=== PATIENT | female | born 1960 | race Caucasian/White ===

== ENCOUNTER 2023-06-04 08:41 | Inpatient (IN) | payer BC, SELFPAY ==
[2023-06-03] VITALS (15 sets, daily range): BP systolic 104–139; BP diastolic 56–107; BMI 39.8; BMI 39.3
[2023-06-03 18:16] LABS: % Basophils 0.8 % (0-2); % Eosinophils 6.6 % (0-6); % Immature Granulocytes 0.5 % (0-0.5); % Lymphocytes 17.9 % (20.5-51.1); % Monocytes 8.6 % (1.7-9.3); % Neutrophils 65.6 % (42.2-75.2); Absolute Basophils 0.1 10^3/uL (0-0.2); Absolute Eosinophils 0.4 10^3/uL (0-0.7); Absolute Lymphocytes 1.2 10^3/uL (1.2-3.4); Absolute Monocytes 0.6 10^3/uL (0.1-0.6); Absolute Neutrophils 4.3 10^3/uL (1.4-6.5); Hematocrit 41.5 % (37.0-47.0); Hemoglobin 13.8 g/dL (12.0-16.0); Mean Corp Hgb Conc. 33.3 g/dL (33.0-37.0); Mean Corpuscular Hgb 31.7 pg (27.0-31.0); Mean Corpuscular Volume 95.4 fL (81.0-99.0); Mean Platelet Volume 12.8 fL (7.4-10.4); Nucleated Red Blood Cells % 0 %; Platelet Count 244 10^3/uL (130-400); Red Blood Cell Count 4.35 10^6/uL (4.20-5.40); Red Cell Dist. Width 13.1 % (11.5-14.5); White Blood Cell Count 6.5 10^3/uL (4.8-10.8)
[2023-06-03 18:32] LABS: ALT (SGPT) 62 U/L (0-35); AST (SGOT) 27 U/L (14-36); Albumin 4.2 g/dl (3.5-5.0); Alkaline Phosphatase 164 U/L (38-126); Blood Urea Nitrogen 26 mg/dl (7-17); Calcium 9.2 mg/dl (8.4-10.2); Carbon Dioxide 26 mmol/L (22-30); Chloride 103 mmol/L (98-107); Estimated Creatinine Clearance 81 ml/min; Glucose 88 mg/dl (70-99); Magnesium 2.3 mg/dl (1.6-2.3); Potassium 4.9 mmol/L (3.5-5.1); Sodium 134 mmol/L (135-145); Total Bilirubin 1.6 mg/dl (0.2-1.3); Total Protein 6.6 g/dl (6.3-8.2); eGFR > 60.00
[2023-06-03 18:50] LABS: NT-proBNP 128 pg/ml
[2023-06-03] MEDS: ASPIRIN 325 MG PO (19:49)
[2023-06-03] MEDS: NITROSTAT (SUBLINGUAL) 0.400000000000000022 MG SL ×2 (20:00→20:35)
--- NOTE | 2023-06-03 20:14 | HPS.HSE ---
Family Physician
-
Family Physician: Sukhjinder Leyva
Chief Complaint
-
CP
History of Present Illness
62F HX CAD/STEMI: s/p thrombectomy OM2 09/19/15 on ASA and carvedilol HLD on statin, HX Mesothelioma pw chest sdisconfort , onset 2 hrsa go. She had a period of CP with relief having some recurrence now (though minimal), repeated the EKG without
change
ER initated ASA loading ,Nitro SL x3 and heparin gtt.
Medical History
Past Medical History
Past Medical History: Reports Other
Additional Past Medical History:
GERD, HTN, Hypercholesterolemia and [place];
Past Surgical History: Reports Other
Additional Past Surgical History:
Cardiac (Cardiac catheterization), Gynecological, Orthopedic and Other (Hernia)
Social History
Tobacco: Former Smoker (Quit smoking approximately 5 years ago)
Alcohol: None
Personal:
Living: With Family
Family History
Family History: Not pertinent
Allergies / Home Medications
Allergies reflects when Allergies were last updated in [facility].
Home Medications with original date entered in [facility]
Allergy/Medication List:
Allergies
Allergy/AdvReac Type Severity Reaction Status Date / Time
amoxicillin [From Augmentin] Allergy colitis Verified 06/03/23 16:48
clavulanic acid Allergy colitis Verified 06/03/23 16:48
[From Augmentin]
Sulfa (Sulfonamide Allergy Hives Verified 06/03/23 16:48
Antibiotics)
Home Medications
nitroglycerin 0.4 mg sublingual tablet 0.4 mg sublingual [id number] PRN chest pain ##25 09/20/15
aspirin 81 mg tablet,delayed release 81 mg PO HS Blood clot prevention/tx 09/07/18
atorvastatin 40 mg tablet 40 mg PO DAILY High cholesterol 09/07/18
furosemide 20 mg tablet 20 mg PO DAILYPRN PRN LE edema 09/07/18
lisinopril 5 mg tablet 5 mg PO BID Blood pressure 09/07/18
sucralfate 1 gram tablet 1 g PO BIDPRN PRN stomach issuses 09/07/18
carvedilol 6.25 mg tablet 6.25 mg PO BID Blood pressure 11/14/20
multivitamin with folic acid 400 mcg tablet (Tab-A-Raquel) 1 tab PO DAILY Supplement 11/14/20
valacyclovir 500 mg tablet 500 mg PO DAILYPRN PRN cold sores 11/14/20
zolpidem 12.5 mg tablet,extended release,multiphase (Ambien CR) 12.5 mg PO HS Sleep 11/14/20
calcium carbonate 500 mg calcium (1,250 mg) tablet 500 mg PO DAILY 06/03/23
cefdinir 300 mg capsule 300 mg PO BID 06/03/23
gabapentin 300 mg capsule 300 mg PO BID 06/03/23
lorazepam 0.5 mg tablet 0.5 mg PO HS PRN anxiety 06/03/23
Review of Systems
-
Constitutional: Reports No Symptoms
EENT: Reports No Symptoms
Respiratory: Reports No Symptoms
Cardiac: Reports Chest Pain
Abdomen/GI: Reports No Symptoms
: Reports No Symptoms
Musculoskeletal: Reports No Symptoms
Skin: Reports No Symptoms
Neurological: Reports No Symptoms
Endocrine: Reports No Symptoms
Hematologic/Lymphatic: Reports No Symptoms
Psych: Reports No Symptoms
Physical Exam
Vital Signs
Vital Signs
Temp Pulse Resp BP Pulse Ox
97.9 F 78 18 138/72 78
06/03/23 16:44 06/03/23 19:51 06/03/23 19:51 06/03/23 19:51 06/03/23 19:51
Physical Exam
General: Other (see below )
Laboratory Results
-
06/03/23 18:03
06/03/23 18:03
Laboratory Results
Total Bilirubin 1.6 mg/dl (0.2-1.3) H 06/03/23 18:03
AST 27 U/L (14-36) 06/03/23 18:03
ALT 62 U/L (0-35) H 06/03/23 18:03
Alkaline Phosphatase 164 U/L (38-126) H 06/03/23 18:03
Troponin I 0.050 ng/ml H* 06/03/23 18:03
Data Reviewed
-
CT Scan: Report Reviewed by me
Medical Tests (Nuc Med, Echo, EKG etc): Report Reviewed by me and Discussed with Physician
Lab Data: Labs Reviewed by me
Old Records: Reviewed
Impression/Plan
-
Reviewed VS: HR low 60s on BB otherwise unremarkable
PE
GENERAL: No distress
HEENT: not icteric
HEENT: supple neck, no JVD
CARDIOVASCULAR: No murmurs, normal heart rate and rhythm, No chest wall tenderness
PULMONARY: No respiratory distress, breath sounds are clear and equal
ABDOMEN: Soft with no peritoneal signs, no tenderness
NEUROLOGIC: Excellent strength all extremities, no coordination deficits
PSYCHIATRIC: Appropriate mental status, normal insight and judgement
EXTREMITIES: Some superficial varicosities noted to the distal left lower extremity at the area of concern.
SKIN: No rash
Data
Unremarkable CBC
Na 134
BUN 26
nl Cr nl GFR
TB 1.6^ nl AST ALT 62^
TPNI @1803 H 0.050 secont TPNI @ 1954 H
EKG report
SINUS RHYTHM WITH 1ST DEGREE A-V BLOCK
OTHERWISE NORMAL ECG
WHEN COMPARED WITH ECG OF 03-JUN-2023 16:50,
PREMATURE VENTRICULAR COMPLEXES ARE NO LONGER PRESENT
09/19/15 LHC: LVEDP 28. OM2 occluded - suction thrombectomy with no residual plaque/stenosis (no PCI). Lateral akinesis 42%.
09/19/15 TTE: mildly dilated LV with EF 35%. Takotsubo pattern
03/23/23 TTE
LVEF 55-60
nl diastolic function
PASP 25 Hg
06/03/23 CTC for PE protocol
1. No CTA evidence for an acute pulmonary thromboembolism.
2. Small right pleural effusion.
3. Cholelithiasis.
4. Left lobe thyroid gland nodule measuring 1.2 cm for which a follow-up thyroid ultrasound can be performed on a routine outpatient basis.
Last admission 11/14/20 - 11/18/20
PRIMARY DIAGNOSIS: Acute colitis, suspected infectious.
SECONDARY DIAGNOSES:
1. Coronary artery disease.
2. Hypertension.
3. Hyperlipidemia.
ASSESSMENT & PLAN
CP with abn TPNI despite nl GFR - unremarkable EKG and no dynamic changes
HX CAD/STEMI: s/p thrombectomy OM2 09/19/15 on ASA and carvedilol
Some relief with SL NTG
HX HLD on Stain
- P cared: Dr Villatoro
of note; NEG CTC for PE
- s/p ASA loading dose
- cont. SL NTG PRN for CP
- agree with Heparin gtt
- cont ROUTE CONTRACTOR carvedilol and Atorvastatin
- Tred TPNI till peak
- CBC card consulted upon admission
SB due to carvedilol
- observe HR
HX essential HTN - control on BB
Abn TPNI and ALT; Mild
- Trend LFTs
- will cont. Stain for now
HX Mesothelioma
DVT Px: on Heparin gtt
Code: Full
Obs TLM
--- NOTE | 2023-06-03 20:18 | ED.GENMED ---
History of Present Illness
General
Chief Complaint: Chest Pain
Source: patient, spouse and family
Exam Limitations: none
Time Seen by Provider: 06/03/23 17:13
Nursing documentation reviewed up to this point in time: agreed with
Travel History
Have you had any contact with someone who has COVID-19?: No
Do you have any symptoms of coronavirus? Fever > 100 degrees, chills, cough, shortness of breath, sore throat, loss of taste or smell, muscle aches, or headache?: No
History of Present Illness
History of Present Illness:
62-year-old female past medical history of hypertension hyperlipidemia previous UT in 2016 recent diagnosis of mesothelioma presenting to the emergency department today with concerns of chest discomfort described as pressure some shortness of breath
over the past few hours prior to arrival. Denies nausea vomiting diaphoresis.
Past History
Past History
ED Past Medical History: GERD, HTN, Hypercholesterolemia and [place]; Negative NIDDM
ED Past Surgical History: Cardiac (Cardiac catheterization), Gynecological, Orthopedic and Other (Hernia)
Social History
Tobacco: Former smoker (Quit smoking approximately 5 years ago.)
Alcohol: None
Personal:
Living: with family
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
Family History
Family History: Early CAD (Father, late 30s, at 43.)
Review of Systems
Review of Systems
Allergies reviewed?: Yes
All Other Systems: ROS reviewed and negative except as documented in HPI and ROS
Phy Exam
Physical Exam
Physical Exam:
GENERAL: Alert , in no apparent distress
EYE: pupils equal and reactive
NECK: Supple, no significant adenopathy.
ENT: o/p clr, mmm.
CARDIAC: Regular rate and rhythm .
LUNGS: Clear breath sounds bilaterally, no acute respiratory distress, no wheezes/rales/rhonchi
ABDOMEN: Soft, without focal tenderness, no r/g, no cvat
NEUROLOGICAL: Alert and oriented, no focal neuro deficits
SKIN: Warm and dry, skin intact.
MUSCULOSKELETAL: No edema, well perfused.
PSYCH: Normal and appropriate interaction.
Scores
Heart Score for Chest Pain Patients
STEMI patient?: No
History: Moderately Suspicious
ECG: Normal
Age: >45 - <65 years
Risk Factors: >/= 3 Risk Factors or History of CAD
Troponin: >1 - <3 x Normal Limit
Heart Score for Chest Pain Patients: 5
Heart Score Risk: 20.3% MACE over next 6 weeks
Course
Orders/Labs/Results
Orders:
Orders
06/03/23 16:48
Electrocardiogram (*1) Urgent
Reason for Study: Chest Pain
EKG- Treatment ONCE
06/03/23 17:43
CT Chest Pe Study Urgent
Comment:
Reason For Exam: mesthoelioma, recent biopsy, cp sob
06/03/23 18:03
Complete Blood Count/With Diff Urgent
Comprehensive Metabolic Panel Urgent
Magnesium Urgent
NT-proBNP Urgent
Troponin I Urgent
06/03/23 19:30
Electrocardiogram (*1) Urgent
Reason for Study: Other
Other Reason for Exam: troponin
EKG- Treatment ONCE
06/03/23 19:46
Aspirin 325 mg PO NOW STA
06/03/23 19:54
Troponin I Urgent
06/03/23 19:56
Nitroglycerin Sublingual [Nitrostat (Sublingual)] 0.4 mg SL [id number] PRN
06/03/23 19:58
PTT Urgent
Comment: Obtain baseline before beginning heparin infusion if not already collected
Heparin 4,000 units IV NOW STA
Pharmacy Request to Place See Dose Instructions PO NOW STA
Discontinue all Active Warfarin orders?: Yes
Nursing to Place Non Medication Order As Directed
Physician Order: PTT 6 hours after initial start of Heparin infusion
06/03/23 20:00
Heparin [id number] Units/250 ml 25,000 units in 250 ml IV PER PROTOCOL
Weight to be used for heparin protocol in kilograms (kg):: 122.3
Protocol:: Cardiac Tx/Acute Coronary
PTT Goal Range to be used:: PTT 73 to 111 seconds
Order type:: Initial
INITIAL Infusion Dose (UNITS/KG/hr) & then follow protocol:: 12 units/kg/hr
Infusion Dose in UNITS/hr & then follow protocol (UNITS/hr):: 1,000
INFUSION RATE in mL/hr & then follow protocol (mL/hr):: 10
PTT less than or equal to 64 seconds:: Increase rate by 200 units/hr (+ 2 mL/hr)
PTT 64.1 to 72.9 seconds:: Increase rate by 100 units/hr (+ 1 mL/hr)
PTT 73 to 111 seconds:: Target Range. No change in rate.
PTT 111.1 to 130.9 seconds:: Decrease rate by 100 units/hr (- 1 mL/hr)
PTT 131 to 199.9 seconds:: HOLD for 1 hr. Then decrease rate by 200 units/hr (- 2 mL/hr)
PTT greater than or equal to 200 seconds:: HOLD for 2 hrs & Notify Provider. Then decrease by 200 units/hr (-
2 mL/hr)
Lab follow-up:: Each change, PTT q6h until 2 consecutive are therapeutic. Then PTT
daily.
Pharmacy Request to Place See Dose Instructions IV DIRECTED
Abnormal Lab Results
06/03/23
18:03
MCH 31.7 H pg
(27.0-31.0)
MPV 12.8 H fL
(7.4-10.4)
Lymphocytes % 17.9 L %
(20.5-51.1)
Eosinophils % 6.6 H %
(0-6)
Sodium 134 L mmol/L
(135-145)
BUN 26 H mg/dl
(7-17)
Total Bilirubin 1.6 H mg/dl
(0.2-1.3)
ALT 62 H U/L
(0-35)
Alkaline Phosphatase 164 H U/L
(38-126)
Troponin I 0.050 H* ng/ml
06/03/23 18:03
06/03/23 18:03
Vital Signs
Initial and Last Documented VS:
Initial Vital Signs
Temp Pulse Resp BP Pulse Ox
97.9 F 87 18 139/84 96
06/03/23 16:44 06/03/23 16:44 06/03/23 16:44 06/03/23 16:44 06/03/23 16:44
Last Documented Vital Signs
Temp Pulse Resp BP Pulse Ox
97.9 F 78 18 138/72 78
06/03/23 16:44 06/03/23 19:51 06/03/23 19:51 06/03/23 19:51 06/03/23 19:51
MDM/Problems Addressed
MDM/Problems Addressed:
62-year-old female presenting to the emergency department today with concerns of chest pressure and shortness of breath that occurred at work while sitting at a desk roughly 2 hours prior to arrival. Recently diagnosed with mesothelioma a
previously had coronary artery disease and thrombectomy in 2016. Per here EKG normal in appearance nonischemic no STEMI initial labs showing a mildly elevated troponin level of 0.[address] PE was obtained that she is
potentially moderate risk for PE given diagnosis of mesothelioma as well as procedure a few weeks ago for biopsy. This was negative for PE. With elevated troponin level concern for NSTEMI started on heparin and admitted for further monitoring and
treatment.
*Critical Care Note
Total Time (30-74mins, 75-104mins- exclusive of procedures): Not Applicable
ED Attending Note
-
Portions of this chart may have been created with voice recognition software.� Occasional wrong word or��sound alike� substitutions may have occurred due to the inherent limitations of voice recognition software.
Discharge Plan
Departure
Patient Disposition: Admit
Date of Disposition: 06/03/23
Time of Disposition: 20:20
Admit to: Telemetry
Admit to doctor: Htay
Presentation/result/management discussed w/ accepting MD/DO: Hospitalist
Patient with high blood pressure during this ER visit?: No
Condition: Good
Covid-19: Not Applicable
Discharge Problem:
Non-ST elevation [place] (NSTEMI)
Prescriptions:
No Action
nitroglycerin 0.4 MG tablet, sublingual
0.4 mg sublingual [id number] PRN (Reason: chest pain) Qty: 25 3RF
sucralfate 1 GRAM tablet
1 g PO BIDPRN PRN (Reason: stomach issuses)
lisinopril 5 MG tablet
5 mg PO BID
atorvastatin 40 MG tablet
40 mg PO DAILY
aspirin 81 MG tablet,delayed release (DR/EC)
81 mg PO HS
furosemide 20 MG tablet
20 mg PO DAILYPRN PRN (Reason: LE edema)
valacyclovir 500 MG tablet
500 mg PO DAILYPRN PRN (Reason: cold sores)
zolpidem [Ambien CR] 12.5 MG tablet,ext release multiphase
12.5 mg PO HS
multivitamin with folic acid [Tab-A-Raquel] 1 TABLET tablet
1 tab PO DAILY
carvedilol 6.25 MG tablet
6.25 mg PO BID
lorazepam 0.5 mg Tablet
0.5 mg PO HS PRN (Reason: anxiety)
calcium carbonate [Calcium 500] 500 mg calcium (1,250 mg) Tablet
500 mg PO DAILY
gabapentin 300 mg Capsule
300 mg PO BID
cefdinir 300 mg Capsule
300 mg PO BID
Patient Comments:
patient case picker on 05/25/23 for 10 days
Referrals:
Sukhjinder Leyva, [Family Provider] -
Interventions
Interventions:
*General Assessment Last Done: 06/03/23 16:44
ED- Fall Risk Assessment Last Done: 06/03/23 17:22
*ED COVID-19 Vaccine History Last Done: 06/03/23 16:44
ED- Cardiac Assessment Last Done: 06/03/23 17:22
[2023-06-03 20:36] LABS: APTT 30.1 Sec (23.4-35.0)
[2023-06-03] MEDS: MORPHINE SULFATE 1 MG IV (20:51)
[2023-06-03] MEDS: HEPARIN 4000 UNITS IV (20:56)
[2023-06-03] MEDS: HEPARIN 25000 UNITS/250 ML IV (20:59)
--- NOTE | 2023-06-03 21:50 | W.PN.UPDATE ---
Addendum entered and electronically signed by Maurilio Mcdonald MD 06/04/23 13:01:
I saw and examined the patient.
The ACTING TEACHER or PA's note was reviewed and I agree with the note.
Comment:
Original Note:
Update Note
Progress Note Update
Patient continues to complain of chest pain 10/10, just received Morphine almost an hour ago, repeat Troponin 0.050, Will transfer patient to IMU for closer observation, Start on Nitro drip for chest pain. Dr. William aware
[2023-06-03] MEDS: NITROGLYCERIN PREMIX 250 IV (22:06)
[2023-06-03] MEDS: ASPIR LOW (ENTERIC COATED) PO (23:21)
[2023-06-04] VITALS (27 sets, daily range): BP systolic 94–149; BP diastolic 41–90; BMI 39.1
--- NOTE | 2023-06-04 | PTCARENOTE ---
Received patient from ED via stretcher accompanied by ED RN. Patient ambulated self to bed without difficulty. Nursing assessment completed and as documented. Patient on heparin gtt and nitro gtt for CP, titrating both per protocol - see worklist
for documentation. Call sy within reach, safe environment maintained, care ongoing.
[2023-06-04] MEDS: ATIVAN 0.5 MG PO ×3 (03:16→20:11)
[2023-06-04 03:37] LABS: APTT 38.4 Sec (23.4-35.0)
[2023-06-04] MEDS: TYLENOL 650 MG PO (05:23)
[2023-06-04 05:38] LABS: Troponin I 0.048 ng/ml
[2023-06-04 05:54] LABS: ALT (SGPT) 45 U/L (0-35); AST (SGOT) 22 U/L (14-36); Albumin 3.2 g/dl (3.5-5.0); Alkaline Phosphatase 132 U/L (38-126); Blood Urea Nitrogen 26 mg/dl (7-17); Calcium 9.1 mg/dl (8.4-10.2); Carbon Dioxide 24 mmol/L (22-30); Chloride 105 mmol/L (98-107); Estimated Creatinine Clearance 80 ml/min; Glucose 105 mg/dl (70-99); HDL Cholesterol 48 mg/dl; LDL Cholesterol, Calculated 51 mg/dl; Potassium 4.4 mmol/L (3.5-5.1); Sodium 138 mmol/L (135-145); Total Bilirubin 1.5 mg/dl (0.2-1.3); Total Cholesterol 114 mg/dl (50-199); Total Protein 5.3 g/dl (6.3-8.2); Triglyceride 77 mg/dl (10-149); Very Low Density Lipoprotein 15 mg/dl (0-30); eGFR > 60.00
--- NOTE | 2023-06-04 07:37 | PTCARENOTE ---
Patient received from nightshift nurse. Patient is alert and oriented x4, anxious. Denies chest pain/discomfort. NSR with occasional monomorphic PVCs. HR 60s-70s. Audible heart tones. BP 94/57. Palpable pulses. Trace LE edema. Heparin gtt received
at 1200 units/hr. Nitro gtt received at 22mcgs/min. PIV x2 maintained. RA. Oxygen saturation 97%. Upon auscultation, lung sounds diminished at the bases. Abdomen round, obese. Hypoactive BS. NPO for possible cath procedure. Voids in BR. Assist x1
with gtts. Skin intact. Will continue to monitor.
--- NOTE | 2023-06-04 08:40 | CON.CAR ---
Addendum entered and electronically signed by Satish Yo MD 06/04/23 09:33:
Patient seen and examined in collaboration with INSPECTOR [employer] UP [employer] LAY OUT; agree with below.
-62-year-old female (former smoker) with known CAD as outlined below, including previous STEMI in 2016; admitted with chest pain, concerning for angina.
-Cardiac enzymes very mildly elevated, but patient continues to have chest pain, although improved to some degree while on nitroglycerin and heparin.
-Patient will undergo cardiac catheterization today for definitive coronary assessment; keep NPO.
-Continue residential monitor; further recommendations based upon cardiac catheterization findings.
Original Note:
Consultation
Consultation Request
Date/Time Consultation Requested: 06/03/23 11:15p
Date/Time Consultation Performed: 06/04/23 8:15a
Requesting Provider: Dr. Mcdonald
Performing Provider: LULI Toribio for Dr. Yo
Reason for Consultation: chest pain/tightness
Medical History
-
Chief Complaint: chest pain/tightness
History of Present Illness:
Mrs. Domingo is a 62 year old female with STEMI s/p thrombectomy to OM2 in 09/2015 (no stents), Takutsubo cardiomyopathy with recovered EF, chronic HFpEF, HTN, moderate MR, 1st degree AVB, dyslipidemia, GERD, and melanoma removed from b/l
shoulders, who presents to the ER with c/o chest pain/tightness that began at 3pm 06/03/23 while sitting at her desk at work. Chest pain/tightness is constant, it is not worse with exertion and improved with Nitroglycerin. Initially her pain was an
8/10, now pain is 3/10, on NTG drip. There is mild associated SOB. Troponin 0.050 x 3, 0.048. EKG SR 74 bpm, first degree AVB and PVC, w/o acute ischemia. She is admitted to the hospitalist service and we are consulted for chest pain/tightness,
NSTEMI.
She reports having an abnormal CXR 04/24/23 and had a lung biopsy at [facility] 05/18/23, and she just found out this week that she has mesothelioma and will need treatment (immunotherapy, surgery). She spoke to her team at [facility] yesterday about her chest
pain/tightness with mild SOB and they recommended she go to the ER to rule out PE and further evaluation. CT chest was negative for PE.
Past Medical History
Past Medical History: Other (as above)
Past Surgical History: and Other (melanoma removed from b/l shoulders, hernia repair)
Social History
Tobacco: Former Smoker
Alcohol: None
Drug: None
Personal:
Living: With Family
Employment: Employed
Family History
Family History: Early CAD (father age 43 [place])
Allergies / Home Medications
Allergy/AdvReac Type Severity Reaction Status Date / Time
amoxicillin [From Augmentin] Allergy colitis Verified 06/03/23 16:48
clavulanic acid Allergy colitis Verified 06/03/23 16:48
[From Augmentin]
Sulfa (Sulfonamide Allergy Hives Verified 06/03/23 16:48
Antibiotics)
Medication Instructions Recorded Confirmed Type
nitroglycerin 0.4 mg sublingual 0.4 mg sublingual [id number] PRN 09/20/15 06/03/23 Rx
tablet chest pain ##25
aspirin 81 mg tablet,delayed 81 mg PO HS Blood clot 09/07/18 06/03/23 History
release prevention/tx
atorvastatin 40 mg tablet 40 mg PO DAILY High cholesterol 09/07/18 06/03/23 History
furosemide 20 mg tablet 20 mg PO DAILYPRN PRN LE edema 09/07/18 06/03/23 History
lisinopril 5 mg tablet 5 mg PO BID Blood pressure 09/07/18 06/03/23 History
sucralfate 1 gram tablet 1 g PO BIDPRN PRN stomach issuses 09/07/18 06/03/23 History
carvedilol 6.25 mg tablet 6.25 mg PO BID Blood pressure 11/14/20 06/03/23 History
multivitamin with folic acid 400 1 tab PO DAILY Supplement 11/14/20 06/03/23 History
mcg tablet (Tab-A-Raquel)
valacyclovir 500 mg tablet 500 mg PO DAILYPRN PRN cold sores 11/14/20 06/03/23 History
zolpidem 12.5 mg tablet,extended 12.5 mg PO HS Sleep 11/14/20 06/03/23 History
release,multiphase (Ambien CR)
calcium carbonate 500 mg calcium 500 mg PO DAILY Supplement 06/03/23 06/03/23 History
(1,250 mg) tablet
cefdinir 300 mg capsule 300 mg PO BID Infection 06/03/23 06/03/23 History
gabapentin 300 mg capsule 300 mg PO BID Pain 06/03/23 06/03/23 History
lorazepam 0.5 mg tablet 0.5 mg PO HS PRN anxiety 06/03/23 06/03/23 History
Review of Systems
-
History Source: Patient
All other systems: Negative unless noted
Physical Exam
Vital Signs
Temp Pulse Resp BP Pulse Ox
98.2 F 64 18 94/57 97
06/04/23 07:33 06/04/23 07:33 06/04/23 07:33 06/04/23 07:33 06/04/23 07:33
Lab Results
06/03/23 18:03
06/04/23 04:44
Troponin I 0.048 ng/ml H* 06/04/23 04:44
Xyq-[id number]-Abrzgfpazcd Pept 128 pg/ml 06/03/23 18:03
Physical Exam
General: Well Developed, Well Nourished and No Apparent Distress
HEENT: Normocephalic
Respiratory: Clear and Non Labored Respirations
Cardiac: S1/S2, Regular Rhythm and Murmur (2/6 JOHN )
Breast: Deferred by me
GI: Soft, Non Tender, Non Distended and Normal Bowel Sounds
Rectal: Brown and Deferred by Provider
Musculoskeletal: No Clubbing, No Cyanosis and No Edema
Skin: Warm and Dry
Neuro: AO x 3
Hematologic/Lymphatic: No Lymphadenopathy
Psych: Calm
Impression / Plan
-
NSTEMI - 0.050 x 3 now 0.048.
- chest pain/tightness began at 3pm yesterday 06/03/23.
- some relief with SL NTG, now on NTG drip, pain is 07/10.
- IV Heparin, ASA.
- plan for [facility] today.
CAD - s/p STEMI with thrombectomy to OM2 09/2015.
- no PCI.
- has been on medical therapy w/o issues.
- now with NSTEMI, plan for [facility] today.
Takotsubo cardiomyopathy - EF was 40%, now recovered 55-60%.
- no overt HF on exam.
- uses Lasix PRN edema/weight gain.
HTN - stable on meds, continue.
HLD - on Lipitor, continue.
- LDL 65 04/17/23.
- HLD 56, triglycerides 92, total cholesterol 138.
Mitral regurgitation - moderate on echo 03/2023.
- continue medical therapy.
Mesothelioma - new diagnosis this week.
- follows at [facility], eventual plan for immunotherapy and surgery.
Data Reviewed
-
CT Scan: Report Reviewed by me (negative for PE)
Medical Tests (Nuc Med, Echo etc): Report Reviewed by me (echo 03/23/23: EF 55-60%, mild cLVH, normal RV, moderate MR, PASP 25mmHg.)
Labs: Labs Reviewed by me
Old Records: Reviewed
[2023-06-04 08:56] LABS: Glycohemoglobin (HgbA1c) 5.9 % (4.0-5.6)
[2023-06-04] MEDS: NEURONTIN 300 MG PO ×2 (09:01→20:12)
[2023-06-04] MEDS: THERAGRAN 1 TABLET PO (09:01)
[2023-06-04] MEDS: LIPITOR 40 MG PO (09:01)
[2023-06-04] MEDS: ZESTRIL PO (09:14)
[2023-06-04] MEDS: COREG PO (09:14)
--- NOTE | 2023-06-04 09:42 | CM ---
Reviewed chart. Met with Mrs. Domingo to review discharge plans. She states prior to admission she resides with her spouse and son in a two story home with four steps to enter. She states she has a full flight of steps to get to bedroom/full
bathroom. She states she has a powder room on the first floor. She states prior to admission she was independent with ambulation and adls. She states she does not have any DME in the home. she states she has a prescription plan and uses [facility]. Medical work-up in progress. The discharge plan is to return home with her spouse and son when medically stable.
[2023-06-04] MEDS: ZOFRAN 4 MG IV (09:49)
--- NOTE | 2023-06-04 10:08 | PTCARENOTE ---
Patient picked up by carpenter/labor nurses. Gave a quick update at bedside. Patient weighed and went to the BR prior. Heparin gtt stopped for carpenter/labor. Per carpenter/labor RNs, patient will not need heparin gtt for a couple hours. PTT canceled and will redraw
when heparin gtt continued.
--- NOTE | 2023-06-04 11:01 | ITS.CL.CATH ---
[facility] - Catheterization
Cardiac Catheterization
Procedure Report:
CARDIAC CATHETERIZATION REPORT
Date of Procedure: 06/04/2023
Referring: Satish Yo MD
Indication: Prolonged chest discomfort (>12 hours) with peak troponin 0.05
HEMODYNAMIC DATA
AO: 114/51
LV: 114/18
LEFT VENTRICULOGRAPHY: Normal left ventricular wall motion with EF 59%
CORONARY ANGIOGRAPHY
Dominance: Right
Left Main: Normal
LAD: Normal
Circumflex: Trivial luminal irregularities
RCA: Dominant vessel with trivial luminal irregularities
Closure Device: None-the procedure was performed via the right radial artery. The George's test was normal prior to the procedure.
Radiation (mGy): 363
DAP (cm2.Gy): 31.2
Fluoroscopy time: 2.8 minutes
CONCLUSIONS
1: Normal left ventricular function with EF 59%
2: No significant CAD
3. Chest pain is noncardiac
Copy to: Satish Yo MD, Sukhjinder Leyva DO
Anthony Crowder MD, [facility], [facility]
--- NOTE | 2023-06-04 11:17 | PTCARENOTE ---
Patient received from laborer laboratory. Bedside handoff performed. R radial TR band intact with 10cc maintained. Patient is alert and denies CP. Vital signs stable. NSR. HR 60s. BP 108/49. RA. Oxygen saturation 100% on R thumb. Patient eager to order lunch.
--- NOTE | 2023-06-04 13:17 | W.PN.HOSP.TC ---
Today's Communication/Plan
-
Trial of Protonix 40 mg p.o. daily
Trial of Ativan 0.5 mg every 4 hours as needed
Assessment / Plan
Assessment / Plan
HPI:62 year old female with STEMI s/p thrombectomy to OM2 in 09/2015 (no stents), Takutsubo cardiomyopathy with recovered EF, chronic HFpEF, HTN, moderate MR, 1st degree AVB, dyslipidemia, GERD, and melanoma removed from b/l shoulders, who presents
to the ER with c/o chest pain/tightness that began at 3pm 06/03/23 while sitting at her desk at work.
#Substernal chest pain
Appreciate cardiology input, status post cardiac catheterization on 06/04, showing nonsignificant coronary artery disease
Chest pain is noncardiac
Start Protonix 40 mg daily, Pepcid 20 mg at bedtime for possible reflux component
Change sucralfate to 1 g p.o. AC 3 times daily
Start Ativan 0.5 mg every 4 hours as needed for possible anxiety component
#Coronary artery disease
#History of STEMI s/p thrombectomy to OM2 in 09/2015
Continue aspirin, statin, Coreg, lisinopril
#Takotsubo cardiomyopathy with recovered ejection fraction
#Chronic heart failure with preserved ejection fraction
Continue Coreg, Lasix as needed
#Gastroesophageal reflux disease
Change sucralfate to 1 g p.o. AC 3 times daily, start Protonix, start Pepcid
#Anxiety
Increase Ativan from 0.5 mg at bedtime as needed to 0.5 mg every 4 hours as needed
#Morbid obesity with a BMI of 39
Affects all aspects of care
DVT prophylaxis�SCDs
Full code
Total time spent to see the patient on the floor, examine the patient, review data and lab results, discuss treatment plan with patient, nursing staff around 51 minutes.
Physical Exam
General: Obese, no acute distress
HEENT: Normocephalic, Atraumatic, EOMI, MMM
Respiratory: Clear to Auscultation bilaterally
Cardiac: Normal S1/S2, Regular Rate and Rhythm
GI: Soft, Nontender, Nondistended, Normal Bowel Sounds
Extremities: No Clubbing, Cyanosis, or Edema
Anticipated Discharge: Within 24 hours
Subjective/Interval History
-
Date of Service: June 04, 2023
Patient reports chest pain is improved, 1 out of 10 in intensity.
Objective Data
-
Labs:
Laboratory Results
06/03/23 06/04/23 06/04/23
20:17 03:13 04:44
APTT 30.1 38.4 H
Sodium 138
Potassium 4.4
Chloride 105
Carbon Dioxide 24
BUN 26 H
Creatinine 1.0
Glucose 105 H
Calcium 9.1
Total Bilirubin 1.5 H
AST 22
ALT 45 H
Alkaline Phosphatase 132 H
06/04/23
09:45
APTT Pending
Sodium
Potassium
Chloride
Carbon Dioxide
BUN
Creatinine
Glucose
Calcium
Total Bilirubin
AST
ALT
Alkaline Phosphatase
Vital Signs:
Vital Signs
Temp Pulse Resp BP Pulse Ox
98.2 F 64 18 94/57 97
06/04/23 07:33 06/04/23 07:33 06/04/23 07:33 06/04/23 07:33 06/04/23 07:33
[2023-06-04] MEDS: CARAFATE PO (15:48)
[2023-06-04] MEDS: PROTONIX 40 MG PO (15:48)
[2023-06-04] MEDS: CARAFATE 1 GRAM PO ×2 (15:53→23:07)
[2023-06-04] MEDS: COREG 6.25 MG PO (20:12)
[2023-06-04] MEDS: ZESTRIL 5 MG PO (20:13)
[2023-06-04] MEDS: ASPIR LOW (ENTERIC COATED) 81 MG PO (23:07)
[2023-06-04] MEDS: PEPCID 20 MG PO (23:07)
--- NOTE | 2023-06-05 03:01 | PTCARENOTE ---
Took ativan for anxiety at 2010. Right radial cath site wnl. Sleeping at present.
[2023-06-05 04:11] VITALS: BP 108/62
[2023-06-05] MEDS: ATIVAN 0.5 MG PO ×2 (04:32→08:23)
[2023-06-05 04:56] LABS: Hematocrit 37.6 % (37.0-47.0); Hemoglobin 12.7 g/dL (12.0-16.0); Mean Corp Hgb Conc. 33.8 g/dL (33.0-37.0); Mean Corpuscular Hgb 31.3 pg (27.0-31.0); Mean Corpuscular Volume 92.6 fL (81.0-99.0); Mean Platelet Volume 12.6 fL (7.4-10.4); Platelet Count 203 10^3/uL (130-400); Red Blood Cell Count 4.06 10^6/uL (4.20-5.40); Red Cell Dist. Width 12.9 % (11.5-14.5); White Blood Cell Count 5.3 10^3/uL (4.8-10.8)
[2023-06-05 05:22] LABS: Blood Urea Nitrogen 20 mg/dl (7-17); Calcium 9.4 mg/dl (8.4-10.2); Carbon Dioxide 26 mmol/L (22-30); Chloride 104 mmol/L (98-107); Estimated Creatinine Clearance 89 ml/min; Glucose 94 mg/dl (70-99); Potassium 4.6 mmol/L (3.5-5.1); Sodium 137 mmol/L (135-145); eGFR > 60.00
[2023-06-05 07:51] VITALS: BP 119/77
[2023-06-05] MEDS: THERAGRAN 1 TABLET PO (08:23)
[2023-06-05] MEDS: CARAFATE 1 GRAM PO ×2 (08:24→11:08)
[2023-06-05] MEDS: LIPITOR 40 MG PO (08:24)
[2023-06-05] MEDS: ZESTRIL 5 MG PO (08:24)
[2023-06-05] MEDS: PROTONIX 40 MG PO (08:24)
[2023-06-05] MEDS: NEURONTIN 300 MG PO (08:24)
[2023-06-05] MEDS: COREG 6.25 MG PO (08:24)
--- NOTE | 2023-06-05 09:10 | W.PN.HOSP.TC ---
Today's Communication/Plan
-
Start Lexapro 15 mg daily
Discharge today
Assessment / Plan
Assessment / Plan
HPI:62 year old female with STEMI s/p thrombectomy to OM2 in 09/2015 (no stents), Takutsubo cardiomyopathy with recovered EF, chronic HFpEF, HTN, moderate MR, 1st degree AVB, dyslipidemia, GERD, and melanoma removed from b/l shoulders, who presents
to the ER with c/o chest pain/tightness that began at 3pm 06/03/23 while sitting at her desk at work.
#Substernal chest pain
Appreciate cardiology input, status post cardiac catheterization on 06/04, showing nonsignificant coronary artery disease
Chest pain is likely due to anxiety, since it was relieved with Ativan
Will discontinue Protonix and Pepcid since it did not help
Medically stable for discharge today
#Anxiety
Start Lexapro 50 mg p.o. daily
Resume previous home Ativan dose of 0.5 mg at bedtime
#Coronary artery disease
#History of STEMI s/p thrombectomy to OM2 in 09/2015
Continue aspirin, statin, Coreg, lisinopril
#Takotsubo cardiomyopathy with recovered ejection fraction
#Chronic heart failure with preserved ejection fraction
Continue Coreg, Lasix as needed
#Gastroesophageal reflux disease
Can continue previous sucralfate twice daily as needed
#Morbid obesity with a BMI of 39
Affects all aspects of care
DVT prophylaxis�SCDs
Full code
Physical Exam
General: Obese, no acute distress
HEENT: Normocephalic, Atraumatic, EOMI, MMM
Respiratory: Clear to Auscultation bilaterally
Cardiac: Normal S1/S2, Regular Rate and Rhythm
GI: Soft, Nontender, Nondistended, Normal Bowel Sounds
Extremities: No Clubbing, Cyanosis, or Edema
Anticipated Discharge: Today
Subjective/Interval History
-
Date of Service: June 05, 2023
Patient reports that her chest pain resolved with the Ativan. She attributes the pain to her anxiety.
Objective Data
-
Labs:
Laboratory Results
06/05/23
04:25
WBC 5.3
Hgb 12.7
Hct 37.6
Plt Count 203
Sodium 137
Potassium 4.6
Chloride 104
Carbon Dioxide 26
BUN 20 H
Creatinine 0.9
Glucose 94
Calcium 9.4
Vital Signs:
Vital Signs
Temp Pulse Resp BP Pulse Ox
97.7 F 67 16 119/77 96
06/05/23 08:06 06/05/23 06:00 06/05/23 08:06 06/05/23 08:24 06/05/23 04:13
I&O
06/04/23 06/05/23 06/06/23
06:59 06:59 06:59
Intake Total 1080 / 1080
Balance 1080 / 1080
--- NOTE | 2023-06-05 11:02 | W.DCSUMMARY ---
Discharge Summary
Discharge Data
Date of Admission: 06/04/23
Date of Discharge: 06/05/23
-
Pending Results: No
Hospital Course
Discharge diagnosis:
Chest pain from anxiety
Generalized anxiety disorder
Gastroesophageal reflux disease
Coronary artery disease
History of ST elevation myocardial infarction status post thrombectomy in 2016
Takotsubo cardiomyopathy with recovered ejection fraction
Morbid obesity with a body mass index of 39
Consults: Cardiology
Procedures:
06/04/23 Cardiac catheterization showing nonsignificant coronary artery disease
Hospital course:
62 year old female with a past medical history of STEMI s/p thrombectomy to OM2 in 09/2015 (no stents), Takutsubo cardiomyopathy with recovered EF, chronic HFpEF, HTN, moderate MR, 1st degree AVB, dyslipidemia, GERD, and melanoma removed from b/l
shoulders, who presents to the ER with chest pain/tightness that began while sitting at her desk at work.
Patient was seen in conjunction with cardiology. She had a mildly elevated troponin of 0.05. She had cardiac catheterization which showed nonsignificant coronary artery disease. Cardiology states that her chest pain is noncardiac.
Patient received Ativan for possible anxiety induced chest pain, and Protonix/Pepcid for possible reflux induced chest pain. Patient states that her chest pain resolved with Ativan. Suspect her chest pain is anxiety related. She was started on
Lexapro 15 mg daily for her anxiety. She is continued on the Ativan that was prescribed by her PCP, 0.5 mg at bedtime as needed.
Patient is medically stable for discharge. She needs to follow-up with her primary care doctor 1 week.
Disposition: Home self-care
Discharge planning: Required 36 minutes
Discharge Plan
-
Patient Disposition: Home (Routine Discharge)
Discharge Diagnosis/Procedures: Chest pain due to anxiety, elevated troponin with negative cardiac cath, thyroid nodules, coronary artery disease, history of myocardial infarction, Takotsubo cardiomyopathy, gastroesophageal reflux disease, morbid
obesity with a body mass index of 39
Condition: Good
Diet: Low Cholesterol
Activity: As tolerated
Driving Restrictions: No driving for 24 hours
Activity Restrictions/Additional Instructions:
Recommended outpatient thyroid ultrasound with your primary care doctor.
Stand Alone Forms: DC Instructions- Cath/EP Lab
Referrals:
Kenya Vega CRNP [Specified Professional Personl] - 06/22/23 2:20 pm
Sukhjinder Leyva DO [Family Provider] - in one week
Prescriptions:
New
escitalopram oxalate 5 mg tablet
15 mg PO DAILY Qty: 270 0RF
Continued
nitroglycerin 0.4 MG tablet, sublingual
0.4 mg sublingual [id number] PRN (Reason: chest pain) Qty: 25 3RF
sucralfate 1 GRAM tablet
1 g PO BIDPRN PRN (Reason: stomach issuses)
lisinopril 5 MG tablet
5 mg PO BID
atorvastatin 40 MG tablet
40 mg PO DAILY
aspirin 81 MG tablet,delayed release (DR/EC)
81 mg PO HS
furosemide 20 MG tablet
20 mg PO DAILYPRN PRN (Reason: LE edema)
valacyclovir 500 MG tablet
500 mg PO DAILYPRN PRN (Reason: cold sores)
zolpidem [Ambien CR] 12.5 MG tablet,ext release multiphase
12.5 mg PO HS
multivitamin with folic acid [Tab-A-Raquel] 1 TABLET tablet
1 tab PO DAILY
carvedilol 6.25 MG tablet
6.25 mg PO BID
lorazepam 0.5 mg Tablet
0.5 mg PO HS PRN (Reason: anxiety)
calcium carbonate 500 mg calcium (1,250 mg) Tablet
500 mg PO DAILY
gabapentin 300 mg Capsule
300 mg PO BID
Discontinued
cefdinir 300 mg Capsule
300 mg PO BID
Patient Comments:
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
Discharge Orders:
Discharge Patient (As Directed); Ordered 06/05/23
Ordered By: Edwin Zabala
Discharge Date and Time
Discharge Date/Time: 06/05/23 12:24
[2023-06-05] MEDS: LEXAPRO 15 MG PO (11:07)
--- NOTE | 2023-06-05 12:22 | PTCARENOTE ---
06/05/23 Received discharge order per Md. Discharge instructions, medications, follow up appointments reviewed with patient. Discussed medications, questions answered about times to take. Support given. and children at bedside. Questions
answered. Pt wheeled out by RN.
== END 2023-06-05 12:24 | disposition home or self-care (01) | DRG 880 ==
LOC: IVU 08:41
PROVIDERS: Internal Medicine Cardiovascular Disease; Nurse Practitioner Adult Health; Physician Assistant; ADMITTING PHYSICIAN Internal Medicine; ATTENDING PHYSICIAN Family Medicine; EMERGENCY PHYSICIAN Emergency Medicine; FAMILY PHYSICIAN Family Medicine; OTHER PHYSICIAN Internal Medicine
PROC: 4A023N7 Measurement of Cardiac Sampling and Pressure, Left Heart, Percutaneous Approach (ICD-10-PCS; 2023-06-04)
PROC: B2111ZZ Fluoroscopy of Multiple Coronary Arteries using Low Osmolar Contrast (ICD-10-PCS; 2023-06-04)
DX: F41.1 Generalized anxiety disorder (principal); I50.32 Chronic diastolic (congestive) heart failure; I51.81 Takotsubo syndrome; E78.00 Pure hypercholesterolemia, unspecified; I10 Essential (primary) hypertension; K21.9 Gastro-esophageal reflux disease without esophagitis; Z87.891 Personal history of nicotine dependence; I25.10 Atherosclerotic heart disease of native coronary artery without angina pectoris; I25.2 Old myocardial infarction; Z85.831 Personal history of malignant neoplasm of soft tissue; E66.01 Morbid (severe) obesity due to excess calories; Z68.39 Body mass index [BMI] 39.0-39.9, adult; E04.2 Nontoxic multinodular goiter; I44.0 Atrioventricular block, first degree
CPT/HCPCS: 71275; 80048; 80053; 80061; 83036; 83735; 83880; 84484; 85025; 85027; 85730; 93005; 93458; 99285; C1894; Q9967

== ENCOUNTER 2024-10-17 16:26 | Emergency (ER) | payer OTHER, SELFPAY ==
[2024-10-17] VITALS (7 sets, daily range): BP systolic 131–152; BP diastolic 52–82; BMI 38.4
--- NOTE | 2024-10-17 17:35 | ED.GENMED ---
History of Present Illness
General
Chief Complaint: Breathing Problem
Source: patient and family
Exam Limitations: none
Time Seen by Provider: 10/17/24 17:00
History of Present Illness
History of Present Illness:
64-year-old female recent complicated history which will be described shortly. [facility] because of some nausea this morning. This was followed by an obstruction series that showed a right sided infiltrate, pneumonitis
versus CHF, cardiomegaly, stool burden. Was sent for further evaluation. Family notes and patient notes, that she is near her recent baseline. They do feel her cheeks are red. Some increased cough and congestion. Still mild nausea no abdominal
pain.
Past History
Past History
ED Past Medical History: GERD, HTN, Hypercholesterolemia, [place] and Other (Mesothelioma); Negative NIDDM
ED Past Surgical History: Cardiac (Cardiac catheterization), Gynecological, Orthopedic and Other (Hernia. Tracheostomy. Radical pleurectomy decortication diaphragm repair)
Social History
Tobacco: Former smoker (Quit smoking approximately 5 years ago.)
Alcohol: None
Personal:
Living: with family
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
Family History
Family History: Early CAD (Father, late 30s, at 43.)
Review of Systems
Review of Systems
All Other Systems: Not applicable
Constitutional: Denies fever
Respiratory: Reports cough; Denies trouble breathing
Cardiac: Denies chest pain
Phy Exam
Physical Exam
Physical Exam:
GENERAL: Alert and oriented. Chronically ill but nontoxic in appearance. Interacting appropriately
EYE: Orbits normal.
NECK: Supple, bandage covering trach.
CARDIAC: Regular rate and rhythm with mild midsystolic murmur
LUNGS: Occasional cough. Decreased breath surrounds right lung. Large posterior incision with some mild dehiscence at the superior border and some inflammatory changes. No unusual drainage no surrounding cellulitis
ABDOMEN: Soft, elevated BMI. Nontender. GJ tube in place. Drain right upper quadrant. Minimal drainage
NEUROLOGICAL: Alert and oriented , grossly non-focal
SKIN: Warm and dry, no rash or lesion, no discoloration, skin intact.
MUSCULOSKELETAL: No edema,no deformity.Good color
PSYCH: Normal and appropriate interaction.
Course
Orders/Labs/Results
Orders:
Orders
10/17/24 17:12
Electrocardiogram (*1) Stat
Reason for Study: Other
Other Reason for Exam: chest pain
CT Chest/abd/pel W Iv Cont Urgent
Comment:
Reason For Exam: Complicated history. Recent pleurodesis. Nausea.
Cardiac Monitoring- Treatment ONCE
EKG- Treatment ONCE
IV Insert/Care/Rem.- Treatment PRN
Pulse Ox/cont/shift [RESP] Stat
Quantity: 1
10/17/24 17:30
Blood Culture Q30M
JESU Source: Blood/Venous
Specimen Description:
10/17/24 17:34
Complete Blood Count/With Diff Urgent
Troponin I Urgent
10/17/24 17:51
Basic Metabolic Panel Urgent
10/17/24 18:00
Blood Culture Q30M
JESU Source: Blood/Venous
Specimen Description:
10/17/24 20:13
Ampicillin 2 gram IVPB NOW Ampicillin 2,000 mg 0.9% Sodium Chloride 100 ml [Nss] 100 ml IV NOW
Abnormal Lab Results
10/17/24
17:34
RBC 3.40 L 10^6/uL
(4.20-5.40)
Hgb 9.9 L g/dL
(12.0-16.0)
Hct 33.3 L %
(37.0-47.0)
MCHC 29.7 L g/dL
(33.0-37.0)
RDW 18.3 H %
(11.5-14.5)
MPV 12.8 H fL
(7.4-10.4)
Absolute Neuts (auto) 7.0 H 10^3/uL
(1.4-6.5)
Absolute Lymphs (auto) 1.1 L 10^3/uL
(1.2-3.4)
Absolute Monos (auto) 1.9 H 10^3/uL
(0.1-0.6)
Lymphocytes % 10.2 L %
(20.5-51.1)
Monocytes % 18.1 H %
(1.7-9.3)
10/17/24 17:34
Vital Signs
Initial and Last Documented VS:
Initial Vital Signs
Pulse Ox
84
10/17/24 16:36
Last Documented Vital Signs
Temp Pulse Resp BP Pulse Ox
98.4 F 82 17 131/64 93
10/17/24 16:42 10/17/24 20:00 10/17/24 20:00 10/17/24 20:00 10/17/24 20:00
MDM/Problems Addressed
Differential Diagnosis Includes:
Course appears to be nausea this morning followed by x-ray findings concerning for pneumonitis or CHF. However the there are no comparison studies done in our hospital. These changes may be ongoing but need to be confirmed. Clinically low
suspicion for bowel obstruction. Abdomen is nontender. She has no obstruction by x-ray. She is nontoxic in appearance. She had a complicated course of a radical pleural pleurectomy done September 18. She had IVETH she had ITP she was bronched. She had
a trach done. GJ tube placed. Hernández catheter placed and now intermittently catheterized. Complicated In progress for CHF, pleural effusion, pneumonitis. Known UTI with Enterococcus based on a recent urine.
*Radiology
Radiology exam reviewed: radiology read reviewed (CT scan shows a moderate right lower lobe consolidation. Small loculated pleural effusions. Postsurgical rib fractures. Fluid around the liver. No acute abdominal issues.)
*Pulse Oximetry
Patient hypoxic: no (94% on 3 L)
*EKG
Interpreted by ED Provider?: Yes
Interpretation: abnormal
Comparison EKG: changes noted
Heart Rate: 78
Rate: normal
Rhythm: sinus and PVC's
[place]: normal axis
Interval: first degree heart block
QRS Pattern: normal QRS
Ischemia: non-specific ST changes
Data Reviewed
Review of Other/Old Records Reveals: Labs, Records, Radiology Studies, Operative Reports and Testing
Update Note
Update Note:
Patient's main new issue by our testing appears to be this right lower lobe consolidation. She also has Enterococcus UTI. Per the family and patient she is not allergic to amoxicillin she only has got issues with Augmentin. She tolerates
amoxicillin well. For the Enterococcus UTI we will treat with amoxicillin. I will give her a dose of ampicillin prior to discharge. Her cardiothoracic surgeon, Dr Burch... Was notified. I reviewed the full report most specifically this
moderate right lower lobe consolidation. He was not concerned about this stated it was not new stated is postsurgical and all related to her disease. He did not feel she needed to be admitted for this or treated for this unless she was running a
high fever high white count hypoxic etc. she is doing none of that at this time. She has no fever she has no white count she is not hypoxic or in any respiratory distress. Therefore we will discharge her back to the rehab facility treating her
with amoxicillin for a Enterococcus UTI.
ED Attending Note
-
Portions of this chart may have been created with voice recognition software.� Occasional wrong word or��sound alike� substitutions may have occurred due to the inherent limitations of voice recognition software.
Discharge Plan
Departure
Patient Disposition: Acute Rehab Facility
Date of Disposition: 10/17/24
Time of Disposition: 20:19
Discharge Problem:
Enterococcus UTI, Postsurgical pneumonitis right lower lob, Recent pleuredectomy, History of mesothelioma
Instructions: Urinary tract infections in adults, BLOOD PRESSURE
Prescriptions:
New
amoxicillin 500 mg capsule
500 mg PO TID 7 Days Qty: 21 0RF
No Action
atorvastatin 40 MG tablet
40 mg feeding tube HS
gabapentin 300 mg Capsule
300 mg feeding tube BID
nystatin 100,000 unit/gram Ointment
1 applic TOPICAL BID
Patient Comments:
10/17/2024, [facility] paperwork does not include application location.
ferrous sulfate solution
300 mg feeding tube DAILY
acetylcysteine 200 mg/mL (20 %) Solution
2 ml inhalation R Q6
carvedilol 6.25 mg Tablet
6.25 mg feeding tube BID
albuterol sulfate 2.5 mg /3 mL (0.083 %) Solution For Nebulization
2.5 mg continuous nebulization R Q6
clonidine HCl 0.3 mg Tablet
0.3 mg feeding tube BID
bisacodyl [Dulcolax (bisacodyl)] 10 mg Suppository
10 mg IN DAILY PRN (Reason: constipation)
acetaminophen 160 mg/5 mL Solution
640 mg PO Q4H PRN (Reason: mild pain)
Rx Instructions:
10/17/2024, via tube.
budesonide 0.5 mg/2 mL Suspension For Nebulization
0.5 mg INHALATION R BID
amiodarone 50 mg/mL Solution
200 mg PO DAILY
Rx Instructions:
10/17/2024, via tube.
escitalopram oxalate 5 mg Tablet
15 mg feeding tube DAILY
apixaban 5 mg Tablet
5 mg feeding tube BID
nystatin 100,000 unit/mL Suspension
5 ml PO QID
lidocaine [Lidocaine Pain Relief] 4 % Adhesive Patch,Medicated
2 patch TOPICAL DAILY PRN (Reason: mild pain)
Patient Comments:
10/17/2024, [facility] paperwork does not include patch location.
naloxone [Narcan] 0.4 mg/mL Solution
0.4 mg IM ONCE PRN (Reason: overdose)
oxycodone 5 mg/5 mL Solution
5 mg feeding tube Q4H PRN (Reason: mild pain)
sennosides [Senokot] 8.8 mg/5 mL Syrup
5 ml feeding tube BID
ondansetron 4 mg Tablet,Disintegrating
4 mg feeding tube Q6H PRN (Reason: nausea )
polyethylene glycol Powder
17 ea miscellaneous BID
Rx Instructions:
10/17/2024, 17 grams via tube BID.
lansoprazole 30 mg Tablet,Disintegrat, Delay Rel
30 mg feeding tube DAILY
quetiapine 50 mg Tablet
50 mg feeding tube HS
romiplostim 250 mcg Recon Soln
250 mcg SC WEEKLY
hydroxyzine HCl 10 mg/5 mL (5 mL) Solution
50 mg FEEDING TUBE QIDPRN PRN (Reason: anxiety)
melatonin
6 mg feeding tube HS
Referrals:
UNKNOWN - PT DOES,NOT KNOW [Unknown Provider]
Activity Restrictions/Additional Instructions:
Continue your current treatment and rehabilitation
Start the oral amoxicillin in the morning
Make sure they follow-up the culture results of the Enterococcus UTI for sensitivities
As we discussed, there is a consolidation in the right lower lobe of your lung. Your primary thoracic surgeon is aware of this and and feels at this time this is all postsurgical issues. He does not feel that needs to be acutely treated at this
time. However if things change and you become more short of breath fever low oxygen levels, reevaluation is recommended
Interventions
Interventions:
*Risk Screen - Suicide Last Done: 10/17/24 16:46
*General Assessment Last Done: 10/17/24 16:46
*Neglect/Abuse Screening Last Done: 10/17/24 16:46
*ED- Fall Risk Assessment Last Done: 10/17/24 16:46
*ED COVID-19 Vaccine History Last Done: 10/17/24 16:46
ED- Cardiac Assessment Last Done: 10/17/24 17:02
ED- Pulmonary Assessment Last Done: 10/17/24 17:02
Discharge Date and Time
Print Language: MAORI
--- NOTE | 2024-10-17 18:00 | PHANOTE ---
10/17/2024, used [facility] records to confirm pt.'s med. list.
[2024-10-17 18:10] LABS: Troponin I < 0.012 ng/ml
[2024-10-17 18:29] LABS: % Basophils 0.4 % (0-2); % Eosinophils 3.8 % (0-6); % Immature Granulocytes 0.4 % (0-0.5); % Lymphocytes 10.2 % (20.5-51.1); % Monocytes 18.1 % (1.7-9.3); % Neutrophils 67.1 % (42.2-75.2); Absolute Eosinophils 0.4 10^3/uL (0-0.7); Absolute Lymphocytes 1.1 10^3/uL (1.2-3.4); Absolute Monocytes 1.9 10^3/uL (0.1-0.6); Hematocrit 33.3 % (37.0-47.0); Hemoglobin 9.9 g/dL (12.0-16.0); Mean Corp Hgb Conc. 29.7 g/dL (33.0-37.0); Mean Corpuscular Hgb 29.1 pg (27.0-31.0); Mean Corpuscular Volume 97.9 fL (81.0-99.0); Mean Platelet Volume 12.8 fL (7.4-10.4); Nucleated Red Blood Cells % 3.9 %; Platelet Count 372 10^3/uL (130-400); Red Cell Dist. Width 18.3 % (11.5-14.5); White Blood Cell Count 10.4 10^3/uL (4.8-10.8)
[2024-10-17] MEDS: AMPICILLIN 108 MG IV (21:03)
== END 2024-10-17 22:37 ==
LOC: EMR 16:26
PROVIDERS: EMERGENCY PHYSICIAN Emergency Medicine; FAMILY PHYSICIAN Family Medicine
DX: N39.0 Urinary tract infection, site not specified (principal); B95.2 Enterococcus as the cause of diseases classified elsewhere; J18.9 Pneumonia, unspecified organism; E78.00 Pure hypercholesterolemia, unspecified; I49.3 Ventricular premature depolarization; I10 Essential (primary) hypertension; Z87.891 Personal history of nicotine dependence
CPT/HCPCS: 99285; 96374; 71260; 74177; 84484; 85025; 93005; Q9967

== ENCOUNTER 2024-10-24 21:19 | Inpatient (IN) | payer OTHER, SELFPAY ==
[2024-10-24] VITALS (15 sets, daily range): BP systolic 115–150; BP diastolic 52–73; BMI 39.5; BMI 38.1
--- NOTE | 2024-10-24 10:14 | ED.GENMED ---
History of Present Illness
General
Chief Complaint: Breathing Problem
Source: patient, records and family
Exam Limitations: none
Time Seen by Provider: 10/24/24 10:04
Nursing documentation reviewed up to this point in time: agreed with
History of Present Illness
History of Present Illness:
64-year-old female with a complicated medical history including mesothelioma with metastasis to the stomach status post pleurectomy at [facility] (with Dr. Burch, CT surgery), hypertension, paroxysmal A-fib, hyperlipidemia, CAD, ITP status
post splenectomy, GERD, distant history of melanoma and basal cell carcinoma. She was admitted at [facility] 09/18/2024 until 10/12/2024�had radical pleurectomy, decortication, diaphragm repair and tracheostomy, had complicated admission and was ultimately
discharged to [facility]. She was seen in the emergency room last week after a CT scan was performed due to nausea and vomiting that incidentally noted a consolidation in the right lower lobe. After discussion with her CT surgery team was felt
that this was a postoperative change but did not require treatment; she was found to have a UTI during her assessment and was started on antibiotics for this.
She returns to the emergency room today due to worsening functional status, increasing hypoxia. She is accompanied by her daughter and her . Apparently her participation in rehab over the past week has been consistently declining to the
point that she is now not participating at all due to feeling very weak. She has had increased oxygen requirement�had been on 2 L nasal cannula postoperatively but over the past 24 hours has required increased to 6 L nasal cannula. She has had
increased chest congestion and cough. She has had some dehiscence of her right chest wall surgical incision. She has had increased output from drain attached to PEG tube and has had increased constipation and abdominal distention. Family
apparently discussed with CT surgery team at [facility] and are requesting transfer to [facility] for further care.
I spoke to the rehab physician who is caring for the patient�it sounds like she has been having issues with wound dehiscence on the right chest wall for which she is post to see CT surgery tomorrow. She has been having increased coughing and
congestion in the chest but has not had fever. She has been poorly compliant with incentive spirometry and has been rather sedentary/noncompliant with rehab. They have been doing Mucomyst and DuoNebs regularly. She had been dealing with
significant constipation but actually has had increased stool output with bowel regimen. She has had some persistent nausea and occasional vomiting.
Past History
Past History
ED Past Medical History: GERD, HTN, Hypercholesterolemia, OR and Other (Mesothelioma); Negative NIDDM
ED Past Surgical History: Cardiac (Cardiac catheterization), Gynecological, Orthopedic and Other (Hernia. Tracheostomy. Radical pleurectomy decortication diaphragm repair)
Social History
Tobacco: Former smoker (Quit smoking approximately 5 years ago.)
Alcohol: None
Personal:
Living: with family
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
Family History
Family History: Early CAD (Father, late 30s, at 43.)
Review of Systems
Review of Systems
All Other Systems: ROS reviewed and negative except as documented in HPI and ROS
Constitutional: Denies fever
Respiratory: Reports cough
Cardiac: Reports chest pain
ABD/GI: Reports abdominal pain, nausea, vomiting and constipated
: Denies flank pain
Musculoskeletal: Denies neck pain or back pain
Neurological: Denies headache
Phy Exam
Physical Exam
Physical Exam:
General: Awake, alert, oriented x3; no acute distress
Head: Normocephalic, atraumatic
Eyes: Conjunctiva normal, EOMI, pupils equal round reactive to light bilaterally
Throat: Airway intact, handling secretions
Neck: Trachea midline, tracheostomy site with dressing in place appears clean
Lungs: Patient has hypoxia requiring 6 L nasal cannula to maintain saturations in the low 90s; she has mild tachypnea; she has diminished breath sounds at the right lung base compared to the left but no focal rales or wheezing appreciated
Heart: Regular rate and rhythm, no murmurs, gallops, or rubs
Abd: Soft, mildly distended, mild epigastric tenderness; she has a GJ tube in place, jejunal port clamped, gastric port to gravity with approximately 200 cc of bile in bag
Skin: Patient has incisional sites right chest wall most prominent which she is in the right posterior lateral chest wall with some wound dehiscence and erythema but no drainage; she has a right chest wall KAROLINE drain with no significant output
Extremities: Warm and well-perfused
Scores
Heart Failure Risk
Heart Failure Risk Score: Not Applicable
Heart Score for Chest Pain Patients
STEMI patient?: Not applicable
Withdrawal Assessment of Alcohol
Withdrawal Assessment Completed?: Not applicable
Course
Orders/Labs/Results
Orders:
Orders
10/24/24 10:04
CR Chest Portable - 1 View Urgent
Comment:
Reason For Exam: sob
Reason Study Needs to be Portable: Unable to Transport
10/24/24 10:15
Complete Blood Count/With Diff Urgent
Comprehensive Metabolic Panel Urgent
Urinalysis Reflex To Culture Urgent
Date Specimen was Collected: 10/24/24
Time Specimen was Collected: 10:14
Urine Microscopic Reflex Cult Urgent
Influenza A+B Rapid Molecular Urgent
JESU Source: Nasal Swab
Specimen Description:
Urine Culture Urgent
JESU Source: U
Specimen Description:
Date Specimen was Collected: 10/24/24
Time Specimen was Collected: 10:14
10/24/24 10:38
Cefepime HCl [Maxipime] 1,000 mg IV NOW STA
10/24/24 10:41
Ondansetron Injectable [Zofran] 4 mg IV NOW STA
10/24/24 11:06
Vancomycin [Vancocin] 2,000 mg 0.9% Sodium Chloride 500 ml [Nss] 500 ml IV NOW
Vancomycin [Vancocin] 2,000 mg 0.9% Sodium Chloride 500 ml [Nss] 500 ml IV NOW
10/24/24 11:07
Sterile Water [Sterile Water For Injection] 10 ml .ROUTE .[facility]
10/24/24 11:17
Lactate Level [Lactic Acid] Urgent
Blood Culture Q30M
JESU Source: Blood/Venous
Specimen Description:
10/24/24 12:17
Blood Culture Q30M
JESU Source: Blood/Venous
Specimen Description:
Abnormal Lab Results
10/24/24
10:15
WBC 27.1 H 10^3/uL
(4.8-10.8)
RBC 3.34 L 10^6/uL
(4.20-5.40)
Hgb 9.6 L g/dL
(12.0-16.0)
Hct 31.0 L %
(37.0-47.0)
MCHC 31.0 L g/dL
(33.0-37.0)
RDW 18.0 H %
(11.5-14.5)
MPV 11.4 H fL
(7.4-10.4)
Abs Immat Gran (auto) 0.2 H 10^3/uL
(0-0.05)
Absolute Neuts (auto) 24.1 H 10^3/uL
(1.4-6.5)
Absolute Lymphs (auto) 0.4 L 10^3/uL
(1.2-3.4)
Absolute Monos (auto) 2.3 H 10^3/uL
(0.1-0.6)
Immature Gran % 0.7 H %
(0-0.5)
Neutrophils % 89.1 H %
(42.2-75.2)
Lymphocytes % 1.6 L %
(20.5-51.1)
Sodium 131 L mmol/L
(135-145)
Potassium 3.0 L mmol/L
(3.5-5.1)
Chloride 74 L mmol/L
(98-107)
Carbon Dioxide 52 H mmol/L
(22-30)
BUN 42 H mg/dl
(7-17)
Glucose 155 H mg/dl
(70-99)
Alkaline Phosphatase 171 H U/L
(38-126)
Total Protein 6.2 L g/dl
(6.3-8.2)
Albumin 3.1 L g/dl
(3.5-5.0)
Ur Occult Blood Reflex 1+ A
(Negative)
Urine Urobilinogen 2+ A
(Neg - 1+)
Leukocyte Esterase Rfl 3+ A
(Negative)
Urine WBC (Reflex) 50-60 A /HPF
(0-5)
Urine Bacteria (Reflex) Many A
(Negative)
Urine Albumin (Reflex) 2+ A
(Neg - Trace)
10/24/24 10:15
10/24/24 10:15
Vital Signs
Initial and Last Documented VS:
Initial Vital Signs
Temp Pulse Resp BP Pulse Ox
36.8 C 79 22 117/63 90
10/24/24 09:31 10/24/24 09:31 10/24/24 09:31 10/24/24 09:31 10/24/24 09:31
Last Documented Vital Signs
Temp Pulse Resp BP Pulse Ox
36.6 C 80 26 132/71 94
10/24/24 12:00 10/24/24 12:15 10/24/24 12:15 10/24/24 12:00 10/24/24 12:15
MDM/Problems Addressed
Differential Diagnosis Includes:
Acute respiratory failure: Aspiration, pneumonia, atelectasis, mucous plugging, pneumothorax, hemothorax, hypoventilation secondary to distended stomach
MDM/Problems Addressed:
64-year-old female with complicated history as described above presents from [facility] for increased chest congestion and cough, increased hypoxia; she also also began with wound dehiscence in the chest wall. Vitals and exam as above. Stat chest
x-ray shows atelectasis versus pneumonia at the lung base. Will send off labs including a CBC and CMP, urinalysis. Will discuss with surgical team at [facility].
Discussed with patient's physician at [facility] plan to transfer to their care. Suspect that this is likely atelectasis/hypoinflation of the lung postoperatively rather than an acute infection. Patient's preference is for transfer as
his family is. Will monitor pending transport.
Labs reviewed: She has a leukocytosis to 27.1. This has more than doubled from last week. Given this finding along with tachypnea, added lactate and blood cultures. Although I did have lower suspicion that she has an acute infection of the lung
after discussion with surgeon, she does still have abnormal urinalysis and has a dehisced wound as well. Will cover with broad-spectrum antibiotics for these issues. Her chemistry was significant for hypokalemia which we will replete. Continue to
monitor pending transfer.
Chronic conditions affecting care:
Mesothelioma
*Pulse Oximetry
SaO2: 96
Nasal Cannula flow liters per minute: 6
Patient hypoxic: yes (88%)
*Critical Care Note
Total Time (30-74mins, 75-104mins- exclusive of procedures): 46
comment:
Critical care statement: A total of 46 minutes of critical care time was provided for this patient. This includes management of unstable vital signs, evaluation of the patient at bedside, frequent reassessment, discussion with
consultants/hospitalist, and review of pertinent medical records. This time was separate from time utilized to perform any aforementioned documented procedures
Data Reviewed
Review of Other/Old Records Reveals: Labs, Records and Discharge Summary
Source: patient, records, spouse and family
Patient Management
Discussion with other providers: Lead Cashier (Discussed with CT surgeon at [facility])
Escalation/DeEscalation of care consider admission/obs:
Admission indicated�transfer to [facility]
ED Attending Note
-
Portions of this chart may have been created with voice recognition software.� Occasional wrong word or��sound alike� substitutions may have occurred due to the inherent limitations of voice recognition software.
Discharge Plan
Departure
Patient Disposition: Acute Care Hospital
Date of Disposition: 10/24/24
Time of Disposition: 10:35
Discharge Problem:
Acute respiratory failure, Atelectasis of right lung
Prescriptions:
No Action
atorvastatin 40 MG tablet
40 mg feeding tube HS
gabapentin 300 mg Capsule
300 mg feeding tube BID
nystatin 100,000 unit/gram Ointment
1 applic TOPICAL BID
Patient Comments:
10/17/2024, [facility] paperwork does not include application location.
ferrous sulfate solution
300 mg feeding tube DAILY
amoxicillin 500 mg capsule
500 mg PO TID 7 Days Qty: 21 0RF
acetylcysteine 200 mg/mL (20 %) Solution
2 ml inhalation R Q6
carvedilol 6.25 mg Tablet
6.25 mg feeding tube BID
albuterol sulfate 2.5 mg /3 mL (0.083 %) Solution For Nebulization
2.5 mg continuous nebulization R Q6
clonidine HCl 0.3 mg Tablet
0.3 mg feeding tube BID
bisacodyl [Dulcolax (bisacodyl)] 10 mg Suppository
10 mg OK DAILY PRN (Reason: constipation)
acetaminophen 160 mg/5 mL Solution
640 mg PO Q4H PRN (Reason: mild pain)
Rx Instructions:
10/17/2024, via tube.
budesonide 0.5 mg/2 mL Suspension For Nebulization
0.5 mg INHALATION R BID
amiodarone 50 mg/mL Solution
200 mg PO DAILY
Rx Instructions:
10/17/2024, via tube.
escitalopram oxalate 5 mg Tablet
15 mg feeding tube DAILY
apixaban 5 mg Tablet
5 mg feeding tube BID
nystatin 100,000 unit/mL Suspension
5 ml PO QID
lidocaine [Lidocaine Pain Relief] 4 % Adhesive Patch,Medicated
2 patch TOPICAL DAILY PRN (Reason: mild pain)
Patient Comments:
10/17/2024, [facility] paperwork does not include patch location.
naloxone [Narcan] 0.4 mg/mL Solution
0.4 mg IM ONCE PRN (Reason: overdose)
oxycodone 5 mg/5 mL Solution
5 mg feeding tube Q4H PRN (Reason: mild pain)
sennosides [Senokot] 8.8 mg/5 mL Syrup
5 ml feeding tube BID
ondansetron 4 mg Tablet,Disintegrating
4 mg feeding tube Q6H PRN (Reason: nausea )
polyethylene glycol Powder
17 ea miscellaneous BID
Rx Instructions:
10/17/2024, 17 grams via tube BID.
lansoprazole 30 mg Tablet,Disintegrat, Delay Rel
30 mg feeding tube DAILY
quetiapine 50 mg Tablet
50 mg feeding tube HS
romiplostim 250 mcg Recon Soln
250 mcg SC WEEKLY
hydroxyzine HCl 10 mg/5 mL (5 mL) Solution
50 mg FEEDING TUBE QIDPRN PRN (Reason: anxiety)
melatonin
6 mg feeding tube HS
Referrals:
Sukhjinder Leyva DO [Family Provider, Family Practice]
Hospital Transfer
Other hospital: [facility]
I certify that the patient requires transfer: Yes
Discussed case with accepting physician: Dr. Burch
Reason for transfer: availability of service and specialties available
Interventions
Interventions:
*Risk Screen - Suicide Last Done: 10/24/24 10:36
*General Assessment Last Done: 10/24/24 10:30
*Neglect/Abuse Screening Last Done: 10/24/24 10:30
*ED- Fall Risk Assessment Last Done: 10/24/24 10:30
*ED COVID-19 Vaccine History Last Done: 10/24/24 10:30
ED- Cardiac Assessment Last Done: 10/24/24 10:30
ED- Pulmonary Assessment Last Done: 10/24/24 10:30
Discharge Date and Time
Print Language: GAMBIAN
[2024-10-24 10:36] LABS: Hemoglobin 9.6 g/dL (12.0-16.0); Mean Corpuscular Hgb 28.7 pg (27.0-31.0); Mean Corpuscular Volume 92.8 fL (81.0-99.0); Mean Platelet Volume 11.4 fL (7.4-10.4); Platelet Count 385 10^3/uL (130-400); Red Blood Cell Count 3.34 10^6/uL (4.20-5.40); White Blood Cell Count 27.1 10^3/uL (4.8-10.8)
[2024-10-24 10:37] LABS: Urine Albumin 2+ (Neg - Trace); Urine Bilirubin Negative (Negative); Urine Character Slightly Cloudy (Clear); Urine Color Yellow; Urine Glucose Negative (Negative); Urine Ketone Negative (Negative); Urine Leukocyte 3+ (Negative); Urine Nitrite Negative (Negative); Urine Occult Blood 1+ (Negative); Urine Urobilinogen 2+ (Neg - 1+)
[2024-10-24 10:47] LABS: Urine Squamous Cell 0-2 /LPF (Few)
[2024-10-24 10:48] LABS: Urine Bacteria Many (Negative); Urine Red Blood Cell 0-2 /HPF (0-2); Urine White Cell 50-60 /HPF (0-5)
[2024-10-24 10:55] LABS: % Basophils 0.2 % (0-2); % Eosinophils 0.1 % (0-6); % Immature Granulocytes 0.7 % (0-0.5); % Lymphocytes 1.6 % (20.5-51.1); % Monocytes 8.3 % (1.7-9.3); % Neutrophils 89.1 % (42.2-75.2); Absolute Basophils 0.1 10^3/uL (0-0.2); Absolute Immature Granulocytes 0.2 10^3/uL (0-0.05); Absolute Lymphocytes 0.4 10^3/uL (1.2-3.4); Absolute Monocytes 2.3 10^3/uL (0.1-0.6); Absolute Neutrophils 24.1 10^3/uL (1.4-6.5); Nucleated Red Blood Cells % 0.3 %
[2024-10-24 11:06] LABS: ALT (SGPT) 15 U/L (0-35); AST (SGOT) 31 U/L (14-36); Albumin 3.1 g/dl (3.5-5.0); Alkaline Phosphatase 171 U/L (38-126); Blood Urea Nitrogen 42 mg/dl (7-17); Calcium 8.7 mg/dl (8.4-10.2); Chloride 74 mmol/L (98-107); Estimated Creatinine Clearance 87 ml/min; Glucose 155 mg/dl (70-99); Sodium 131 mmol/L (135-145); Total Bilirubin 1.1 mg/dl (0.2-1.3); Total Protein 6.2 g/dl (6.3-8.2); eGFR > 60.00
[2024-10-24] MEDS: ZOFRAN 4 MG IV ×2 (11:12→19:10)
[2024-10-24 11:43] LABS: Carbon Dioxide 52 mmol/L (22-30)
[2024-10-24 11:46] LABS: Lactic Acid 1.5 mmol/L (0.7-2.0)
[2024-10-24] MEDS: MAXIPIME 1000 MG IV ×2 (12:00→23:19)
[2024-10-24] MEDS: VANCOCIN 540 MG IV (14:00)
--- NOTE | 2024-10-24 19:00 | EDRN ---
Report received on patient, went in to talk with patient and family, at this time patient is suppose to be transferred to [facility]. however there is no bed there, family seemed very upset not understanding why patient is still here and has not been
transferred to [facility], informed family that there is no beds available there, they also were wanting her tube feed started she is on Nutren 1.5, spoke with Dr. Trejo about the families concerns, he did look into getting the tube feed ordered,
also spoke with the coiled tubing supervisor about it for delivering it to the ER. After Dr. Trejo spoke with the family, the decision was made that since there is no beds at [facility] and there is no knowing how long it will be for them to get a bed that
patient will be admitted here to the hospital until the patient can be transferred to [facility]. Patient's family is all aware on this plan as well.
[2024-10-24] MEDS: KCL 270 MEQ IV (19:33)
--- NOTE | 2024-10-24 19:43 | HPS.HSE ---
Family Physician
-
Family Physician: Sukhjinder Leyva
Chief Complaint
-
sob
History of Present Illness
64-year-old female with a complicated medical history including mesothelioma with metastasis to the stomach status post pleurectomy at [facility] (with Dr. Burch, CT surgery), hypertension, paroxysmal A-fib, hyperlipidemia, CAD, ITP status
post splenectomy, GERD, distant history of melanoma and basal cell carcinoma. She was admitted at [facility] 09/18/2024 until 10/12/2024�had radical pleurectomy, decortication, diaphragm repair and tracheostomy, had complicated admission and was ultimately
discharged to [facility]. for past one week she is noted to have worsening weakness, worsening sob. patient was not able to participate in the rehab due to worsening weakness and sob. she was noted to have worsening congestion and cough. she
complained of BERNAL. denied abdominal pain. she had an episode of diarrhea yesterday. since the Hernández removed at [facility], she is requiring straight cath.
chest x ray with atchy bibasilar opacities, unchanged compared to prior study, which may represent subsegmental atelectasis or pneumonia.
2. Mild interstitial prominence, which may represent pulmonary edema, or may be related to low inspiratory volumes.
Patient received cefepime, Zofran, potassium 40 mEq, vancomycin in ER. Blood culture sent from ER.
admitting for further management.
Medical History
Past Medical History
Past Medical History: Reports Other
Additional Past Medical History:
Coronary artery thrombosis
First-degree AV block
Cardiomyopathy
Coronary artery disease
Dyslipidemia
CHF
Grade 1 hemorrhoids
Mesothelioma
MRI
Melanoma
Hypertension
PVCs
Right pleural effusion
Past Surgical History: Reports Other
Additional Past Surgical History:
Right lumpectomy
HERRERA, oophorectomy
Knee surgery
Bilateral arm cosmetic procedure
Social History
Tobacco: Non-smoker
Alcohol: None
Drug: None
Personal:
Living: Other ([facility])
Family History
Family History: Not pertinent
Allergies / Home Medications
Allergies reflects when Allergies were last updated in [employer].
Home Medications with original date entered in [employer]
Allergy/Medication List:
Allergies
Allergy/AdvReac Type Severity Reaction Status Date / Time
amoxicillin (From Augmentin) Allergy colitis Verified 06/03/23 16:48
clavulanic acid (From Allergy colitis Verified 06/03/23 16:48
Augmentin)
Sulfa (Sulfonamide Allergy Hives Verified 10/13/24 11:34
Antibiotics)
Home Medications
atorvastatin 40 mg tablet 40 mg feeding tube HS High cholesterol 09/07/18
gabapentin 300 mg capsule 300 mg feeding tube BID Pain 06/03/23
acetaminophen 160 mg/5 mL oral solution 640 mg PO Q4H PRN mild pain 10/12/24
acetylcysteine 200 mg/mL (20 %) solution 2 ml inhalation R Q6 10/12/24
albuterol sulfate 2.5 mg/3 mL (0.083 %) solution for nebulization 2.5 mg continuous nebulization R Q6 10/12/24
amiodarone 50 mg/mL intravenous solution 200 mg PO DAILY 10/12/24
apixaban 5 mg tablet 5 mg feeding tube BID 10/12/24
bisacodyl 10 mg rectal suppository (Dulcolax (bisacodyl)) 10 mg TN DAILY PRN constipation 10/12/24
budesonide 0.5 mg/2 mL suspension for nebulization 0.5 mg inhalation R BID 10/12/24
carvedilol 6.25 mg tablet 6.25 mg feeding tube BID 10/12/24
clonidine HCl 0.3 mg tablet 0.3 mg feeding tube BID 10/12/24
escitalopram oxalate 5 mg tablet 15 mg feeding tube DAILY 10/12/24
hydroxyzine HCl 10 mg/5 mL (5 mL) oral solution 50 mg feeding tube QIDPRN PRN anxiety 10/12/24
lansoprazole 30 mg delayed release,disintegrating tablet 30 mg feeding tube DAILY 10/12/24
lidocaine 4 % topical patch (Lidocaine Pain Relief) 2 patch topical DAILY PRN mild pain 10/12/24
melatonin 6 mg feeding tube HS 10/12/24
naloxone 0.4 mg/mL injection solution 0.4 mg IM ONCE PRN overdose 10/12/24
nystatin 100,000 unit/mL oral suspension 5 ml PO QID 10/12/24
ondansetron 4 mg disintegrating tablet 4 mg feeding tube Q6H PRN nausea 10/12/24
oxycodone 5 mg/5 mL oral solution 5 mg feeding tube Q4H PRN mild pain 10/12/24
polyethylene glycol 17 ea miscellaneous BID 10/12/24
quetiapine 50 mg tablet 50 mg feeding tube HS 10/12/24
romiplostim 250 mcg subcutaneous solution 250 mcg SC WEEKLY 10/12/24
sennosides 8.8 mg/5 mL oral syrup 5 ml feeding tube BID 10/12/24
amoxicillin 500 mg capsule 500 mg PO TID 7 days #21 caps 10/17/24
ferrous sulfate 300 mg feeding tube DAILY 10/17/24
nystatin 100,000 unit/gram topical ointment 1 applic topical BID 10/17/24
Review of Systems
-
Constitutional: Reports Fatigue
EENT: Reports No Symptoms
Respiratory: Reports Cough and Trouble Breathing
Cardiac: Reports No Symptoms
Abdomen/GI: Reports Diarrhea
: Reports No Symptoms
Musculoskeletal: Reports No Symptoms
Skin: Reports No Symptoms
Neurological: Reports Weakness
Endocrine: Reports No Symptoms
Hematologic/Lymphatic: Reports No Symptoms
Psych: Reports No Symptoms
Physical Exam
Vital Signs
Vital Signs
Temp Pulse Resp BP Pulse Ox
98.2 F 82 24 132/52 92
10/24/24 16:11 10/24/24 18:00 10/24/24 18:00 10/24/24 18:00 10/24/24 18:00
Physical Exam
General: Well Developed, Well Nourished and No Apparent Distress
HEENT: NormoCephalic, Moist mucous membranes and Atraumatic
Respiratory: Clear
Cardiac: S1/S2 and Regular Rhythm; No Murmur or Rub
GI: Soft, Non Tender, Non Distended and Normal Bowel Sounds; No Organomegaly
Rectal: Deferred by Provider
Musculoskeletal: No Clubbing, No Cyanosis and No Edema
Skin: No Rash
Neuro: AO x 3 and Nonfocal/grossly intact
Psych: Calm
Laboratory Results
-
10/24/24 10:15
10/24/24 10:15
Laboratory Results
Lactic Acid 1.5 mmol/L (0.7-2.0) 10/24/24 11:17
Total Bilirubin 1.1 mg/dl (0.2-1.3) 10/24/24 10:15
AST 31 U/L (14-36) 10/24/24 10:15
ALT 15 U/L (0-35) 10/24/24 10:15
Alkaline Phosphatase 171 U/L (38-126) H 10/24/24 10:15
Data Reviewed
-
Diagnostic Radiology: Report Reviewed by me
Lab Data: Labs Reviewed by me
Impression/Plan
-
# Sepsis/acute hypoxic respiratory failure concern for pneumonia
- WBC 27.1
- Chest x-ray with impression of patchy bibasilar opacities, unchanged compared to prior study, which may represent subsegmental atelectasis or pneumonia.Mild interstitial prominence, which may represent pulmonary edema, or may be related to low
inspiratory volumes.
- Patient was using 2 L of oxygen at most rehab, at present requiring 6 L of oxygen
- Continue supplemental oxygen to keep sat 95, wean as tolerated
- IV Vanco and cefepime continue
- DuoNebs as needed for shortness and wheezing
-Pulm and ID consult
# Anemia likely iron deficiency
- Hemoglobin stable at 9.6, no active bleeding
- Continue to monitor
- Ferrous sulfate continue
# History of mesothelioma metastasis to stomach with recent pleurectomy decortication, VDRF s/p trach
# Concern for wound dehiscence from pleurectomy stite-ctm, wound care consulted
-Trach has been removed - stoma site healing and covered with dry dressing.
# Hyponatremia likely hypovolemic
# Hypokalemia
-metabolic alkalosis
- Sodium 131, potassium 3.0
- D5 and NS 60 continued
- Patient received IV KCl in ER
- Continue to monitor BMP
# Concern urinary tract infection
# Urinary retention
- Bladder scan, straight cath
- IV cefepime and Vanco
#Dysphagia: Feeding tube
- Will hold off on tube feeds
-Consult nutrition
#HTN: Clonidine decreased to 0.1 bid due to soft BP. monitor closely��
#HLD: Atorvastatin 40 mg tube at bedtime
#Coronary artery disease�: Aspirin, statin, beta-clement��
Atrial fibrillation:� amiodarone 200 mg tube daily�, Eliquis 5 mg twice daily�, carvedilol 6.25 mg bid,
#Cardiomegaly/Pleural effusion/ CHF�
# History of ITP/Thrombocytopenia: Romiplostim 250 mcg SC weekly
#depression: Lexapro and seroqel 15 tube daily.
# DVT prophylaxis
-On Eliquis
# CODE STATUS
-Full code
--- NOTE | 2024-10-24 20:18 | W.PN.UPDATE ---
Update Note
Progress Note Update
Patient seen in conjunction with THICKENER OPERATOR. I agree with findings on history and physical. I concur with assessment and plan listed otherwise.
Briefly, this 64-year-old female who has a past medical history most recently significant for mesothelioma status post radical pleurectomy, decortication, diaphragmatic repair and tracheostomy, status post PEG tube, currently at most rehab will also
has history significant for prior ST elevation HI status post thrombectomy, Takotsubo cardiomyopathy with recovered EF, chronic heart failure with preserved EF, hypertension, GERD and history of melanoma now presenting to the emergency department
with cough, shortness of breath, hypoxia, intermittent chills.
She was seen in the emergency room last week after a CT scan was performed due to nausea and vomiting that incidentally noted a consolidation in the right lower lobe. After discussion with her CT surgery team was felt that this was a postoperative
change but did not require treatment; she was found to have a UTI during her assessment and was started on antibiotics for this.
She presented to the ED for increased O2 requirements for the last 24 hours. Been increased from 2 L baseline to now 6 L for which she is satting around 92%.
Patient reports constipation but no diarrhea. She has nausea but no vomiting.
She has been having issues with wound dehiscence on the right chest wall for which she is post to see CT surgery tomorrow.
In the emergency department at this time she was hemodynamically stable, afebrile blood had leukocytosis, hypoxia and a chest x-ray w/ patchy bibasilar opacities, unchanged compared to prior study, which may represent subsegmental atelectasis or
pneumonia. Cannot rule out bronchitis.
Assessment and plan
Hypoxia thought to be secondary to new pneumonia/bronchitis with patient coughing and feeling short of breath. She has leukocytosis. No ariadne fevers.
Pneumonia
- Admit to IMU
- Patient has had cultures of the blood, urine,
- Sputum culture
- Rule out COVID and flu
- Continue IV vancomycin and cefepime for now
- ID consultation
Respiratory failure -acute on chronic hypoxic respiratory failure. Malignant mesothelioma status post pleurectomy, status post chest tube now removed, status post trach/peg
- Supplemental oxygen and pulmonary toilet
- To further evaluate source of infection, consider CT chest no contrast, patient is anticoagulated and does not require evaluation for PE, patient unwilling at this time
- venous blood gas
- supplemental oxygen up to hi flow to maintain sat > 90%
- duonebs RTC
- cough control
- pulm consult
AFIB - rate controlled
- continue amio
- continue apixaban
F/E/N - h/o CHF, no current pulm edema, has hypokalemia and elevated bicarb
- vbg as above, if alkalotic, fluids with NS+D5 for now
- K, Mag supplementation
- hold any diuresis
- Tube feeds in tomorrow 4pm to 8am
Nausea - No obstruction on examination or history
- holding peg tube
- antiemetics prn
- pain control
CHF
- continue carvedilol
- hold lasix
- continue statin
- bp control w/ hold parameters
DVT PPX - on apixaban
Code Status - Full code
--- NOTE | 2024-10-24 20:30 | EDRN ---
Changed the dressing on the patient's tracheostomy incision per the families request, Dr. Dixon was in to work on the admission as well at this time.
[2024-10-24 20:40] LABS: Venous Blood Gas B.E. 28.5 mmol/L (-4 to +4); Venous Blood Gas HCO3 53.2 mmol/L (22-27); Venous Blood Gas O2 Sat % 99.5 %; Venous Blood Gas pCO2 53 mmHg (35-48); Venous Blood Gas pO2 134 mmHg (30-50)
[2024-10-24 20:42] LABS: Venous Blood Gas pH 7.61 (7.32-7.43)
--- NOTE | 2024-10-24 21:14 | EDRN ---
Family came out of the room to inform me that the patient changed her mind on having a CT, informed the admitting provider of this as well of the VBG results of pH being 7.61
[2024-10-24 21:26] LABS: Magnesium 2.5 mg/dl (1.6-2.3)
--- NOTE | 2024-10-24 21:47 | EDRN ---
Updated the family on the bed status, was asking about something else for nausea, or if it was time for more zofran, no current orders, did speak with the DIGITAL BUSINESS ANALYST covering IMU about nausea medications to place orders.
--- NOTE | 2024-10-24 22:44 | PHA.VAN.IN ---
Assessment
- Assessment
Renal Function: Appears similar to baseline
Concomitant Antimicrobials: CEFEPIME
- Previous Dosing Experience
Previous Regimen: NONE
AUC Dosing Plan
- Dosing Variables
Dosing Weight (kg): 121.2
Dosing CrCl (ml/min): 87
Vd coefficient (L/kg): 0.6
- Empiric Dosing
Initial / Loading Dose: 2GM
Maintenance Regimen: 1500MG IV Q12H
Estimated AUC (mcg*h/mL): 569
Estimated Peak (mcg*h/mL): 34.3
Estimated Trough (mcg/ml): 15.3
Estimated Half Life (H): 9.0
Pharmacokinetics Vancomycin I
- -
Patient Age: 64
Patient Sex: Female
Vancomycin Day #: 1
Indication: Pulmonary/Respiratory (SEPSIS)
Requesting Provider: KYAW
Height / Weight:
Height 5 ft 9 in
Actual Weight 121.2 kg
- Vital Signs / Lab Results
Temp Pulse Resp BP Pulse Ox
99.2 F 82 29 115/59 95
10/24/24 22:38 10/24/24 20:00 10/24/24 20:00 10/24/24 21:00 10/24/24 20:00
Lab Results - Hematology
10/24/24
10:15
WBC 27.1 H
Lab Results - Chemistry
10/24/24
10:15
BUN 42 H
Creatinine 0.9
Estimated Creat Clear 87
Albumin 3.1 L
10/24/24
11:17
Lactic Acid 1.5
Lab Results - Urine
10/24/24
10:15
Urine Nitrite (Reflex) Negative
Leukocyte Esterase Rfl 3+ A
Urine WBC (Reflex) 50-60 A
Ur Squamous Epith Cells 0-2
Urine Bacteria (Reflex) Many A
Microbiology Results
10/24/24 10:15 Influenza Types A & B (CASH) - Final
Nasal Swab Negative for Influenza A & B, NAAT
Negative results must be combined with clinical observations
and patient history.
Nucleic Acid Amplification test (NAAT)performed on the
[employer] NOW platform.
[2024-10-24] MEDS: TIGAN 200 MG IM (23:18)
[2024-10-24] MEDS: NEURONTIN 300 MG TUBE (23:18)
[2024-10-24] MEDS: STERILE WATER FOR INJECTION 10 ML IV (23:19)
[2024-10-24] MEDS: LIPITOR 40 MG TUBE (23:19)
[2024-10-24] MEDS: MELATONIN 6 MG TUBE (23:20)
[2024-10-24] MEDS: COREG 6.25 MG TUBE (23:20)
[2024-10-24] MEDS: ELIQUIS 5 MG TUBE (23:20)
[2024-10-24] MEDS: SEROQUEL 50 MG TUBE (23:20)
[2024-10-24] MEDS: D5/0.9% SODIUM CHLORIDE 1000 IV (23:24)
[2024-10-24] MEDS: CATAPRES 0.3 MG TUBE (23:58)
[2024-10-25] VITALS (27 sets, daily range): BP systolic 92–136; BP diastolic 58–82; BMI 38.4
[2024-10-25 00:19] LABS: Glucose - Point of Care 156 mg/dl (70-99)
[2024-10-25 00:44] LABS: B.E. >30.0 mmol/L; O2 Saturation % 97.7 % (94-98); PCO2 55 mmHg (32-35); PO2 74 mmHg (83-108)
[2024-10-25 00:46] LABS: HCO3 56.5 mmol/L (21-28); O2 Therapy 94; pH 7.62 (7.35-7.45)
[2024-10-25 00:47] LABS: INR 1.79; PT 20.9 Sec (11.4-14.6)
--- NOTE | 2024-10-25 00:56 | RR ---
A Rapid Response was called on this patient, please see Rapid Response form.
Pt arrived to floor about 22:00. AAOx3; pt offered no complaints at that time. Admission questions able to be answered and documented. Medications administered. While administering the last medication pt became excessively drowsy, eyes rolling,
with garbled speech. Pt unable to answer orientation questions. RR called and then a stroke alert.
--- NOTE | 2024-10-25 01:00 | PTCARENOTE ---
rec`d pt from rapid response in IMU. see rapid sheet. rapid EEG placed. 0%. pt unresponsive. awakens minimally to sternal rub. mumbles response. NSR on monitor. murmur. 6L NC. JG tube. rt KAROLINE drain. PIVs flushed and patent. safe environment
maintained.
[2024-10-25 01:04] LABS: Hematocrit 29.2 % (37.0-47.0); Hemoglobin 9.2 g/dL (12.0-16.0); Mean Corp Hgb Conc. 31.5 g/dL (33.0-37.0); Mean Corpuscular Hgb 28.9 pg (27.0-31.0); Mean Corpuscular Volume 91.8 fL (81.0-99.0); Mean Platelet Volume 11.5 fL (7.4-10.4); Platelet Count 354 10^3/uL (130-400); Red Blood Cell Count 3.18 10^6/uL (4.20-5.40); Red Cell Dist. Width 18.2 % (11.5-14.5); White Blood Cell Count 29.9 10^3/uL (4.8-10.8)
[2024-10-25 01:06] LABS: Blood Urea Nitrogen 42 mg/dl (7-17); Calcium 8.7 mg/dl (8.4-10.2); Chloride 78 mmol/L (98-107); Estimated Creatinine Clearance 85 ml/min; Glucose 140 mg/dl (70-99); Potassium 3.5 mmol/L (3.5-5.1); Sodium 133 mmol/L (135-145); eGFR > 60.00
--- NOTE | 2024-10-25 01:11 | W.PN.UPDATE ---
Update Note
Progress Note Update
At 12:11 am, Rapid response called for change in mental status. Per RN, patient was Ox3 and talking, then went unresponsive. NIH score 10. Stroke alert called. Ordered CBC, BMP, Lactic acid, COVID, ABG. CT head, CTA head/neck.
Telestroke initiated. Called for stroke consult at [place], spoke with Dr. Banks. He reviewed CT Head and CT head/neck, no acute findings. Recommendations: Continue with toxic metabolic encephalopathy workup, correct electrolyte imbalance. EEG.
Patient transferred to ICU for EEG. If no return to baseline the MRI. Neurology consulted.
Attempted to contact family by phone, no answer, left message to return call for update on patient's care.
[2024-10-25 01:17] LABS: Lactic Acid 1.9 mmol/L (0.7-2.0)
[2024-10-25 01:33] LABS: Carbon Dioxide 50 mmol/L (22-30)
[2024-10-25] MEDS: DUONEB 3 ML INH ×3 (02:54→13:18)
[2024-10-25] MEDS: MUCOMYST 20% 2 ML INH ×3 (02:54→13:18)
--- NOTE | 2024-10-25 03:45 | W.PN.UPDATE ---
Update Note
Progress Note Update
3894 0100 Transferred from IMU for acute change in mental status. In ICU, patient is very lethargic, needing deep stimulation to wake up. ��Does follow commands. Stat CT of head and neck results negative. Rapid EEG currently being done, no seizure
activity noted so far. ABG showing severe metabolic alkalosis (7.62/55/74) patient trying to compensate with respiratory acidosis. RR 16, 02 sats 98. No respiratory distress noted. Toxic metabolic encephalopathy also in workup. ��According to
bedside nurse�patient did get her schedule Atarax in ED at 2230. Metabolic alkalosis = started on NSS and repleting K.
0201 �Woke up and and answer questions.�
0245 Woke up and followed commands�
[2024-10-25] MEDS: NSS 1000 IV (03:46)
[2024-10-25] MEDS: KCL 270 MEQ IV (03:47)
[2024-10-25 03:57] LABS: Hematocrit 28.8 % (37.0-47.0); Hemoglobin 8.9 g/dL (12.0-16.0); Mean Corp Hgb Conc. 30.9 g/dL (33.0-37.0); Mean Corpuscular Hgb 28.6 pg (27.0-31.0); Mean Corpuscular Volume 92.6 fL (81.0-99.0); Mean Platelet Volume 11.2 fL (7.4-10.4); Platelet Count 336 10^3/uL (130-400); Red Blood Cell Count 3.11 10^6/uL (4.20-5.40); Red Cell Dist. Width 18.2 % (11.5-14.5); White Blood Cell Count 29.5 10^3/uL (4.8-10.8)
[2024-10-25] MEDS: MAXIPIME 1000 MG IV ×3 (03:57→17:21)
[2024-10-25] MEDS: STERILE WATER FOR INJECTION 10 ML IV ×3 (03:58→17:22)
[2024-10-25 04:12] LABS: COVID-19 Antigen Negative (Negative)
[2024-10-25 04:22] LABS: Blood Urea Nitrogen 44 mg/dl (7-17); Calcium 8.6 mg/dl (8.4-10.2); Chloride 78 mmol/L (98-107); Estimated Creatinine Clearance 85 ml/min; Glucose 130 mg/dl (70-99); Potassium 3.3 mmol/L (3.5-5.1); Sodium 133 mmol/L (135-145); eGFR > 60.00
--- NOTE | 2024-10-25 04:43 | PTCARENOTE ---
pt now awake and talking. AAox3 and asking plan for today. bladder scan 180cc. safe environment maintained. call sy in reach.
[2024-10-25 05:04] LABS: Carbon Dioxide 48 mmol/L (22-30)
--- NOTE | 2024-10-25 06:03 | PTCARENOTE ---
spoke and updated pt`s .
[2024-10-25] MEDS: VANCOCIN 530 MG IV (06:13)
--- NOTE | 2024-10-25 07:40 | W.RAPID.EEG ---
Rapid EEG
-
Procedure Date: 10/25/24
Results:
Point of Care EEG Procedure Note
Patient name: YONATAN REN
Medical ID: [id number]
Date of : 1960
Age: 64
IMPRESSION:
No evidence of status epilepticus
Recording 1 Duration: 2024-10-25 01:35:28 - 2024-10-25 07:29:28
Recording Total Time: 05:54:00 (354 minutes)
Ordering Physician: TITI
Recording Technique: This EEG was obtained using a 10 lead, 8 channel circumferential rapid EEG with no parasagittal coverage.
Performed with Jonathan Ortega Status Epilepticus Monitor, ICD-10 [id number]
Clinical History: YONATAN REN is a 64 year old Other, Other: CHANGE OF MENTAL STATUS patient undergoing EEG to screen for non-convulsive status epilepticus.
Primary Indication: Other, Other: CHANGE OF MENTAL STATUS
Location: ICU/MICU
Report prepared by: Juan Jose Cline
Report generated on: Oct 25, 2024 7:39 AM [facility]
--- NOTE | 2024-10-25 08:22 | CON.INTV ---
Consultation
Consultation Request
Date/Time Consultation Requested: 10/25/2024101
Date/Time Consultation Performed: 10/25/2024 - 0811
Requesting Provider: LULI Burnham
Performing Provider: Dr. Michaels
Reason for Consultation: AMS/hypoxia
Medical History
-
Chief Complaint: Hypoxia
History of Present Illness:
64-year-old female with a complex medical history including mesothelioma with reported metastasis to the stomach s/p pleurectomy with decortication + tracheostomy (09/18/2024 � [facility]), paroxysmal A-fib on Eliquis, CAD with history of TX, ITP s/p
splenectomy, GERD, history of melanoma s/p resection and history of G-tube which was transition to G/J-tube who presented with hypoxia. Patient recently at [facility] from 09/18 - 10/12/2024 where she had a radical pleurectomy on the right side plus other
interventions including decortication, diaphragm repair and tracheostomy with complicated hospital course including development of ITP, requiring multiple bronchoscopy procedures due to inspissated secretions and mucous plugging, she needed TPN, and
was started on Romiplostim for ITP, her G-tube was changed to a G/J-tube, she required amiodarone for rapid A-fib, the trach became dislodged and downsized to a 6 Portex; and then patient was transferred to [facility] on evening of 10/12. She went
to the ER on 10/17/2024 due to nausea, and was thought to have a right lower lobe pneumonia however this was found to be similar to her prior imaging at [facility] and related to postsurgical changes from her recent right-sided pleurectomy. Patient was
sent back to [facility] and was treated with amoxicillin for a urine culture that was collected on 10/15/2024 which was growing Enterococcus faecalis. She had continued to be managed in rehab however on 10/24/2024, she became increasingly hypoxic.
She is also becoming less interactive in rehab due to continued weakness and increasing oxygen requirements. She has had worsening chest congestion and cough. She was afebrile, pulse rate 79, respiratory rate 16�22, BP 117/63 and she was
saturating 90% on 6 L/min. Labs showed leukocytosis with WBC 27.1, Hb 9.6, with potassium 3.0, urinalysis with +3 leukocyte esterase and 50�60 urine WBCs. Initial CXR showed patchy bibasilar opacities with mild interstitial prominence, and a
follow-up CT chest on 10/25 showed mucous plugging within the right lower lobe with near complete collapse of the right lower lobe as well as atelectasis within the right middle lobe and posterior right upper lobe. Patient was started on antibiotics
and admitted to the IMU. Unfortunately patient had a change in mental status with stroke alert called. CT head + CTA head/neck obtained showing no acute findings. Patient was transferred to the ICU for further care and Illuminating [employer] services
consulted for additional management/recommendations.
Pt seen and evaluated this AM. Madan attached - shows 0% status burden. More conversive this AM, and when I saw the patient she was completely awake, alert with her daughter, Jagruti, present at bedside. All questions were answered. Patient
knows that she is being transferred to [facility] and she is hoping that she will not be in the hospital for too long. She currently feels well. Her back does bother her and causes discomfort. The daughter showed me pictures over the last several
days/weeks showing that the back incision sites have slowly worsened, slowly opening and that sometimes having some pale yellow discharge. Patient currently denies any chest pain, SOB, abdominal pain, nausea, fevers or chills.
PMHx: DJD, GERD, plantar fasciitis, history of TX, Takotsubo's cardiomyopathy, hypercholesterolemia, mesothelioma with metastasis to stomach s/p radical pleurectomy, decortication, diaphragmatic repair, ITP, history of splenectomy, anxiety,
depression, insomnia, history of melanoma s/p resection, urinary retention with frequent straight catheterization, recurrent UTI, history of trach/PEG, A-fib on Eliquis
PSHx: Right sided radical pleurectomy, decortication, trach, history of G-tube with conversion to G/J-tube, right knee surgery, shoulder surgery for melanoma resection, hysterectomy, splenectomy, diaphragmatic hernia repair, ventral hernia s/p mesh
repair (2013), cardiac cath
Past Medical History
Past Medical History: Other (Above as per HPI)
Past Surgical History: Other (Above as per HPI)
Social History
Tobacco: Former Smoker (Quit approximately 5 years ago)
Alcohol: None
Drug: None
Personal:
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
Family History
Family History: Early CAD (Father ( at age 43)), Cancer (Mother: Breast cancer; Sister: Mesothelioma) and Diabetes (Sister)
Allergies / Home Medications
Allergies
Allergy/AdvReac Type Severity Reaction Status Date / Time
amoxicillin (From Augmentin) Allergy colitis Verified 06/03/23 16:48
clavulanic acid (From Allergy colitis Verified 06/03/23 16:48
Augmentin)
Sulfa (Sulfonamide Allergy Hives Verified 10/13/24 11:34
Antibiotics)
Home Medications
�Medication �Instructions �Recorded �Confirmed �Last Taken �Type
atorvastatin 40 mg tablet 40 mg feeding tube HS High 09/07/18 10/24/24 06/03/23 History
cholesterol
gabapentin 300 mg capsule 300 mg feeding tube BID Pain 06/03/23 10/24/24 06/03/23 History
acetylcysteine 200 mg/mL (20 %) 2 ml inhalation R Q6 10/12/24 10/24/24 Unknown History
solution
albuterol sulfate 2.5 mg/3 mL 2.5 mg continuous nebulization R Q6 10/12/24 10/24/24 Unknown History
(0.083 %) solution for nebulization
amiodarone 50 mg/mL intravenous 200 mg PO DAILY 10/12/24 10/24/24 Unknown History
solution
apixaban 5 mg tablet 5 mg feeding tube BID 10/12/24 10/24/24 Unknown History
bisacodyl 10 mg rectal suppository 10 mg SC DAILY PRN constipation 10/12/24 10/24/24 Unknown History
(Dulcolax (bisacodyl))
budesonide 0.5 mg/2 mL suspension 0.5 mg inhalation R BID 10/12/24 10/24/24 Unknown History
for nebulization
carvedilol 6.25 mg tablet 6.25 mg feeding tube BID 10/12/24 10/24/24 Unknown History
clonidine HCl 0.3 mg tablet 0.3 mg feeding tube BID 10/12/24 10/24/24 Unknown History
escitalopram oxalate 5 mg tablet 15 mg feeding tube DAILY 10/12/24 10/24/24 Unknown History
hydroxyzine HCl 10 mg/5 mL (5 mL) 50 mg feeding tube QIDPRN PRN 10/12/24 10/24/24 Unknown History
oral solution anxiety
lansoprazole 30 mg delayed 30 mg feeding tube DAILY 10/12/24 10/24/24 Unknown History
release,disintegrating tablet
lidocaine 4 % topical patch 2 patch topical DAILY PRN mild pain 10/12/24 10/24/24 Unknown History
(Lidocaine Pain Relief)
melatonin 6 mg feeding tube HS 10/12/24 10/24/24 Unknown History
naloxone 0.4 mg/mL injection 0.4 mg IM ONCE PRN overdose 10/12/24 10/24/24 Unknown History
solution
nystatin 100,000 unit/mL oral 5 ml PO QID 10/12/24 10/24/24 Unknown History
suspension
ondansetron 4 mg disintegrating 4 mg feeding tube Q6H PRN nausea 10/12/24 10/24/24 Unknown History
tablet
oxycodone 5 mg/5 mL oral solution 5 mg feeding tube Q4H PRN mild pain 10/12/24 10/24/24 Unknown History
polyethylene glycol 17 ea miscellaneous BID 10/12/24 10/24/24 Unknown History
quetiapine 50 mg tablet 50 mg feeding tube HS 10/12/24 10/24/24 Unknown History
romiplostim 250 mcg subcutaneous 250 mcg SC WEEKLY 10/12/24 10/24/24 Unknown History
solution
sennosides 8.8 mg/5 mL oral syrup 5 ml feeding tube BID 10/12/24 10/24/24 Unknown History
ferrous sulfate 300 mg feeding tube DAILY 10/17/24 10/24/24 Unknown History
nystatin 100,000 unit/gram topical 1 applic topical BID 10/17/24 10/24/24 Unknown History
ointment
acetaminophen 160 mg/5 mL (5 mL) 640 mg feeding tube Q4HPRN PRN 10/24/24 10/24/24 Unknown History
oral solution mild pain
Review of Systems
-
History Source: Patient
All other systems: Negative unless noted
Vitals / Labs / Diagnostic Testing
Vital Signs
Temp Pulse Resp BP Pulse Ox
98 F 72 15 120/65 94
10/25/24 07:40 10/25/24 08:58 10/25/24 07:57 10/25/24 08:58 10/25/24 07:57
Lab Data
10/25/24 03:41
Laboratory Results
10/25/24 10/25/24
00:27 00:35
PT 20.9 H
INR 1.79
pH 7.62 H*
pCO2 55 H
pO2 74 L
HCO3 56.5 H*
O2 Delivery Level 94
Microbiology
10/24/24 12:17 Blood/Venous Blood Culture - Preliminary
Positive culture in progress
10/24/24 12:17 Blood/Venous Gram Stain - Preliminary
10/24/24 11:17 Blood/Venous Blood Culture - Preliminary
Positive culture in progress
10/24/24 11:17 Blood/Venous Gram Stain - Preliminary
10/24/24 10:15 Urine Legionella Urinary Antigen - Final
Negative for Legionella pneumophila Serogroup 1 antigen.
A negative result does not rule out the possiblity of
Legionella infection due to other serogroups or species of
Legionella. Clinical correlation is recommended.
10/24/24 10:15 Urine Streptococcus pneumoniae Antigen (M - Final
Negative for Streptococcus pneumoniae antigen.
A negative result does not exclude infection with
Streptococcus pneumoniae. Clinical correlation is
recommended.
10/24/24 10:15 Nasal Swab Influenza Types A & B (CASH) - Final
Negative for Influenza A & B, NAAT
Negative results must be combined with clinical observations
and patient history.
Nucleic Acid Amplification test (NAAT)performed on the
[employer] platform.
Diagnostic Testing:
Physical Exam
-
HEENT: Normocephalic and Anicteric
Cardiovascular: S1/S2 and Peripheral Edema (negative)
Respiratory: Wheeze (negative), Rales (Right base), Rhonchi (negative), Non-Labored Respirations and Other (Diminished breath sounds on right hemithorax)
GI: Soft, Non Distended, Non Tender and Normal Bowel Sounds
Neurology: AO x 3 and Tremors (negative)
Skin: Warm, Dry and Other (Right back wound with Steri-Strips across)
General: Respiratory Distress (negative), Comfortable, Fever (negative) and Chills (negative)
Assessment
-
Assessment: 64-year-old female with a complex medical history including mesothelioma with reported metastasis to the stomach s/p pleurectomy with decortication + tracheostomy (09/18/2024 � [facility]), paroxysmal A-fib on Eliquis, CAD with history of TX,
ITP s/p splenectomy, GERD, history of melanoma s/p resection and history of G-tube which was transition to G/J-tube who presented with hypoxia. Patient recently at [facility] from 09/18 - 10/12/2024 where she had a radical pleurectomy on the right side
plus other interventions including decortication, diaphragm repair and tracheostomy with complicated hospital course including development of ITP, requiring multiple bronchoscopy procedures due to inspissated secretions and mucous plugging, she
needed TPN, and was started on Romiplostim for ITP, her G-tube was changed to a G/J-tube, she required amiodarone for rapid A-fib, the trach became dislodged and downsized to a 6 Portex; and then patient was transferred to [facility] on evening of
10/12. She went to the ER on 10/17/2024 due to nausea, and was thought to have a right lower lobe pneumonia however this was found to be similar to her prior imaging at [facility] and related to postsurgical changes from her recent right-sided pleurectomy.
Patient was sent back to [facility] and was treated with amoxicillin for a urine culture that was collected on 10/15/2024 which was growing Enterococcus faecalis. She had continued to be managed in rehab however on 10/24/2024, she became
increasingly hypoxic. She is also becoming less interactive in rehab due to continued weakness and increasing oxygen requirements. She has had worsening chest congestion and cough. She was afebrile, pulse rate 79, respiratory rate 16�22, BP
117/63 and she was saturating 90% on 6 L/min. Labs showed leukocytosis with WBC 27.1, Hb 9.6, with potassium 3.0, urinalysis with +3 leukocyte esterase and 50�60 urine WBCs. Initial CXR showed patchy bibasilar opacities with mild interstitial
prominence, and a follow-up CT chest on 10/25 showed mucous plugging within the right lower lobe with near complete collapse of the right lower lobe as well as atelectasis within the right middle lobe and posterior right upper lobe. Patient was
started on antibiotics and admitted to the IMU. Unfortunately patient had a change in mental status with stroke alert called. CT head + CTA head/neck obtained showing no acute findings. Patient was transferred to the ICU for further care and
Illuminating [employer] services consulted for additional management/recommendations.
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
splenectomy, anxiety, depression, insomnia, history of melanoma s/p resection, urinary retention with frequent straight catheterization, recurrent UTI, history of trach/PEG, A-fib on Eliquis
Impression:
#Acute encephalopathy likely due to sepsis in the setting of chronic hypercapnic respiratory failure; CT head + CTA head/neck were negative for acute pathology
#Acute hypoxic respiratory failure due to right-sided mucous plugging with right lower lobe atelectasis in the setting of suspected right lower lobe/right middle lobe pneumonia
#Acute bronchitis vs bronchopneumonia
#UTI due to E. coli
#Postoperative wound dehiscence
#Bacteremia due to Staphylococcus aureus (sources include skin via her incision on her back that's been complicated by wound dehiscence, possible UTI versus possible pneumonia)
#Chronic respiratory failure with hypercapnia with compensatory metabolic alkalosis, likely due to obesity hypoventilation syndrome
#Mesothelioma s/p right sided radical pleurectomy with decortication, diaphragmatic repair and tracheostomy/G-tube placement (09/18/2024 at [facility])
#A-fib on Eliquis
#Insomnia
#GERD
#History of Takotsubo's cardiomyopathy with recovered EF
#Obesity (BMI: 38.4)
Plan:
- Patient has evidence of Staphylococcus aureus on her blood culture from 10/24, and is also GPC on the 2nd blood Cx collected 10/24
- Recheck surveillance blood culture today
- Follow-up MRSA swab
- Continue broad-spectrum antibiotics (IV vancomycin + cefepime)
- Check sputum cultures if she can produce a decent sample; urine antigens for Legionella + strep pneumonia both negative
- Check echo to assess for vegetation; if cultures are persistently positive, and echo is normal, then she will need KENZIE
- Maintain SpO2 >90-94%, weaning down supplemental O2 flow rate as tolerated
- Continue with Mucomyst + DuoNebs and start support bed
- Unable to do other modalities of chest PT given her postoperative wound dehiscence which causes discomfort when palpated
- Continue wound care
- If patient becomes more hypoxic then she will need bronchoscopy
- Given that her blood gas shows alkalemia, I will give her Diamox as it appears that she has metabolic alkalosis on top of a respiratory alkalosis; I do not have any baseline blood gas measurements to prove that she has chronic hypercapnic
respiratory failure, however given her obesity, I do suspect that she has metabolic alkalosis which is a compensation from chronic respiratory failure with hypercapnia
- Continue trending blood gas to assure that her pH + pCO2 remained stable
- If she does stay overnight, then would offer her to wear BiPAP with sleep
- Maintain MAP>65
- Replete electrolytes with K>4, Mg>2
- Maintain euglycemia with goal BG 140-180
- Trend H/H and transfuse if needed to keep Hb>7g/dL; keep plt>20k, unless there is concern for bleeding then keep plt>50k
- prn nebulized bronchodilators - not currently bronchospastic
- Incentive spirometer encouraged 10x per hour for at least 4 hrs a day
- Okay to resume tube feeds as patient not on vasopressors, however keep head of bed elevated >30-45� in case she does become less responsive so that we continue aspiration precautions
- DVT ppx: Eliquis
Code status: Full code
Patient is awaiting transfer to hospital of the [facility]. Continue ICU level of care until patient is transferred which is likely going to be tonight.
Critical care statement: A total of 40 minutes of critical care time was provided for this patient today. This includes management of unstable vital signs, evaluation of the patient at bedside, reviewing the patient's pertinent medical records
including radiographs, microbiology, laboratory evaluations, and discussion with primary team, consultants, pharmacy, nutrition, physical therapy, case management, charge nurse, critical care nursing, and respiratory therapy.
Data:
CT chest with IV contrast 10/25/2024:
1. There is likely mucous plugging within the right lower lobe with near complete collapse of the right lower lobe. There is persistent atelectasis within the right middle lobe and posterior right upper lobe.
2. Small right-sided hydropneumothorax, similar in appearance to prior. There is a severely displaced posterior right sixth rib fracture, unchanged from prior.
3. Surgical drain within the right posterior lateral chest wall with a slightly ill-defined collection along the mid aspect of the drain measuring approximately 7.8 x 2.4 cm.
4. Stable mildly prominent mediastinal lymph nodes.
[2024-10-25] MEDS: FERROUS SULFATE ORAL LIQUID 300 MG TUBE (08:57)
[2024-10-25] MEDS: PREVACID 30 MG TUBE (08:58)
[2024-10-25] MEDS: COREG 6.25 MG TUBE (08:58)
[2024-10-25] MEDS: CATAPRES 0.3 MG TUBE (08:58)
[2024-10-25] MEDS: PACERONE 200 MG TUBE (08:58)
[2024-10-25] MEDS: ELIQUIS TUBE (08:59)
[2024-10-25] MEDS: NEURONTIN 300 MG TUBE (08:59)
--- NOTE | 2024-10-25 09:15 | PTCARENOTE ---
Rec'd pt at 0800 awake resting in bed. Oriented and overall is appropriate. Sl forgetful but conversation is appropriate. Denies pain. Speech - pt has a trach stoma and holds hand over the stoma to talk- speech is slow but clear. RICKETTS but weakly.
Ceribell EEG monitoring in place. 0 % seizure activity noted on monitor. Skin is pale pink wm and dry. Pt with large incision on R post chest that has steri strips in place but not approximated under. Daughter at the bedside and asking for the steri
strips to be changed stating that is what they were doing at [facility] daily. Incison cleansed with saline and new steri strips applied. Tissue wits some yellowish tissue/slough. Respirs are sl shallow but non-labored on 6l nc with sat of 95%. BS are
decreased on the R thoroughout with R base crackles. Occasional non-prod cough. Monitor SR sl long QT at 510. + pulses. Tr gen anasarca. VS as documented. Abd is round and soft with + sl hypoactive BS. Denies nausea. L abd G/J tube intact-site wnl.
G tube to st drainage draining brownish/green drainage. J tube clamped and meds given via J tube. R lateral lower chest KAROLINE drain to bulb suction with scant amt of tannish/purulent looking drainage. Denies need to void. Bladder scanned to 338 mls. IV
KCL rider infusing via R forearm IV site. NSS infusing via R forearm at 75 ml/hr. Pt turned and repositioned. Did own oral care. Complete CHG bath given. Pts daughter at the bedside and updated. Call sy in reach. Taking few ice chips.
--- NOTE | 2024-10-25 09:49 | PHA.VAN.FU ---
Vancomycin Assessment / Plan
- Assessment
Renal Function: Stable (BUN remains elevated)
WBC's are: Stable
In the past 24 hrs, patient has been: Afebrile
- Dosing Plan
Adjust Regimen to: dosing by level
Based on elevated BUN, estimated CrCl may not accurately predict vanc clearance
Patient received 2g load + 1500mg dose this AM
Will give single dose of 1000mg x1 at 1800 and obtain level in AM to assess Q12H interval
- Monitoring Plan
Random Level: 10/26 599
- Follow Up
Pharmacy will continue to follow.
Vancomycin Follow UP
- -
Patient Age: 64
Patient Sex: Female
Vancomycin Day #: 2
Indication: Pulmonary/Respiratory
Requesting Provider: Brennon Rajput
Pertinent Antimicrobial Allergies:
amoxicillin/clavulanate - colitis
sulfonamide antibiotics - hives
Height / Weight:
Height 5 ft 9 in
Actual Weight 118 kg
Pertinent Past Medical History: BMI ~ 38, Metastatic mesothelioma
- Vital Signs / Lab Results
Temp Pulse Resp BP Pulse Ox
98 F 72 15 120/65 94
10/25/24 07:40 10/25/24 08:58 10/25/24 07:57 10/25/24 08:58 10/25/24 07:57
Lab Results - Hematology
10/24/24 10/25/24 10/25/24
10:15 00:27 03:41
WBC 27.1 H 29.9 H 29.5 H
Lab Results - Chemistry
10/24/24 10/25/24 10/25/24
10:15 00:27 03:41
BUN 42 H 42 H 44 H
Creatinine 0.9 0.9 0.9
Estimated Creat Clear 87 85 85
Albumin 3.1 L
10/24/24 10/25/24
11:17 00:27
Lactic Acid 1.5 1.9
Lab Results - Urine
10/24/24
10:15
Urine Nitrite (Reflex) Negative
Leukocyte Esterase Rfl 3+ A
Ur Squamous Epith Cells 0-2
Microbiology Results
10/24/24 12:17 Blood Culture - Preliminary
Blood/Venous Positive culture in progress
Gram Stain - Preliminary
10/24/24 11:17 Blood Culture - Preliminary
Blood/Venous Positive culture in progress
Gram Stain - Preliminary
10/24/24 10:15 Legionella Urinary Antigen - Final
Urine Negative for Legionella pneumophila Serogroup 1 antigen.
A negative result does not rule out the possiblity of
Legionella infection due to other serogroups or species of
Legionella. Clinical correlation is recommended.
Streptococcus pneumoniae Antigen (M - Final
Negative for Streptococcus pneumoniae antigen.
A negative result does not exclude infection with
Streptococcus pneumoniae. Clinical correlation is
recommended.
10/24/24 10:15 Influenza Types A & B (CASH) - Final
Nasal Swab Negative for Influenza A & B, NAAT
Negative results must be combined with clinical observations
and patient history.
Nucleic Acid Amplification test (NAAT)performed on the
[employer] platform.
[2024-10-25] MEDS: LEXAPRO 15 MG TUBE (10:34)
[2024-10-25] MEDS: DIAMOX 250 MG PO (10:34)
--- NOTE | 2024-10-25 10:35 | PTCARENOTE ---
KCL rider completed. Diamox 250 mg given via J tube. Turned and repositioned. Mostly likes to be on her L side. Drowsy currently but does wake with stimulation. Daughter at the bedside
[2024-10-25] MEDS: ELIQUIS 5 MG TUBE (10:43)
--- NOTE | 2024-10-25 10:54 | W.PN.HOSP.TC ---
Today's Communication/Plan
-
Total Critical Care Time__55___ minutes. I was immediately available to the patient and staff. I personally examined, reviewed labs, diagnostic images/reports, interpretations, treatment plans, discussed patient care with other providers and
family or caregivers (if patient is unable to make decisions), entered orders as appropriate and documented the medical record.
Disposition: Initiated transfer to [facility] and attention to primary surgical team
Discussed with nursing
Discussed with patient's daughter at the bedside
Assessment / Plan
Assessment / Plan
Impression:
Acute hypoxic respiratory failure.
Right lower lobe/middle lobe pneumonia with likely bronchial obstruction/mucous plugging.
Preliminary blood culture 2/2 staphylococcal bacteremia.
Postoperative wound dehiscence
Clinical sepsis.
Mesothelioma, status post radical pleurectomy, decortication, diaphragmatic repair and tracheostomy/PEG tube placement. [facility] 09/08 - 10/12/2024 Dr. Burch
Toxic metabolic encephalopathy secondary to hypoxia and evolving sepsis
Other conditions
Paroxysmal atrial fibrillation
Anticoagulation with Eliquis chronic CHF preserved EF
Obesity with BMI of 38
Plan:
CT chest without contrast
1. There is likely mucous plugging within the right lower lobe with near complete collapse of the right lower lobe. There is persistent atelectasis within the right middle lobe and posterior right upper lobe.
2. Small right-sided hydropneumothorax, similar in appearance to prior. There is a severely displaced posterior right sixth rib fracture, unchanged from prior.
3. Surgical drain within the right posterior lateral chest wall with a slightly ill-defined collection along the mid aspect of the drain measuring approximately 7.8 x 2.4 cm.
4. Stable mildly prominent mediastinal lymph nodes.
Acute hypoxic respiratory failure
Right lower/middle lobe pneumonia with bronchial obstruction likely mucous plugging
Preliminary blood cultures Staphylococcus species pending final.
Concern for clinical sepsis.
Broad-spectrum antibiotics vancomycin/cefepime covering nosocomial pathogens.
Aggressive pulmonary toilet/suctioning
May require endobronchial evaluation
ID/pulmonary evaluation
Postoperative wound dehiscence
KAROLINE drain in place.
Wound care.
Toxic metabolic encephalopathy secondary to hypoxia and sepsis.
Remains lethargic with limited neurologic exam.
CT of the head with no acute abnormalities.
CTA of the head with no vascular abnormalities.
No evidence for seizure activity.
Monitor volume status closely
Oxygen supplementation avoiding hypoxia.
Hold Seroquel hold as needed oxycodone
Paroxysmal atrial fibrillation
Currently in sinus rhythm.
Continue amiodarone, Coreg.
Continue anticoagulation with apixaban.
Chronic CHF preserved EF.
Volume status relatively compensated.
Noted mild interstitial pattern on the chest x-ray.
Will check pro CHF BNP.
Not on diuretics FRINGE KNOTTER.
Continue Coreg, Catapres
Monitor volume status closely
Chronic pain.
Continue gabapentin
Hold oxycodone
Full code.
DVT prophylaxis Eliquis
Anticipated Discharge: > 48 hours
Subjective/Interval History
-
Date of Service: October 25, 2024
Objective Data
-
Labs:
Laboratory Results
10/25/24 10/25/24 10/25/24
00:27 00:35 03:41
WBC 29.9 H 29.5 H
Hgb 9.2 L 8.9 L
Hct 29.2 L 28.8 L
Plt Count 354 336
PT 20.9 H
INR 1.79
HCO3 56.5 H*
Sodium 133 L 133 L
Potassium 3.5 3.3 L
Chloride 78 L 78 L
Carbon Dioxide 50 H 48 H
BUN 42 H 44 H
Creatinine 0.9 0.9
Glucose 140 H 130 H
Calcium 8.7 8.6
10/25/24
10:00
WBC
Hgb
Hct
Plt Count
PT
INR
HCO3
Sodium Pending
Potassium Pending
Chloride Pending
Carbon Dioxide Pending
BUN Pending
Creatinine Pending
Glucose Pending
Calcium Pending
Vital Signs:
Vital Signs
Temp Pulse Resp BP Pulse Ox
98 F 63 15 120/69 94
10/25/24 07:40 10/25/24 10:34 10/25/24 07:57 10/25/24 10:34 10/25/24 07:57
I&O
10/24/24 10/25/24 10/26/24
06:59 06:59 06:59
Intake Total 495 / 495
Output Total 1924 / 1924
Balance -1430 / -1430
Physical Exam
-
General: Well Developed and No Apparent Distress
HEENT: Normocephalic, Atraumatic and Moist Mucous Membranes
Respiratory: Clear to Auscultation, Decreased Breath Sounds and Other (Right side of the back postoperative wound with dehiscence. KAROLINE drain in place); Negative Wheezes
Cardiac: Regular Rhythm and S1/S2; Negative Murmur, Rub or Gallop
GI: Soft, Nontender, Nondistended and Normal Bowel Sounds; Negative Organomegaly
Rectal: Deferred by Provider
Musculoskeletal: No Clubbing, No Cyanosis and No Edema
Skin: Negative Rash
Neuro: Other (Lethargic with limited exam)
--- NOTE | 2024-10-25 11:15 | PTCARENOTE ---
Jonathan removed after updating Dr. Cline. No seizure activity noted.
[2024-10-25 11:20] LABS: NT-proBNP 2890 pg/ml
[2024-10-25 11:29] LABS: Glucose - Point of Care 166 mg/dl (70-99)
--- NOTE | 2024-10-25 11:30 | PTCARENOTE ---
Labs sent. Dr. Noe in and spoke with pts daughter. Still awaiting transfer bed at [facility].
--- NOTE | 2024-10-25 13:00 | PTCARENOTE ---
Dr. Michaels in to speak with pt and daughter. Pt continues to go between being awake and talking and approp just sl forgetful or somnolent. Pt ordered a sadler but wanted to wait another day- said she had voided 'a little on her own yesterday'.
Bladder scanned for 536 mls. On bedpan and urinated a few mls- pt then st cathed for 525 mls of cloudy yellow/morgan urine. Repositioned. O2 decreased at 1230 to 4l and currently tolerating with sats of 95%. No other changes in assessment
[2024-10-25 13:14] LABS: Blood Urea Nitrogen 41 mg/dl (7-17); Calcium 8.6 mg/dl (8.4-10.2); Chloride 83 mmol/L (98-107); Estimated Creatinine Clearance 70 ml/min; Glucose 108 mg/dl (70-99); Potassium 3.6 mmol/L (3.5-5.1); Sodium 135 mmol/L (135-145); eGFR 55.76
--- NOTE | 2024-10-25 13:52 | CM ---
Initial assessment completed with daughter with patient in bed. Patient lives with her and son in a 2 story plus basement home with B/B on 2nd and 1/2 bath on 1st with 3 steps to enter. [employer] patient was independent in ADL's and ambulation,
drives. Does have a RW and SPC which she uses on rare occasions. No in-home services. Does have a HC-POA. No service. Support system is , son, 2 daughters and mother. PCP is Dr. Sukhjinder Levya and Pharmacy is [facility].
Discharge POC: Discharge to [facility] when bed available.
[2024-10-25 13:54] LABS: Carbon Dioxide 46 mmol/L (22-30)
--- NOTE | 2024-10-25 14:51 | WOUNDNOTE ---
BACK(RIGHT SIDE)
--- NOTE | 2024-10-25 15:00 | PTCARENOTE ---
Currently sleepy again but will arouse to stimuli but is sleepy. VS as documented. No other changes in assessment. Awaiting bed at [facility]. Family at the bedside.
--- NOTE | 2024-10-25 15:47 | WOUNDNOTE ---
[facility] RN NOTE: Reviewed chart and met with patient . Patient with surgical dehiscences of right back wound from surgery performed 08/2024 at [facility]. Patient currently awaiting transfer to [facility]. See work list for details and measurements of dehisced
wound. Spoke to daughter Jagruti who said surgeon at [facility] recommended that clean steri-strips be applied to wound daily. BELLE Rosa cleaned and applied new steri-strips based on this recommendation prior to assessment. TT Dr. Noe who confirmed
order. Recommended surgical consult if patient is not transferred to [facility]. Will sign off.
--- NOTE | 2024-10-25 15:50 | PTCARENOTE ---
Venous Blood gas sent as ordered and Blood culture sent (peripherally). Pt sleepy
[2024-10-25 15:56] LABS: Venous Blood Gas HCO3 48.4 mmol/L (22-27); Venous Blood Gas O2 Sat % 99.2 %; Venous Blood Gas pCO2 65 mmHg (35-48); Venous Blood Gas pH 7.48 (7.32-7.43); Venous Blood Gas pO2 157 mmHg (30-50)
--- NOTE | 2024-10-25 16:45 | PTCARENOTE ---
Report called to [facility] [phone]
[2024-10-25] MEDS: DIAMOX 250 MG TUBE (17:23)
[2024-10-25] MEDS: FLUSH (NSS) 1 FLUSH IV ×2 (17:23→17:47)
--- NOTE | 2024-10-25 17:40 | PTCARENOTE ---
Diamox 250 mg given via J tube. ECHO completed as ordered. IV fluids capped for transport. Pt was lethargic but now awake and conversant. Family at the bedside.
[2024-10-25] MEDS: ZOFRAN 4 MG IV (17:46)
[2024-10-25] MEDS: NSS IV (17:55)
--- NOTE | 2024-10-25 18:05 | PTCARENOTE ---
Addendum entered by Shelley Conway RN 10/25/24 19:16:
Additional -information- pt sent with Transfer forms and 2 Disc's
Original Note:
Acute Care transport here and pt assisted on to the stretcher for transport. No changes in assessment. Pt not nauseated but medicated with Zofran 4 mg IV at 1746 to help with any nausea during transport. to ride in ambulance with pt- okay
given by Transport crew. Only belonging was pts phone which had.
--- NOTE | 2024-10-25 20:25 | CON.ID ---
Consultation
-
Date/Time Consultation Requested: October
Date/Time Consultation Performed: October
Requesting Provider: Dr Orlando Roland MD
Performing Provider: Olivia Roland MD
Reason for Consultation: pneumonia, bacteremia
Chief Complaint / Past History
Chief Complaint
pneumonia, bacteremia
History of Present Illness
The patient had recent pleurectomy with current wound dehisience and likely associated infection and now awaits transfer back to [place] for repair
Past History
Past Medical History: Arrhythmias, CAD (splenectomy), Cancer (melanoma), GERD (Mesothelioma) and Venous Hypertension
Past Surgical History: Other (hysterectomy,splenectomy,hernia repair,tracheostomy)
Allergy History:
amoxicillin (From Augmentin) Allergy (Verified 06/03/23 16:48)
colitis
clavulanic acid (From Augmentin) Allergy (Verified 06/03/23 16:48)
colitis
Sulfa (Sulfonamide Antibiotics) Allergy (Verified 10/13/24 11:34)
Hives
Medications Reviewed: Yes
Social History
Tobacco: Former Smoker
Alcohol: None
Drug: None
Personal:
Living: With Family
Employment: Retired
Family History
Family History: Early CAD, Cancer (breast mother) and Diabetes
Review of Systems
Review of Systems
Cardiovascular: Chest Pain, Dyspnea and Edema
Respiratory: Dyspnea
Genital / Urological: Other (straight cath fo urine)
Endocrine: Weakness and Fatigue
Neurological: Other (confusion)
All systems: All other systems were reviewed and were negative
Vital Signs
Temp Pulse Resp BP Pulse Ox
97.6 F 66 17 128/73 97
10/25/24 15:30 10/25/24 17:23 10/25/24 17:00 10/25/24 17:23 10/25/24 17:00
Physical Exam
Physical Exam
Constitutional: No Acute Distress, Well Developed, Comfortable, Acutely Ill, Chronically Ill, Non-toxic and Obese
Head: Normocephalic
Eyes: Pupils Equal, Pupils Round, No Conjunctival Hemorrhage and Sclera Anicteric
Pharynx: Benign
Oral: No Thrush and No Ulcers
Pulmonary: Other (tachycardia)
Gastrointestinal: Soft, Tender, Distended, No Rebound and No Guarding
Extremities: Edema
Skin: Warm and Dry
Wound: Other (wound dehisence)
Neurological: Awake, Alert and Other (confussed)
Psychological: Calm and Confused
Lab / Diagnostic Study Results
10/25/24 03:41
10/25/24 11:29
Abs Immat Gran (auto) 0.2 10^3/uL (0-0.05) H 10/24/24 10:15
Absolute Neuts (auto) 24.1 10^3/uL (1.4-6.5) H 10/24/24 10:15
Absolute Lymphs (auto) 0.4 10^3/uL (1.2-3.4) L 10/24/24 10:15
Absolute Monos (auto) 2.3 10^3/uL (0.1-0.6) H 10/24/24 10:15
Absolute Basos (auto) 0.1 10^3/uL (0-0.2) 10/24/24 10:15
Immature Gran % 0.7 % (0-0.5) H 10/24/24 10:15
Neutrophils % 89.1 % (42.2-75.2) H 10/24/24 10:15
Lymphocytes % 1.6 % (20.5-51.1) L 10/24/24 10:15
Monocytes % 8.3 % (1.7-9.3) 10/24/24 10:15
Eosinophils % 0.1 % (0-6) 10/24/24 10:15
Basophils % 0.2 % (0-2) 10/24/24 10:15
PT 20.9 Sec (11.4-14.6) H 10/25/24 00:27
INR 1.79 10/25/24 00:27
Lactic Acid 1.9 mmol/L (0.7-2.0) 10/25/24 00:27
Ur Squamous Epith Cells 0-2 /LPF (Few) 10/24/24 10:15
Microbiology Results
Micro:
10/25/24 15:47 Blood Culture - Pending
Blood/Venous
10/24/24 11:17 Blood Culture - Preliminary
Blood/Venous Positive culture in progress
Gram Stain - Preliminary
10/24/24 10:15 Urine Culture - Preliminary
Urine Escherichia coli
10/24/24 12:17 Blood Culture - Preliminary
Blood/Venous Staphylococcus aureus
Gram Stain - Preliminary
10/24/24 10:15 Legionella Urinary Antigen - Final
Urine Negative for Legionella pneumophila Serogroup 1 antigen.
A negative result does not rule out the possiblity of
Legionella infection due to other serogroups or species of
Legionella. Clinical correlation is recommended.
Streptococcus pneumoniae Antigen (M - Final
Negative for Streptococcus pneumoniae antigen.
A negative result does not exclude infection with
Streptococcus pneumoniae. Clinical correlation is
recommended.
10/24/24 23:42 MRSA Screen - Pending
Nose
10/24/24 10:15 Influenza Types A & B (CASH) - Final
Nasal Swab Negative for Influenza A & B, NAAT
Negative results must be combined with clinical observations
and patient history.
Nucleic Acid Amplification test (NAAT)performed on the
[employer] platform.
Assessment / Plan
1. Bacteremia with Staph aureus currently on Vancomycin and Cefepime ,leukocytosis WBC 29.9
2. Recent pleurectomy with wound dehiscence awaiting transfer for surgical repair
3. History of Mesitheioma with mets to stomach
4. Abnormal imaging of chest with possible pneumonia
5. Possible UTI with patient doing straight cath/bladder scsn rather than indwelling sadler on Cefepime, E.coli
6. ITP with patient on Romiplostim weekly
7. Depression on Lexapro ans Seroquel
8. CT chest revealing R [id number]
Care Review
Plan reviewed with: Nurse and Other (daughter)
Total Time Spent with Patient (in minutes): 40
--- NOTE | 2024-10-26 09:01 | CM ---
Patient was discharged to [facility] for ongoing acute care @ 1800 on 10/25/24.
== END 2024-10-25 18:00 | disposition short-term general hospital (02) | DRG 871 ==
LOC: ICU 21:19
PROVIDERS: Nurse Practitioner Family; Nurse Practitioner Primary Care; Registered Nurse; ADMITTING PHYSICIAN Internal Medicine; ATTENDING PHYSICIAN Internal Medicine; CONSULT PHYSICIAN Internal Medicine Critical Care Medicine; EMERGENCY PHYSICIAN Emergency Medicine; FAMILY PHYSICIAN Family Medicine; OTHER PHYSICIAN Hospitalist
DX: A41.9 Sepsis, unspecified organism (principal); G93.41 Metabolic encephalopathy; J18.9 Pneumonia, unspecified organism; J96.21 Acute and chronic respiratory failure with hypoxia; J96.22 Acute and chronic respiratory failure with hypercapnia; E87.1 Hypo-osmolality and hyponatremia; E87.3 Alkalosis; N39.0 Urinary tract infection, site not specified; D69.3 Immune thrombocytopenic purpura; T81.31XA Disruption of external operation (surgical) wound, not elsewhere classified, initial encounter; R65.20 Severe sepsis without septic shock; Z79.01 Long term (current) use of anticoagulants; I11.0 Hypertensive heart disease with heart failure; I50.9 Heart failure, unspecified; D50.9 Iron deficiency anemia, unspecified; E86.1 Hypovolemia; E87.6 Hypokalemia; E78.00 Pure hypercholesterolemia, unspecified; F32.A Depression, unspecified; Z87.891 Personal history of nicotine dependence; C45.9 Mesothelioma, unspecified; E66.9 Obesity, unspecified; Z68.38 Body mass index [BMI] 38.0-38.9, adult; Y83.8 Other surgical procedures as the cause of abnormal reaction of the patient, or of later complication, without mention of misadventure at the time of the procedure; G89.29 Other chronic pain; B95.61 Methicillin susceptible Staphylococcus aureus infection as the cause of diseases classified elsewhere; Z79.899 Other long term (current) drug therapy
CPT/HCPCS: 36600; 51701; 51798; 70450; 70496; 70498; 71045; 71260; 80048; 80053; 81003; 81015; 82436; 82805; 82962; 83605; 83735; 83880; 85025; 85027; 85610; 87040; 87070; 87077; 87086; 87147; 87154; 87186; 87205; 87449; 87502; 87811; 87899; 93005; 93306; 94640; 95705; 96361; 96365; 96366; 96375; 96376; 99291; Q9957; Q9967

== ENCOUNTER 2024-11-16 05:27 | Inpatient (IN) | payer OTHER, SELFPAY ==
[2024-11-16] VITALS (21 sets, daily range): BP systolic 94–148; BP diastolic 54–97; PULSE 60–63; O2SAT 96; BMI 45.1; BMI 44.8
--- NOTE | 2024-11-16 01:07 | ED.GENMED ---
History of Present Illness
General
Chief Complaint: Breathing Problem
Source: patient
Exam Limitations: none
Time Seen by Provider: 11/16/24 00:43
Nursing documentation reviewed up to this point in time: agreed with
History of Present Illness
History of Present Illness:
64-year-old female with significant past medical history including mesothelioma with metastasis to the stomach status post pleurectomy, hypertension, paroxysmal atrial fibrillation on Eliquis, hyperlipidemia, CAD, ITP status post pleurectomy, GERD,
history of melanoma, history of GJ tube who presents to the emergency room from [facility] for evaluation of shortness of breath and hypoxia. Patient was seen in this emergency room 10/24/2024 and admitted with hypoxia, wound dehiscence in the right
chest wall/flank, ultimately was found to have MSSA bacteremia on blood cultures and was started on broad-spectrum antibiotics and was briefly admitted here pending transfer to [facility]. I was able to review records from [facility] and
showed the following course: On arrival at [facility] she was taken for wound debridement and wound VAC placement; during the admission she was unfortunately having diarrhea and found to have C. difficile and was started on fidaxomicin. She
was seen in consultation with infectious disease regarding bacteremia and wound infection and recommended for 4 weeks of IV Ancef (end date 12/06/2024 per discharge notes). She had wound VAC change, plastic surgery consultation for wound closure.
Ultimately discharged back to [facility].
She returns to the ER today from [facility]. She was transferred over due to shortness of breath and hypoxia. I spoke to the nursing staff at [facility] who says that she was having increased labored breathing and was complaining of shortness of breath
this evening. She was noted to be hypoxic to 79% and oxygen was turned up to 6 L. They have not noted any recent fever or cough. It sounds like she has been on 3 to 4 L nasal cannula since returning from [facility]. Patient says
that she has been short of breath all day. She says she has been coughing recently. She denies any chest pain. Denies fever. She denies any other complaints. She has been on Eliquis for A-fib; was maintained on heparin drip for hospitalization
at [facility] before transition back to [facility].
Past History
Past History
ED Past Medical History: GERD, HTN, Hypercholesterolemia, KS and Other (Mesothelioma); Negative NIDDM
ED Past Surgical History: Cardiac (Cardiac catheterization), Gynecological, Orthopedic and Other (Hernia. Tracheostomy. Radical pleurectomy decortication diaphragm repair)
Social History
Tobacco: Former smoker (Quit smoking approximately 5 years ago.)
Alcohol: None
Personal:
Living: with family
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
Family History
Family History: Early CAD (Father, late 30s, at 43.)
Review of Systems
Review of Systems
All Other Systems: ROS reviewed and negative except as documented in HPI and ROS
Constitutional: Denies fever
Respiratory: Reports cough and trouble breathing
Cardiac: Denies chest pain
ABD/GI: Denies abdominal pain or nausea
Musculoskeletal: Denies edema
Neurological: Denies headache
Phy Exam
Physical Exam
Physical Exam:
General: Patient is lethargic but wakes to touch, generally ill-appearing
Head: Normocephalic, atraumatic
Eyes: Conjunctiva normal
Throat: Airway intact, handling secretions
Neck: Trachea midline, old tracheostomy site with dressing in place
Lungs: Diminished at the lung bases bilaterally; hypoxic and mildly tachypneic
Heart: Regular rate and rhythm, no murmurs, gallops, or rubs appreciated; she does have right chest wall/flank incisions with some mild localized erythema but no drainage, sutures in place
Abd: Soft, non distended, nontender, GJ tube in place
Neuro: Somewhat lethargic but no focal deficits
Extremities: Trace edema in the legs, warm and well-perfused
Scores
Heart Failure Risk
Heart Failure Risk Score: Not Applicable
Heart Score for Chest Pain Patients
STEMI patient?: Not applicable
Withdrawal Assessment of Alcohol
Withdrawal Assessment Completed?: Not applicable
Course
Orders/Labs/Results
Orders:
Orders
11/16/24 00:28
EKG [Electrocardiogram (*1)] Urgent
Reason for Study: Shortness of Breath
EKG- Treatment ONCE
11/16/24 00:40
Portable Chest Xray [CR Chest Portable - 1 View] Urgent
Comment:
Reason For Exam: SOB
Reason Study Needs to be Portable: Patient Unstable
11/16/24 01:34
COVID-19 Antigen Urgent
Source: Nasal Swab
Complete Blood Count/With Diff Urgent
Comprehensive Metabolic Panel Urgent
Manual Differential Urgent
NT-proBNP Urgent
PTT Urgent
Prothrombin Time Urgent
Troponin I Urgent
Blood Culture Q30M
JESU Source: Blood/Venous
Specimen Description:
Influenza A+B Rapid Molecular Urgent
JESU Source: Nasal Swab
Specimen Description:
11/16/24 01:48
Blood Culture Q30M
JESU Source: Blood/Venous
Specimen Description:
11/16/24 03:19
Cefepime HCl [Maxipime] 1,000 mg IV NOW STA
11/16/24 03:20
*Vancomycin 2,000 mg Loading Dose (consider for >/= 70 kg) Vancomycin [Vancocin] 2,000 mg 0.9% Sodium Chloride 500 ml [Nss] 500 ml IV NOW
Abnormal Lab Results
11/16/24
01:34
RBC 2.68 L 10^6/uL
(4.20-5.40)
Hgb 7.7 L g/dL
(12.0-16.0)
Hct 27.0 L %
(37.0-47.0)
MCV 100.7 H fL
(81.0-99.0)
MCHC 28.5 L g/dL
(33.0-37.0)
RDW 23.6 H %
(11.5-14.5)
MPV 13.0 H fL
(7.4-10.4)
Segmented Neutrophils 80 H %
(42-75)
Band Neutrophils 4 H %
(0-3)
Lymphocytes (Manual) 3 L %
(20-51)
Monocytes (Manual) 10 H %
(2-9)
Carbon Dioxide 42 H mmol/L
(22-30)
BUN 27 H mg/dl
(7-17)
Creatinine 0.5 L mg/dL
(0.6-1.0)
Glucose 131 H mg/dl
(70-99)
Alkaline Phosphatase 302 H U/L
(38-126)
Total Protein 5.4 L g/dl
(6.3-8.2)
Albumin 2.7 L g/dl
(3.5-5.0)
11/16/24 01:34
11/16/24 01:34
Vital Signs
Initial and Last Documented VS:
Initial Vital Signs
Pulse Ox
87
11/16/24 00:14
Last Documented Vital Signs
Temp Pulse Resp BP Pulse Ox
36.5 C 57 14 110/70 97
11/16/24 00:24 11/16/24 02:45 11/16/24 02:45 11/16/24 02:00 11/16/24 02:45
MDM/Problems Addressed
Differential Diagnosis Includes:
Pneumonia, pneumothorax, PE
MDM/Problems Addressed:
64-year-old female with complicated medical history presents from [facility] with shortness of breath and increased hypoxia this evening. Recent admission at [facility] notable for MSSA bacteremia, positive C. difficile; she is currently on IV Ancef and
fidaxomicin. She is hypoxic requiring nonrebreather on arrival but was de-escalated to 6 L nasal cannula. Breath sounds diminished. Exam as above. Plan to check labs including CBC and CMP, proBNP. Check lactate and blood cultures, COVID and
flu. Will check chest x-ray and EKG. Reassess after the above.
Labs reviewed: CBC does show some mild anemia with a hemoglobin of 7.7�no GI bleeding noted or reported by nursing staff. No leukocytosis but bandemia noted. CMP shows metabolic alkalosis. Troponin undetectable. proBNP mildly elevated. COVID
and flu negative. Chest x-ray reviewed by me shows multifocal opacities in the right lung and likely atelectasis of the right lower lung. These appear new/worse compared to prior. I placed a call to cardiothoracic surgery at [facility] to discuss case
given her recent care there�they recommended treatment here at [place]. Will plan to broaden antibiotic spectrum, maintain oxygen support. Discussed with hospitalist for admission.
*Pulse Oximetry
SaO2: 100
Nasal Cannula flow liters per minute: 6
Oxygen Mode of Delivery: Non-rebreather mask
Patient hypoxic: yes (87%)
*EKG
Interpreted by ED Provider?: Yes
Heart Rate: 72
Rate: normal
Rhythm: sinus and PVC's
[place]: normal axis
Interval: first degree heart block
QRS Pattern: normal QRS
Ischemia: no ischemia
*Critical Care Note
Total Time (30-74mins, 75-104mins- exclusive of procedures): Not Applicable
Data Reviewed
Review of Other/Old Records Reveals: Labs, Records and Radiology Studies
Source: patient, records and [facility]
Patient Management
Discussion with other providers: Hospitalist (Discussed with hospitalist), Ecclesiastical Worker (Discussed with cardiothoracic surgeon at [facility]) and skilled nursing staff (Discussed directly with staff at [facility])
Escalation/DeEscalation of care consider admission/obs:
Admission indicated
ED Attending Note
-
Portions of this chart may have been created with voice recognition software.� Occasional wrong word or��sound alike� substitutions may have occurred due to the inherent limitations of voice recognition software.
Discharge Plan
Departure
Patient Disposition: Admit
Date of Disposition: 11/16/24
Time of Disposition: 03:15
Admit to doctor: Radames
Presentation/result/management discussed w/ accepting MD/DO: Hospitalist
Discharge Problem:
Pneumonia, Atelectasis, Acute on chronic hypoxic respiratory failure
Prescriptions:
No Action
atorvastatin 40 MG tablet
40 mg feeding tube HS
gabapentin 300 mg Capsule
300 mg feeding tube BID
nystatin 100,000 unit/gram Ointment
1 applic TOPICAL BID PRN (Reason: Skin Issues)
Patient Comments:
10/24/2024, [facility] paperwork does not include application location.
ferrous sulfate solution
300 mg feeding tube DAILY
acetaminophen 160 mg/5 mL (5 mL) Solution
640 mg feeding tube Q4HPRN PRN (Reason: mild pain)
Rx Instructions:
give 20.3 mls to equal 640
carvedilol 6.25 mg Tablet
6.25 mg feeding tube BID
albuterol sulfate 2.5 mg /3 mL (0.083 %) Solution For Nebulization
2.5 mg continuous nebulization Q6H
clonidine HCl 0.3 mg Tablet
0.3 mg feeding tube TID
bisacodyl [Dulcolax (bisacodyl)] 10 mg Suppository
10 mg OK DAILY PRN (Reason: constipation)
amiodarone 50 mg/mL Solution
200 mg PO DAILY
Rx Instructions:
10/24/2024, via tube.
escitalopram oxalate 5 mg Tablet
15 mg feeding tube DAILY
apixaban 5 mg Tablet
5 mg feeding tube BID
nystatin 100,000 unit/mL Suspension
5 ml PO QID
lidocaine [Lidocaine Pain Relief] 4 % Adhesive Patch,Medicated
2 patch TOPICAL DAILY PRN (Reason: mild pain)
Patient Comments:
10/24/2024, [facility] paperwork does not include patch location.
oxycodone 5 mg/5 mL Solution
5 mg feeding tube Q4H PRN (Reason: mild pain)
sennosides [Senokot] 8.8 mg/5 mL Syrup
5 ml feeding tube BID
Patient Comments:
10/24/2024, currently on hold per [facility] paperwork.
ondansetron 4 mg Tablet,Disintegrating
4 mg feeding tube Q6H PRN (Reason: nausea )
polyethylene glycol Powder
17 ea miscellaneous 1XD
Patient Comments:
10/24/2024, currently on hold per [facility] paperwork.
Rx Instructions:
10/24/2024, 17 grams via tube BID.
lansoprazole 30 mg Tablet,Disintegrat, Delay Rel
30 mg feeding tube DAILY
Rx Instructions:
give before breakfast
romiplostim 250 mcg Recon Soln
250 mcg SC WEEKLY
Patient Comments:
10/24/2024, [facility] paperwork does not specify day of the week.
hydroxyzine HCl 10 mg/5 mL (5 mL) Solution
50 mg FEEDING TUBE QIDPRN PRN (Reason: anxiety)
melatonin
6 mg feeding tube HS
sodium chloride 3 % Solution For Nebulization
4 ml INHALATION Q6H PRN (Reason: cough)
amlodipine 5 mg Tablet
5 mg PO DAILY
magnesium oxide 400 mg (241.3 mg magnesium) Tablet
400 mg PO DAILY
diazepam [Valium] 2 mg Tablet
2 mg PO 4XD PRN (Reason: muscle spasms)
ascorbic acid (vitamin C) 250 mg Tablet
250 mg PO BID
chlorhexidine gluconate 4 % Liquid
1 applic TOPICAL DAILY
doxazosin [Cardura] 2 mg Tablet
2 mg feeding tube HS
chlorhexidine gluconate [Peridex] 0.12 % Mouthwash
0.12 ml PO TID
vancomycin 125 mg/2.5 mL Syringe
125 mg FEEDING TUBE BID
Rx Instructions:
for 27 days
Lactobacillus acidoph-L. bifid 1 billion cell Capsule
1 cap PO 1XD
naloxone 4 mg/actuation [place],Non-Aerosol
1 spray INTRANASAL Q3M
cefazolin 2 gram Recon Soln
2 g IV TID
Patient Comments:
medication to be given every 8 hours morning noon and night for 22 days
Rx Instructions:
give for 22 days to be given morning noon and bedtime
Referrals:
UNKNOWN - PT DOES,NOT KNOW [Family Provider]
Interventions
Interventions:
*Risk Screen - Suicide Last Done: 11/16/24 00:24
*General Assessment Last Done: 11/16/24 00:24
*Neglect/Abuse Screening Last Done: 11/16/24 00:24
*ED- Fall Risk Assessment Last Done: 11/16/24 00:24
*ED COVID-19 Vaccine History Last Done: 11/16/24 00:24
ED- Cardiac Assessment Last Done: 11/16/24 02:43
ED- Pulmonary Assessment Last Done: 11/16/24 02:43
Discharge Date and Time
Print Language: YEMENI
[2024-11-16 01:56] LABS: INR 1.04; PT 14.1 Sec (11.4-14.6)
[2024-11-16 01:57] LABS: APTT 33.2 Sec (23.4-35.0)
[2024-11-16 01:58] LABS: Hematocrit 27.0 % (37.0-47.0); Hemoglobin 7.7 g/dL (12.0-16.0); Mean Corp Hgb Conc. 28.5 g/dL (33.0-37.0); Mean Corpuscular Volume 100.7 fL (81.0-99.0); Platelet Count 166 10^3/uL (130-400); Red Cell Dist. Width 23.6 % (11.5-14.5)
[2024-11-16 02:07] LABS: COVID-19 Antigen Negative (Negative)
[2024-11-16 02:09] LABS: ALT (SGPT) < 10 U/L (0-35); AST (SGOT) 31 U/L (14-36); Albumin 2.7 g/dl (3.5-5.0); Alkaline Phosphatase 302 U/L (38-126); Blood Urea Nitrogen 27 mg/dl (7-17); Calcium 10.2 mg/dl (8.4-10.2); Chloride 98 mmol/L (98-107); Estimated Creatinine Clearance > 125 ml/min; Glucose 131 mg/dl (70-99); Potassium 4.0 mmol/L (3.5-5.1); Sodium 139 mmol/L (135-145); Total Protein 5.4 g/dl (6.3-8.2); eGFR > 60.00
[2024-11-16 02:21] LABS: Troponin I < 0.012 ng/ml
[2024-11-16 02:26] LABS: Carbon Dioxide 42 mmol/L (22-30)
[2024-11-16 02:37] LABS: Absolute Neutrophils -Man Diff 5.8 10^3/uL (1.4-6.5); Anisocytosis 2+; Normal RBC Morphology No
[2024-11-16 02:38] LABS: Hypochromasia 2+; Macrocytosis 1+
[2024-11-16 02:40] LABS: Polychromasia Occasional; Toxic Granulation Occassional; Vacuolated Segs Occasional
[2024-11-16 02:41] LABS: Acanthocytes Occasional; Platelets Checked Yes; Total Cells Counted 100
[2024-11-16 02:42] LABS: Target Cells 2+
[2024-11-16 02:54] LABS: Ovalocytes 1+
--- NOTE | 2024-11-16 02:59 | PTCARENOTE ---
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
[2024-11-16] MEDS: MAXIPIME 1000 MG IV (04:35)
[2024-11-16] MEDS: VANCOCIN 540 MG IV (04:45)
--- NOTE | 2024-11-16 05:10 | HPS.HSE ---
Family Physician
-
Family Physician: NOT KNOW UNKNOWN - PT DOES
Chief Complaint
-
SOB
History of Present Illness
Patient is a 64y F with PMH significant for mesothelioma and complicated recent history who presents to ED from [facility] for evaluation of SOB. Patient was previously admitted here from 10/24 - 10/25 secondary to dehiscence of R chest surgical
site s/p prior pleurectomy / mesothelioma resection. She was transferred at that time to [facility] where she underwent repair of dehiscence, wound vac placement and ultimately Plastic Surgery wound closure (11/09/24). She was also found to have CDiff
during that hospital stay and was treated with fidoxamicin. She is currently on IV Ancef for MSSA bacteremia and is on prophylactic enteral Vancomycin BID.
Patient was transferred from [facility] back to [facility] today.
She was noted to be SOB this evening and required increase in O2 administration from 3 lpm to 6 lpm. She was transferred to the ED for further evaluation.
On initial arrival patient was lethargic and provided little additional history.
At the time of my examination, she woke with some effort and was then bright and alert. She states that she had an 'episode' this evening while on the bed pierce of anxiety and increased SOB. Her BP was markedly elevated. She states that she had
similar episodes during her hospitalization at [facility].
At present, she is awake and conversant. She has some intermittent chest congestion. She has occasional R chest wall pain. She complains of significant / global edema.
No fevers / chills. No N/V.
Medical History
Past Medical History
Past Medical History: Reports Other
Additional Past Medical History:
Mesothelioma
Paroxysmal Atrial Fibrillation
First-degree AV block
Cardiomyopathy
Coronary artery disease
Dyslipidemia
Chronic HFpEF
Grade 1 hemorrhoids
Melanoma
Hypertension
PVCs
Right pleural effusion
MSSA Bacteremia
CDiff Colitis
Obesity
Past Surgical History: Reports Other
Additional Past Surgical History:
Right Pleurectomy / Mesothelioma Resection (August 2024)
Wound Dehiscence Repair/ Wound Vac Placement
Plastics Surgery Wound Closure (11/09/24)
Right lumpectomy
HERRERA, oophorectomy
Knee surgery
Bilateral arm cosmetic procedure
Social History
Tobacco: Non-smoker
Alcohol: None
Drug: None
Personal:
Living: Other ([facility])
Family History
Family History: Not pertinent
Allergies / Home Medications
Allergies reflects when Allergies were last updated in [facility].
Home Medications with original date entered in [facility]
Allergy/Medication List:
Allergies
Allergy/AdvReac Type Severity Reaction Status Date / Time
amoxicillin (From Augmentin) Allergy colitis Verified 11/16/24 03:20
clavulanic acid (From Allergy colitis Verified 11/16/24 03:20
Augmentin)
Sulfa (Sulfonamide Allergy Hives Verified 11/16/24 03:20
Antibiotics)
Home Medications
atorvastatin 40 mg tablet 40 mg feeding tube HS High cholesterol 09/07/18
gabapentin 300 mg capsule 300 mg feeding tube BID Pain 06/03/23
albuterol sulfate 2.5 mg/3 mL (0.083 %) solution for nebulization 2.5 mg continuous nebulization Q6H Lung/Breathing Issues 10/12/24
amiodarone 50 mg/mL intravenous solution 200 mg PO DAILY Arrhythmia 10/12/24
apixaban 5 mg tablet 5 mg feeding tube BID Blood Clot Prevention/Tx 10/12/24
bisacodyl 10 mg rectal suppository (Dulcolax (bisacodyl)) 10 mg FL DAILY PRN constipation 10/12/24
carvedilol 6.25 mg tablet 6.25 mg feeding tube BID Heart Disease/Condition 10/12/24
clonidine HCl 0.3 mg tablet 0.3 mg feeding tube TID Blood Pressure 10/12/24
escitalopram oxalate 5 mg tablet 15 mg feeding tube DAILY Mental Health/Anxiety 10/12/24
hydroxyzine HCl 10 mg/5 mL (5 mL) oral solution 50 mg feeding tube QIDPRN PRN anxiety 10/12/24
lansoprazole 30 mg delayed release,disintegrating tablet 30 mg feeding tube DAILY Gastrointestinal Issue 10/12/24
lidocaine 4 % topical patch (Lidocaine Pain Relief) 2 patch topical DAILY PRN mild pain 10/12/24
melatonin 6 mg feeding tube HS Sleep 10/12/24
nystatin 100,000 unit/mL oral suspension 5 ml PO QID Infection 10/12/24
ondansetron 4 mg disintegrating tablet 4 mg feeding tube Q6H PRN nausea 10/12/24
oxycodone 5 mg/5 mL oral solution 5 mg feeding tube Q4H PRN mild pain 10/12/24
polyethylene glycol 17 ea miscellaneous 1XD Constipation 10/12/24
romiplostim 250 mcg subcutaneous solution 250 mcg SC WEEKLY ITP 10/12/24
sennosides 8.8 mg/5 mL oral syrup 5 ml feeding tube BID Constipation 10/12/24
ferrous sulfate 300 mg feeding tube DAILY Supplement 10/17/24
nystatin 100,000 unit/gram topical ointment 1 applic topical BID PRN Skin Issues 10/17/24
acetaminophen 160 mg/5 mL (5 mL) oral solution 640 mg feeding tube Q4HPRN PRN mild pain 10/24/24
Lactobacillus acidophilus-Lactbacillus bifidus 1 billion cell capsule 1 cap PO 1XD 11/15/24
amlodipine 5 mg tablet 5 mg PO DAILY 11/15/24
ascorbic acid (vitamin C) 250 mg tablet 250 mg PO BID 11/15/24
cefazolin 2 gram solution for injection 2 g IV TID 11/15/24
chlorhexidine gluconate 0.12 % mouthwash (Peridex) 0.12 ml PO TID thrush 11/15/24
chlorhexidine gluconate 4 % topical liquid 1 applic topical DAILY 11/15/24
diazepam 2 mg tablet (Valium) 2 mg PO 4XD PRN muscle spasms 11/15/24
doxazosin 2 mg tablet (Cardura) 2 mg feeding tube HS 11/15/24
magnesium oxide 400 mg (241.3 mg magnesium) tablet 400 mg PO DAILY 11/15/24
naloxone 4 mg/actuation nasal spray 1 spray intranasal Q3M overdose 11/15/24
sodium chloride 3 % for nebulization 4 ml inhalation Q6H PRN cough 11/15/24
vancomycin 125 mg/2.5 mL oral syringe (FOR ORAL USE ONLY) 125 mg feeding tube BID 11/15/24
Review of Systems
-
History Source: Patient
A 12 point ROS was completed and negative except as noted: Yes
Constitutional: Reports Fatigue; Denies Fever or Chills
Respiratory: Reports Cough and Trouble Breathing
Cardiac: Reports Chest Pain; Denies Diaphoresis or Palpitations
Abdomen/GI: Denies Abdominal Pain, Nausea, Vomiting or Diarrhea
: Reports Hernández
Musculoskeletal: Reports Edema
Neurological: Denies Dizzy or Headache
Physical Exam
Vital Signs
Vital Signs
Temp Pulse Resp BP Pulse Ox
97.7 F 57 14 110/70 97
11/16/24 00:24 11/16/24 02:45 11/16/24 02:45 11/16/24 02:00 11/16/24 02:45
Physical Exam
General: Other (64y F initially lethargic but then awake and alert.)
HEENT: Moist mucous membranes and Other (Thick neck.)
Respiratory: Other (Decreased BS at both bases - R > L. Two drains from posterior thorax to KAROLINE bulbs - draining serosanguinous fluid. Surgical / suture site intact without bleeding / erythema / induration / etc.)
Cardiac: S1/S2, Irregular Rhythm and Murmur (II/ JOHN)
GI: Other (Obese, not tender. G-J tube in mid-abdomen without bleeding / discharge.)
Musculoskeletal: Other (3-4+ pitting edema all extremities.)
Neuro: AO x 3
Laboratory Results
-
11/16/24:34
11/16/24:34
Laboratory Results
PT 14.1 Sec (11.4-14.6) 11/16/24:34
INR 1.04 11/16/24:34
APTT 33.2 Sec (23.4-35.0) 11/16/24:34
Total Bilirubin 0.5 mg/dl (0.2-1.3) 11/16/24:34
AST 31 U/L (14-36) 11/16/24:34
ALT < 10 U/L (0-35) 11/16/24:34
Alkaline Phosphatase 302 U/L (38-126) H 11/16/24:34
Troponin I < 0.012 ng/ml 11/16/24:34
Impression/Plan
-
A/P: Patient is a 64y F with PMH significant for mesothelioma s/p multiple hospitalizations, surgeries, etc who presents to ED from [facility] for evaluation of hypoxemia.
Acute on Chronic Hypoxemic Respiratory Failure
- Admit for further evaluation and treatment.
- ? etiology of new / worsened hypoxemia.
- Appears to have been transient as she is oxygenating well on 3lpm at present.
- Afebrile and without leukocytosis, etc.
- CXR noted with R base changes - but significant interventions since most recent comparison film here.
- ? mucus plugging episode, ? aspiration, ? other.
- Continue current nebulizer regimen.
- Continue current abx regimen for now and follow fever curve / monitor for new / worsening symptoms, etc.
- Pulmonary evaluation for additional recommendations.
Acute TME
- Patient lethargic on initial evaluation and now awake and alert.
- She denies DELL or usual CPAP use, etc.
- Check VBG (may be more helpful if she becomes lethargic again).
- ? CO2 retention in setting of increased O2 supplementation?
- Patient also on multiple sedating meds - follow and adjust as needed.
Mesothelioma
s/p R Chest Wall Wound Closure
- KAROLINE drains in place. Follow output.
- Surgical site seems well-appearing at present.
- ED staff spoke with CT Surgery at [facility] this evening.
- Follow-up with them as scheduled.
Acute on Chronic Anemia
- Again, significant interventions since most recent comparison hemoglobin - including two surgeries.
- Follow H&H for any changes.
- Monitor for evidence of gross blood loss.
- Transfuse if needed for Hgb < 7 or worsening symptoms (including dyspnea).
- Consent signed/ on chart.
MSSA Bacteremia
- ID at [facility] recommended Ancef through 12/06/24. Continue.
Recent CDiff Colitis
- s/p fidoxamcicin treatment at [facility].
- Now on prophylactic enteral Vancomycin through 12/11/24 (while on Ancef).
- Hold bowel regimen / magnesium supplementation.
Acute on Chronic HFpEF
- Patient appears markedly volume overloaded.
- Weight is up nearly 20kg from prior visit.
- IV Lasix BID and follow I/Os, daily weights, etc.
- Echo done 10/25 with LVEF = 50%.
- Adjust antihypertensive med regimen to allow for effective diuresis.
Paroxysmal Atrial Fibrillation
- Stable. Continue amiodarone.
- Continue Eliquis.
Benign Hypertension
- BP reportedly markedly elevated this evening during 'episode'.
- Continue usual med regimen and adjust as needed.
- IV diuresis as noted above.
Anxiety / Depression
- ? anxiety / 'panic' attack this evening and prior.
- Continue current escitalopram.
- Continue hydroxyzine PRN anxiety.
Nutrition
- Patient has G-J tube in place and remains tube dependent for meds / meals.
- Nutrition evaluation for tube feed recommendations.
Morbid Obesity due to excess calories
- Exacerbated by fluid gains.
- Affects all aspects of care. Working towards participation with rehab / increased mobility / etc.
DVT Prophylaxis: On Eliquis
Code Status: Full
[2024-11-16] MEDS: VENTOLIN NEBULES 2.5 MG INH ×4 (06:22→19:37)
[2024-11-16 07:15] LABS: Venous Blood Gas B.E. 16.8 mmol/L (-4 to +4); Venous Blood Gas O2 Sat % 98.3 %
--- NOTE | 2024-11-16 07:28 | CON.PUL ---
Consultation
Consultation Request
Date/Time Consultation Requested: 11/16/2024
Date/Time Consultation Performed: 11/16/2024
Medical History
-
Chief Complaint: Shortness of breath, change in mentation
History of Present Illness:
Patient is a 64-year-old female with significant past medical history of mesothelioma with reported metastasis to stomach, status post pleurectomy with decortication plus tracheostomy in 08/2024. Patient was evaluated in the emergency room on 10/24
due to shortness of breath and change in mentation. She had an EEG performed which was unremarkable also included a CT chest and was noted to have dehiscence of the thoracotomy site. Patient was subsequently transferred to [facility] for further management. At [facility], patient had surgical exploration, wound VAC placement, new diagnosis of C. difficile in addition to MSSA bacteremia. Patient has a PICC line in place and is scheduled to be on 4
weeks of IV antibiotics in addition to p.o. vancomycin for recent C. difficile. [facility]. Reportedly patient was brought to the emergency room for increasing oxygen requirement, shortness of breath and
suspected change in mental status. Workup in the emergency room was suggestive of increased right-sided pulmonary opacities. Patient's mental status fully resolved and she was at her baseline during evaluation. In view of increased oxygen need
and worsening pulmonary opacities, patient was admitted to the hospital for further management. [facility], [place] surgery service was consulted but they recommended local hospitalization. Pulmonary consultation was requested for
further input.
PMHx: DJD, GERD, plantar fasciitis, history of TN, Takotsubo's cardiomyopathy, hypercholesterolemia, mesothelioma with metastasis to stomach s/p radical pleurectomy, decortication, diaphragmatic repair, ITP, history of splenectomy, anxiety,
depression, insomnia, history of melanoma s/p resection, urinary retention with frequent straight catheterization, recurrent UTI, history of trach/PEG, A-fib on Eliquis
PSHx: Right sided radical pleurectomy, decortication, trach, history of G-tube with conversion to G/J-tube, right knee surgery, shoulder surgery for melanoma resection, hysterectomy, splenectomy, diaphragmatic hernia repair, ventral hernia s/p mesh
repair (2013), cardiac cath
Past Medical History
Past Medical History: Other (Above as per HPI)
Past Surgical History: Other (Above as per HPI)
Social History
Tobacco: Former Smoker (Quit approximately 5 years ago)
Alcohol: None
Drug: None
Personal:
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
Family History
Family History: Early CAD (Father ( at age 43)), Cancer (Mother: Breast cancer; Sister: Mesothelioma) and Diabetes (Sister)
Allergies / Home Medications
Allergies
Allergy/AdvReac Type Severity Reaction Status Date / Time
amoxicillin (From Augmentin) Allergy colitis Verified 11/16/24 03:20
clavulanic acid (From Allergy colitis Verified 11/16/24 03:20
Augmentin)
Sulfa (Sulfonamide Allergy Hives Verified 11/16/24 03:20
Antibiotics)
Home Medications
�Medication �Instructions �Recorded �Confirmed �Last Taken �Type
atorvastatin 40 mg tablet 40 mg feeding tube HS High 09/07/18 11/16/24 06/03/23 History
cholesterol
gabapentin 300 mg capsule 300 mg feeding tube BID Pain 06/03/23 11/16/24 06/03/23 History
albuterol sulfate 2.5 mg/3 mL 2.5 mg continuous nebulization Q6H 10/12/24 11/16/24 Unknown History
(0.083 %) solution for nebulization Lung/Breathing Issues
amiodarone 50 mg/mL intravenous 200 mg PO DAILY Arrhythmia 10/12/24 11/16/24 Unknown History
solution
apixaban 5 mg tablet 5 mg feeding tube BID Blood Clot 10/12/24 11/16/24 Unknown History
Prevention/Tx
bisacodyl 10 mg rectal suppository 10 mg UT DAILY PRN constipation 10/12/24 11/16/24 Unknown History
(Dulcolax (bisacodyl))
carvedilol 6.25 mg tablet 6.25 mg feeding tube BID Heart 10/12/24 11/16/24 Unknown History
Disease/Condition
clonidine HCl 0.3 mg tablet 0.3 mg feeding tube TID Blood 10/12/24 11/16/24 Unknown History
Pressure
escitalopram oxalate 5 mg tablet 15 mg feeding tube DAILY Mental 10/12/24 11/16/24 Unknown History
Health/Anxiety
hydroxyzine HCl 10 mg/5 mL (5 mL) 50 mg feeding tube QIDPRN PRN 10/12/24 11/16/24 Unknown History
oral solution anxiety
lansoprazole 30 mg delayed 30 mg feeding tube DAILY 10/12/24 11/16/24 Unknown History
release,disintegrating tablet Gastrointestinal Issue
lidocaine 4 % topical patch 2 patch topical DAILY PRN mild pain 10/12/24 11/16/24 Unknown History
(Lidocaine Pain Relief)
melatonin 6 mg feeding tube HS Sleep 10/12/24 11/16/24 Unknown History
nystatin 100,000 unit/mL oral 5 ml PO QID Infection 10/12/24 11/16/24 Unknown History
suspension
ondansetron 4 mg disintegrating 4 mg feeding tube Q6H PRN nausea 10/12/24 11/16/24 Unknown History
tablet
oxycodone 5 mg/5 mL oral solution 5 mg feeding tube Q4H PRN mild pain 10/12/24 11/16/24 Unknown History
polyethylene glycol 17 ea miscellaneous 1XD 10/12/24 11/16/24 Unknown History
Constipation
romiplostim 250 mcg subcutaneous 250 mcg SC WEEKLY ITP 10/12/24 11/16/24 Unknown History
solution
sennosides 8.8 mg/5 mL oral syrup 5 ml feeding tube BID Constipation 10/12/24 11/16/24 Unknown History
ferrous sulfate 300 mg feeding tube DAILY 10/17/24 11/16/24 Unknown History
Supplement
nystatin 100,000 unit/gram topical 1 applic topical BID PRN Skin 10/17/24 11/16/24 Unknown History
ointment Issues
acetaminophen 160 mg/5 mL (5 mL) 640 mg feeding tube Q4HPRN PRN 10/24/24 11/16/24 Unknown History
oral solution mild pain
Lactobacillus 1 cap PO 1XD 11/15/24 11/16/24 Unknown History
acidophilus-Lactbacillus bifidus 1
billion cell capsule
amlodipine 5 mg tablet 5 mg PO DAILY 11/15/24 11/16/24 Unknown History
ascorbic acid (vitamin C) 250 mg 250 mg PO BID 11/15/24 11/16/24 Unknown History
tablet
cefazolin 2 gram solution for 2 g IV TID 11/15/24 11/16/24 Unknown History
injection
chlorhexidine gluconate 0.12 % 0.12 ml PO TID thrush 11/15/24 11/16/24 Unknown History
mouthwash (Peridex)
chlorhexidine gluconate 4 % 1 applic topical DAILY 11/15/24 11/16/24 Unknown History
topical liquid
diazepam 2 mg tablet (Valium) 2 mg PO 4XD PRN muscle spasms 11/15/24 11/16/24 Unknown History
doxazosin 2 mg tablet (Cardura) 2 mg feeding tube HS 11/15/24 11/16/24 Unknown History
magnesium oxide 400 mg (241.3 mg 400 mg PO DAILY 11/15/24 11/16/24 Unknown History
magnesium) tablet
naloxone 4 mg/actuation nasal spray 1 spray intranasal Q3M overdose 11/15/24 11/16/24 Unknown History
sodium chloride 3 % for 4 ml inhalation Q6H PRN cough 11/15/24 11/16/24 Unknown History
nebulization
vancomycin 125 mg/2.5 mL oral 125 mg feeding tube BID 11/15/24 11/16/24 Unknown History
syringe (FOR ORAL USE ONLY)
Review of Systems
-
Respiratory: Trouble Breathing and Other (No significant cough or expectoration, no hemoptysis noted.)
Hematologic/Lymphatic: Other (All 14 systems reviewed and negative except as stated above in the history of present illness.)
Vitals / Labs / Diagnostic Testing
Vital Signs
Temp Pulse Resp BP Pulse Ox
97.7 F 78 20 148/76 94
11/16/24 00:24 11/16/24 06:45 11/16/24 06:30 11/16/24 06:00 11/16/24 06:30
Lab Data
11/16/24 01:34
11/16/24 01:34
Laboratory Results
11/16/24
01:34
PT 14.1
INR 1.04
APTT 33.2
Microbiology
11/16/24 01:34 Nasal Swab Influenza Types A & B (CASH) - Final
Negative for Influenza A & B, NAAT
Negative results must be combined with clinical observations
and patient history.
Nucleic Acid Amplification test (NAAT)performed on the
[employer] platform.
Diagnostic Testing:
Physical Exam
-
HEENT: Normocephalic
Cardiovascular: S1/S2 and Peripheral Edema (Bilateral upper and lower extremity edema at least 3+ bilaterally)
Respiratory: Rales
GI: Soft and Non Distended
Neurology: Awake
General: Comfortable
Assessment
-
#1. Acute on chronic hypoxic respiratory failure
- Likely multifactorial. Increased right middle and lower lobe opacities noted on chest x-ray, differential diagnosis includes atelectasis, pneumonia, worsening pleural effusion. Also patient overall appears volume overloaded with increased
pulmonary congestion suggestive of pulmonary edema. Patient has also been on amiodarone, will pursue CT chest for further evaluation.
- Patient has normal WBC count, is otherwise afebrile and imaging changes are more suggestive of atelectasis and volume overload. Continue IV cefazolin but patient is taking for MSSA bacteremia and hold off additional antibiotics pending further
workup.
- CT chest for further evaluation
- Blood cultures pending, Influenza A & B negative, COVID-19 screen negative
#2. Chronic baseline hypercapnic respiratory failure.
- VBG 7.39, 73, compensated hypercapnia
- Bicarb is chronically elevated, appears compensated, suspect related to underlying obesity
- Suspect patient has underlying sleep disordered breathing with possible obesity hypoventilation syndrome. Baseline oxygen dependent with increased pCO2 as well as high BMI very suggestive of OHS
#3. History of metastatic mesothelioma.
- S/p right sided radical pleurectomy with decortication, diaphragmatic repair, tracheostomy and G-tube placement in 08/2024 at [facility].
- Wound was complicated by dehiscence in 10/2024, requiring transfer to [facility] for repair, wound VAC placement and was subsequently discharged on 11/15
- Follow-up CT chest for further evaluation
- You open CT surgery team was contacted from emergency room, recommended continued treatment at [place]
#4. Acute on chronic heart failure with preserved ejection fraction
- Echocardiogram in 10/2024 showed EF of 50%
- Continue IV diuresis. Patient has 3+ bilateral pedal edema as well as upper extremity edema and overall appears floridly volume overloaded. Suspect this is significantly contributing to her symptoms.
Other medical diagnoses:
- MSSA bacteremia. On IV Cefazolin, scheduled thru 12/06/2024
- H/o C Diff. on PO Vancomcyin. s/p Treatment with fidaxomicin at [facility]
- Paroxysmal atrial fibrillation, chronically anticoagulated with Eliquis and on p.o. amiodarone
- Brief encephalopathy, ? Unclear etiology. Blood gas not suggestive of hypercapnic encephalopathy. EEG pursued last month was unremarkable. Polypharmacy also likely contributing, minimize sedation.
Total time spent on this consultation/encounter ___81_ minutes which includes review of history, physical exam, medications, laboratory data, personal review of imaging, extensive review of outpatient records, discussion with care team and
respiratory therapy. Extensive previous records reviewed including last hospitalization, transfer notes to [facility], limited records from [facility].
Data:
CXR 10/2024: Bibasilar opacities, increased on the right which may represent atelectasis and/or pneumonia as well as likely increased right pleural effusion.
Prominent pulmonary vascularity which may represent interstitial edema again seen.
CT Chest 10/2024: 1. There is likely mucous plugging within the right lower lobe with near complete collapse of the right lower lobe. There is persistent atelectasis within the right middle lobe and posterior right upper lobe.
2. Small right-sided hydropneumothorax, similar in appearance to prior. There is a severely displaced posterior right sixth rib fracture, unchanged from prior.
3. Surgical drain within the right posterior lateral chest wall with a slightly ill-defined collection along the mid aspect of the drain measuring approximately 7.8 x 2.4 cm.
4. Stable mildly prominent mediastinal lymph nodes.
EEG 10/2024: No evidence of status epilepticus
ECHO 10/2024: Low normal left ventricular systolic function. Left ventricular ejection fraction is 50%.
Aortic sclerosis without stenosis.
Normal right ventricular size and function.
Compared to 03/23/23: prior LVEF was 55-60%. MR looks mild, compared to
mild/moderate previously.
C 06/2023: 1: Normal left ventricular function with EF 59%
2: No significant CAD
3. Chest pain is noncardiac
[2024-11-16 09:05] LABS: Troponin I < 0.012 ng/ml
[2024-11-16] MEDS: LASIX 40 MG IV ×2 (09:53→17:04)
[2024-11-16] MEDS: CATAPRES 0.3 MG TUBE ×2 (09:59→22:08)
[2024-11-16] MEDS: COREG 6.25 MG TUBE ×2 (10:00→22:09)
[2024-11-16] MEDS: ELIQUIS 5 MG TUBE ×2 (10:00→22:08)
[2024-11-16] MEDS: LEXAPRO 15 MG TUBE (10:00)
[2024-11-16] MEDS: FERROUS SULFATE ORAL LIQUID 300 MG TUBE (10:00)
[2024-11-16] MEDS: MYCOSTATIN ORAL SUSPENSION 5 ML PO ×3 (10:01→22:10)
[2024-11-16] MEDS: NEURONTIN 300 MG TUBE ×2 (10:01→22:09)
[2024-11-16] MEDS: PREVACID 30 MG TUBE (10:01)
[2024-11-16] MEDS: VITAMIN C 250 MG TUBE ×2 (10:02→22:09)
[2024-11-16] MEDS: PACERONE 200 MG PO (10:02)
[2024-11-16] MEDS: FIRVANQ 125 MG TUBE ×2 (10:02→22:30)
[2024-11-16] MEDS: ANCEF 10 IV ×2 (10:17→17:05)
--- NOTE | 2024-11-16 10:33 | PTCARENOTE ---
Assumed care of patient at around 7:45am as ED nurse brought this patient up after shift change. Patients and son are at the bedside and were updated on plan of care by both RN and art model. [facility]
episode. She is on 5L NC at the moment, she is tired, but holding conversation with RN and family members. Pleurectomy incision with sutures are c/d/i. 2x KAROLNIE drains below incision noted. CONCRETE TESTER sadler catheter and midline noted. Meds are to be given
through g/j tube per orders. Pt is awaiting transport to CT scan for CT chest.
--- NOTE | 2024-11-16 10:40 | CM ---
Patient was recently discharged and transferred to [facility] [facility]. Patient lives with her and son in a 2 story plus basement home with B/B on 2nd and 1/2 bath on 1st with 3 steps to enter. 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
Does have a RW and SPC which she uses on rare occasions. No in-home services. Does have a HC-POA. No service. Support system is , son, 2 daughters and mother. PCP is Dr. Sukhjinder Leyva and Pharmacy is [facility].
Will follow indication on behalf of medical staff regarding discharge.
Plan: Case management will continue to follow and assist with discharge planning. [facility] alternate plan.
--- NOTE | 2024-11-16 11:00 | W.PN.HOSP.TC ---
Today's Communication/Plan
-
CT chest.
Monitor for oversedation.
Consider CPAP.
IV diuresis.
Speech and swallow evaluation.
Nutrition evaluation for tube feeds recommendation.
Monitor hemoglobin.
Continue Ancef covering MSSA bacteremia
Continue vancomycin for C. difficile
Total Critical Care Time___55__ minutes. I was immediately available to the patient and staff. I personally examined, reviewed labs, diagnostic images/reports, interpretations, treatment plans, discussed patient care with other providers and
family or caregivers (if patient is unable to make decisions), entered orders as appropriate and documented the medical record.
Assessment / Plan
Assessment / Plan
Impression
Patient is a 64y F with PMH significant for mesothelioma s/p multiple hospitalizations, surgeries, etc who [facility].
Acute on chronic hypoxemic/hypercarbic respiratory failure.
Toxic metabolic encephalopathy secondary to hypoxia and hypercarbia, likely related to sedative medications as well.
Acute on chronic anemia
Conditions prior to admission:
Mesothelioma status postresection
Right chest wall wound dehiscence status post closure and skin flap by plastics at [facility]
Bilateral pneumonia.
MSSA bacteremia
C. difficile infection
Dysphagia with GJ tube in place
CHF preserved EF.
Paroxysmal atrial fibrillation
Anticoagulation with Eliquis per
Essential hypertension, multidrug requiring.
Anxiety/depression
Plan
Acute on chronic hypoxic/hypercarbic respiratory failure.
Likely multifactorial in the settings of volume overload, CO2 retention possibly due to oversedation. Has reasonable risk for aspiration.
Afebrile with normal white count upon presentation
Chest x-ray with right base changes�but significant interventions since most recent imaging at .
Respiratory status relatively stable, although noted with hypercarbia on VBG.
CT scan of the chest pending
Consider CPAP
Remains on antibiotics to complete course of treatment for MSSA. Monitor closely following imaging, temperature curve, WBC.
Currently on volume and oxycodone, monitor closely, holding parameters for oversedation
Oral volume hard to assess, although with peripheral edema and elevated pro CHF BNP. Initiated on IV Lasix
Acute on chronic CHF preserved EF.
Echo 10/25/2024: Low normal left ventricular systolic function, left ventricular ejection fraction 50%, aortic sclerosis without stenosis, normal right ventricular size and function.
Noted weight is up 20 kg from prior visit.
Elevated procedure BNP.
Continue IV Lasix twice daily following up I's and O's, daily weights and renal function closely
Adjust antihypertensive regimen according to renal function and hemodynamics
Acute TME likely multifactorial in the settings of hypoxia, hypercarbia and oversedation.
Continue volume and oxycodone monitoring closely for oversedation.
Consider CPAP
Acute on chronic anemia.
Was post multiple surgical intervention.
So far no evidence for gross blood loss
Hemoglobin trending down to 7.7
Consider transfusion if less than 7
Consent signed/on chart
MSSA bacteremia.
ID recommendation at [place] continue IV Ancef through 12/06/2024
Recent C. difficile colitis
Status post for fidaxomicin course.
Continue enteral vancomycin through 12/11/2024 (while on Ancef)
Hold bowel regimen/magnesium supplementation
Paroxysmal atrial fibrillation.
Continue amiodarone.
Continue Eliquis
Benign hypertension
Noted elevated BP.
Continue preadmission regimen
Anxiety / Depression
- ? anxiety / 'panic' attack this evening and prior.
- Continue current escitalopram.
- Continue hydroxyzine PRN anxiety.
Nutrition
- Patient has G-J tube in place and remains tube dependent for meds / meals.
- Nutrition evaluation for tube feed recommendations.
Morbid Obesity due to excess calories
- Exacerbated by fluid gains.
- Affects all aspects of care. Working towards participation with rehab / increased mobility / etc.
DVT Prophylaxis: On Eliquis
Code Status: Full
Anticipated Discharge: > 48 hours
Subjective/Interval History
-
Date of Service: November 16, 2024
Objective Data
-
Labs:
Laboratory Results
11/16/24
01:34
WBC 7.0
Hgb 7.7 L
Hct 27.0 L
Plt Count 166
PT 14.1
INR 1.04
APTT 33.2
Sodium 139
Potassium 4.0
Chloride 98
Carbon Dioxide 42 H
BUN 27 H
Creatinine 0.5 L
Glucose 131 H
Calcium 10.2
Total Bilirubin 0.5
AST 31
ALT < 10
Alkaline Phosphatase 302 H
Vital Signs:
Vital Signs
Temp Pulse Resp BP Pulse Ox
97.5 F 71 16 122/68 98
11/16/24 07:43 11/16/24 09:53 11/16/24 09:00 11/16/24 09:53 11/16/24 09:00
I&O
11/15/24 11/16/24 11/17/24
06:59 06:59 06:59
Intake Total 0 / 0
Balance 0 / 0
Physical Exam
-
General: Well Developed and No Apparent Distress
HEENT: Normocephalic, Atraumatic and Moist Mucous Membranes
Respiratory: Decreased Breath Sounds and Chest Tubes (Right chest KAROLINE drains x 2)
Cardiac: Regular Rhythm and S1/S2; Negative Murmur, Rub or Gallop
GI: Soft, Nontender, Nondistended and Normal Bowel Sounds; Negative Organomegaly
Rectal: Deferred by Provider
Musculoskeletal: No Clubbing, No Cyanosis and No Edema
Skin: Negative Rash
Neuro: Other (Lethargic opens eyes answering simple question)
[2024-11-16 12:10] LABS: Glycohemoglobin (HgbA1c) 5.3 % (4.0-5.6)
[2024-11-16] MEDS: MYCOSTATIN ORAL SUSPENSION PO (12:48)
[2024-11-16] MEDS: VISBIOME TUBE (12:50)
[2024-11-16] MEDS: ROXICODONE ORAL SOLUTION 5 MG TUBE (15:19)
[2024-11-16] MEDS: CATAPRES TUBE (16:53)
[2024-11-16] MEDS: PERIDEX 0.12% ORAL RINSE 5 ML PO ×2 (17:03→22:10)
[2024-11-16] MEDS: ATARAX 25 MG TUBE (17:33)
[2024-11-16] MEDS: SODIUM CHLORIDE 3% FOR INHALATION INH (20:56)
[2024-11-16] MEDS: VENTOLIN NEBULES INH (20:56)
[2024-11-16] MEDS: LIPITOR 40 MG TUBE (22:08)
[2024-11-16] MEDS: MELATONIN 6 MG TUBE (22:08)
[2024-11-16] MEDS: CARDURA 2 MG TUBE (22:09)
[2024-11-17] VITALS (14 sets, daily range): BP systolic 104–153; BP diastolic 49–73; PULSE 2–66; BMI 44.9; BMI 43.7
[2024-11-17] MEDS: ANCEF 10 IV ×3 (02:26→18:17)
[2024-11-17] MEDS: ROXICODONE ORAL SOLUTION 5 MG TUBE ×3 (02:51→22:30)
--- NOTE | 2024-11-17 03:03 | PTCARENOTE ---
Pt medicated with Oxycodone 5mg via gastric tube for right lateral chest pain,+ relief following.Close observation ongoing.
[2024-11-17 04:59] LABS: Hematocrit 27.6 % (37.0-47.0); Hemoglobin 8.0 g/dL (12.0-16.0); Mean Corp Hgb Conc. 29.0 g/dL (33.0-37.0); Mean Corpuscular Volume 98.9 fL (81.0-99.0); Platelet Count 181 10^3/uL (130-400); Red Cell Dist. Width 24.4 % (11.5-14.5)
--- NOTE | 2024-11-17 05:02 | PTCARENOTE ---
Assumed care of pt. 0300.
Pt. mentating appropriately, offers no complaints at this time.
Hemodynamically stable, drains in place, maintaining airway sp02 94 on 5L N/C.
[2024-11-17 05:20] LABS: Blood Urea Nitrogen 22 mg/dl (7-17); Calcium 10.1 mg/dl (8.4-10.2); Chloride 97 mmol/L (98-107); Estimated Creatinine Clearance > 125 ml/min; Glucose 86 mg/dl (70-99); Magnesium 1.5 mg/dl (1.6-2.3); Potassium 4.0 mmol/L (3.5-5.1); Sodium 140 mmol/L (135-145); eGFR > 60.00
[2024-11-17 05:32] LABS: Carbon Dioxide 43 mmol/L (22-30)
[2024-11-17] MEDS: VENTOLIN NEBULES 2.5 MG INH ×3 (07:29→17:33)
[2024-11-17] MEDS: SODIUM CHLORIDE 3% FOR INHALATION 1 VIAL INH ×3 (07:29→17:33)
[2024-11-17] MEDS: COREG 6.25 MG TUBE ×2 (08:30→20:31)
[2024-11-17] MEDS: VITAMIN C 250 MG TUBE ×2 (08:31→20:31)
[2024-11-17] MEDS: NEURONTIN 300 MG TUBE ×2 (08:31→20:31)
[2024-11-17] MEDS: CATAPRES 0.3 MG TUBE ×2 (08:31→22:30)
[2024-11-17] MEDS: PERIDEX 0.12% ORAL RINSE 5 ML PO ×2 (08:31→22:30)
[2024-11-17] MEDS: MYCOSTATIN ORAL SUSPENSION 5 ML PO ×3 (08:31→22:30)
[2024-11-17] MEDS: FERROUS SULFATE ORAL LIQUID 300 MG TUBE (08:31)
[2024-11-17] MEDS: PREVACID 30 MG TUBE (08:32)
[2024-11-17] MEDS: LASIX 40 MG IV ×2 (08:32→18:05)
[2024-11-17] MEDS: ELIQUIS 5 MG TUBE ×2 (08:32→20:31)
[2024-11-17] MEDS: LEXAPRO 15 MG TUBE (08:32)
[2024-11-17] MEDS: PACERONE 200 MG TUBE (08:32)
[2024-11-17] MEDS: VISBIOME TUBE (08:33)
--- NOTE | 2024-11-17 08:34 | W.PN.PUL3 ---
Today's Communication / Plan
-
- Continue work with clearance, increase albuterol and hypertonic saline to 3 times daily
- Add Mucinex via feeding tube 4 times daily, 200 mg
- Chest physical therapy/sports bed
- Resume tube feeding
- Follow-up chest x-ray in a.m.
Assessment
-
Patient is a 64-year-old female with significant past medical history of mesothelioma with reported metastasis to stomach, status post pleurectomy with decortication plus tracheostomy in 08/2024. Patient was evaluated in the emergency room on 10/24
due to shortness of breath and change in mentation. She had an EEG performed which was unremarkable also included a CT chest and was noted to have dehiscence of the thoracotomy site. Patient was subsequently transferred to [facility] for further management. At [facility], patient had surgical exploration, wound VAC placement, new diagnosis of C. difficile in addition to MSSA bacteremia. Patient has a PICC line in place and is scheduled to be on 4
weeks of IV antibiotics in addition to p.o. vancomycin for recent C. difficile. She was discharged back to [facility] on 11/15. Reportedly patient was brought to the emergency room for increasing oxygen requirement, shortness of breath and
suspected change in mental status. Workup in the emergency room was suggestive of increased right-sided pulmonary opacities. Patient's mental status fully resolved and she was at her baseline during evaluation. In view of increased oxygen need
and worsening pulmonary opacities, patient was admitted to the hospital for further management. [facility], [place] surgery service was consulted but they recommended local hospitalization. Pulmonary consultation was requested for
further input.
#1. Acute on chronic hypoxic respiratory failure
- Multifactorial. Increased right middle and lower lobe opacities noted on chest x-ray, CT chest pursued. Increased RML/RLL volume loss, overall volume overload. Small areas of ?atelctasisvs infiltrates in STAS and LIngula.
- Patient has normal WBC count, is otherwise afebrile and imaging changes are more suggestive of atelectasis and volume overload. Continue IV cefazolin that patient is taking for MSSA bacteremia and hold off additional antibiotics pending further
workup. No productive cough and no purulent expectoration.
- Blood cultures pending, Influenza A & B negative, COVID-19 screen negative
#2. RML and RLL atelectasis ?mucous plugging vs Endobronchial malignancy
- CT chest compared to 10/2024 with persistent Right bronchus intermedius cut-ff. ?mucous plugging, endobronchial tumor, external compression from pleural effusion
- Start Airway clearance with Albuterol and 3% NS BID. Chest PT,sports bed to help mobilize secretions
- Add flutter valve
- Continue diuresis as patient is still quite fluid overloaded
- Depending on clinical course, might need Bronchoscopy and airway clearance with inspection. Hold off for now as patient is quite volume overloaded and might end up on ventilator with attempted sedation for procedure. If she develops any worsening
respiratory insufficiency, will proceed with bronchoscopy. Trial of conservative management for now.
#3. Chronic baseline hypercapnic respiratory failure.
- VBG 7.39, 73, compensated hypercapnia
- Bicarb is chronically elevated, appears compensated, suspect related to underlying obesity
- Suspect patient has underlying sleep disordered breathing with possible obesity hypoventilation syndrome. Baseline oxygen dependent with increased pCO2 as well as high BMI very suggestive of OHS
#4. History of metastatic mesothelioma.
- S/p right sided radical pleurectomy with decortication, diaphragmatic repair, tracheostomy and G-tube placement in 08/2024 at [facility].
- Wound was complicated by dehiscence in 10/2024, requiring transfer to [facility] for repair, wound VAC placement and was subsequently discharged on 11/15
- Follow-up CT chest suggestive of enlarging effusion
- [facility] CT surgery team was contacted from emergency room, recommended continued treatment at [place]
#5. Acute on chronic heart failure with preserved ejection fraction
- Echocardiogram in 10/2024 showed EF of 50%
- Continue IV diuresis
Other medical diagnoses:
- MSSA bacteremia. On IV Cefazolin, scheduled thru 12/06/2024
- H/o C Diff. on PO Vancomcyin. s/p Treatment with fidaxomicin at [facility]
- Paroxysmal atrial fibrillation, chronically anticoagulated with Eliquis and on p.o. amiodarone
- Brief encephalopathy, ? Unclear etiology. Blood gas not suggestive of hypercapnic encephalopathy. EEG pursued last month was unremarkable. Polypharmacy also likely contributing, minimize sedation.
Total time spent on this consultation/encounter ___51_ minutes which includes review of history, physical exam, medications, laboratory data, personal review of imaging, extensive review of outpatient records, discussion with care team and
respiratory therapy. Extensive previous records reviewed including last hospitalization, transfer notes to [facility], limited records from [facility].
Data:
CT Chest 10/2024: Re-demonstration of cut off of the bronchus intermedius. This could be related to endobronchial neoplasm or mucous plug. Right lower lobe is collapsed, and there is progression of postobstructive pneumonia or partial atelectasis in
the right middle lobe. Consider bronchoscopy for further evaluation of the bronchus intermedius, if not performed
Focus of airspace disease in the left upper lobe measuring 1.5 cm in diameter. This is new. New small focus of airspace disease within the lingula anteriorly.
There is a moderate right pleural effusion. This has increased compared with the prior CT. Small left pleural effusion; this is new since the prior CT.
There is extensive soft tissue attenuation material in the right lateral abdominal wall. This extends inferiorly beyond the imaging field. This is likely phlegmon. Previously, there was a 7.8 cm fluid collection associated with this abnormal soft
tissue. No fluid collection in this region shown by the current study, although any residual collection may be below the imaging field on the current study. If clinically warranted, CT abdomen can assess for any residual collection in the right
lateral abdominal wall
2 new leads or catheters are noted to course within the right lateral and right posterior soft tissues of the chest wall
No change in mild mediastinal adenopathy.
CXR 10/2024: Bibasilar opacities, increased on the right which may represent atelectasis and/or pneumonia as well as likely increased right pleural effusion.
Prominent pulmonary vascularity which may represent interstitial edema again seen.
CT Chest 10/2024: 1. There is likely mucous plugging within the right lower lobe with near complete collapse of the right lower lobe. There is persistent atelectasis within the right middle lobe and posterior right upper lobe.
2. Small right-sided hydropneumothorax, similar in appearance to prior. There is a severely displaced posterior right sixth rib fracture, unchanged from prior.
3. Surgical drain within the right posterior lateral chest wall with a slightly ill-defined collection along the mid aspect of the drain measuring approximately 7.8 x 2.4 cm.
4. Stable mildly prominent mediastinal lymph nodes.
EEG 10/2024: No evidence of status epilepticus
ECHO 10/2024: Low normal left ventricular systolic function. Left ventricular ejection fraction is 50%.
Aortic sclerosis without stenosis.
Normal right ventricular size and function.
Compared to 03/23/23: prior LVEF was 55-60%. MR looks mild, compared to
mild/moderate previously.
[facility] 06/2023: 1: Normal left ventricular function with EF 59%
2: No significant CAD
3. Chest pain is noncardiac
Subjective Data
-
Date of Service:
Date of Service: November 17, 2024
Subjective:
Patient comfortably lying in bed in no acute distress, reports feeling marginally better. Currently saturating 93% on 8 L nasal cannula, MAP of 87
Review of Systems
Genitourinary: Other (All 14 systems reviewed and negative except as stated above in the history of present illness. Denies any significant cough, pleuritic discomfort, hemoptysis or purulent expectoration.)
Objective Data
Data Reviewed
Vital Signs / I&O / Oxygen:
Vital Signs
Temp Pulse Resp BP Pulse Ox
97.6 F 59 17 128/73 92
11/17/24 08:01 11/17/24 08:30 11/17/24 08:15 11/17/24 08:30 11/17/24 08:17
Intake and Output
11/16/24 11/17/24 11/18/24
06:59 06:59 06:59
Intake Total 0 / 0
Output Total 2930 / 2930
Balance -2930 / -2930
SaO2 92
Nasal Cannula flow liters per 6
minute
Physical Exam
General: Comfortable
HEENT: Normocephalic
Cardiovascular: S1-S2 and Peripheral Edema (Significant upper and lower extremity edema bilaterally)
Respiratory: Crackles (Mostly in the right lower lobe)
GI: Soft and Non Distended
Neurology: Awake and Alert
Skin: Warm
Labs/Micro/Reports
Lab Data
11/17/24 04:36
11/17/24 04:36
Microbiology
11/16/24 01:48 Blood/Venous Blood Culture - Preliminary
No Growth in 24 hours- Final report to follow
11/16/24 01:34 Blood/Venous Blood Culture - Preliminary
No Growth in 24 hours- Final report to follow
11/16/24 01:34 Nasal Swab Influenza Types A & B (CASH) - Final
Negative for Influenza A & B, NAAT
Negative results must be combined with clinical observations
and patient history.
Nucleic Acid Amplification test (NAAT)performed on the
[employer] platform.
[2024-11-17] MEDS: FIRVANQ 125 MG TUBE ×2 (11:18→20:32)
[2024-11-17] MEDS: ROBITUSSIN 200 MG TUBE ×3 (11:18→22:30)
[2024-11-17] MEDS: ROBITUSSIN TUBE (14:02)
[2024-11-17] MEDS: MYCOSTATIN ORAL SUSPENSION PO (14:02)
--- NOTE | 2024-11-17 14:23 | PTCARENOTE ---
Patient was able to get out of bed to recliner chair for 3 hours this shift with 2x assist and walker. Counselor Supervisor stopped by to offer tube feed recommendations in her note in pt chart, RN reached out to hospitalist to place tube feed orders. RN
currently awaiting kitchen to drop off tube feed. Patient remains on 3-6 L NC this shift, BiPap when napping. Thoracotomy site, KAROLINE drains, and G/J tube site are all c/d/i. ACCOUNT SUPERVISOR midline and sadler remain in place. Pt is still being diuresed and is down
7lbs from yesterday admission weight per bed scale. See MAR/flowhsheets for further care details.
[2024-11-17] MEDS: CATAPRES TUBE (15:23)
[2024-11-17] MEDS: PERIDEX 0.12% ORAL RINSE PO (15:23)
--- NOTE | 2024-11-17 15:27 | CM ---
Tube feeds, speech/swallow eval, monitor HGB-8.0 this am, IV/[id number], IV/Lasix. DIscharge POC: Came from [facility] [place]. Therapy eval rec is acute vs SNF. Will follow therapy progression and notes for definitive plan.
--- NOTE | 2024-11-17 16:56 | W.PN.HOSP.TC ---
Today's Communication/Plan
-
Monitor in ICU.
Aggressive pulmonary toilet/airway clearance
BiPAP
IV diuresis.
Initiate tube feeding with aspiration precautions
Continue antibiotics
Continue oral vancomycin
Assessment / Plan
Assessment / Plan
Impression
Patient is a 64y F with PMH significant for mesothelioma s/p multiple hospitalizations, surgeries, etc who presents to ED [facility] for evaluation of hypoxemia.
Acute on chronic hypoxemic/hypercarbic respiratory failure.
Toxic metabolic encephalopathy secondary to hypoxia and hypercarbia, likely related to sedative medications as well.
Acute on chronic anemia
Conditions prior to admission:
Mesothelioma status postresection
Right chest wall wound dehiscence status post closure and skin flap by plastics at [facility]
Bilateral pneumonia.
MSSA bacteremia
C. difficile infection
Dysphagia with GJ tube in place
CHF preserved EF.
Paroxysmal atrial fibrillation
Anticoagulation with Eliquis per
Essential hypertension, multidrug requiring.
Anxiety/depression
Plan
Acute on chronic hypoxic/hypercarbic respiratory failure.
Likely multifactorial in the settings of volume overload, CO2 retention possibly due to oversedation. Has reasonable risk for aspiration.
Afebrile with normal white count upon presentation
Chest x-ray with right base changes�but significant interventions since most recent imaging at .
Respiratory status relatively stable, although noted with hypercarbia on VBG with chronic metabolic compensation likely presenting undiagnosed obstructive sleep apnea (BMI 43)
CT scan of the chest with re-demonstration of cutoff of the bronchus intermedius. Possibly representing endobronchial neoplasm versus mucous plug. Right lower lobe collapse and atelectasis
Continue aggressive airway clearance
Avoid oversedation. Currently on volume and oxycodone, monitor closely, holding parameters for oversedation
BiPAP at night
Remains on antibiotics to complete course of treatment for MSSA. Monitor closely following imaging, temperature curve, WBC.
Acute on chronic CHF preserved EF.
Echo 10/25/2024: Low normal left ventricular systolic function, left ventricular ejection fraction 50%, aortic sclerosis without stenosis, normal right ventricular size and function.
Noted weight is up 20 kg from prior visit.
Elevated pro CHF BNP.
Continue IV Lasix twice daily following up I's and O's, daily weights and renal function closely
Adjust antihypertensive regimen according to renal function and hemodynamics
Acute TME likely multifactorial in the settings of hypoxia, hypercarbia and oversedation.
Continue Valium and oxycodone monitoring closely for oversedation.
Continue BiPAP
Acute on chronic anemia.
Suspect related to multiple surgical interventions and over acute illness
So far no evidence for gross blood loss
Hemoglobin trending down to 7.7-8.0
Consider transfusion if less than 7
Consent signed/on chart
MSSA bacteremia.
ID recommendation at [place] continue IV Ancef through 12/06/2024
Recent C. difficile colitis
Status post for fidaxomicin course.
Continue enteral vancomycin through 12/11/2024 (while on Ancef)
Hold bowel regimen/magnesium supplementation
Paroxysmal atrial fibrillation.
Continue amiodarone.
Continue Eliquis
Benign hypertension
Noted elevated BP.
Continue preadmission regimen
Anxiety / Depression
- ? anxiety / 'panic' attack this evening and prior.
- Continue current escitalopram.
- Continue hydroxyzine PRN anxiety.
Nutrition
- Patient has G-J tube in place and remains tube dependent for meds / meals.
- Nutrition evaluation for tube feed recommendations.
- Tube feeding initiated on 11/17. Continue aspiration precaution
Morbid Obesity due to excess calories
- Exacerbated by fluid gains.
- Affects all aspects of care. Working towards participation with rehab / increased mobility / etc.
DVT Prophylaxis: On Eliquis
Code Status: Full
Anticipated Discharge: > 48 hours
Subjective/Interval History
-
Date of Service: November 17, 2024
Objective Data
-
Labs:
Laboratory Results
11/17/24
04:36
WBC 4.3 L
Hgb 8.0 L
Hct 27.6 L
Plt Count 181
Sodium 140
Potassium 4.0
Chloride 97 L
Carbon Dioxide 43 H
BUN 22 H
Creatinine 0.5 L
Glucose 86
Calcium 10.1
Vital Signs:
Vital Signs
Temp Pulse Resp BP Pulse Ox
97.6 F 57 13 105/53 93
11/17/24 15:38 11/17/24 15:23 11/17/24 15:15 11/17/24 15:23 11/17/24 15:26
I&O
11/16/24 11/17/24 11/18/24
06:59 06:59 06:59
Intake Total 0 / 0
Output Total 2930 / 2930 1850 / 1850
Balance -2930 / -2930 -1840 / -1840
Physical Exam
-
General: Well Developed and No Apparent Distress
HEENT: Normocephalic, Atraumatic and Moist Mucous Membranes
Respiratory: Decreased Breath Sounds and Chest Tubes (Right chest KAROLINE drains x 2)
Cardiac: Regular Rhythm and S1/S2; Negative Murmur, Rub or Gallop
GI: Soft, Nontender, Nondistended and Normal Bowel Sounds; Negative Organomegaly
Rectal: Deferred by Provider
Musculoskeletal: No Clubbing, No Cyanosis and No Edema
Skin: Negative Rash
Neuro: Awake, Alert, Oriented and Nonfocal/Grossly Intact
--- NOTE | 2024-11-17 20:10 | PTCARENOTE ---
Patient received lying in bed, awake and alert, watching TV. Her daughter is at the bedside. She is without apparent signs of distress or discomfort. However, she states she continues to have right flank discomfort 5/10 despite being recently
medicated for pain. Repositioned for comfort. Noted on am labs Magnesium 1.5, not replete. JALEN Srinivasan notified, new orders received for Magnesium 1gm IV, given. Left Midline patent. See ventilation equipment tender on worklist flowsheet. BBS with UL clear, bilateral
bases diminshed R>L with fine crackles. S1S2 distant. SR with 1st degree AVB on CM. Frequent Multifocal PVCs. Positive pulses x 4 extremities, generalized anasarca, LUE edema 3+, RUE edema 2+, BLE edema 2-3+. Hernández catheter patent draining large
amount of clear yellow urine. Jtube/Gtube left abdomen--Tube feeding currently infusing to Gtube. Per patient's daughter, they had received instructions that TF and medications should go through Jtube. TF changed to Jtube and Gtube flushed and
clamped. Patient denies N/V. sats 93% on 3L/nc. Right flank incision with sutures CDI, pink, approximated. KAROLINE drains x 2 stripped, small amount of serosanguinous drainage, KAROLINE drains to bulb suction. Old CT sites right anterior approximated. Sites
cleansed with CHG cloths. Bed in low and locked position, call sy within reach.
[2024-11-17] MEDS: MAGNESIUM SULFATE 102 GRAMS IV (20:25)
[2024-11-17] MEDS: LIPITOR 40 MG TUBE (22:30)
[2024-11-17] MEDS: CARDURA 2 MG TUBE (22:30)
[2024-11-17] MEDS: VALIUM 2 MG TUBE (22:30)
[2024-11-17] MEDS: MELATONIN 6 MG TUBE (22:30)
--- NOTE | 2024-11-17 22:30 | PTCARENOTE ---
Due to ongoing right flank pain, Prn oxycodone administered. Patient c/o feeling anxious and is asking for Valium, prn valium given. Po meds/hs meds crushed and given through Gtube without incident. BIPAP donned per RT with 4L oxygen bleed in. Hernández
care, partial cares. Patient has been refusing turning. Instructed patient of importance of turning and prevention of pressure sores. Verbalized understanding and repositioned.
[2024-11-18] VITALS (13 sets, daily range): BP systolic 93–138; BP diastolic 47–86; BMI 42.3
--- NOTE | 2024-11-18 01:00 | PTCARENOTE ---
Tube feeds increased by 10 to 30cc/hr, H2O flush continues at 25cc/hr.
[2024-11-18] MEDS: ANCEF 10 IV ×3 (01:16→17:10)
[2024-11-18] MEDS: VENTOLIN NEBULES 2.5 MG INH ×4 (03:42→19:47)
[2024-11-18 06:51] LABS: Hematocrit 26.9 % (37.0-47.0); Hemoglobin 7.9 g/dL (12.0-16.0); Mean Corp Hgb Conc. 29.4 g/dL (33.0-37.0); Mean Corpuscular Volume 97.8 fL (81.0-99.0); Platelet Count 177 10^3/uL (130-400); Red Cell Dist. Width 23.6 % (11.5-14.5)
[2024-11-18 07:02] LABS: Blood Urea Nitrogen 19 mg/dl (7-17); Calcium 9.6 mg/dl (8.4-10.2); Chloride 92 mmol/L (98-107); Estimated Creatinine Clearance > 125 ml/min; Glucose 108 mg/dl (70-99); Magnesium 1.6 mg/dl (1.6-2.3); Potassium 3.3 mmol/L (3.5-5.1); Sodium 138 mmol/L (135-145); eGFR > 60.00
--- NOTE | 2024-11-18 07:19 | PTCARENOTE ---
Report given verbally to oncoming Jean Claude miner RN. Questions answered.
--- NOTE | 2024-11-18 07:30 | W.PN.HOSP.TC ---
Today's Communication/Plan
-
Continue Pulmonary Toilet, BiPAP, antibiotics, tube feeding with aspiration precautions
Potassium replaced
Continue to monitor in ICU
Assessment / Plan
Assessment / Plan
Physical Exam
General: Well Developed and No Apparent Distress
HEENT: Normocephalic, Atraumatic and Moist Mucous Membranes
Respiratory: Decreased Breath Sounds. Crackles in the RLL.
Cardiac: Regular Rhythm and S1/S2
GI: Soft, Nontender, Nondistended and Normal Bowel Sounds
Musculoskeletal: No Cyanosis. B/L upper and lower extremity edema.
Skin: Warm. Dry.
Neuro: Awake, Alert, Oriented and Nonfocal/Grossly Intact
Impression
Patient is a 64y F with PMH significant for mesothelioma s/p multiple hospitalizations, surgeries, etc who presents to ED from [facility] for evaluation of hypoxemia.
Acute on chronic hypoxemic/hypercarbic respiratory failure.
Toxic metabolic encephalopathy secondary to hypoxia and hypercarbia, likely related to sedative medications as well.
Acute on chronic anemia
Conditions prior to admission:
Chronic Respiratory Failure (compensated hypercapnia) likely secondary to obesity
Mesothelioma status postresection at [facility]
Right chest wall wound dehiscence status post closure and skin flap by plastics at [facility]
Bilateral pneumonia.
MSSA bacteremia
C. difficile infection
Hypokalemia
Hypomagnesemia
Dysphagia with GJ tube in place
CHF preserved EF.
Paroxysmal atrial fibrillation
Anticoagulation with Eliquis per
Essential hypertension, multidrug requiring.
Anxiety/depression
Plan
Acute on chronic hypoxic/hypercarbic respiratory failure.
Likely multifactorial in the settings of volume overload, CO2 retention possibly due to oversedation, increased RML/RLL volume loss -- suspected more from atelectasis rather than volume overload. Has reasonable risk for aspiration.
Afebrile with normal white count upon presentation
Chest x-ray with right base changes�but significant interventions since most recent imaging at .
Respiratory status relatively stable, although noted with hypercarbia on VBG with chronic metabolic compensation likely presenting undiagnosed obstructive sleep apnea (BMI 43)
CT scan of the chest with re-demonstration of cutoff of the bronchus intermedius. Possibly representing endobronchial neoplasm versus mucous plug. Right lower lobe collapse and atelectasis
Continue aggressive airway clearance
Might need bronchoscopy eventually -- but hold for now given volume overload and want to avoid more sedation at this time -- if she develops any worsening respiratory insufficiency, than plan is to proceed with bronchoscopy.
Avoid oversedation. Currently on volume and oxycodone, monitor closely, holding parameters for oversedation
BiPAP at night/when sleeping
Remains on antibiotics to complete course of treatment for MSSA. Monitor closely following imaging, temperature curve, WBC.
Acute on chronic CHF preserved EF.
Echo 10/25/2024: Low normal left ventricular systolic function, left ventricular ejection fraction 50%, aortic sclerosis without stenosis, normal right ventricular size and function.
Noted weight is up 20 kg from prior visit.
Elevated pro CHF BNP.
Continue IV Lasix twice daily following up I's and O's, daily weights and renal function closely
Adjust antihypertensive regimen according to renal function and hemodynamics
Acute TME likely multifactorial in the settings of hypoxia, hypercarbia and oversedation.
Continue Valium and oxycodone monitoring closely for oversedation.
Continue BiPAP
Hypokalemia
-Replaced, continue to monitor and replace as needed
Acute on chronic anemia.
Suspect related to multiple surgical interventions and over acute illness
So far no evidence for gross blood loss
Hemoglobin trending down to 7.7-8.0
Consider transfusion if less than 7
Consent signed/on chart
MSSA bacteremia.
ID recommendation at [place] continue IV Ancef through 12/06/2024
Recent C. difficile colitis
Status post for fidaxomicin course.
Continue enteral vancomycin through 12/11/2024 (while on Ancef)
Hold bowel regimen/magnesium supplementation
Paroxysmal atrial fibrillation.
Continue amiodarone.
Continue Eliquis
Benign hypertension
Noted elevated BP.
Continue preadmission regimen
Anxiety / Depression
- ? anxiety / 'panic' attack this evening and prior.
- Continue current escitalopram.
- Continue hydroxyzine PRN anxiety.
Nutrition
- Patient has G-J tube in place and remains tube dependent for meds / meals.
- Nutrition evaluation for tube feed recommendations.
- Tube feeding initiated on 11/17. Continue aspiration precaution
Morbid Obesity due to excess calories
- Exacerbated by fluid gains.
- Affects all aspects of care. Working towards participation with rehab / increased mobility / etc.
DVT Prophylaxis: On Eliquis
Code Status: Full
Anticipated Discharge: > 48 hours
Subjective/Interval History
-
Date of Service: November 18, 2024
Patient was seen and examined. She reported that, overall, she was feeling better.
Objective Data
-
Labs:
Laboratory Results
11/18/24
06:10
WBC 3.9 L
Hgb 7.9 L
Hct 26.9 L
Plt Count 177
Sodium 138
Potassium 3.3 L
Chloride 92 L
Carbon Dioxide Pending
BUN 19 H
Creatinine 0.6
Glucose 108 H
Calcium 9.6
Vital Signs:
Vital Signs
Temp Pulse Resp BP Pulse Ox
97.8 F 55 13 130/75 96
11/17/24 23:34 11/18/24 07:00 11/18/24 07:00 11/18/24 06:00 11/18/24 07:00
I&O
11/17/24 11/18/24 11/19/24
06:59 06:59 06:59
Intake Total 0 / 0 939.5 / 939.5
Output Total 2930 / 2930 4130 / 4130
Balance -2930 / -2930 -3190.5 / -3190.5
[2024-11-18] MEDS: SODIUM CHLORIDE 3% FOR INHALATION 1 VIAL INH ×3 (07:39→19:46)
[2024-11-18 07:43] LABS: Absolute Neutrophils -Man Diff 2.6 10^3/uL (1.4-6.5); Anisocytosis 1+; Hypochromasia 1+; Normal RBC Morphology No; Platelets Checked Yes; Target Cells Slight; Total Cells Counted 100
[2024-11-18 08:04] LABS: Carbon Dioxide 42 mmol/L (22-30)
[2024-11-18] MEDS: FERROUS SULFATE ORAL LIQUID 300 MG TUBE (08:07)
[2024-11-18] MEDS: LASIX 40 MG IV ×2 (08:08→15:30)
[2024-11-18] MEDS: ROBITUSSIN 200 MG TUBE ×4 (08:08→21:56)
[2024-11-18] MEDS: PERIDEX 0.12% ORAL RINSE 5 ML PO ×3 (08:08→20:21)
[2024-11-18] MEDS: MYCOSTATIN ORAL SUSPENSION 5 ML PO ×4 (08:08→21:53)
[2024-11-18] MEDS: VISBIOME 1 CAP TUBE (08:09)
[2024-11-18] MEDS: VITAMIN C 250 MG TUBE ×2 (08:12→20:20)
[2024-11-18] MEDS: PACERONE 200 MG TUBE (08:12)
[2024-11-18] MEDS: PREVACID 30 MG TUBE (08:14)
[2024-11-18] MEDS: LEXAPRO 15 MG TUBE (08:14)
[2024-11-18] MEDS: NEURONTIN 300 MG TUBE ×2 (08:14→20:20)
[2024-11-18] MEDS: CATAPRES 0.3 MG TUBE (08:14)
[2024-11-18] MEDS: COREG 6.25 MG TUBE (08:15)
[2024-11-18] MEDS: ELIQUIS 5 MG TUBE ×2 (08:15→20:19)
[2024-11-18] MEDS: ROXICODONE ORAL SOLUTION 5 MG TUBE ×3 (08:19→20:17)
[2024-11-18] MEDS: FIRVANQ 125 MG TUBE ×2 (08:20→20:20)
--- NOTE | 2024-11-18 11:05 | CM ---
Patient seen at bedside in ICU with present. Patient states her plan is home with no needs. Patient states plan is to return to [place] when medically appropriate. Patient will need updated clinicals sent to [place] via all scripts. CM
will continue to follow for discharge planning needs.
Plan; [place] return when medically appropriate if accepted. need to confirm bed.
--- NOTE | 2024-11-18 11:47 | W.PN.PUL3 ---
Today's Communication / Plan
-
- Still quite volume overloaded, continue IV Lasix 40 mg twice a day
- Continue 3 times daily airway clearance with hypertonic saline and albuterol, flutter valve, chest PT
- CXR in AM
- Continue BIPAP when sleeping,
Assessment
-
Patient is a 64-year-old female with significant past medical history of mesothelioma with reported metastasis to stomach, status post pleurectomy with decortication plus tracheostomy in 08/2024. Patient was evaluated in the emergency room on 10/24
due to shortness of breath and change in mentation. She had an EEG performed which was unremarkable also included a CT chest and was noted to have dehiscence of the thoracotomy site. Patient was subsequently transferred to [facility] ""[place] for further management. At [facility], patient had surgical exploration, wound VAC placement, new diagnosis of C. difficile in addition to MSSA bacteremia. Patient has a PICC line in place and is scheduled to be on 4
weeks of IV antibiotics in addition to p.o. vancomycin for recent C. difficile. [facility] was [facility]. Reportedly patient was brought to the emergency room for increasing oxygen requirement, shortness of breath and
suspected change in mental status. Workup in the emergency room was suggestive of increased right-sided pulmonary opacities. Patient's mental status fully resolved and she was at her baseline during evaluation. In view of increased oxygen need
and worsening pulmonary opacities, patient was admitted to the hospital for further management. [facility], CT surgery service was consulted but they recommended local hospitalization. Pulmonary consultation was requested for
further input.
#1. Acute on chronic hypoxic respiratory failure
- Multifactorial. Increased right middle and lower lobe opacities noted on chest x-ray, CT chest pursued. Increased RML/RLL volume loss, overall very volume overload. Small areas of ?atelctasis vs infiltrates in STAS and LIngula.
- Patient has normal WBC count, is otherwise afebrile and imaging changes are more suggestive of atelectasis and volume overload. Continue IV cefazolin that patient is taking for MSSA bacteremia and hold off additional antibiotics pending further
workup. No productive cough and no purulent expectoration.
- Blood cultures pending, Influenza A & B negative, COVID-19 screen negative
#2. RML and RLL atelectasis ?mucous plugging vs Endobronchial malignancy
- CT chest compared to 10/2024 with persistent Right bronchus intermedius cut-off. ?mucous plugging, endobronchial tumor, external compression from pleural effusion
- Continue Airway clearance with Albuterol and 3% NS BID. Chest PT, sports bed to help mobilize secretions
- Add flutter valve
- Continue diuresis as patient is still quite fluid overloaded
- Depending on clinical course, might need Bronchoscopy and airway clearance with inspection. Hold off for now as patient is quite volume overloaded and might end up on ventilator with attempted sedation for procedure. If she develops any worsening
respiratory insufficiency, will proceed with bronchoscopy. Trial of conservative management for now.
- Re-evaluate in coming days, depending on response to diuresis, might need thoracentesis
#3. Chronic baseline hypercapnic respiratory failure.
- VBG 7.39, 73, compensated hypercapnia
- Bicarb is chronically elevated, appears compensated, suspect related to underlying obesity
- Suspect patient has underlying sleep disordered breathing with possible obesity hypoventilation syndrome. Baseline oxygen dependent with increased pCO2 as well as high BMI very suggestive of OHS
#4. History of metastatic mesothelioma.
- S/p right sided radical pleurectomy with decortication, diaphragmatic repair, tracheostomy and G-tube placement in 08/2024 at [facility].
- Wound was complicated by dehiscence in 10/2024, requiring transfer to [facility] for repair, wound VAC placement and was subsequently discharged on 11/15
- Follow-up CT chest suggestive of enlarging effusion
- [facility] CT surgery team was contacted from emergency room, recommended continued treatment at [place]
#5. Acute on chronic heart failure with preserved ejection fraction
- Echocardiogram in 10/2024 showed EF of 50%
- Continue IV diuresis
Other medical diagnoses:
- MSSA bacteremia. On IV Cefazolin, scheduled thru 12/06/2024
- H/o C Diff. on PO Vancomcyin. s/p Treatment with fidaxomicin at [facility]
- Paroxysmal atrial fibrillation, chronically anticoagulated with Eliquis and on p.o. amiodarone
- Brief encephalopathy, ? Unclear etiology. Blood gas not suggestive of hypercapnic encephalopathy. EEG pursued last month was unremarkable. Polypharmacy also likely contributing, minimize sedation.
Total time spent on this consultation/encounter ___51_ minutes which includes review of history, physical exam, medications, laboratory data, personal review of imaging, extensive review of outpatient records, discussion with care team and
respiratory therapy. Extensive previous records reviewed including last hospitalization, transfer notes to [facility], limited records from [facility].
Data:
CT Chest 10/2024: Re-demonstration of cut off of the bronchus intermedius. This could be related to endobronchial neoplasm or mucous plug. Right lower lobe is collapsed, and there is progression of postobstructive pneumonia or partial atelectasis in
the right middle lobe. Consider bronchoscopy for further evaluation of the bronchus intermedius, if not performed
Focus of airspace disease in the left upper lobe measuring 1.5 cm in diameter. This is new. New small focus of airspace disease within the lingula anteriorly.
There is a moderate right pleural effusion. This has increased compared with the prior CT. Small left pleural effusion; this is new since the prior CT.
There is extensive soft tissue attenuation material in the right lateral abdominal wall. This extends inferiorly beyond the imaging field. This is likely phlegmon. Previously, there was a 7.8 cm fluid collection associated with this abnormal soft
tissue. No fluid collection in this region shown by the current study, although any residual collection may be below the imaging field on the current study. If clinically warranted, CT abdomen can assess for any residual collection in the right
lateral abdominal wall
2 new leads or catheters are noted to course within the right lateral and right posterior soft tissues of the chest wall
No change in mild mediastinal adenopathy.
CXR 10/2024: Bibasilar opacities, increased on the right which may represent atelectasis and/or pneumonia as well as likely increased right pleural effusion.
Prominent pulmonary vascularity which may represent interstitial edema again seen.
CT Chest 10/2024: 1. There is likely mucous plugging within the right lower lobe with near complete collapse of the right lower lobe. There is persistent atelectasis within the right middle lobe and posterior right upper lobe.
2. Small right-sided hydropneumothorax, similar in appearance to prior. There is a severely displaced posterior right sixth rib fracture, unchanged from prior.
3. Surgical drain within the right posterior lateral chest wall with a slightly ill-defined collection along the mid aspect of the drain measuring approximately 7.8 x 2.4 cm.
4. Stable mildly prominent mediastinal lymph nodes.
EEG 10/2024: No evidence of status epilepticus
ECHO 10/2024: Low normal left ventricular systolic function. Left ventricular ejection fraction is 50%.
Aortic sclerosis without stenosis.
Normal right ventricular size and function.
Compared to 03/23/23: prior LVEF was 55-60%. MR looks mild, compared to
mild/moderate previously.
[facility] 06/2023: 1: Normal left ventricular function with EF 59%
2: No significant CAD
3. Chest pain is noncardiac
Subjective Data
-
Date of Service:
Date of Service: November 18, 2024
Subjective:
Patient comfortably lying in bed on supplemental oxygen at 4 L, overall reports feeling better.
Review of Systems
Genitourinary: Other (All 14 systems reviewed and negative except as stated above in the history of present illness.)
Objective Data
Data Reviewed
Vital Signs / I&O / Oxygen:
Vital Signs
Temp Pulse Resp BP Pulse Ox
97.8 F 67 18 114/86 96
11/17/24 23:34 11/18/24 08:08 11/18/24 07:41 11/18/24 08:08 11/18/24 07:41
Intake and Output
0711/18/24 11/19/24
06:59 06:59 06:59
Intake Total 0 / 0 1069.5 / 1069.5 130 / 130
Output Total 2930 / 2930 4130 / 4130 750 / 750
Balance -2930 / -2930 -3060.5 / -3060.5 -620 / -620
SaO2 96
Nasal Cannula flow liters per 5
minute
Physical Exam
General: Comfortable
HEENT: Normocephalic
Cardiovascular: S1-S2 and Peripheral Edema (Significant upper and lower extremity edema bilaterally, some improvement)
Respiratory: Crackles (Mostly in the right lower lobe)
GI: Soft and Non Distended
Neurology: Awake and Alert
Skin: Warm
Labs/Micro/Reports
Lab Data
11/18/24 06:10
11/18/24 06:10
Microbiology
11/16/24 01:48 Blood/Venous Blood Culture - Preliminary
No Growth in 48 hours- Final report to follow
11/16/24 01:34 Blood/Venous Blood Culture - Preliminary
No Growth in 48 hours- Final report to follow
11/16/24 08:15 Nose MRSA Screen - Final
No Methicillin Resistant Staphylococcus aureus isolated.
11/16/24 01:34 Nasal Swab Influenza Types A & B (CASH) - Final
Negative for Influenza A & B, NAAT
Negative results must be combined with clinical observations
and patient history.
Nucleic Acid Amplification test (NAAT)performed on the
[employer] platform.
[2024-11-18] MEDS: CATAPRES TUBE ×2 (15:38→21:55)
--- NOTE | 2024-11-18 16:27 | PTCARENOTE ---
Received from ICU, monitors exchanged. AAOx3, Tele shows SB with 1st degree AVB rates in 50s/ PVCs. BP 90s-110s/60s. Lungs scattered coarseness throughout, remains on 4L NC 92-95%. PEG tube with tube feedings increasing to goal via J tube- G
tube clamped- site cleansed. Hernández patent- ludwig wipe care completed. Bathed with CHG. Left midline with +blood return. IV Lasix administered- PO Clonidine held for BP parameters. Right back large incision noted with sutures- cleansed / rinsed.
KAROLINE sites cleansed as well. Old trach stoma site dressing removed, cleansed and redressed. C/o right back pain 10/10 PRN Shivani provided.
[2024-11-18] MEDS: TYLENOL ORAL SOLUTION 650 MG TUBE ×2 (17:09→22:00)
[2024-11-18] MEDS: VALIUM 2 MG TUBE (20:17)
[2024-11-18] MEDS: COREG TUBE (20:19)
[2024-11-18] MEDS: LIPITOR 40 MG TUBE (20:19)
[2024-11-18] MEDS: KCL ELIXIR 40 MEQ TUBE (21:50)
[2024-11-18] MEDS: AYR SALINE NASAL GEL 1 APPLIC NASAL (21:51)
[2024-11-18] MEDS: MELATONIN 6 MG TUBE (21:55)
[2024-11-18] MEDS: CARDURA TUBE (21:55)
[2024-11-19] VITALS (16 sets, daily range): BP systolic 89–109; BP diastolic 46–78; PULSE 2–63; BMI 43.0
--- NOTE | 2024-11-19 00:36 | PTCARENOTE ---
Pt received at beginning of shift resting in bed. AAOx3 but forgetful. Slightly anxious. VSS. Afebrile. SB/1degree/PVC/PQT on CM rate 50's. SBP 90's with MAPs 60's-70's. Catapress and Carduro held d/t parameters. POX 94% on 4L. Admits to pain to
right flank area and BERNAL. Medicated with Roxicodone and Tylenol as ordered with good relief. Pt agreeable to use BIPAP on original assessment but then refused BIPAP when RT came to apply. Remains on 4L overnight. Hernández draining yellow urine.
Tolerating TF at 50ml/hr with 25ml/hr water flush. Hypoactive BS. KAROLINE's A&B with minimal s/s drainage. Wounds as documented. Rest of assessment as documented. Pt currently resting comfortable. Call sy within reach. Will continue to monitor.
[2024-11-19] MEDS: ANCEF 10 IV ×3 (01:09→18:39)
[2024-11-19] MEDS: FLUSH (NSS) 2 FLUSH IV ×3 (01:10→14:32)
[2024-11-19 03:39] LABS: Hematocrit 27.6 % (37.0-47.0); Hemoglobin 8.2 g/dL (12.0-16.0); Mean Corp Hgb Conc. 29.7 g/dL (33.0-37.0); Mean Corpuscular Volume 96.2 fL (81.0-99.0); Platelet Count 162 10^3/uL (130-400); Red Cell Dist. Width 23.0 % (11.5-14.5)
[2024-11-19 03:55] LABS: Blood Urea Nitrogen 20 mg/dl (7-17); Calcium 9.1 mg/dl (8.4-10.2); Chloride 91 mmol/L (98-107); Estimated Creatinine Clearance > 125 ml/min; Glucose 117 mg/dl (70-99); Potassium 3.2 mmol/L (3.5-5.1); Sodium 137 mmol/L (135-145); eGFR > 60.00
[2024-11-19 04:07] LABS: Carbon Dioxide 41 mmol/L (22-30)
[2024-11-19] MEDS: SODIUM CHLORIDE 3% FOR INHALATION 1 VIAL INH ×3 (07:36→19:04)
[2024-11-19] MEDS: VENTOLIN NEBULES 2.5 MG INH ×3 (07:36→19:04)
[2024-11-19] MEDS: ELIQUIS 5 MG TUBE ×2 (08:44→20:39)
[2024-11-19] MEDS: FERROUS SULFATE ORAL LIQUID 300 MG TUBE (08:44)
[2024-11-19] MEDS: COREG 6.25 MG TUBE ×2 (08:45→20:40)
[2024-11-19] MEDS: NEURONTIN 300 MG TUBE ×2 (08:45→20:39)
[2024-11-19] MEDS: PACERONE 200 MG TUBE (08:45)
[2024-11-19] MEDS: MYCOSTATIN ORAL SUSPENSION 5 ML PO ×3 (08:45→18:35)
[2024-11-19] MEDS: VITAMIN C 250 MG TUBE ×2 (08:45→20:39)
[2024-11-19] MEDS: PREVACID 30 MG TUBE (08:45)
[2024-11-19] MEDS: LEXAPRO 15 MG TUBE (08:46)
[2024-11-19] MEDS: LASIX 40 MG IV (08:46)
[2024-11-19] MEDS: ROBITUSSIN 200 MG TUBE ×4 (08:46→22:26)
[2024-11-19] MEDS: PERIDEX 0.12% ORAL RINSE 5 ML PO ×2 (08:47→16:32)
[2024-11-19] MEDS: VISBIOME 1 CAP TUBE (08:47)
[2024-11-19] MEDS: TYLENOL ORAL SOLUTION 650 MG TUBE (08:52)
[2024-11-19] MEDS: FIRVANQ 125 MG TUBE ×2 (09:37→20:42)
[2024-11-19] MEDS: ZOFRAN 4 MG IV ×2 (09:37→14:32)
--- NOTE | 2024-11-19 09:56 | W.PN.PUL3 ---
Today's Communication / Plan
-
- Continue IV diuresis
- In view of soft blood pressure lowered the dose of clonidine and holding doxazosin as I would favor continuing IV diuresis
- Venous duplex right upper arm
Assessment
-
Patient is a 64-year-old female with significant past medical history of mesothelioma with reported metastasis to stomach, status post pleurectomy with decortication plus tracheostomy in 08/2024. Patient was evaluated in the emergency room on 10/24
due to shortness of breath and change in mentation. She had an EEG performed which was unremarkable also included a CT chest and was noted to have dehiscence of the thoracotomy site. Patient was subsequently transferred to [facility] ""[place] for further management. At [facility], patient had surgical exploration, wound VAC placement, new diagnosis of C. difficile in addition to MSSA bacteremia. Patient has a PICC line in place and is scheduled to be on 4
weeks of IV antibiotics in addition to p.o. vancomycin for recent C. difficile. [facility]. Reportedly patient was brought to the emergency room for increasing oxygen requirement, shortness of breath and
suspected change in mental status. Workup in the emergency room was suggestive of increased right-sided pulmonary opacities. Patient's mental status fully resolved and she was at her baseline during evaluation. In view of increased oxygen need
and worsening pulmonary opacities, patient was admitted to the hospital for further management. [facility], CT surgery service was consulted but they recommended local hospitalization. Pulmonary consultation was requested for
further input.
11/19 overview, patient saturating 92% on 5 L supplemental oxygen, MAP of 72 not requiring any pressors. She wore BiPAP only briefly last night.
#1. Acute on chronic hypoxic respiratory failure
- Multifactorial. Increased right middle and lower lobe opacities noted on chest x-ray, CT chest pursued. Increased RML/RLL volume loss, overall very volume overload. Small areas of ?atelectasis vs infiltrates in STAS and Lingula.
- Patient has normal WBC count, is otherwise afebrile and imaging changes are more suggestive of atelectasis and volume overload. Continue IV cefazolin that patient is taking for MSSA bacteremia and hold off additional antibiotics pending further
workup. No productive cough and no purulent expectoration.
- Blood cultures pending, Influenza A & B negative, COVID-19 screen negative
#2. RML and RLL atelectasis ?mucous plugging vs Endobronchial malignancy
- CT chest compared to 10/2024 with persistent Right bronchus intermedius cut-off. ?mucous plugging, endobronchial tumor, external compression from pleural effusion
- Continue Airway clearance with Albuterol and 3% NS BID. Chest PT, sports bed to help mobilize secretions
- Continue flutter valve
- Continue diuresis as patient is still quite fluid overloaded
- Depending on clinical course, might need Bronchoscopy and airway clearance with inspection. Hold off for now as patient is quite volume overloaded. Patient reports multiple bronchoscopies in the past for mucous plug clearance.
- Re-evaluate in coming days, depending on response to diuresis, might need thoracentesis
#3. Chronic baseline hypercapnic respiratory failure.
- VBG 7.39, 73, compensated hypercapnia
- Bicarb is chronically elevated, appears compensated, suspect related to underlying obesity
- Suspect patient has underlying sleep disordered breathing with possible obesity hypoventilation syndrome. Baseline oxygen dependent with increased pCO2 as well as high BMI very suggestive of OHS
- BiPAP initiated this admission. Continue as tolerated
#4. History of metastatic mesothelioma.
- S/p right sided radical pleurectomy with decortication, diaphragmatic repair, tracheostomy and G-tube placement in 08/2024 at [facility].
- Wound was complicated by dehiscence in 10/2024, requiring transfer to [facility] for repair, wound VAC placement and was subsequently discharged on 11/15
- Follow-up CT chest suggestive of enlarging effusion
- [facility] CT surgery team was contacted from emergency room, recommended continued treatment at [place]
#5. Acute on chronic heart failure with preserved ejection fraction
- Echocardiogram in 10/2024 showed EF of 50%
- Continue IV diuresis
Other medical diagnoses:
- MSSA bacteremia. On IV Cefazolin, scheduled thru 12/06/2024
- H/o C Diff. on PO Vancomcyin. s/p Treatment with fidaxomicin at [facility]
- Paroxysmal atrial fibrillation, chronically anticoagulated with Eliquis and on p.o. amiodarone
- Brief encephalopathy, ? Unclear etiology. Blood gas not suggestive of hypercapnic encephalopathy. EEG pursued last month was unremarkable. Polypharmacy also likely contributing, minimize sedation.
Total time spent on this consultation/encounter ___41_ minutes which includes review of history, physical exam, medications, laboratory data, personal review of imaging, extensive review of outpatient records, discussion with care team and
respiratory therapy. Extensive previous records reviewed including last hospitalization, transfer notes to [facility], limited records from [facility].
Data:
CT Chest 10/2024: Re-demonstration of cut off of the bronchus intermedius. This could be related to endobronchial neoplasm or mucous plug. Right lower lobe is collapsed, and there is progression of postobstructive pneumonia or partial atelectasis in
the right middle lobe. Consider bronchoscopy for further evaluation of the bronchus intermedius, if not performed
Focus of airspace disease in the left upper lobe measuring 1.5 cm in diameter. This is new. New small focus of airspace disease within the lingula anteriorly.
There is a moderate right pleural effusion. This has increased compared with the prior CT. Small left pleural effusion; this is new since the prior CT.
There is extensive soft tissue attenuation material in the right lateral abdominal wall. This extends inferiorly beyond the imaging field. This is likely phlegmon. Previously, there was a 7.8 cm fluid collection associated with this abnormal soft
tissue. No fluid collection in this region shown by the current study, although any residual collection may be below the imaging field on the current study. If clinically warranted, CT abdomen can assess for any residual collection in the right
lateral abdominal wall
2 new leads or catheters are noted to course within the right lateral and right posterior soft tissues of the chest wall
No change in mild mediastinal adenopathy.
CXR 10/2024: Bibasilar opacities, increased on the right which may represent atelectasis and/or pneumonia as well as likely increased right pleural effusion.
Prominent pulmonary vascularity which may represent interstitial edema again seen.
CT Chest 10/2024: 1. There is likely mucous plugging within the right lower lobe with near complete collapse of the right lower lobe. There is persistent atelectasis within the right middle lobe and posterior right upper lobe.
2. Small right-sided hydropneumothorax, similar in appearance to prior. There is a severely displaced posterior right sixth rib fracture, unchanged from prior.
3. Surgical drain within the right posterior lateral chest wall with a slightly ill-defined collection along the mid aspect of the drain measuring approximately 7.8 x 2.4 cm.
4. Stable mildly prominent mediastinal lymph nodes.
EEG 10/2024: No evidence of status epilepticus
ECHO 10/2024: Low normal left ventricular systolic function. Left ventricular ejection fraction is 50%.
Aortic sclerosis without stenosis.
Normal right ventricular size and function.
Compared to 03/23/23: prior LVEF was 55-60%. MR looks mild, compared to
mild/moderate previously.
[facility] 06/2023: 1: Normal left ventricular function with EF 59%
2: No significant CAD
3. Chest pain is noncardiac
Subjective Data
-
Date of Service:
Date of Service: November 19, 2024
Subjective:
Patient comfortably lying in bed in no acute distress.
Review of Systems
Genitourinary: Other (All 14 systems reviewed and negative except as stated above in the history of present illness.)
Objective Data
Data Reviewed
Vital Signs / I&O / Oxygen:
Vital Signs
Temp Pulse Resp BP Pulse Ox
97.5 F 66 24 105/58 96
11/19/24 03:37 11/19/24 08:46 11/19/24 04:00 11/19/24 08:46 11/19/24 03:00
Intake and Output
11/18/24 11/19/24 11/20/24
06:59 06:59 06:59
Intake Total 1069.5 / 1069.5 1230 / 1230
Output Total 4130 / 4130 2580 / 2580
Balance -3060.5 / -3060.5 -1350 / -1350
SaO2 96
Nasal Cannula flow liters per 4
minute
Physical Exam
General: Comfortable
HEENT: Normocephalic
Cardiovascular: S1-S2 and Peripheral Edema (Gradually improving edema.)
Respiratory: Crackles (Mostly in the right lower lobe)
GI: Soft and Non Distended
Neurology: Awake and Alert
Skin: Warm
Labs/Micro/Reports
Lab Data
11/19/24 03:04
11/19/24 03:04
Microbiology
11/16/24 01:48 Blood/Venous Blood Culture - Preliminary
No Growth in 72 hours- Final report to follow
11/16/24 01:34 Blood/Venous Blood Culture - Preliminary
No Growth in 72 hours- Final report to follow
11/16/24 08:15 Nose MRSA Screen - Final
No Methicillin Resistant Staphylococcus aureus isolated.
--- NOTE | 2024-11-19 14:59 | W.PN.HOSP.TC ---
Today's Communication/Plan
-
Tube Feeding Regimen Adjusted to be done only 9 pm to 9 am given nausea -- patient and her clearly requested this change to be made as she has had nausea with 24 hours tube feeds in the past few months
Clonidine dose reduced and Doxazosin held given soft blood pressures, to allow IV Lasix to be given
Consider looking into VSE -- said VSE was supposed to be done around this time -- but that the old trach site has to properly close first
Wound care consult placed after discussion with nurse and patient's
Continue pulmonary toilet
Continue antibiotics
Continue to monitor in IMU
Assessment / Plan
Assessment / Plan
Physical Exam
General: Well Developed and No Apparent Distress
HEENT: Normocephalic, Atraumatic and Moist Mucous Membranes
Respiratory: Decreased Breath Sounds. Crackles in the RLL.
Cardiac: Regular Rhythm and S1/S2
GI: Soft, Nontender, Nondistended and Normal Bowel Sounds
Musculoskeletal: No Cyanosis. B/L upper and lower extremity edema.
Skin: Warm. Dry.
Neuro: Awake, Alert, Oriented and Nonfocal/Grossly Intact
Impression
Patient is a 64y F with PMH significant for mesothelioma s/p multiple hospitalizations, surgeries, etc who presents to ED from [facility] for evaluation of hypoxemia.
Acute on chronic hypoxemic/hypercarbic respiratory failure.
Toxic metabolic encephalopathy secondary to hypoxia and hypercarbia, likely related to sedative medications as well.
Acute on chronic anemia
RUE Swelling
Conditions prior to admission:
Chronic Respiratory Failure (compensated hypercapnia) likely secondary to obesity
Mesothelioma status postresection at [facility]
Right chest wall wound dehiscence status post closure and skin flap by plastics at [facility]
Bilateral pneumonia.
MSSA bacteremia
C. difficile infection
Hypokalemia
Hypomagnesemia
Dysphagia with GJ tube in place
CHF preserved EF.
Paroxysmal atrial fibrillation
Anticoagulation with Eliquis per
Essential hypertension, multidrug requiring.
Anxiety/depression
Plan
Acute on chronic hypoxic/hypercarbic respiratory failure.
Likely multifactorial in the settings of volume overload, CO2 retention possibly due to oversedation, increased RML/RLL volume loss -- suspected more from atelectasis rather than volume overload. Has reasonable risk for aspiration.
Afebrile with normal white count upon presentation
Chest x-ray with right base changes�but significant interventions since most recent imaging at .
Respiratory status relatively stable, although noted with hypercarbia on VBG with chronic metabolic compensation likely presenting undiagnosed obstructive sleep apnea (BMI 43)
CT scan of the chest with re-demonstration of cutoff of the bronchus intermedius. Possibly representing endobronchial neoplasm versus mucous plug. Right lower lobe collapse and atelectasis
Continue aggressive airway clearance
Might need bronchoscopy eventually -- but hold for now given volume overload and want to avoid more sedation at this time -- if she develops any worsening respiratory insufficiency, than plan is to proceed with bronchoscopy.
Avoid oversedation. Currently on volume and oxycodone, monitor closely, holding parameters for oversedation
BiPAP at night/when sleeping
Remains on antibiotics to complete course of treatment for MSSA. Monitor closely following imaging, temperature curve, WBC.
Consider looking into VSE -- said VSE was supposed to be done around this time -- but that the old [facility] site has to properly close first
Acute on chronic CHF preserved EF.
Echo 10/25/2024: Low normal left ventricular systolic function, left ventricular ejection fraction 50%, aortic sclerosis without stenosis, normal right ventricular size and function.
Noted weight is up 20 kg from prior visit.
Elevated pro CHF BNP.
Continue IV Lasix twice daily following up I's and O's, daily weights and renal function closely
Adjust antihypertensive regimen according to renal function and hemodynamics
RUE Swelling
-Check ultrasound of the RUE
Acute TME likely multifactorial in the settings of hypoxia, hypercarbia and oversedation.
Continue Valium and oxycodone monitoring closely for oversedation.
Continue BiPAP
Hypokalemia
-Replaced, continue to monitor and replace as needed
Acute on chronic anemia.
Suspect related to multiple surgical interventions and over acute illness
So far no evidence for gross blood loss
Hemoglobin trending down to 7.7-8.0
Consider transfusion if less than 7
Consent signed/on chart
MSSA bacteremia.
ID recommendation at [place] continue IV Ancef through 12/06/2024
Recent C. difficile colitis
Status post for fidaxomicin course.
Continue enteral vancomycin through 12/11/2024 (while on Ancef)
Hold bowel regimen/magnesium supplementation
Paroxysmal atrial fibrillation.
Continue amiodarone.
Continue Eliquis
Benign hypertension
Noted elevated BP.
Clonidine dose lowered and Doxazosin held given soft blood pressures
Anxiety / Depression
- ? anxiety / 'panic' attack this evening and prior.
- Continue current escitalopram.
- Continue hydroxyzine PRN anxiety.
Nutrition
- Patient has G-J tube in place and remains tube dependent for meds / meals.
- Nutrition evaluation for tube feed recommendations.
- Tube feeding initiated on 11/17 -- TF regimen adjusted to be done only 9 pm to 9 am -- patient and her reported that patient having nausea from 24 hour tube feeds, and previously her regimen was 9 pm to 9 am and they requested the tube
feeds to be adjusted to be given only in those 12 hours -- order adjusted. Continue aspiration precaution
Morbid Obesity due to excess calories
- Exacerbated by fluid gains.
- Affects all aspects of care. Working towards participation with rehab / increased mobility / etc.
DVT Prophylaxis: On Eliquis
Code Status: Full
Anticipated Discharge: > 48 hours
Subjective/Interval History
-
Date of Service: November 19, 2024
Patient was seen and examined. She reported nausea from tube feeds -- patient and requested to cut down tube feeds to their previous regimen of 12 hours, from 9 pm to 9 am.
Objective Data
-
Labs:
Laboratory Results
11/19/24
03:04
WBC 4.2 L
Hgb 8.2 L
Hct 27.6 L
Plt Count 162
Sodium 137
Potassium 3.2 L
Chloride 91 L
Carbon Dioxide 41 H
BUN 20 H
Creatinine 0.6
Glucose 117 H
Calcium 9.1
Vital Signs:
Vital Signs
Temp Pulse Resp BP Pulse Ox
97.5 F 66 20 105/58 97
11/19/24 03:37 11/19/24 08:46 11/19/24 07:50 11/19/24 08:46 11/19/24 08:00
I&O
11/18/24 11/19/24 11/20/24
06:59 06:59 06:59
Intake Total 1069.5 / 1069.5 1230 / 1230
Output Total 4130 / 4130 2580 / 2580
Balance -3060.5 / -3060.5 -1350 / -1350
[2024-11-19] MEDS: LASIX IV ×2 (16:31→16:37)
--- NOTE | 2024-11-19 17:25 | PTCARENOTE ---
Assumed care of pt this am after morning report. Pt on 5L NC, drowsy but arousable. Weaned to 4L NC. Tube feed at 50 ml/hr with water flush 25ml/hr. Pt complains of nausea and tube feeds held. Pt and pt's report that she has only had tube
feeds run pab80-61 hours, Not 24hrs. This was discussed with Dr. Brown and order adjusted. tube feeds will resume at 2100. Abdomen is obese with active bowel tones. NO BM today. Pt NPO while awaiting old trach site to close. Trach site is CDI
with sutures, covered with 2x2. Swallow study to be discussed as part of plan this week. Pt given IV Zofran for nausea and this was effective along with tube feed off. NSR with 1st degree block and PVCs. Pt hypotensive with SBP 90s, Catapress and
cardova placed on hold. PM Lasix held due to afternoon BPs . Pt had headache this am which was treated effectively with Tylenol. Pt repositioned, encouraged to assist staff with self care. Family at bedside and demonstrate positive support towards
patient. family updated on plan of care and treatments today
[2024-11-19] MEDS: KLOR-CON 40 MEQ TUBE (18:35)
[2024-11-19] MEDS: ROXICODONE ORAL SOLUTION 5 MG TUBE (18:35)
[2024-11-19] MEDS: CATAPRES TUBE (20:39)
[2024-11-19] MEDS: MELATONIN 6 MG TUBE (22:25)
[2024-11-19] MEDS: LIPITOR 40 MG TUBE (22:25)
[2024-11-19] MEDS: MYCOSTATIN ORAL SUSPENSION PO (22:27)
[2024-11-19] MEDS: PERIDEX 0.12% ORAL RINSE PO (22:27)
[2024-11-19] MEDS: VALIUM 2 MG TUBE (22:38)
[2024-11-20] VITALS (13 sets, daily range): BP systolic 98–127; BP diastolic 50–98; PULSE 2–55; BMI 42.0
[2024-11-20] MEDS: ANCEF 10 IV ×3 (01:16→18:25)
--- NOTE | 2024-11-20 02:36 | PTCARENOTE ---
Patient's TF ordered to run from 2100 to 0900. Patient asked this RN to turn off TF at 0230 due to indigestion and nausea. TF turned off for now, will reassess again. Patient also only tolerated bipap for a few hours and was placed back on 4L NC.
Continuing to monitor patient, call sy in reach.
[2024-11-20 05:04] LABS: Hematocrit 28.9 % (37.0-47.0); Hemoglobin 8.4 g/dL (12.0-16.0); Mean Corp Hgb Conc. 29.1 g/dL (33.0-37.0); Mean Corpuscular Volume 97.0 fL (81.0-99.0); Platelet Count 164 10^3/uL (130-400); Red Cell Dist. Width 22.6 % (11.5-14.5)
[2024-11-20 05:22] LABS: Blood Urea Nitrogen 15 mg/dl (7-17); Calcium 9.3 mg/dl (8.4-10.2); Chloride 94 mmol/L (98-107); Estimated Creatinine Clearance > 125 ml/min; Glucose 93 mg/dl (70-99); Magnesium 1.5 mg/dl (1.6-2.3); Potassium 3.5 mmol/L (3.5-5.1); Sodium 137 mmol/L (135-145); eGFR > 60.00
[2024-11-20 05:37] LABS: Carbon Dioxide 38 mmol/L (22-30)
[2024-11-20] MEDS: SODIUM CHLORIDE 3% FOR INHALATION 1 VIAL INH ×3 (07:36→19:26)
[2024-11-20] MEDS: VENTOLIN NEBULES 2.5 MG INH ×3 (07:36→19:26)
[2024-11-20] MEDS: ROBITUSSIN 200 MG TUBE ×4 (08:13→20:06)
[2024-11-20] MEDS: PERIDEX 0.12% ORAL RINSE 5 ML PO ×3 (08:13→20:07)
[2024-11-20] MEDS: VITAMIN C 250 MG TUBE ×2 (08:13→20:06)
[2024-11-20] MEDS: FIRVANQ 125 MG TUBE ×2 (08:13→20:09)
[2024-11-20] MEDS: CATAPRES TUBE (08:14)
[2024-11-20] MEDS: LEXAPRO 15 MG TUBE (08:14)
[2024-11-20] MEDS: PACERONE 200 MG TUBE (08:15)
[2024-11-20] MEDS: ELIQUIS 5 MG TUBE ×2 (08:15→20:06)
[2024-11-20] MEDS: NEURONTIN 300 MG TUBE ×2 (08:15→20:06)
[2024-11-20] MEDS: MYCOSTATIN ORAL SUSPENSION 5 ML PO ×4 (08:16→20:07)
[2024-11-20] MEDS: LASIX 40 MG IV ×2 (08:16→16:01)
[2024-11-20] MEDS: FERROUS SULFATE ORAL LIQUID 300 MG TUBE (08:16)
[2024-11-20] MEDS: PREVACID 30 MG TUBE (08:16)
[2024-11-20] MEDS: VISBIOME 1 CAP TUBE (08:16)
[2024-11-20] MEDS: COREG 6.25 MG TUBE ×2 (08:16→20:06)
[2024-11-20] MEDS: ROXICODONE ORAL SOLUTION 5 MG TUBE ×3 (08:21→20:27)
--- NOTE | 2024-11-20 10:18 | W.PN.PUL3 ---
Addendum entered and electronically signed by Neda Dubon MD 11/20/24 18:40:
Unclear why patient has had significant weight gain since last hospital stay
Reviewed echocardiogram from 10/25/24. Low normal EF 50%, normal RV size and function, mild mitral regurgitation. Technically difficult study
Consider further testing for fluid retention if does not respond to adequate diuresis
Consider repeat echocardiogram, analysis of alkalemia with repeat ABG
We will review with primary service
Original Note:
Today's Communication / Plan
-
Chest x-ray 11/21
Hold on swallowing evaluation for now, maintain nothing by mouth except sips
Depending on follow-up chest x-ray, may require CT chest to confirm stability of pleural effusion and potential endobronchial process, atelectasis
Continues with diuresis
Airway clearance measures, sport bed
Assessment
-
Patient is a 64-year-old female with significant past medical history of mesothelioma with reported metastasis to stomach, status post pleurectomy with decortication plus tracheostomy in 08/2024. Patient was evaluated in the emergency room on 10/24
due to shortness of breath and change in mentation. She had an EEG performed which was unremarkable also included a CT chest and was noted to have dehiscence of the thoracotomy site. Patient was subsequently transferred to [facility] for further management. At [facility], patient had surgical exploration, wound VAC placement, new diagnosis of C. difficile in addition to MSSA bacteremia. Patient has a PICC line in place and is scheduled to be on 4
weeks of IV antibiotics in addition to p.o. vancomycin for recent C. difficile. She was discharged back to [facility] on 11/15. Reportedly patient was brought to the emergency room for increasing oxygen requirement, shortness of breath and
suspected change in mental status. Workup in the emergency room was suggestive of increased right-sided pulmonary opacities. Patient's mental status fully resolved and she was at her baseline during evaluation. In view of increased oxygen need
and worsening pulmonary opacities, patient was admitted to the hospital for further management. [facility], CT surgery service was consulted but they recommended local hospitalization. Pulmonary consultation was requested for
further input.
11/19 overview, patient saturating 92% on 5 L supplemental oxygen, MAP of 72 not requiring any pressors. She wore BiPAP only briefly last night.
#1. Acute on chronic hypoxic respiratory failure
- Multifactorial. Increased right middle and lower lobe opacities noted on chest x-ray, CT chest pursued. Increased RML/RLL volume loss, overall very volume overload. Small areas of ?atelectasis vs infiltrates in STAS and Lingula.
- Patient has normal WBC count, is otherwise afebrile and imaging changes are more suggestive of atelectasis and volume overload. Continue IV cefazolin that patient is taking for MSSA bacteremia and hold off additional antibiotics pending further
workup. No productive cough and no purulent expectoration.
- Blood cultures pending, Influenza A & B negative, COVID-19 screen negative
- Currently on 4 L nasal cannula, wean as able
#2. RML and RLL atelectasis ?mucous plugging vs Endobronchial malignancy
- CT chest compared to 10/2024 with persistent Right bronchus intermedius cut-off. ?mucous plugging, endobronchial tumor, external compression from pleural effusion
- Continue Airway clearance with Albuterol and 3% NS BID. Chest PT, sports bed to help mobilize secretions
- Continue flutter valve
- Continue diuresis as patient is still quite fluid overloaded
- Depending on clinical course, might need Bronchoscopy and airway clearance with inspection. Hold off for now as patient is quite volume overloaded. Patient reports multiple bronchoscopies in the past for mucous plug clearance.
- Re-evaluate in coming days, depending on response to diuresis, might need thoracentesis
- Patient waiting reevaluation of swallowing, VSE. Patient. Had questionable subcutaneous air in the tracheotomy site last week, now improved. On recent CT chest, there does appear to be evidence of all tracheotomy site
We'll hold VSE for now. We'll try to touch base with CT surgery at [place]
#3. Chronic baseline hypercapnic respiratory failure.
- VBG 7.39, 73, compensated hypercapnia
- Bicarb is chronically elevated, appears compensated, suspect related to underlying obesity
- Suspect patient has underlying sleep disordered breathing with possible obesity hypoventilation syndrome. Baseline oxygen dependent with increased pCO2 as well as high BMI very suggestive of OHS
- BiPAP initiated this admission. Continue as tolerated, Only tolerated for few hours yesterday p.m.
#4. History of metastatic mesothelioma.
- S/p right sided radical pleurectomy with decortication, diaphragmatic repair, tracheostomy and G-tube placement in 08/2024 at [facility].
- Wound was complicated by dehiscence in 10/2024, requiring transfer to [facility] for repair, wound VAC placement and was subsequently discharged on 11/15
- Follow-up CT chest suggestive of enlarging effusion
- [facility] CT surgery team was contacted from emergency room, recommended continued treatment at [place]
- Given what appears to be slightly worsening right pleural parenchymal process on CXR 11/19, we'll repeat CXR 11/21
- May require repeat CT imaging and/or endobronchial exam
#5. Acute on chronic heart failure with preserved ejection fraction
- Echocardiogram in 10/2024 showed EF of 50%
- Continue IV diuresis. Patient is -1900. Weight is down 9 kg since 11/16, but not yet back to what appears to be baseline around October which was around 116-120 kg (currently 125)
Other medical diagnoses:
- MSSA bacteremia. On IV Cefazolin, scheduled thru 12/06/2024
- H/o C Diff. on PO Vancomcyin. s/p Treatment with fidaxomicin at [facility]
- Paroxysmal atrial fibrillation, chronically anticoagulated with Eliquis and on p.o. amiodarone
- Brief encephalopathy, ? Unclear etiology. Blood gas not suggestive of hypercapnic encephalopathy. EEG pursued last month was unremarkable. Polypharmacy also likely contributing, minimize sedation.
Data:
CT Chest 10/2024: Re-demonstration of cut off of the bronchus intermedius. This could be related to endobronchial neoplasm or mucous plug. Right lower lobe is collapsed, and there is progression of postobstructive pneumonia or partial atelectasis in
the right middle lobe. Consider bronchoscopy for further evaluation of the bronchus intermedius, if not performed
Focus of airspace disease in the left upper lobe measuring 1.5 cm in diameter. This is new. New small focus of airspace disease within the lingula anteriorly.
There is a moderate right pleural effusion. This has increased compared with the prior CT. Small left pleural effusion; this is new since the prior CT.
There is extensive soft tissue attenuation material in the right lateral abdominal wall. This extends inferiorly beyond the imaging field. This is likely phlegmon. Previously, there was a 7.8 cm fluid collection associated with this abnormal soft
tissue. No fluid collection in this region shown by the current study, although any residual collection may be below the imaging field on the current study. If clinically warranted, CT abdomen can assess for any residual collection in the right
lateral abdominal wall
2 new leads or catheters are noted to course within the right lateral and right posterior soft tissues of the chest wall
No change in mild mediastinal adenopathy.
CXR 10/2024: Bibasilar opacities, increased on the right which may represent atelectasis and/or pneumonia as well as likely increased right pleural effusion.
Prominent pulmonary vascularity which may represent interstitial edema again seen.
CT Chest 10/2024: 1. There is likely mucous plugging within the right lower lobe with near complete collapse of the right lower lobe. There is persistent atelectasis within the right middle lobe and posterior right upper lobe.
2. Small right-sided hydropneumothorax, similar in appearance to prior. There is a severely displaced posterior right sixth rib fracture, unchanged from prior.
3. Surgical drain within the right posterior lateral chest wall with a slightly ill-defined collection along the mid aspect of the drain measuring approximately 7.8 x 2.4 cm.
4. Stable mildly prominent mediastinal lymph nodes.
EEG 10/2024: No evidence of status epilepticus
ECHO 10/2024: Low normal left ventricular systolic function. Left ventricular ejection fraction is 50%.
Aortic sclerosis without stenosis.
Normal right ventricular size and function.
Compared to 03/23/23: prior LVEF was 55-60%. MR looks mild, compared to
mild/moderate previously.
[facility] 06/2023: 1: Normal left ventricular function with EF 59%
2: No significant CAD
3. Chest pain is noncardiac
Subjective Data
-
Date of Service:
Date of Service: November 20, 2024
Subjective:
Observed patient saddle and side wire stitcher and then again in the afternoon. Currently sitting in the chair comfortable. Son at bedside. Patient needs have chest tube site discomfort, otherwise denies nausea. Has mild productive cough, no significant
hemoptysis.
Objective Data
Data Reviewed
Vital Signs / I&O / Oxygen:
Vital Signs
Temp Pulse Resp BP Pulse Ox
97.5 F 59 19 112/55 94
11/20/24 07:11 11/20/24 08:01 11/20/24 08:01 11/20/24 08:14 11/20/24 08:01
Intake and Output
11/19/24 11/20/24 11/21/24
06:59 06:59 06:59
Intake Total 1230 / 1230 550 / 550
Output Total 2580 / 2580 2540 / 2540 400 / 400
Balance -1350 / -1350 -1990 / -1989 -400 / -400
SaO2 94
Nasal Cannula flow liters per 4
minute
Physical Exam
General: Comfortable
HEENT: Normocephalic and Anicteric
Cardiovascular: S1-S2, Regular Rhythm, Murmur (n) and Peripheral Edema (Gradually improving edema.)
Respiratory: Wheeze (n), Crackles (n), Rhonchi, Stridor (n) and Other (Slightly decreased at base)
GI: Soft and Non Distended
Neurology: Awake and Alert
Skin: Warm and Other ( well-healing incision right posterior chest, chest tube in place)
Labs/Micro/Reports
Lab Data
11/20/24 04:44
11/20/24 04:44
Microbiology
11/16/24 01:48 Blood/Venous Blood Culture - Preliminary
No Growth in 4 days- Final report to follow
11/16/24 01:34 Blood/Venous Blood Culture - Preliminary
No Growth in 4 days- Final report to follow
11/16/24 08:15 Nose MRSA Screen - Final
No Methicillin Resistant Staphylococcus aureus isolated.
--- NOTE | 2024-11-20 10:50 | WOUNDNOTE ---
[facility] RN note: Patient admitted with acute on chronic hypoxemia. Patient admitted from [place] after stay at [facility].
See H&P for complete history.
PMH: mesotheloima, R chest surgical site, s/p prior pleurectomy/mesothelioma resection 08/2024, transferred to [facility] for repair of dehiscence/wound vac and then wound closure on 11/09/[address] Chepe Reilly along with plastic surgeon, Eddie
diff, on IV Ancel for MSSA bacteremia, CM, a fib, CAD, HF, melanoma, HTN.
Wound Location and type/assessment: Patient admitted with: R lateral/posterior chest long approximated incision with sutures and local erythema. Small area of dull purple ecchymotic area along incision line. R lateral chest with 2 KAROLINE drains with
local erythema at site. Trach closure sutures in place without erythema.
Appetite: Feeding tube in place.
Pressure redistribution devices in place: Centrella Max air bed. Patient can turn slowly in bed. She can lift her legs off bed. Air chair cushion.
Plan: Confirmed with patient's and son local care for R lateral chest incision and KAROLINE sites is clean with chlorhexidine skin cleanser, rinse with saline bid. Incisional care done as instructed. Protective ABD pad applied for protection
(some of incision is covered by her surgical bra). Drainage sponge applied to KAROLINE sites. Reviewed discharge instructions from [place] which states for KAROILNE care to 'strip and empty twice a day' and to clean incision daily with soap and water. Discussed
with BELLE Lara. Instructed patient pressure injury prevention measures. t/c VM left at Dr. Reilly's office asking for clarification of R thoracic incision. Await call back.
Will confirm orders with Dr. Noe.
Care plan to be updated and will follow as needed. Patient to make appointment with her surgeons as soon as next week.
--- NOTE | 2024-11-20 10:51 | WOUNDNOTE ---
[facility] RN note: Patient admitted with acute on chronic hypoxemia. Patient admitted from [place] after stay at [facility].
See H&P for complete history.
PMH: mesotheloima, R chest surgical site, s/p prior pleurectomy/mesothelioma resection 08/2024, transferred to [facility] for repair of dehiscence/wound vac and then wound closure on 11/09/[address] Chepe Reilly, C diff, on IV Ancel for MSSA
bacteremia, CM, a fib, CAD, HF, melanoma, HTN.
Wound Location and type/assessment: Patient admitted with: R lateral/posterior chest long approximated incision with sutures and local erythema. Small area of dull purple ecchymotic area along incision line. R lateral chest with 2 KAROLINE drains with
local erythema at site. Trach closure sutures in place without erythema.
Appetite: Feeding tube in place.
Pressure redistribution devices in place: Centrella Max air bed. Patient can turn slowly in bed. She can lift her legs off bed. Air chair cushion.
Plan: Confirmed with patient's and son local care for R lateral chest incision and KAROLINE sites is clean with chlorhexidine skin cleanser, rinse with saline bid. Incisional care done as instructed. Protective ABD pad applied for protection
(some of incision is covered by her surgical bra). Drainage sponge applied to KAROLINE sites. Reviewed discharge instructions from [place] which states for KAROLINE care to 'strip and empty twice a day'. Discussed with BELLE Lara. Instructed patient pressure injury
prevention measures.
Will confirm orders with Dr. Noe.
Care plan to be updated and will follow as needed. Patient to make appointment with her plastic surgeon as soon as next week.
--- NOTE | 2024-11-20 11:22 | WOUNDNOTE ---
R CHEST (POSTERIOR LATERAL)
--- NOTE | 2024-11-20 11:22 | WOUNDNOTE ---
R BACK/CHEST/FLANK
--- NOTE | 2024-11-20 12:35 | W.PN.HOSP.TC ---
Today's Communication/Plan
-
Continue IV diuresis
Replete Mg
Follow BMP
Continue antibiotics
Follow imaging with diuresis
May need endobronchial evaluation, If concern remains for right bronchial obstruction.
Assessment / Plan
Assessment / Plan
Impression
Patient is a 64y F with PMH significant for mesothelioma s/p multiple hospitalizations, surgeries, etc who [facility].
Acute on chronic hypoxemic/hypercarbic respiratory failure.
Toxic metabolic encephalopathy secondary to hypoxia and hypercarbia, likely related to sedative medications as well.
Acute on chronic anemia
RUE Swelling
Conditions prior to admission:
Chronic Respiratory Failure (compensated hypercapnia) likely secondary to obesity
Mesothelioma status postresection at [facility]
Right chest wall wound dehiscence status post closure and skin flap by plastics at [facility]
Bilateral pneumonia.
MSSA bacteremia
C. difficile infection
Hypokalemia
Hypomagnesemia
Dysphagia with GJ tube in place
CHF preserved EF.
Paroxysmal atrial fibrillation
Anticoagulation with Eliquis per
Essential hypertension, multidrug requiring.
Anxiety/depression
Plan
Acute on chronic hypoxic/hypercarbic respiratory failure.
Likely multifactorial in the settings of volume overload, CO2 retention possibly due to oversedation, increased RML/RLL volume loss -- suspected more from atelectasis rather than volume overload. Has reasonable risk for aspiration.
Afebrile with normal white count upon presentation
Chest x-ray with right base changes�but significant interventions since most recent imaging at .
Respiratory status relatively stable, although noted with hypercarbia on VBG with chronic metabolic compensation likely presenting undiagnosed obstructive sleep apnea (BMI 43)
CT scan of the chest with re-demonstration of cutoff of the bronchus intermedius. Possibly representing endobronchial neoplasm versus mucous plug. Right lower lobe collapse and atelectasis
Continue aggressive airway clearance
Might need bronchoscopy eventually -- but hold for now given volume overload and want to avoid more sedation at this time -- if she develops any worsening respiratory insufficiency, than plan is to proceed with bronchoscopy.
Avoid oversedation. Currently on volume and oxycodone, monitor closely, holding parameters for oversedation
BiPAP at night/when sleeping
Remains on antibiotics to complete course of treatment for MSSA. Monitor closely following imaging, temperature curve, WBC.
Consider looking into VSE -- said VSE was supposed to be done around this time -- but that the old [facility] site has to properly close first
Acute on chronic CHF preserved EF.
Echo 10/25/2024: Low normal left ventricular systolic function, left ventricular ejection fraction 50%, aortic sclerosis without stenosis, normal right ventricular size and function.
Noted weight is up 20 kg from prior visit.
Elevated pro CHF BNP.
Continue IV Lasix twice daily following up I's and O's, daily weights and renal function closely
Adjust antihypertensive regimen according to renal function and hemodynamics
RUE Swelling
-Check ultrasound of the RUE
Acute TME likely multifactorial in the settings of hypoxia, hypercarbia and oversedation.
Continue Valium and oxycodone monitoring closely for oversedation.
Continue BiPAP
Hypokalemia
-Replaced, continue to monitor and replace as needed
Acute on chronic anemia.
Suspect related to multiple surgical interventions and over acute illness
So far no evidence for gross blood loss
Hemoglobin trending down to 7.7-8.0
Consider transfusion if less than 7
Consent signed/on chart
MSSA bacteremia.
ID recommendation at [place] continue IV Ancef through 12/06/2024
Recent C. difficile colitis
Status post for fidaxomicin course.
Continue enteral vancomycin through 12/11/2024 (while on Ancef)
Hold bowel regimen/magnesium supplementation
Paroxysmal atrial fibrillation.
Continue amiodarone.
Continue Eliquis
Benign hypertension
Noted elevated BP.
Clonidine dose lowered and Doxazosin held given soft blood pressures
Anxiety / Depression
- ? anxiety / 'panic' attack this evening and prior.
- Continue current escitalopram.
- Continue hydroxyzine PRN anxiety.
Nutrition
- Patient has G-J tube in place and remains tube dependent for meds / meals.
- Nutrition evaluation for tube feed recommendations.
- Tube feeding initiated on 11/17 -- TF regimen adjusted to be done only 9 pm to 9 am -- patient and her reported that patient having nausea from 24 hour tube feeds, and previously her regimen was 9 pm to 9 am and they requested the tube
feeds to be adjusted to be given only in those 12 hours -- order adjusted. Continue aspiration precaution
Speech evaluation
Morbid Obesity due to excess calories
- Exacerbated by fluid gains.
- Affects all aspects of care. Working towards participation with rehab / increased mobility / etc.
DVT Prophylaxis: On Eliquis
Code Status: Full
Anticipated Discharge: > 48 hours
Subjective/Interval History
-
Date of Service: November 20, 2024
Objective Data
-
Labs:
Laboratory Results
11/20/24
04:44
WBC 3.6 L
Hgb 8.4 L
Hct 28.9 L
Plt Count 164
Sodium 137
Potassium 3.5
Chloride 94 L
Carbon Dioxide 38 H
BUN 15
Creatinine 0.5 L
Glucose 93
Calcium 9.3
Vital Signs:
Vital Signs
Temp Pulse Resp BP Pulse Ox
97.6 F 60 23 121/98 98
11/20/24 11:00 11/20/24 11:00 11/20/24 11:00 11/20/24 10:22 11/20/24 11:00
I&O
11/19/24 11/20/24 11/21/24
06:59 06:59 06:59
Intake Total 1230 / 1230 550 / 550
Output Total 2580 / 2580 2540 / 2540 400 / 400
Balance -1350 / -1350 -1989 / -1989 -400 / -400
Physical Exam
-
General: Well Developed and No Apparent Distress
HEENT: Normocephalic, Atraumatic and Moist Mucous Membranes
Respiratory: Decreased Breath Sounds and Chest Tubes (Right chest KAROLINE drains x 2)
Cardiac: Regular Rhythm and S1/S2; Negative Murmur, Rub or Gallop
GI: Soft, Nontender, Nondistended and Normal Bowel Sounds; Negative Organomegaly
Rectal: Deferred by Provider
Musculoskeletal: No Clubbing, No Cyanosis and No Edema
Skin: Negative Rash
Neuro: Awake, Alert, Oriented and Nonfocal/Grossly Intact
--- NOTE | 2024-11-20 13:35 | WOUNDNOTE ---
[facility] RN note: Anne [employer]CTION [employer]ARDEN for Dr. Chepe Reilly called this insurance underwriter (left VM this am) and discussed appearance of incisions and KAROLINE site (local redness). Anne clarified local care. She said the care for her R thoracic incision and KAROLINE site is clean
daily with soap and water, cover as needed. And to strip and empty KAROLINE�s 2 times a day. She said they don�t like to use the CHG too long because it can be irritating. Updated Dr. Noe who confirmed can put local care orders in. Christian landry RN
Jane update. t/c voicemail left on the �s phone re: ELIEZER Rodríguez's local care instruction. Care plan and discharge instructions updated. Will follow peripherally as needed.
--- NOTE | 2024-11-20 13:40 | WOUNDNOTE ---
[facility] RN note: Anne [employer] for Dr. Chepe Reilly called this radio script writer (left VM this am) and discussed appearance of incisions and KAROLINE site (local redness). Anne clarified local care. She said the care for her R thoracic incision and KAROLINE site is clean
daily with soap and water, cover as needed. And to strip and empty KAROLINE�s 2 times a day. She said they don�t like to use the CHG too long because it can be irritating. (CT [employer] clarified Dr. Verma is managing patient's R thoracic incision and not
plastics as they had assisted CT surgeon. ELIEZER Rodríguez also stated patient's daughter has her contact number for questions). Updated Dr. Noe who confirmed can put local care orders in. Christian textalejandrina Lara update. t/c voicemail left on the
�s phone re: ELIEZER Rodríguez's local care instruction. Care plan and discharge instructions updated. Will follow peripherally as needed.
--- NOTE | 2024-11-20 13:55 | PTOTSP ---
Speech Language Pathology
Pt seen for clinical bedside swallow evaluation. Pt had G-tube placed early August prior to initial surgery with NPO status per surgeon. Per recent discharge paperwork from [facility] provided by son, swallow evaluation now appropriate at next facility.
P.O. trials of ice chips, thin water, and puree provided. Adequate oral phase noted with limited trials provided. Pt endorsed globus sensation with puree with improvement with liquid washes. No overt signs of aspiration.
Discussed higher risk for aspiration given prolonged NPO status and need for instrumental swallowing assessment prior to initiation of P.O. diet. Discussed flexible endoscopic evaluation of swallowing (FEES) vs videofluoroscopic evaluation of
swallowing (VSE). Pt would prefer VSE, as she is anxious about idea of FEES. Discussed that body habitus may be limiting factor, but will attempt VSE first.
Recommend:
(1) VSE 11/21
(2) NPO except ice chips until VSE completed
(3) Meds via G-tube
(4) Oral care 4x/day with suctioning as needed
(5) DIRECTOR OF HEMOPHILIA to continue to follow
[2024-11-20] MEDS: MAGNESIUM SULFATE 100 IV (14:08)
--- NOTE | 2024-11-20 17:56 | PTCARENOTE ---
OOB x5 hours today mod assist x2. AAO, pleasant. C/o pain right back and side 5-6/10 Roxicodone given x2 with adequate relief this shift. WOC, SP, PT OT and dietary all cued for consults. Remains on 4L 94-97%. G/J tube patent all meds given via
J tube. Hernández care completed. LBM yesterday per pt. Incision and KAROLINE care completed by WOC today.
[2024-11-20] MEDS: VENTOLIN NEBULES INH (19:26)
[2024-11-20] MEDS: LIPITOR 40 MG TUBE (20:06)
[2024-11-20] MEDS: CATAPRES 0.1 MG TUBE (20:06)
[2024-11-20] MEDS: MELATONIN 6 MG TUBE (20:07)
[2024-11-20] MEDS: VALIUM 2 MG TUBE (20:28)
--- NOTE | 2024-11-20 21:56 | PTCARENOTE ---
Caring for patient overnight. aaox3, pleasant. NSR 1st AV block. Remains on 3LNC, no SOB. 6/10 pain in R lateral chest/back. Incision CDI, eduar intact, approximated. 2JP drains draining serosanguineous. Tube feeds 9p-9a at 20ml/hr, will see how
pt tolerated, so far no N/V. Chronic sadler. GJ tube. Q2T. BLE elevated, +1 edema. ABX. No issues. Will monitor.
[2024-11-21] VITALS (13 sets, daily range): BP systolic 103–123; BP diastolic 49–76; PULSE 2–58; BMI 41.1
[2024-11-21] MEDS: ANCEF 10 IV ×3 (03:11→17:04)
[2024-11-21 04:23] LABS: B.E. 21.1 mmol/L; O2 Saturation % 99.2 % (94-98); PCO2 67 mmHg (32-35); PO2 100 mmHg (83-108)
[2024-11-21 04:31] LABS: HCO3 47.7 mmol/L (21-28)
[2024-11-21 06:06] LABS: Hematocrit 29.1 % (37.0-47.0); Hemoglobin 8.3 g/dL (12.0-16.0); Mean Corp Hgb Conc. 28.5 g/dL (33.0-37.0); Mean Corpuscular Volume 98.3 fL (81.0-99.0); Nucleated Red Blood Cells % 2.3 %; Platelet Count 161 10^3/uL (130-400); Red Cell Dist. Width 22.1 % (11.5-14.5)
[2024-11-21 06:07] LABS: Blood Urea Nitrogen 13 mg/dl (7-17); Calcium 9.3 mg/dl (8.4-10.2); Chloride 91 mmol/L (98-107); Estimated Creatinine Clearance > 125 ml/min; Glucose 94 mg/dl (70-99); Potassium 3.1 mmol/L (3.5-5.1); Sodium 136 mmol/L (135-145); eGFR > 60.00
[2024-11-21 06:19] LABS: Carbon Dioxide 44 mmol/L (22-30)
[2024-11-21] MEDS: KCL ELIXIR 40 MEQ TUBE (07:13)
[2024-11-21] MEDS: SODIUM CHLORIDE 3% FOR INHALATION 1 VIAL INH ×3 (08:32→20:28)
[2024-11-21] MEDS: VENTOLIN NEBULES 2.5 MG INH ×3 (08:32→20:28)
--- NOTE | 2024-11-21 09:30 | PTOTSP ---
Speech Language Pathology
VIDEOFLUOROSCOPIC SWALLOWING EXAMINATION (VSE) completed. Oropharyngeal swallow WFL. No penetration/aspiration noted. No pharyngeal residue noted despite pt complaining of globus sensation after moderately thick liquids. On esophageal sweep,
esophageal residue noted without backflow. Suspect esophageal residue cause of pt's complaint of globus sensation in pharynx.
Recommend:
(1) Regular solids/thin liquids
(2) Esophageal precautions
(3) Meds as tolerated
(4) Can consider GI consult if esophageal symptoms persist/worsen
(5) PHOTOGRAPHIC EDITOR to sign off. Please reconsult as indicated
--- NOTE | 2024-11-21 09:58 | W.PN.PUL.V3 ---
Today's Communication / Plan
-
Wean oxygen
Continue BiPAP at night
Continue diuresis
Increase activity
Antibiotics-cefazolin and oral vancomycin
Video swallow pending
Updated daughter
Assessment
-
Patient is a 64-year-old female with significant past medical history of mesothelioma with reported metastasis to stomach, status post pleurectomy with decortication plus tracheostomy in 08/2024. Patient was evaluated in the emergency room on 10/24
due to shortness of breath and change in mentation. She had an EEG performed which was unremarkable also included a CT chest and was noted to have dehiscence of the thoracotomy site. Patient was [facility] [facility], wound VAC placement, new diagnosis of C. difficile in addition to MSSA bacteremia. Patient has a PICC line in place and is scheduled to be on 4
weeks of IV antibiotics in addition to p.o. vancomycin for recent C. difficile. [facility]. Reportedly patient was brought to the emergency room for increasing oxygen requirement, shortness of breath and
suspected change in mental status. Workup in the emergency room was suggestive of increased right-sided pulmonary opacities. Patient's mental status fully resolved and she was at her baseline during evaluation. In view of increased oxygen need
and worsening pulmonary opacities, patient was admitted to the [facility] but they recommended local hospitalization. Pulmonary consultation was requested for
further input.
11/19 overview, patient saturating 92% on 5 L supplemental oxygen, MAP of 72 not requiring any pressors. She wore BiPAP only briefly last night.
#1. Acute on chronic hypoxic respiratory failure
- Multifactorial. Increased right middle and lower lobe opacities noted on chest x-ray, CT chest pursued. Increased RML/RLL volume loss, overall very volume overload. Small areas of ?atelectasis vs infiltrates in STAS and Lingula.
- Patient has normal WBC count, is otherwise afebrile and imaging changes are more suggestive of atelectasis and volume overload. Continue IV cefazolin-finite course that patient is taking for MSSA bacteremia and hold off additional antibiotics for
pulmonary reasons-on oral vancomycin for C. difficile. No productive cough and no purulent expectoration.
- Blood cultures pending, Influenza A & B negative, COVID-19 screen negative
- Currently on 3 L nasal cannula-97% saturation, wean as able
#2. RML and RLL atelectasis ?mucous plugging vs Endobronchial malignancy
- CT chest compared to 10/2024 with persistent Right bronchus intermedius cut-off. ?mucous plugging, endobronchial tumor, external compression from pleural effusion
- Continue Airway clearance with Albuterol and 3% NS BID. Chest PT, sports bed to help mobilize secretions
-Chest x-ray 11/21/2024-bilateral opacifications right greater than left slightly improved on the right findings at least suggest atelectasis and/or pneumonia and pleural effusions
- Continue flutter valve
- Continue diuresis as patient is still quite fluid overloaded
-Monitor renal function, electrolytes, intake/output, lower extremity edema and weight
Replace electrolytes as needed
- Depending on clinical course, might need Bronchoscopy and airway clearance with inspection. Hold off for now as patient is quite volume overloaded. Patient reports multiple bronchoscopies in the past for mucous plug clearance.
- Re-evaluate in coming days, depending on response to diuresis, might need thoracentesis
- Patient waiting reevaluation of swallowing, VSE-pending 11/21/2024.
-Had questionable subcutaneous air in the tracheotomy site last week, now improved. On recent CT chest, there does appear to be evidence of all tracheotomy site
#3. Chronic baseline hypercapnic respiratory failure.
- VBG 7.39, 73, compensated hypercapnia
- Bicarb is chronically elevated, appears compensated, suspect related to underlying obesity
- Suspect patient has underlying sleep disordered breathing with possible obesity hypoventilation syndrome. Baseline oxygen dependent with increased pCO2 as well as high BMI very suggestive of OHS
- BiPAP 14/7 cm with 6 L oxygen initiated this admission. Continue as tolerated, Only tolerated for few hours yesterday p.m.
#4. History of metastatic mesothelioma.
- S/p right sided radical pleurectomy with decortication, diaphragmatic repair, tracheostomy and G-tube placement in 08/2024 at [facility].
- Wound was complicated by dehiscence in 10/2024, requiring transfer to [facility] for repair, wound VAC placement and was subsequently discharged on 11/15
- Follow-up CT chest suggestive of enlarging effusion
- [facility] CT surgery team was contacted from emergency room, recommended continued treatment at [facility]
- Given what appears to be slightly worsening right pleural parenchymal process on CXR 11/19, note CXR 11/21-results above
- May require repeat CT imaging and/or endobronchial exam
#5. Acute on chronic heart failure with preserved ejection fraction
- Echocardiogram in 10/2024 showed EF of 50%
- Continue IV diuresis. Patient is - 1430 mL / 24-hour. Weight is down 12 kg since 11/16, but not yet back to what appears to be baseline around October which was around 116-120 kg (currently 122-trace pedal edema)
Dr. Dubon called 11/20/2024 and spoke with [facility] thoracic surgeon-Dr. Burch-who reportedly will call family
Dr. Jackson reviewed with daughter at length 11/21/2024
Other medical diagnoses:
- MSSA bacteremia. On IV Cefazolin, scheduled thru 12/06/2024
- H/o C Diff. on PO Vancomcyin. s/p Treatment with fidaxomicin at [facility]
- Paroxysmal atrial fibrillation, chronically anticoagulated with Eliquis and on p.o. amiodarone
- Brief encephalopathy, ? Unclear etiology. Blood gas not suggestive of hypercapnic encephalopathy. EEG pursued last month was unremarkable. Polypharmacy also likely contributing, minimize sedation.
Data:
CT Chest 10/2024: Re-demonstration of cut off of the bronchus intermedius. This could be related to endobronchial neoplasm or mucous plug. Right lower lobe is collapsed, and there is progression of postobstructive pneumonia or partial atelectasis in
the right middle lobe. Consider bronchoscopy for further evaluation of the bronchus intermedius, if not performed
Focus of airspace disease in the left upper lobe measuring 1.5 cm in diameter. This is new. New small focus of airspace disease within the lingula anteriorly.
There is a moderate right pleural effusion. This has increased compared with the prior CT. Small left pleural effusion; this is new since the prior CT.
There is extensive soft tissue attenuation material in the right lateral abdominal wall. This extends inferiorly beyond the imaging field. This is likely phlegmon. Previously, there was a 7.8 cm fluid collection associated with this abnormal soft
tissue. No fluid collection in this region shown by the current study, although any residual collection may be below the imaging field on the current study. If clinically warranted, CT abdomen can assess for any residual collection in the right
lateral abdominal wall
2 new leads or catheters are noted to course within the right lateral and right posterior soft tissues of the chest wall
No change in mild mediastinal adenopathy.
CXR 10/2024: Bibasilar opacities, increased on the right which may represent atelectasis and/or pneumonia as well as likely increased right pleural effusion.
Prominent pulmonary vascularity which may represent interstitial edema again seen.
CT Chest 10/2024: 1. There is likely mucous plugging within the right lower lobe with near complete collapse of the right lower lobe. There is persistent atelectasis within the right middle lobe and posterior right upper lobe.
2. Small right-sided hydropneumothorax, similar in appearance to prior. There is a severely displaced posterior right sixth rib fracture, unchanged from prior.
3. Surgical drain within the right posterior lateral chest wall with a slightly ill-defined collection along the mid aspect of the drain measuring approximately 7.8 x 2.4 cm.
4. Stable mildly prominent mediastinal lymph nodes.
EEG 10/2024: No evidence of status epilepticus
ECHO 10/2024: Low normal left ventricular systolic function. Left ventricular ejection fraction is 50%.
Aortic sclerosis without stenosis.
Normal right ventricular size and function.
Compared to 03/23/23: prior LVEF was 55-60%. MR looks mild, compared to
mild/moderate previously.
[facility] 06/2023: 1: Normal left ventricular function with EF 59%
2: No significant CAD
3. Chest pain is noncardiac
Subjective Data
-
Date of Service:
Date of Service: November 21, 2024
Chief Complaint: Pulmonary Follow Up and Dyspnea Follow Up
Subjective:
Feels a little better, stronger, still short of breath with exertion, no chest pain, some yellow mucus production, no abdominal pain
Review of Systems
General: Other (Per HPI)
Objective Data
Data Reviewed
Vital Signs / I&O:
Vital Signs
Temp Pulse Resp BP Pulse Ox
96.9 F L 60 18 107/52 95
11/21/24 03:00 11/21/24 08:33 11/21/24 08:33 11/21/24 04:00 11/21/24 08:33
Intake and Output
11/20/24 11/21/24 11/22/24
06:59 06:59 06:59
Intake Total 550 / 550 400 / 400
Output Total 2540 / 2540 1830 / 1830
Balance -1989 / -1989 -1430 / -1430
SaO2: 95
Nasal Cannula flow liters per minute: 3
Physical Exam
General: Respiratory Distress (n) and Comfortable
HEENT: Normocephalic and Anicteric
Cardiovascular: Regular Rhythm, Murmur (n) and Peripheral Edema (Gradually improving edema.)
Respiratory: Wheeze (n), Crackles (n), Rhonchi, Stridor (n) and Other (Slightly decreased at base)
GI: Soft and Non Distended
Neurology: Awake and Alert
Skin: Warm, Good Color, Cyanosis (n), Jaundice (n), Rash (n) and Other ( well-healing incision right posterior chest, chest tube in place)
Labs/Micro/Reports
Lab Data
11/21/24 05:30
11/21/24 05:30
Laboratory Results
11/21/24
04:16
pH 7.46 H
pCO2 67 H
pO2 100
HCO3 47.7 H*
O2 Delivery Level
Microbiology
11/16/24 01:48 Blood/Venous Blood Culture - Preliminary
No Growth in 4 days- Final report to follow
11/16/24 01:34 Blood/Venous Blood Culture - Preliminary
No Growth in 4 days- Final report to follow
[2024-11-21] MEDS: FIRVANQ 125 MG TUBE (10:16)
[2024-11-21] MEDS: VISBIOME 1 CAP TUBE (10:16)
[2024-11-21] MEDS: ROBITUSSIN 200 MG TUBE ×2 (10:16→13:10)
[2024-11-21] MEDS: PREVACID 30 MG TUBE (10:16)
[2024-11-21] MEDS: VITAMIN C 250 MG TUBE (10:16)
[2024-11-21] MEDS: LEXAPRO 15 MG TUBE (10:17)
[2024-11-21] MEDS: CATAPRES TUBE (10:17)
[2024-11-21] MEDS: COREG 6.25 MG TUBE (10:20)
[2024-11-21] MEDS: PACERONE 200 MG TUBE (10:21)
[2024-11-21] MEDS: ELIQUIS 5 MG TUBE (10:21)
[2024-11-21] MEDS: NEURONTIN 300 MG TUBE (10:21)
[2024-11-21] MEDS: LASIX 40 MG IV ×2 (10:22→16:34)
[2024-11-21] MEDS: FERROUS SULFATE ORAL LIQUID 300 MG TUBE (10:22)
[2024-11-21] MEDS: MYCOSTATIN ORAL SUSPENSION 5 ML PO ×4 (10:22→20:30)
[2024-11-21] MEDS: PERIDEX 0.12% ORAL RINSE 5 ML PO ×3 (10:23→20:30)
[2024-11-21] MEDS: ROXICODONE ORAL SOLUTION 5 MG TUBE (13:10)
--- NOTE | 2024-11-21 14:44 | W.PN.HOSP.TC ---
Today's Communication/Plan
-
Responding to diuresis with improved oxygen requirements and imaging.
Continue IV diuresis monitoring daily weight and renal function
Continue antibiotics
Transition to oral diet and monitor oral intake
Physical therapy assessment
Assessment / Plan
Assessment / Plan
Impression
Patient is a 64y F with PMH significant for mesothelioma s/p multiple hospitalizations, surgeries, etc who [facility].
Acute on chronic hypoxemic/hypercarbic respiratory failure.
Toxic metabolic encephalopathy secondary to hypoxia and hypercarbia, likely related to sedative medications as well.
Acute on chronic anemia
RUE Swelling
Conditions prior to admission:
Chronic Respiratory Failure (compensated hypercapnia) likely secondary to obesity
Mesothelioma status postresection at [facility]
Right chest wall wound dehiscence status post closure and skin flap by plastics at [facility]
Bilateral pneumonia.
MSSA bacteremia
C. difficile infection
Hypokalemia
Hypomagnesemia
Dysphagia with GJ tube in place
CHF preserved EF.
Paroxysmal atrial fibrillation
Anticoagulation with Eliquis per
Essential hypertension, multidrug requiring.
Anxiety/depression
Plan
Acute on chronic hypoxic/hypercarbic respiratory failure.
Likely multifactorial in the settings of volume overload, CO2 retention possibly due to oversedation, increased RML/RLL volume loss -- suspected more from atelectasis rather than volume overload. Has reasonable risk for aspiration.
Afebrile with normal white count upon presentation
Chest x-ray with right base changes�but significant interventions since most recent imaging at .
Respiratory status relatively stable, although noted with hypercarbia on VBG with chronic metabolic compensation likely presenting undiagnosed obstructive sleep apnea (BMI 43)
CT scan of the chest with re-demonstration of cutoff of the bronchus intermedius. Possibly representing endobronchial neoplasm versus mucous plug. Right lower lobe collapse and atelectasis
Continue aggressive airway clearance
Might need bronchoscopy eventually -- but hold for now given volume overload and want to avoid more sedation at this time -- if she develops any worsening respiratory insufficiency, than plan is to proceed with bronchoscopy.
Avoid oversedation. Currently on volume and oxycodone, monitor closely, holding parameters for oversedation
BiPAP at night/when sleeping
Remains on antibiotics to complete course of treatment for MSSA. Monitor closely following imaging, temperature curve, WBC.
Dysphagia
PEG tube in place
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
Speech and swallow issues including VSE on 11/21 with no evidence of aspiration.
Initiate oral diet with regular consistency and thin liquids. Transition all oral medications to p.o.
Acute on chronic CHF preserved EF.
Echo 10/25/2024: Low normal left ventricular systolic function, left ventricular ejection fraction 50%, aortic sclerosis without stenosis, normal right ventricular size and function.
Noted weight is up 20 kg from prior visit.
Elevated pro CHF BNP.
Follow-up chest x-ray with improvement of bilateral right greater than left infiltrate
Continue IV Lasix twice daily following up I's and O's, daily weights and renal function closely
Adjust antihypertensive regimen according to renal function and hemodynamics
RUE Swelling
- Ultrasound negative for DVT
Acute TME likely multifactorial in the settings of hypoxia, hypercarbia and oversedation.
Continue Valium and oxycodone monitoring closely for oversedation.
Continue BiPAP
Hypokalemia
-Replaced, continue to monitor and replace as needed
Acute on chronic anemia.
Suspect related to multiple surgical interventions and over acute illness
So far no evidence for gross blood loss
Hemoglobin trending down to 7.7-8.0
Consider transfusion if less than 7
Consent signed/on chart
MSSA bacteremia.
ID recommendation at [facility] continue IV Ancef through 12/06/2024
Recent C. difficile colitis
Status post for fidaxomicin course.
Continue enteral vancomycin through 12/11/2024 (while on Ancef)
Hold bowel regimen/magnesium supplementation
Paroxysmal atrial fibrillation.
Continue amiodarone.
Continue Eliquis
Benign hypertension
Noted elevated BP.
Clonidine dose lowered and Doxazosin held given soft blood pressures
Anxiety / Depression
- ? anxiety / 'panic' attack this evening and prior.
- Continue current escitalopram.
- Continue hydroxyzine PRN anxiety.
Nutrition
- Patient has G-J tube in place and remains tube dependent for meds / meals.
- Nutrition evaluation for tube feed recommendations.
- Tube feeding initiated on 11/17 -- TF regimen adjusted to be done only 9 pm to 9 am -- patient and her reported that patient having nausea from 24 hour tube feeds, and previously her regimen was 9 pm to 9 am and they requested the tube
feeds to be adjusted to be given only in those 12 hours -- order adjusted. Continue aspiration precaution
Speech evaluation
Morbid Obesity due to excess calories
- Exacerbated by fluid gains.
- Affects all aspects of care. Working towards participation with rehab / increased mobility / etc.
DVT Prophylaxis: On Eliquis
Code Status: Full
Anticipated Discharge: > 48 hours
Subjective/Interval History
-
Date of Service: November 21, 2024
Objective Data
-
Labs:
Laboratory Results
11/21/24 11/21/24
04:16 05:30
WBC 4.0 L
Hgb 8.3 L
Hct 29.1 L
Plt Count 161
HCO3 47.7 H*
Sodium 136
Potassium 3.1 L
Chloride 91 L
Carbon Dioxide 44 H
BUN 13
Creatinine 0.6
Glucose 94
Calcium 9.3
Vital Signs:
Vital Signs
Temp Pulse Resp BP Pulse Ox
98.0 F 64 18 114/62 95
11/21/24 11:15 11/21/24 13:55 11/21/24 13:55 11/21/24 10:22 11/21/24 13:55
I&O
11/20/24 11/21/24 11/22/24
06:59 06:59 06:59
Intake Total 550 / 550 400 / 400 960 / 960
Output Total 2540 / 2540 1830 / 1830
Balance -1989 / -1989 -1430 / -1430 960 / 960
Physical Exam
-
General: Well Developed and No Apparent Distress
HEENT: Normocephalic, Atraumatic and Moist Mucous Membranes
Respiratory: Decreased Breath Sounds and Chest Tubes (Right chest KAROLINE drains x 2)
Cardiac: Regular Rhythm and S1/S2; Negative Murmur, Rub or Gallop
GI: Soft, Nontender, Nondistended and Normal Bowel Sounds; Negative Organomegaly
Rectal: Deferred by Provider
Musculoskeletal: No Clubbing, No Cyanosis and No Edema
Skin: Negative Rash
Neuro: Awake, Alert, Oriented and Nonfocal/Grossly Intact
--- NOTE | 2024-11-21 15:20 | CM ---
Addendum entered by Lesa Morillo RN 11/21/24 15:47:
Clarification: Patient admitted from [facility].
Original Note:
Patient with Hx metastatic mesothelioma, dehiscence of R chest surgical site s/p prior pleurectomy / mesothelioma resection, at [place] repair of dehiscence & wound closure with Dx Acute on chronic hypoxic respiratory failure. O2 3L, BiPAP HS.
Receiving IV Lasix, IV Abx. Seen by wound care nurse. KAROLINE drains. G tube - Seen by ST today; regular diet ordered. PT 11/16; acute vs skilled. OT 11/16 recommends skilled rehab.
Spoke with [facility]; they will consider the patient again for [facility]. Fab asks for referral (placed) and Physiatry Consult.
Message with Dr Noe; need updated PT/OT orders and physiatry eval, for [facility] to consider.
Plan follow up after seen again by PT/OT and Physiatry Eval.
--- NOTE | 2024-11-21 15:49 | CM ---
Patient from [facility] with Hx metastatic mesothelioma, dehiscence of R chest surgical site s/p prior pleurectomy / mesothelioma resection, at [place] repair of dehiscence & wound closure with Dx Acute on chronic hypoxic respiratory failure.
O2 3L, BiPAP HS. Receiving IV Lasix, IV Abx. Seen by wound care nurse. KAROLINE drains. G tube - Seen by ST today; regular diet ordered. PT 11/16; acute vs skilled. OT 11/16 recommends skilled rehab.
Spoke with patient, daughter at bedside; patient interested in returning to [facility] to complete rehab, when she is medically ready.
Spoke with [facility], [facility]; they will consider the patient again for [facility]. Fab asks for referral (placed) and Physiatry Consult.
Message with Dr Noe; need updated PT/OT orders and physiatry eval, for [facility] to consider.
Plan follow up after seen again by PT/OT and Physiatry Eval.
Plan probable [facility] when medically ready.
--- NOTE | 2024-11-21 16:05 | PTCARENOTE ---
Recd pt this AM. Passed VSE now ordered reg diet. Educated on need to go slow when choosing foods and eating meals as pt has been tube fed for over 60 days. Pt tolerated her light lunch. OOB to chair for 4 hours, resting comfortably. remains on 3L
NC. vital signs stable.
[2024-11-21] MEDS: ROBITUSSIN 200 MG PO ×2 (16:40→20:30)
[2024-11-21] MEDS: ROXICODONE 5 MG PO (16:59)
[2024-11-21] MEDS: FIRVANQ 125 MG PO (20:28)
[2024-11-21] MEDS: VITAMIN C 250 MG PO (20:29)
[2024-11-21] MEDS: COREG 6.25 MG PO (20:29)
[2024-11-21] MEDS: MELATONIN 6 MG PO (20:29)
[2024-11-21] MEDS: NEURONTIN 300 MG PO (20:29)
[2024-11-21] MEDS: CATAPRES 0.1 MG PO (20:29)
[2024-11-21] MEDS: ELIQUIS 5 MG PO (20:30)
[2024-11-21] MEDS: LIPITOR 40 MG PO (20:30)
--- NOTE | 2024-11-21 22:35 | RESPNOTE ---
Pt was placed on BiPAP around 2209. Pt was complaining of it feeling to little pressure so IPAP was changed multiple times but nothing worked. Pt just wanted to come off at that point. Pt appeared to be very anxious and started to desat on the BiPAP
w/ 5L bled in. Once pt was off the BiPAP and placed back on 3L NC, pt was fine and O2 level went to 94%. RN was made aware and RN did say that the pt has not rung yet for their pain or anxiety medication. We will try again later after pt has taken
those medications to help tolerate BiPAP.
[2024-11-22] VITALS (16 sets, daily range): BP systolic 93–122; BP diastolic 46–70; PULSE 2–87; O2SAT 95–97; BMI 41.3
[2024-11-22] MEDS: ANCEF 10 IV ×3 (01:19→17:50)
[2024-11-22] MEDS: VALIUM 2 MG PO (02:58)
[2024-11-22 03:43] LABS: Hematocrit 28.9 % (37.0-47.0); Hemoglobin 8.9 g/dL (12.0-16.0); Mean Corp Hgb Conc. 30.8 g/dL (33.0-37.0); Mean Corpuscular Volume 92.0 fL (81.0-99.0); Nucleated Red Blood Cells % 2.7 %; Platelet Count 117 10^3/uL (130-400); Red Cell Dist. Width 21.3 % (11.5-14.5)
[2024-11-22 03:47] LABS: Blood Urea Nitrogen 13 mg/dl (7-17); Calcium 8.8 mg/dl (8.4-10.2); Carbon Dioxide 38 mmol/L (22-30); Chloride 95 mmol/L (98-107); Estimated Creatinine Clearance > 125 ml/min; Glucose 86 mg/dl (70-99); Potassium 3.6 mmol/L (3.5-5.1); Sodium 135 mmol/L (135-145); eGFR > 60.00
--- NOTE | 2024-11-22 05:30 | PTCARENOTE ---
No acute events overnight. Patient refused to wear the BIPAP. Remained on 3 liters. PRN valium given for muscle spasm in neck. Will continue to monitor.
[2024-11-22] MEDS: SODIUM CHLORIDE 3% FOR INHALATION 1 VIAL INH ×3 (07:30→19:47)
[2024-11-22] MEDS: VENTOLIN NEBULES 2.5 MG INH ×3 (07:30→19:48)
[2024-11-22] MEDS: NEURONTIN 300 MG PO ×2 (08:58→20:21)
[2024-11-22] MEDS: PROTONIX 40 MG PO (08:58)
[2024-11-22] MEDS: MYCOSTATIN ORAL SUSPENSION 5 ML PO ×4 (08:58→20:22)
[2024-11-22] MEDS: LEXAPRO 15 MG PO (08:59)
[2024-11-22] MEDS: CATAPRES 0.1 MG PO ×2 (08:59→20:22)
[2024-11-22] MEDS: PACERONE 200 MG PO (09:00)
[2024-11-22] MEDS: VISBIOME 1 CAP PO (09:01)
[2024-11-22] MEDS: ELIQUIS 5 MG PO ×2 (09:01→20:21)
[2024-11-22] MEDS: FIRVANQ 125 MG PO ×2 (09:01→20:24)
[2024-11-22] MEDS: COREG 6.25 MG PO ×2 (09:01→20:22)
[2024-11-22] MEDS: PERIDEX 0.12% ORAL RINSE 5 ML PO ×3 (09:02→20:22)
[2024-11-22] MEDS: FERROUS SULFATE ORAL LIQUID 300 MG PO (09:02)
[2024-11-22] MEDS: LASIX 40 MG IV (09:03)
[2024-11-22] MEDS: VITAMIN C 250 MG PO ×2 (09:03→20:22)
[2024-11-22] MEDS: ROBITUSSIN 200 MG PO ×4 (09:03→20:22)
--- NOTE | 2024-11-22 09:57 | W.PN.PUL.V3 ---
Today's Communication / Plan
-
Wean oxygen
Increase activity
Continue diuresis
Oral intake-passed video swallow
BiPAP as tolerated
Assessment
-
Patient is a 64-year-old female with significant past medical history of mesothelioma with reported metastasis to stomach, status post pleurectomy with decortication plus tracheostomy in 08/2024. Patient was evaluated in the emergency room on 10/24
due to shortness of breath and change in mentation. She had an EEG performed which was unremarkable also included a CT chest and was noted to have dehiscence of the thoracotomy site. Patient was subsequently transferred to [facility]
[place] for further management. At [facility], patient had surgical exploration, wound VAC placement, new diagnosis of C. difficile in addition to MSSA bacteremia. Patient has a PICC line in place and is scheduled to be on 4
weeks of IV antibiotics in addition to p.o. vancomycin for recent C. difficile. [facility] Reportedly patient was brought to the emergency room for increasing oxygen requirement, shortness of breath and
suspected change in mental status. Workup in the emergency room was suggestive of increased right-sided pulmonary opacities. Patient's mental status fully resolved and she was at her baseline during evaluation. In view of increased oxygen need
and worsening pulmonary opacities, patient was admitted to the hospital for further management. [facility], CT surgery service was consulted but they recommended local hospitalization. Pulmonary consultation was requested for
further input.
11/19 overview, patient saturating 92% on 5 L supplemental oxygen, MAP of 72 not requiring any pressors. She wore BiPAP only briefly last night.
#1. Acute on chronic hypoxic respiratory failure
- Multifactorial. Increased right middle and lower lobe opacities noted on chest x-ray, CT chest pursued. Increased RML/RLL volume loss, overall very volume overload. Small areas of ?atelectasis vs infiltrates in STAS and Lingula.
- Patient has normal WBC count, is otherwise afebrile and imaging changes are more suggestive of atelectasis and volume overload. Continue IV cefazolin-finite course that patient is taking for MSSA bacteremia and hold off additional antibiotics for
pulmonary reasons-on oral vancomycin for C. difficile. No productive cough and no purulent expectoration.
- Blood cultures pending, Influenza A & B negative, COVID-19 screen negative
- Currently on 3 L nasal cannula-97% saturation, wean as able
-BiPAP as tolerated-suspect patient had subacute hypercapnia due to postoperative respiratory dynamics, slowly improving-did not tolerate 11/22/2024 evening-continue attempts at BiPAP but may change to as needed
-Pathophysiology of obstructive sleep apnea/obesity hypoventilation syndrome reviewed with patient and at length 11/22/2024-associations with untreated sleep apnea reviewed, treatment options including weight loss, CPAP, and surgical
inventions-many questions about inspire (hypoglossal nerve stimulation) which was explained at length
#2. RML and RLL atelectasis ?mucous plugging vs Endobronchial malignancy
- CT chest compared to 10/2024 with persistent Right bronchus intermedius cut-off. ?mucous plugging, endobronchial tumor, external compression from pleural effusion
- Continue Airway clearance with Albuterol and 3% NS BID. Chest PT, sports bed to help mobilize secretions
-Chest x-ray 11/21/2024-bilateral opacifications right greater than left slightly improved on the right findings at least suggest atelectasis and/or pneumonia and pleural effusions
- Continue flutter valve-instructed on proper use
- Continue diuresis as patient is still quite fluid overloaded
-Monitor renal function, electrolytes, intake/output, lower extremity edema and weight
Replace electrolytes as needed
- Depending on clinical course, might need Bronchoscopy and airway clearance with inspection-hold off for now as patient is quite volume overloaded. Patient reports multiple bronchoscopies in the past for mucous plug clearance.
- Re-evaluate in coming days, depending on response to diuresis, might need thoracentesis
- VSE-no obvious aspiration-11/21/2024-begin oral intake
-Had questionable subcutaneous air in the tracheotomy site last week, now improved. On recent CT chest, there does appear to be evidence of all tracheotomy site
#3. Chronic baseline hypercapnic respiratory failure.
- VBG 7.39, 73, compensated hypercapnia
- Bicarb is chronically elevated, appears compensated, suspect related to underlying obesity
- Suspect patient has underlying sleep disordered breathing with possible obesity hypoventilation syndrome. Baseline oxygen dependent with increased pCO2 as well as high BMI very suggestive of OHS
- BiPAP 14/7 cm with 6 L oxygen initiated this admission. Continue as tolerated, Only tolerated for few hours yesterday p.m.
#4. History of metastatic mesothelioma.
- S/p right sided radical pleurectomy with decortication, diaphragmatic repair, tracheostomy and G-tube placement in 08/2024 at [facility].
- Wound was complicated by dehiscence in 10/2024, requiring transfer to [facility] for repair, wound VAC placement and was subsequently discharged on 11/15
- Follow-up CT chest suggestive of enlarging effusion
- [facility] CT surgery team was contacted from emergency room, recommended continued treatment at [place]
- Given what appears to be slightly worsening right pleural parenchymal process on CXR 11/19, note CXR 11/21-results above
- May require repeat CT imaging and/or endobronchial exam
-Dr. Jackson spoke at length about potential treatment options and need to be mentally 'in the fight' to try to ray metastatic mesothelioma 11/22/2024
#5. Acute on chronic heart failure with preserved ejection fraction
- Echocardiogram in 10/2024 showed EF of 50%
- Continue IV diuresis. Patient is - 1430 mL / 24-hour. Weight is down 12 kg since 11/16, but not yet back to what appears to be baseline around October which was around 116-120 kg (currently 123-trace pedal edema)
Dr. Dubon called 11/20/2024 and spoke with [facility] thoracic surgeon-Dr. Burch-who reportedly will call family
Dr. Jackson reviewed with daughter at length 11/21/[address] Jackson updated at the bedside 11/22/24-35 minutes
Other medical diagnoses:
- MSSA bacteremia. On IV Cefazolin, scheduled thru 12/06/2024
- H/o C Diff. on PO Vancomcyin. s/p Treatment with fidaxomicin at [facility]
- Paroxysmal atrial fibrillation, chronically anticoagulated with Eliquis and on p.o. amiodarone
- Brief encephalopathy, ? Unclear etiology. Blood gas not suggestive of hypercapnic encephalopathy. EEG pursued last month was unremarkable. Polypharmacy also likely contributing, minimize sedation.
Data:
CT Chest 10/2024: Re-demonstration of cut off of the bronchus intermedius. This could be related to endobronchial neoplasm or mucous plug. Right lower lobe is collapsed, and there is progression of postobstructive pneumonia or partial atelectasis in
the right middle lobe. Consider bronchoscopy for further evaluation of the bronchus intermedius, if not performed
Focus of airspace disease in the left upper lobe measuring 1.5 cm in diameter. This is new. New small focus of airspace disease within the lingula anteriorly.
There is a moderate right pleural effusion. This has increased compared with the prior CT. Small left pleural effusion; this is new since the prior CT.
There is extensive soft tissue attenuation material in the right lateral abdominal wall. This extends inferiorly beyond the imaging field. This is likely phlegmon. Previously, there was a 7.8 cm fluid collection associated with this abnormal soft
tissue. No fluid collection in this region shown by the current study, although any residual collection may be below the imaging field on the current study. If clinically warranted, CT abdomen can assess for any residual collection in the right
lateral abdominal wall
2 new leads or catheters are noted to course within the right lateral and right posterior soft tissues of the chest wall
No change in mild mediastinal adenopathy.
CXR 10/2024: Bibasilar opacities, increased on the right which may represent atelectasis and/or pneumonia as well as likely increased right pleural effusion.
Prominent pulmonary vascularity which may represent interstitial edema again seen.
CT Chest 10/2024: 1. There is likely mucous plugging within the right lower lobe with near complete collapse of the right lower lobe. There is persistent atelectasis within the right middle lobe and posterior right upper lobe.
2. Small right-sided hydropneumothorax, similar in appearance to prior. There is a severely displaced posterior right sixth rib fracture, unchanged from prior.
3. Surgical drain within the right posterior lateral chest wall with a slightly ill-defined collection along the mid aspect of the drain measuring approximately 7.8 x 2.4 cm.
4. Stable mildly prominent mediastinal lymph nodes.
EEG 10/2024: No evidence of status epilepticus
ECHO 10/2024: Low normal left ventricular systolic function. Left ventricular ejection fraction is 50%.
Aortic sclerosis without stenosis.
Normal right ventricular size and function.
Compared to 03/23/23: prior LVEF was 55-60%. MR looks mild, compared to
mild/moderate previously.
C 06/2023: 1: Normal left ventricular function with EF 59%
2: No significant CAD
3. Chest pain is noncardiac
Subjective Data
-
Date of Service:
Date of Service: November 22, 2024
Chief Complaint: Pulmonary Follow Up and Dyspnea Follow Up
Subjective:
Did not tolerate BiPAP last evening, saturating well on 3 L, no complaints of increased chest congestion, chest pain, pleurisy, abdominal pain, out of bed for over 3 hours yesterday, passed swallowing study, still with some pedal edema
Review of Systems
General: Other (Per HPI)
Objective Data
Data Reviewed
Vital Signs / I&O:
Vital Signs
Temp Pulse Resp BP Pulse Ox
98.3 F 60 19 122/64 98
11/22/24 03:05 11/22/24 09:03 11/22/24 08:00 11/22/24 09:03 11/22/24 09:45
Intake and Output
11/21/24 11/22/24 11/23/24
06:59 06:59 06:59
Intake Total 400 / 400 1440 / 1440
Output Total 1830 / 1830 2500 / 2500 750 / 750
Balance -1430 / -1430 -1060 / -1060 -750 / -750
SaO2: 98
Nasal Cannula flow liters per minute: 3
Physical Exam
General: Respiratory Distress (n) and Comfortable
HEENT: Normocephalic and Anicteric
Cardiovascular: Regular Rhythm, Murmur (n) and Peripheral Edema (1+ pedal edema)
Respiratory: Wheeze (n), Crackles (n), Rhonchi, Stridor (n) and Other (Slightly decreased at base)
GI: Soft and Non Distended
Neurology: Awake and Alert
Skin: Warm, Good Color, Cyanosis (n), Jaundice (n), Rash (n) and Other ( well-healing incision right posterior chest, chest tube in place)
Labs/Micro/Reports
Lab Data
11/22/24 03:07
11/22/24 03:07
Microbiology
11/16/24 01:48 Blood/Venous Blood Culture - Final
No Growth - Final Report
11/16/24 01:34 Blood/Venous Blood Culture - Final
No Growth - Final Report
--- NOTE | 2024-11-22 12:00 | W.PN.HOSP.TC ---
Today's Communication/Plan
-
Continue IV diuresis for another 24 hours with plan to monitor daily weight and likely transition to oral diuretics on 11/23.
Wean off oxygen as tolerates.
BiPAP if tolerates.
Physical therapy/physiatry consultation with discharge planning
Assessment / Plan
Assessment / Plan
Impression
Patient is a 64y F with PMH significant for mesothelioma s/p tumor resection including splenectomy, multiple hospitalizations, surgeries, etc who presents to ED from [facility] for evaluation of hypoxemia.
Acute on chronic hypoxemic/hypercarbic respiratory failure.
Toxic metabolic encephalopathy secondary to hypoxia and hypercarbia, likely related to sedative medications as well.
Acute on chronic anemia
RUE Swelling
Conditions prior to admission:
Chronic Respiratory Failure (compensated hypercapnia) likely secondary to obesity
Mesothelioma status postresection at [facility]
Right chest wall wound dehiscence status post closure and skin flap by plastics at [facility]
Bilateral pneumonia.
MSSA bacteremia
C. difficile infection
Hypokalemia
Hypomagnesemia
Dysphagia with GJ tube in place
CHF preserved EF.
Paroxysmal atrial fibrillation
Anticoagulation with Eliquis per
Essential hypertension, multidrug requiring.
Anxiety/depression
Plan
Acute on chronic hypoxic/hypercarbic respiratory failure.
Likely multifactorial in the settings of volume overload, CO2 retention possibly due to oversedation, increased RML/RLL volume loss -- suspected more from atelectasis rather than volume overload. Has reasonable risk for aspiration.
Afebrile with normal white count upon presentation
Chest x-ray with right base changes�but significant interventions since most recent imaging at .
Respiratory status relatively stable, although noted with hypercarbia on VBG with chronic metabolic compensation likely presenting undiagnosed obstructive sleep apnea (BMI 43)
CT scan of the chest with re-demonstration of cutoff of the bronchus intermedius. Possibly representing endobronchial neoplasm versus mucous plug. Right lower lobe collapse and atelectasis
Continue aggressive airway clearance
Might need bronchoscopy eventually -- but hold for now given volume overload and want to avoid more sedation at this time -- if she develops any worsening respiratory insufficiency, than plan is to proceed with bronchoscopy.
Avoid oversedation. Currently on volume and oxycodone, monitor closely, holding parameters for oversedation
BiPAP at night/when sleeping
Remains on antibiotics to complete course of treatment for MSSA. Monitor closely following imaging, temperature curve, WBC.
Dysphagia
PEG tube in place
Had been on tube feeds PARER.
Speech and swallow issues including VSE on 11/21 with no evidence of aspiration.
Initiate oral diet with regular consistency and thin liquids. Transition all oral medications to p.o.
Acute on chronic CHF preserved EF.
Echo 10/25/2024: Low normal left ventricular systolic function, left ventricular ejection fraction 50%, aortic sclerosis without stenosis, normal right ventricular size and function.
Noted weight is up 20 kg from prior visit.
Elevated pro CHF BNP.
Follow-up chest x-ray with improvement of bilateral right greater than left infiltrate
Continue IV Lasix twice daily following up I's and O's, daily weights and renal function closely
Adjust antihypertensive regimen according to renal function and hemodynamics
RUE Swelling
- Ultrasound negative for DVT
Acute TME likely multifactorial in the settings of hypoxia, hypercarbia and oversedation.
Continue Valium and oxycodone monitoring closely for oversedation.
Continue BiPAP
Hypokalemia
-Replaced, continue to monitor and replace as needed
Acute on chronic anemia.
Suspect related to multiple surgical interventions and over acute illness
So far no evidence for gross blood loss
Hemoglobin trending down to 7.7-8.0
Consider transfusion if less than 7
Consent signed/on chart
MSSA bacteremia.
ID recommendation at [place] continue IV Ancef through 12/06/2024
Recent C. difficile colitis
Status post for fidaxomicin course.
Continue enteral vancomycin through 12/11/2024 (while on Ancef)
Hold bowel regimen/magnesium supplementation
Paroxysmal atrial fibrillation.
Continue amiodarone.
Continue Eliquis
Benign hypertension
Noted elevated BP.
Clonidine dose lowered and Doxazosin held given soft blood pressures
Anxiety / Depression
- ? anxiety / 'panic' attack this evening and prior.
- Continue current escitalopram.
- Continue hydroxyzine PRN anxiety.
Nutrition
- Patient has G-J tube in place and remains tube dependent for meds / meals.
Speech and swallow evaluation including VSE with improved swallowing function. Patient transition to a regular consistency diet and thin liquids. Medications changed to oral route.
Observe oral intake while off tube feeding
Morbid Obesity due to excess calories
- Exacerbated by fluid gains.
- Affects all aspects of care. Working towards participation with rehab / increased mobility / etc.
Splenectomy.
Patient is due for MMR vaccine provided on 11/22/2024
DVT Prophylaxis: On Eliquis
Code Status: Full
Anticipated Discharge: 24 - 48 hours
Subjective/Interval History
-
Date of Service: November 22, 2024
Objective Data
-
Labs:
Laboratory Results
11/22/24
03:07
WBC 3.7 L
Hgb 8.9 L
Hct 28.9 L
Plt Count 117 L D
Sodium 135
Potassium 3.6
Chloride 95 L
Carbon Dioxide 38 H
BUN 13
Creatinine 0.6
Glucose 86
Calcium 8.8
Vital Signs:
Vital Signs
Temp Pulse Resp BP Pulse Ox
98.3 F 60 19 122/64 98
11/22/24 03:05 11/22/24 09:03 11/22/24 08:00 11/22/24 09:03 11/22/24 09:57
I&O
11/21/24 11/22/24 11/23/24
06:59 06:59 06:59
Intake Total 400 / 400 1440 / 1440
Output Total 1830 / 183 2500 / 2500 750 / 750
Balance -1430 / -1430 -1060 / -1060 -750 / -750
Physical Exam
-
General: Well Developed and No Apparent Distress
HEENT: Normocephalic, Atraumatic and Moist Mucous Membranes
Respiratory: Decreased Breath Sounds and Chest Tubes (Right chest KAROLINE drains x 2)
Cardiac: Regular Rhythm and S1/S2; Negative Murmur, Rub or Gallop
GI: Soft, Nontender, Nondistended and Normal Bowel Sounds; Negative Organomegaly
Rectal: Deferred by Provider
Musculoskeletal: No Clubbing, No Cyanosis and No Edema
Skin: Negative Rash
Neuro: Awake, Alert, Oriented and Nonfocal/Grossly Intact
[2024-11-22] MEDS: M-M-R II 0.5 ML SC (13:27)
--- NOTE | 2024-11-22 15:31 | CON.MD ---
Consultation - Medical
-
Chief Complaint:�Debility with hypoxia/hypercarbia
�
History of Present Illness:�64-year-old female PMH of (Hypertension, paroxysmal atrial fibrillation, history of SC, hyperlipidemia, anemia, ITP, status post splenectomy, thrombocytopenia, history of melanoma, status post bilateral shoulder
resection, basal cell carcinoma (s/p resection (nose), GERD, history of NG�G-tube placement with bile drain, thyroid nodule) was diagnosed with epithelial mesothelioma on 05/18/2023 after undergoing pleural biopsy and undergoing further workup. She
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 She was on Pemetrexed, carboplatin, and Bevacizumab (last infusion 08/09/24). On 09/18/2024�she underwent radical pleurectomy,
decortication, diaphragm repair, tracheostomy at [facility]. Hospital course was complicated with IVETH and oliguria improved with fluids, acute on chronic ITP receiving Romiplostim as outpatient, mucous plugging requiring bronchoscopy and thoracic tube,
dysphagia on TPN and requiring G-tube feeding, delirium, VDRF with trach, urinary retention, and false trach after trach dislodged. She was transferred to [facility] on 10/12/2024 where she had dehiscence of her wound. She developed worsening
shortness of breath and was sent to [facility] where she was found to have MSSA sepsis and hypoxia thought to be due to pneumonia. She was transferred to [facility] for further management. She had repair of the wound dehiscence on
11/09/2024. She was also noted to have C. difficile and was treated with fidoxamicin. She is also on IV Ancef for MSSA bacteremia and prophylactic vancomycin orally. She was sent to [facility] on 11/15/2024 where she became short of breath with
hypoxia and required increased O2 administration. She was sent back to [facility] and found to have acute on chronic hypoxemic/hypercarbic respiratory failure and toxic metabolic encephalopathy. [place] to have volume overload, possible CO2
retention from oversedation. She was diuresed with IV Lasix, was given albuterol, hypertonic saline nebs, Mucinex and chest PT. Patient notes he is lost 25 pounds since this admission. She had a video swallow test on 11/21/2024 and was cleared for
a regular and thin liquid diet. She had right upper extremity swelling with negative Doppler.
Patient seen with daughter in room. Overall patient had an excellent day yesterday. Her daughter said is the best she has seen her since being in the hospital for the past couple of months. She was able to do more in therapy and is feeling much
better that she is now able to have a diet. Upon standing with nursing today she did feel little bit dizzy with a drop in her blood pressure. Otherwise she was feeling great earlier. She is feeling more optimistic about doing therapy and getting
back home.
�
Past Medical History:�Hypertension, paroxysmal atrial fibrillation, history of SC, hyperlipidemia, anemia, ITP, status post splenectomy, thrombocytopenia, history of melanoma, status post bilateral shoulder resection, basal cell carcinoma (s/p
resection (nose), GERD, history of NG�G-tube placement with bowel drain, thyroid nodule, CHF, MSSA sepsis, C. difficile
Procedure History:��S/P right radical pleurectomy, decortication, trach/ Bilateral shoulder area Melanoma resection/ Right knee surgery for benign mass/ G-J tube placement/ Basal cell cancer removal from nose/ Hysterectomy/ Splenectomy,
diaphragmatic hernia repair, ventral hernia -status post mesh repair 2013 CT placement, KAROLINE drain on the right side of chest, cardiac catheterization, pleurectomy wound closure, tracheostomy, G-tube placement, diaphragm repair
Family History:���Early CAD (dad- at age 43.), Cancer (Mom- breast cancer. Sister- Mesothelioma) and Diabetes (Sister- DM)��
�
Social History:�
Functional Level Premorbidly:�Independent with all activities��
Functional Level Currently:�Mod assist bed mobility, min to mod assist of 2 for transfers, set up grooming, max assist toileting, dependent lower extremity self-care.
�
Tobacco:�Denies�
Alcohol:�Denies�
Drug use:�Denies�
�
Lives With:�Spouse
24-hour assistance available:�Yes
Number of floors:�2
# steps to enter:�3
# steps to second floor:��FF
Potential First Floor Set Up:�No, only half bath first-floor
Driving:�No
Occupation:�Retired
�
�
Allergies:�
Allergy/AdvReac Type Severity Reaction Status Date / Time
amoxicillin (From Augmentin) Allergy colitis Verified 11/16/24 03:20
clavulanic acid (From Allergy colitis Verified 11/16/24 03:20
Augmentin)
Sulfa (Sulfonamide Allergy Hives Verified 11/16/24 03:20
Antibiotics)
�
Review of Systems:�
Constitutional: (x) abNormal _fatigue
Eye: (x) Normal _
Ear/Nose/Throat: (x) Normal _
Respiratory: (x) abNormal _feeling less short of breath
Cardiovascular: (x) abNormal _had lots of fluid and lost 25 pounds with the water pills. Had a low blood pressure and dizziness today with standing up
Gastrointestinal: (x) Normal _
Genitourinary: (x) Normal _
Musculoskeletal: (x) abNormal _generalized weakness
Integumentary: (x) abNormal _right back incision
Neurologic: (x) abNormal _more clear
Psychiatric: (x) Normal _
Endocrine: (x) Normal _
Hematologic/Lymphatic: (x) Normal _
Allergic/Immunologic: (x) Normal _
�
Medications:�
Active Current Visit Medication List
Category Date Time Status
Acetaminophen [Tylenol] Med 11/21/24 14:53 Active
650 mg PO Q4HPRN PRN mild pain / temp > 101 mild pain /
temp > 101
Albuterol Nebs [Ventolin Nebules] Med 11/18/24 03:35 Active
2.5 mg INH R QID PRN
Albuterol Nebs [Ventolin Nebules] Med 11/18/24 03:23 Active
2.5 mg INH R TID
Amiodarone [Pacerone] Med 11/21/24 14:14 Active
200 mg PO DAILY
Apixaban [Eliquis] Med 11/21/24 20:00 Active
5 mg PO BID
Ascorbic Acid [Vitamin C] Med 11/21/24 14:14 Active
250 mg PO BID
Atorvastatin [Lipitor] Med 11/21/24 14:14 Active
40 mg PO HS
Carvedilol [Coreg] Med 11/21/24 14:14 Active
6.25 mg PO BID
CeFAZolin 2 GRAM [Ancef] Med 11/16/24 10:00 Active
2 grams in 10 ml IV Q8H
Chlorhexidine Oral Rinse 0.12% [Peridex 0.12% Oral Med 11/16/24 14:19 Active
Rinse]
5 ml PO TID
Clonidine [Catapres] Med 11/21/24 14:14 Active
0.1 mg PO BID
Diazepam [Valium] Med 11/21/24 14:14 Active
2 mg PO QIDPRN PRN muscle spasms
Doxazosin Mesylate [Cardura] Med 11/21/24 14:14 Hold
2 mg PO HS
Escitalopram Oxalate [Lexapro] Med 11/21/24 14:14 Active
15 mg PO DAILY
Ferrous Sulfate [Ferrous Sulfate Oral Liquid] Med 11/21/24 14:14 Active
300 mg PO DAILY
Flush (0.9% Sodium Chloride) [Flush (Nss)] Med 11/16/24 09:00 Active
See Dose Instructions IV PER PROTOCOL
Furosemide [Lasix] Med 11/16/24 08:00 Hold
40 mg IV BID AT 0800,1600
Gabapentin [Neurontin] Med 11/21/24 14:14 Active
300 mg PO BID
Guaifenesin Solution [Robitussin] Med 11/21/24 14:14 Active
200 mg PO QID
HydrOXYZINE [Atarax] Med 11/21/24 14:14 Active
25 mg PO QIDPRN PRN
Lactobac/Bifidobac [Visbiome] Med 11/21/24 14:14 Active
1 cap PO DAILY
Melatonin Med 11/21/24 14:14 Active
6 mg PO HS
Miconazole Nitrate [Desenex/Mitrazol/Zeasorb] Med 11/16/24 10:00 Active
See Dose Instructions TOPICAL BID PRN
Nystatin Ointment [Mycostatin Ointment] Med 11/16/24 07:27 Active
1 applic TOPICAL BID PRN Skin Issues
Nystatin Suspension [Mycostatin Oral Suspension] Med 11/16/24 08:00 Active
5 ml PO QID
Oxycodone [Roxicodone] Med 11/21/24 15:07 Active
5 mg PO Q4HPRN PRN moderate pain moderate pain
Pantoprazole [Protonix] Med 11/22/24 08:00 Active
40 mg PO DAILY
Sodium Chloride 3% INH [Sodium Chloride 3% For Med 11/17/24 14:00 Active
Inhalation]
1 vial INH R TID
Sodium Chloride [Tensas, Saline Mist] Med 11/18/24 20:48 Active
2 sprays NASAL QIDPRN PRN
Sodium Chloride/Aloe Vera [Otter Saline Nasal Gel] Med 11/18/24 20:48 Active
See Dose Instructions NASAL Q2HPRN PRN
Vancomycin HCl [Firvanq] Med 11/21/24 20:00 Active
125 mg PO BID
�
Vitals:�
Temp Pulse Resp BP Pulse Ox
98.3 F 69 34 103/46 93
11/22/24 03:05 11/22/24 14:16 11/22/24 14:16 11/22/24 14:16 11/22/24 15:21
Height 5 ft 8 in
Actual Weight 123.037 kg
Body Mass Index (BMI) 41.3
�
Physical Exam:�
General Appearance/Observation: Well-developed, well-nourished female in no apparent distress.�
Pain/Comfort Assessment: Denies�
Mood/Affect: Appropriate�
�
Integumentary/Operative Site:�Right posterior chest wound and 2 KAROLINE drains/G-tube not evaluated. Prior trach site dressing clean dry and intact. Left arm PICC without erythema.
�
Eyes: Conjunctiva/Lids: normal��� Pupils: pupils equal round and reactive to light and Accommodation
Ears/Nose/Throat: oral mucosa moist, throat clear.������������ Lips/Teeth/Gums: normal
Cardiovascular: Heart: regular, no murmur�
Pulses: dorsalis pedis 2+ bilaterally�
Respiratory: Respiratory Effort/Chest Expansion: Decreased breath sounds on the right������ auscultation: Coarse breath sounds
Gastrointestinal: abdomen not tender, no distension, normal abdominal bowel sounds
Genitourinary: No Hernández�
Rectal Exam: Deferred�
Extremities:�Edema: Mild bilateral upper/lower extremity nonpitting edema. �Cyanosis: None�Trophic�changes: None
�
Neurology Exam:
Orientation: Alert, Oriented to self, Time, Place�
Memory: Intact for recent medical concerns
Comprehension: Intact
Two step command: Intact
Cranial Nerves:
�� CNII:�Pupillary light reflex: Intact���Visual Field: Not tested
�� CN III, IV, : Extraocular muscles: Intact�
�� CN V:�Facial Sensation�not tested
�� CN VII:�Facial movement: Symmetric
�� CN VIII:�Hearing: Normal
�� CN IX/X:�Speech & swallow: Normal,�Position of Uvula: Midline
�� CN XI:�Shoulder shrug: Symmetric
�� CN XII:�Tongue protrusion: Midline
Sensory:
�� Light touch: Intact in bilateral upper and lower extremities
Musculoskeletal: Motor: (Manual muscle scale 0-5)�
Muscle SA EF WE EE FF FA HF KE DF EHL PF
Right� 4 5 5 4 5 4 2 5 4 5
Left 4 5 5 4 5 4 2 5 4 5
�
Tone: Normal in all extremities�
Range of Motion: Passively within functional limits in all extremities�
�
Lab Results
Laboratory Data
11/22/24 03:07
11/22/24 03:07
PT 14.1 Sec (11.4-14.6) 11/16/24 01:34
INR 1.04 11/16/24 01:34
APTT 33.2 Sec (23.4-35.0) 11/16/24 01:34
Total Bilirubin 0.5 mg/dl (0.2-1.3) 11/16/24 01:34
AST 31 U/L (14-36) 11/16/24 01:34
ALT < 10 U/L (0-35) 11/16/24 01:34
Alkaline Phosphatase 302 U/L (38-126) H 11/16/24 01:34
Total Protein 5.4 g/dl (6.3-8.2) L 11/16/24 01:34
Albumin 2.7 g/dl (3.5-5.0) L 11/16/24 01:34
Diagnostic Results:�as per HPI�
�
Assessment
64-year-old F PMH (HTN, paroxysmal A-fib, SC, HLD, anemia, ITP, splenectomy, melanoma, basal cell carcinoma, GERD, epithelioid mesothelioma 05/18/2023 status post chemotherapy) with 09/18/2024�she underwent radical pleurectomy, decortication,
diaphragm repair, tracheostomy complicated by acute on chronic ITP receiving Romiplostim as outpatient, mucous plugging requiring bronchoscopy and thoracic tube, dysphagia on TPN and requiring G-tube feeding, delirium, VDRF with trach, urinary
retention, and false trach after trach dislodged, MSSA sepsis and hypoxia, pneumonia, wound dehiscence repair 11/09/2024, C. difficile, acute on chronic hypoxemic/hypercarbic respiratory failure, toxic metabolic encephalopathy, concern for
obstructive sleep apnea, acute on chronic heart failure and generalized debility with ADL, and ambulatory dysfunction.
Plan�
PM&R�PT/OT to increase independence with ADLs, improve balance, coordination, endurance, strength, mobility, community reintegration, decreased burden of care on others and family education.�
�
Debility: PT/OT/speech
Mesothelioma: metastasis to stomach/ other areas- status post right radical pleurectomy, decortication, VDRF status post trach.
- Trach site with false track required suturing. Appears to be healing..
MSSA sepsis: Continues Ancef through 12/06/2024
Acute on chronic hypoxic/hypercarbic respiratory failure: Thought to be multifactorial with fluid overload, concern for severe retention from oversedation, increased right middle and lower lobe volume loss, atelectasis.
-Obstructive sleep apnea concern and getting BiPAP with improvement.
- Albuterol
-May need repeat bronchoscopy per pulmonary, currently monitoring.
-Avoiding oversedation and monitoring fluid overload.
Acute on chronic CHF: EF 50% on 10/25/2024. Continue with diuresis. May need decrease in diuretics with drop in blood pressure and what appears to be symptomatic orthostasis. Patient notes losing 25 pounds with diuresis.
Generalized swelling: Likely Secondary to acute CHF. Right upper extremity ultrasound negative for DVT.
Splenectomy: Given MMR vaccine 11/22/2024.
Dysphagia: Had video swallow test and cleared for regular with thin liquid diet, monitor for aspiration. Careful attention if she is feeling lethargic.
HTN: Clonidine and doxazosin held with lower blood pressures with diuresis. check orthostatics, likely needs decrease in diuretic if possible. May benefit from teds although given current level of swelling may need to use Tubigrip or Ryan wrap.
Could consider midodrine.
HLD: Atorvastatin 40 mg tube at bedtime
Coronary artery disease�: Aspirin, statin, beta-clement��
Atrial fibrillation:� amiodarone 200 mg tube daily�, Eliquis 5 mg twice daily, carvedilol 6.25 mg bid��
Anemia: Ferrous sulfate 300mg tube daily. likely multifactorial.� Monitor.��
ITP/Thrombocytopenia: Romiplostim 250 mcg SC weekly as outpatient. Continue to monitor with recent drop.
Psych/depression: Lexapro 15 tube daily. Hydroxyzine or Valium as needed for anxiety
Skin: Monitor for rash/ulcers
Wound Dehiscence: Likely related to MSSA sepsis. Had closure at [facility]. Monitor.
FEN: See dysphagia
IVETH: Monitor, likely from diuretics
-Hypokalemia: Replacement as needed
Pain: acetaminophen or oxycodone 5mg q 4 prn, gabapentin 300 mg tube twice a day, lidocaine patch. Would titrate off gabapentin with sedation concern can leave 300 mg at night and then decrease by 100 mg each day.
Insomnia:Trazodone 50 mg at night, and Melatonin.
Bowel: Monitor bowels. on vancomycin for recent C. difficile
Bladder: Time void, PVRs, PRN straight cath.�
GI Prophylaxis: Pantoprazole��40 mg qd
DVT Prophylaxis: Eliquis 5mg tube bid.
Pulmonary: Incentive spirometry��
Morbid obesity: Continue to treatment counselor patient about diet adjustments to control obesity. Body habitus and increased force to move body and extremities causes further difficulty with functional tasks.��
Safety: Continue to reinforce assistance with all transfers.��
Code Status:� Full code
Dispo�(date/plan/equipment needs): Home with family care.�
Functional and Medical Goals:�Modified Independent with ADL�s, ambulation, transfers�
Discharge Destination:�� anticipate acute inpatient rehabilitation unless further decline during rest of hospital stay.
A total of 90 minutes were spent with the patient preparing for the evaluation, obtaining history, performing examination and evaluation, counseling, data review, case management, care coordination, purchase order checker, and EMR documentation. Had
extensive conversation with patient and daughter regarding rehab options, benefits of different rehab, medical concerns, affecting her functional performance, possible needs at home and overall goals of care. All questions answered.
�
Summary of recommendations:
-�Discharge Destination:�� Acute inpatient rehabilitation
- suggest titrating down gabapentin, can leave 300 mg at night and then decrease by 100 mg each day.
- check orthostatics, likely needs decrease in diuretic if possible
- May benefit from teds although given current level of swelling may need to use Tubigrip or Ryan wrap. Could consider midodrine.
�
Thank you for allowing me to care for your patient. Please contact me with any questions or concerns.
Consultation
-
Date/Time Consultation Performed: 11/22/24
Requesting Provider: Dr. Andreas Noe
Performing Provider: Dr. Vic Mccullough
Reason for Consultation: 11/22/2024
[2024-11-22] MEDS: ROXICODONE 5 MG PO (17:52)
[2024-11-22] MEDS: MELATONIN 6 MG PO (20:21)
[2024-11-22] MEDS: LIPITOR 40 MG PO (20:22)
[2024-11-23] VITALS (18 sets, daily range): BP systolic 94–120; BP diastolic 43–72; PULSE 2–68; O2SAT 96; BMI 40.9
[2024-11-23] MEDS: ANCEF 10 IV ×3 (01:58→18:06)
--- NOTE | 2024-11-23 03:09 | PTCARENOTE ---
No acute events overnight. Remained on the BIPAP. No complaints of pain. Will continue to monitor.
[2024-11-23 04:12] LABS: Hematocrit 28.0 % (37.0-47.0); Hemoglobin 8.4 g/dL (12.0-16.0); Mean Corp Hgb Conc. 30.0 g/dL (33.0-37.0); Mean Corpuscular Volume 94.6 fL (81.0-99.0); Nucleated Red Blood Cells % 0.8 %; Platelet Count 168 10^3/uL (130-400); Red Cell Dist. Width 21.7 % (11.5-14.5)
[2024-11-23 04:27] LABS: Blood Urea Nitrogen 11 mg/dl (7-17); Calcium 9.3 mg/dl (8.4-10.2); Chloride 95 mmol/L (98-107); Estimated Creatinine Clearance > 125 ml/min; Glucose 90 mg/dl (70-99); Potassium 3.1 mmol/L (3.5-5.1); Sodium 137 mmol/L (135-145); eGFR > 60.00
[2024-11-23 04:39] LABS: Carbon Dioxide 42 mmol/L (22-30)
[2024-11-23] MEDS: KCL 40 MEQ PO (05:16)
--- NOTE | 2024-11-23 05:24 | PTCARENOTE ---
Am k 3.1. call circuit worker provider made aware and ordered PO repletion.
[2024-11-23] MEDS: VENTOLIN NEBULES 2.5 MG INH ×3 (07:09→19:41)
[2024-11-23] MEDS: SODIUM CHLORIDE 3% FOR INHALATION 1 VIAL INH ×2 (07:10→15:05)
[2024-11-23] MEDS: PERIDEX 0.12% ORAL RINSE 5 ML PO ×3 (08:40→21:30)
[2024-11-23] MEDS: MYCOSTATIN ORAL SUSPENSION 5 ML PO ×4 (09:05→21:30)
[2024-11-23] MEDS: LEXAPRO 15 MG PO (09:08)
[2024-11-23] MEDS: VISBIOME 1 CAP PO (09:12)
[2024-11-23] MEDS: ROBITUSSIN 200 MG PO ×4 (09:12→21:30)
[2024-11-23] MEDS: VITAMIN C 250 MG PO ×2 (09:13→20:16)
[2024-11-23] MEDS: ELIQUIS 5 MG PO ×2 (09:13→20:17)
[2024-11-23] MEDS: PACERONE 200 MG PO (09:13)
[2024-11-23] MEDS: NEURONTIN 300 MG PO ×2 (09:13→20:16)
[2024-11-23] MEDS: FIRVANQ 125 MG PO ×2 (09:14→20:17)
[2024-11-23] MEDS: PROTONIX 40 MG PO (09:14)
[2024-11-23] MEDS: COREG 6.25 MG PO ×2 (09:14→20:17)
[2024-11-23] MEDS: FERROUS SULFATE ORAL LIQUID PO (09:18)
[2024-11-23] MEDS: CATAPRES 0.1 MG PO (09:20)
--- NOTE | 2024-11-23 09:46 | CM ---
Addendum entered by Dia Kay 11/23/24 12:39:
Per Sejal, patient cannot return to [facility] today. Attending notified
Addendum entered by Dia Kay 11/23/24 11:56:
Per Attending, patient is stable to return to [facility] pending approval/acceptance by Dr. Lemos; spoke with Sejal via phone. She will speak with Dr. Lemos and provide update when decision is determined
Original Note:
Chart reviewed. Case Management will continue to monitor; will coordinate return to [facility] when medically stable
--- NOTE | 2024-11-23 09:50 | W.PN.PUL.V3 ---
Today's Communication / Plan
-
Wean oxygen
Increase activity
Rehab evaluation
BiPAP at night as tolerated
Continues to diurese nicely
Assessment
-
Patient is a 64-year-old female with significant past medical history of mesothelioma with reported metastasis to stomach, status post pleurectomy with decortication plus tracheostomy in 08/2024. Patient was evaluated in the emergency room on 10/24
due to shortness of breath and change in mentation. She had an EEG performed which was unremarkable also included a CT chest and was noted to have dehiscence of the thoracotomy site. Patient was subsequently transferred to [facility] for further management. At [facility], patient had surgical exploration, wound VAC placement, new diagnosis of C. difficile in addition to MSSA bacteremia. Patient has a PICC line in place and is scheduled to be on 4
weeks of IV antibiotics in addition to p.o. vancomycin for recent C. difficile. She was discharged back to [facility] on 11/15. Reportedly patient was brought to the emergency room for increasing oxygen requirement, shortness of breath and
suspected change in mental status. Workup in the emergency room was suggestive of increased right-sided pulmonary opacities. Patient's mental status fully resolved and she was at her baseline during evaluation. In view of increased oxygen need
and worsening pulmonary opacities, patient was admitted to the hospital for further management. [facility], CT surgery service was consulted but they recommended local hospitalization. Pulmonary consultation was requested for
further input.
11/19 overview, patient saturating 92% on 5 L supplemental oxygen, MAP of 72 not requiring any pressors. She wore BiPAP only briefly last night.
#1. Acute on chronic hypoxic respiratory failure
- Multifactorial. Increased right middle and lower lobe opacities noted on chest x-ray, CT chest pursued. Increased RML/RLL volume loss, overall very volume overload. Small areas of ?atelectasis vs infiltrates in STAS and Lingula.
- Patient has normal WBC count, is otherwise afebrile and imaging changes are more suggestive of atelectasis and volume overload. Continue IV cefazolin-finite course that patient is taking for MSSA bacteremia and hold off additional antibiotics for
pulmonary reasons-on oral vancomycin for C. difficile. No productive cough and no purulent expectoration.
- Blood cultures pending, Influenza A & B negative, COVID-19 screen negative
- Currently on 1.5 L nasal cannula-92 % saturation, wean as able
-BiPAP as tolerated-suspect patient had subacute hypercapnia due to postoperative respiratory dynamics, slowly improving-did not tolerate 11/22/2024 evening-continue attempts at BiPAP but may change to as needed
-Pathophysiology of obstructive sleep apnea/obesity hypoventilation syndrome reviewed with patient and at length 11/22/2024-associations with untreated sleep apnea reviewed, treatment options including weight loss, CPAP, and surgical
inventions-many questions about inspire (hypoglossal nerve stimulation) which was explained at length
#2. RML and RLL atelectasis ?mucous plugging vs Endobronchial malignancy
- CT chest compared to 10/2024 with persistent Right bronchus intermedius cut-off. ?mucous plugging, endobronchial tumor, external compression from pleural effusion
- Continue Airway clearance with Albuterol and 3% NS BID. Chest PT, sports bed to help mobilize secretions
-Chest x-ray 11/21/2024-bilateral opacifications right greater than left slightly improved on the right findings at least suggest atelectasis and/or pneumonia and pleural effusions
- Continue flutter valve-instructed on proper use
- Continue diuresis as patient is still quite fluid overloaded
-Monitor renal function, electrolytes, intake/output, lower extremity edema and weight
Replace electrolytes as needed
- Depending on clinical course, might need Bronchoscopy and airway clearance with inspection-hold off for now as patient is quite volume overloaded. Patient reports multiple bronchoscopies in the past for mucous plug clearance.
- Re-evaluate in coming days, depending on response to diuresis, might need thoracentesis
- VSE-no obvious aspiration-11/21/2024-begin oral intake
-Had questionable subcutaneous air in the tracheotomy site last week, now improved. On recent CT chest, there does appear to be evidence of all tracheotomy site
#3. Chronic baseline hypercapnic respiratory failure.
- VBG 7.39, 73, compensated hypercapnia
- Bicarb is chronically elevated, appears compensated, suspect related to underlying obesity
- Suspect patient has underlying sleep disordered breathing with possible obesity hypoventilation syndrome. Baseline oxygen dependent with increased pCO2 as well as high BMI very suggestive of OHS
- BiPAP 14/7 cm with 6 L oxygen initiated this admission. Continue as tolerated, Only tolerated for few hours yesterday p.m.
#4. History of metastatic mesothelioma.
- S/p right sided radical pleurectomy with decortication, diaphragmatic repair, tracheostomy and G-tube placement in 08/2024 at [facility].
- Wound was complicated by dehiscence in 10/2024, requiring transfer to [facility] for repair, wound VAC placement and was subsequently discharged on 11/15
- Follow-up CT chest suggestive of enlarging effusion
- [facility] CT surgery team was contacted from emergency room, recommended continued treatment at [place]
- Given what appears to be slightly worsening right pleural parenchymal process on CXR 11/19, note CXR 11/21-results above
- May require repeat CT imaging and/or endobronchial exam
-Dr. Jackson spoke at length about potential treatment options and need to be mentally 'in the fight' to try to ray metastatic mesothelioma 11/22/2024
#5. Acute on chronic heart failure with preserved ejection fraction
- Echocardiogram in 10/2024 showed EF of 50%
- Continue IV diuresis. Patient is - 1600 mL / 24-hour. Weight is down 13 kg since 11/16, but not yet back to what appears to be baseline around October which was around 116-120 kg (currently 121 kg-trace pedal edema)
Patient stable from a pulmonary perspective for potential transfer to rehab
Recommend outpatient pulmonary/sleep disorders follow-up
Dr. Dubon called 11/20/2024 and spoke with [facility] thoracic surgeon-Dr. Burch-who reportedly will call family
Dr. Jackson reviewed with daughter at length 11/21/[address] Jackson updated at the bedside 11/22/24-35 minutes
Other medical diagnoses:
- MSSA bacteremia. On IV Cefazolin, scheduled thru 12/06/2024
- H/o C Diff. on PO Vancomcyin. s/p Treatment with fidaxomicin at [facility]
- Paroxysmal atrial fibrillation, chronically anticoagulated with Eliquis and on p.o. amiodarone
- Brief encephalopathy, ? Unclear etiology. Blood gas not suggestive of hypercapnic encephalopathy. EEG pursued last month was unremarkable. Polypharmacy also likely contributing, minimize sedation.
Data:
CT Chest 10/2024: Re-demonstration of cut off of the bronchus intermedius. This could be related to endobronchial neoplasm or mucous plug. Right lower lobe is collapsed, and there is progression of postobstructive pneumonia or partial atelectasis in
the right middle lobe. Consider bronchoscopy for further evaluation of the bronchus intermedius, if not performed
Focus of airspace disease in the left upper lobe measuring 1.5 cm in diameter. This is new. New small focus of airspace disease within the lingula anteriorly.
There is a moderate right pleural effusion. This has increased compared with the prior CT. Small left pleural effusion; this is new since the prior CT.
There is extensive soft tissue attenuation material in the right lateral abdominal wall. This extends inferiorly beyond the imaging field. This is likely phlegmon. Previously, there was a 7.8 cm fluid collection associated with this abnormal soft
tissue. No fluid collection in this region shown by the current study, although any residual collection may be below the imaging field on the current study. If clinically warranted, CT abdomen can assess for any residual collection in the right
lateral abdominal wall
2 new leads or catheters are noted to course within the right lateral and right posterior soft tissues of the chest wall
No change in mild mediastinal adenopathy.
CXR 10/2024: Bibasilar opacities, increased on the right which may represent atelectasis and/or pneumonia as well as likely increased right pleural effusion.
Prominent pulmonary vascularity which may represent interstitial edema again seen.
CT Chest 10/2024: 1. There is likely mucous plugging within the right lower lobe with near complete collapse of the right lower lobe. There is persistent atelectasis within the right middle lobe and posterior right upper lobe.
2. Small right-sided hydropneumothorax, similar in appearance to prior. There is a severely displaced posterior right sixth rib fracture, unchanged from prior.
3. Surgical drain within the right posterior lateral chest wall with a slightly ill-defined collection along the mid aspect of the drain measuring approximately 7.8 x 2.4 cm.
4. Stable mildly prominent mediastinal lymph nodes.
EEG 10/2024: No evidence of status epilepticus
ECHO 10/2024: Low normal left ventricular systolic function. Left ventricular ejection fraction is 50%.
Aortic sclerosis without stenosis.
Normal right ventricular size and function.
Compared to 03/23/23: prior LVEF was 55-60%. MR looks mild, compared to
mild/moderate previously.
[facility] 06/2023: 1: Normal left ventricular function with EF 59%
2: No significant CAD
3. Chest pain is noncardiac
Subjective Data
-
Date of Service:
Date of Service: November 23, 2024
Chief Complaint: Pulmonary Follow Up and Dyspnea Follow Up
Subjective:
Sleeping comfortably, tolerated BiPAP last night, no complaints of increasing shortness of breath,
Objective Data
Data Reviewed
Vital Signs / I&O:
Vital Signs
Temp Pulse Resp BP Pulse Ox
98.3 F 61 16 120/72 96
11/23/24 03:21 11/23/24 09:20 11/23/24 07:11 11/23/24 09:20 11/23/24 07:11
Intake and Output
11/22/24 11/23/24 11/24/24
06:59 06:59 06:59
Intake Total 1440 / 1440 480 / 480
Output Total 2500 / 2500 2125 / 2125
Balance -1060 / -1060 -1645 / -1645
SaO2: 96
Nasal Cannula flow liters per minute: 1
Physical Exam
General: Respiratory Distress (n) and Comfortable
HEENT: Normocephalic and Anicteric
Cardiovascular: Regular Rhythm, Murmur (n) and Peripheral Edema (1+ pedal edema)
Respiratory: Wheeze (n), Crackles (n), Rhonchi, Stridor (n) and Other (Slightly decreased at base)
GI: Soft and Non Distended
Neurology: Awake and Alert
Skin: Warm, Good Color, Cyanosis (n), Jaundice (n), Rash (n) and Other ( well-healing incision right posterior chest, chest tube in place)
Labs/Micro/Reports
Lab Data
11/23/24 03:57
11/23/24 03:57
Microbiology
11/16/24 01:48 Blood/Venous Blood Culture - Final
No Growth - Final Report
11/16/24 01:34 Blood/Venous Blood Culture - Final
No Growth - Final Report
[2024-11-23] MEDS: LASIX 40 MG PO (10:49)
[2024-11-23] MEDS: ROXICODONE 5 MG PO ×2 (13:35→21:32)
--- NOTE | 2024-11-23 14:02 | W.PN.HOSP.TC ---
Today's Communication/Plan
-
Transition to oral Lasix
Maintain BiPAP at night.
Continue IV antibiotics for MSSA bacteremia and oral vancomycin for C. difficile as outlined
Physical therapy assessment with discharge planning acute versus subacute rehab.
Assessment / Plan
Assessment / Plan
Impression
Patient is a 64y F with PMH significant for mesothelioma s/p tumor resection including splenectomy, multiple hospitalizations, surgeries, etc who presents to ED from [facility] for evaluation of hypoxemia.
Acute on chronic hypoxemic/hypercarbic respiratory failure.
Toxic metabolic encephalopathy secondary to hypoxia and hypercarbia, likely related to sedative medications as well.
Acute on chronic anemia
RUE Swelling
Conditions prior to admission:
Chronic Respiratory Failure (compensated hypercapnia) likely secondary to obesity
Mesothelioma status postresection at [facility]
Right chest wall wound dehiscence status post closure and skin flap by plastics at [facility]
Bilateral pneumonia.
MSSA bacteremia
C. difficile infection
Hypokalemia
Hypomagnesemia
Dysphagia with GJ tube in place
CHF preserved EF.
Paroxysmal atrial fibrillation
Anticoagulation with Eliquis per
Essential hypertension, multidrug requiring.
Anxiety/depression
Plan
Acute on chronic hypoxic/hypercarbic respiratory failure.
Likely multifactorial in the settings of volume overload, CO2 retention possibly due to oversedation, increased RML/RLL volume loss -- suspected more from atelectasis rather than volume overload. Has reasonable risk for aspiration.
Afebrile with normal white count upon presentation
Chest x-ray with right base changes�but significant interventions since most recent imaging at .
Respiratory status relatively stable, although noted with hypercarbia on VBG with chronic metabolic compensation likely presenting undiagnosed obstructive sleep apnea (BMI 43)
CT scan of the chest with re-demonstration of cutoff of the bronchus intermedius. Possibly representing endobronchial neoplasm versus mucous plug. Right lower lobe collapse and atelectasis
Continue aggressive airway clearance
Might need bronchoscopy eventually -- but hold for now given volume overload and want to avoid more sedation at this time -- if she develops any worsening respiratory insufficiency, than plan is to proceed with bronchoscopy.
Avoid oversedation. Currently on volume and oxycodone, monitor closely, holding parameters for oversedation
BiPAP at night/when sleeping
Remains on antibiotics to complete course of treatment for MSSA. Monitor closely following imaging, temperature curve, WBC.
Dysphagia
PEG tube in place
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
Speech and swallow issues including VSE on 11/21 with no evidence of aspiration.
Initiate oral diet with regular consistency and thin liquids. Transition all oral medications to p.o.
Acute on chronic CHF preserved EF.
Echo 10/25/2024: Low normal left ventricular systolic function, left ventricular ejection fraction 50%, aortic sclerosis without stenosis, normal right ventricular size and function.
Noted weight is up 20 kg from prior visit.
Elevated pro CHF BNP.
Follow-up chest x-ray with improvement of bilateral right greater than left infiltrate
Weight plateau with stable renal function.
Transition to oral Lasix on 11/23.
Replete potassium per
Monitor for recurrent hypotension
RUE Swelling
- Ultrasound negative for DVT
Acute TME likely multifactorial in the settings of hypoxia, hypercarbia and oversedation.
Continue Valium and oxycodone monitoring closely for oversedation.
Continue BiPAP
Hypokalemia
-Replaced, continue to monitor and replace as needed
Acute on chronic anemia.
Suspect related to multiple surgical interventions and over acute illness
So far no evidence for gross blood loss
Hemoglobin trending down to 7.7-8.0
Consider transfusion if less than 7
Consent signed/on chart
MSSA bacteremia.
ID recommendation at [place] continue IV Ancef through 12/06/2024
Recent C. difficile colitis
Status post for fidaxomicin course.
Continue enteral vancomycin through 12/11/2024 (while on Ancef)
Hold bowel regimen/magnesium supplementation
Paroxysmal atrial fibrillation.
Continue amiodarone.
Continue Eliquis
Benign hypertension
Noted elevated BP.
Clonidine dose lowered and Doxazosin held given soft blood pressures
Anxiety / Depression
- ? anxiety / 'panic' attack this evening and prior.
- Continue current escitalopram.
- Continue hydroxyzine PRN anxiety.
Nutrition
- Patient has G-J tube in place and remains tube dependent for meds / meals.
Speech and swallow evaluation including VSE with improved swallowing function. Patient transition to a regular consistency diet and thin liquids. Medications changed to oral route.
Observe oral intake while off tube feeding
Morbid Obesity due to excess calories
- Exacerbated by fluid gains.
- Affects all aspects of care. Working towards participation with rehab / increased mobility / etc.
Splenectomy.
Patient is due for MMR vaccine provided on 11/22/2024
DVT Prophylaxis: On Eliquis
Code Status: Full
Anticipated Discharge: 24 - 48 hours
Subjective/Interval History
-
Date of Service: November 23, 2024
Objective Data
-
Labs:
Laboratory Results
11/23/24
03:57
WBC 3.8 L
Hgb 8.4 L
Hct 28.0 L
Plt Count 168 D
Sodium 137
Potassium 3.1 L
Chloride 95 L
Carbon Dioxide 42 H
BUN 11
Creatinine 0.5 L
Glucose 90
Calcium 9.3
Vital Signs:
Vital Signs
Temp Pulse Resp BP Pulse Ox
98.3 F 61 16 120/72 96
11/23/24 03:21 11/23/24 09:20 11/23/24 07:11 11/23/24 09:20 11/23/24 09:50
I&O
11/22/24 11/23/24 11/24/24
06:59 06:59 06:59
Intake Total 1440 / 1440 480 / 480
Output Total 2500 / 2500 2124 / 2124
Balance -1060 / -1060 -1645 / -1645
Physical Exam
-
General: Well Developed and No Apparent Distress
HEENT: Normocephalic, Atraumatic and Moist Mucous Membranes
Respiratory: Decreased Breath Sounds and Chest Tubes (Right chest KAROLINE drains x 2)
Cardiac: Regular Rhythm and S1/S2; Negative Murmur, Rub or Gallop
GI: Soft, Nontender, Nondistended and Normal Bowel Sounds; Negative Organomegaly
Rectal: Deferred by Provider
Musculoskeletal: No Clubbing, No Cyanosis and No Edema
Skin: Negative Rash
Neuro: Awake, Alert, Oriented and Nonfocal/Grossly Intact
--- NOTE | 2024-11-23 18:36 | PTCARENOTE ---
Assumed care of Pt at shift change; Pt resting comfortably in bed, denied pain. Pt maintained >93% on 1.5L via NC. Weaned to 1L; OOB to chair with 2x assist and rolling walker. AAO x 3; Lungs CTA; Trach dressing changed. Will continue to
monitor and assess.
[2024-11-23] MEDS: LIPITOR 40 MG PO (20:17)
[2024-11-23] MEDS: CATAPRES PO (20:17)
[2024-11-23] MEDS: MELATONIN 6 MG PO (21:29)
[2024-11-23] MEDS: VALIUM 2 MG PO (21:32)
[2024-11-24] VITALS (10 sets, daily range): BP systolic 100–130; BP diastolic 45–77; PULSE 2–70; BMI 40.5
--- NOTE | 2024-11-24 01:16 | PTCARENOTE ---
pt aaox3, able to make needs known. R flank incision cleaned with chlorhexidine wash, dressed with ABD +tape. Incision approximated, sutures intact. Compression bra on throughout shift. PO roxycodone given for pain at incision site. Call sy and
belongings within reach. Care ongoing
[2024-11-24] MEDS: ANCEF 10 IV ×2 (03:05→11:39)
[2024-11-24] MEDS: ZOFRAN 4 MG IV (04:59)
[2024-11-24] MEDS: ROXICODONE 5 MG PO ×2 (05:22→14:33)
[2024-11-24 06:10] LABS: Blood Urea Nitrogen 12 mg/dl (7-17); Calcium 8.7 mg/dl (8.4-10.2); Chloride 96 mmol/L (98-107); Estimated Creatinine Clearance > 125 ml/min; Glucose 76 mg/dl (70-99); Potassium 3.3 mmol/L (3.5-5.1); Sodium 139 mmol/L (135-145); eGFR > 60.00
[2024-11-24 06:19] LABS: Carbon Dioxide 41 mmol/L (22-30)
[2024-11-24] MEDS: VENTOLIN NEBULES 2.5 MG INH ×2 (07:28→12:42)
[2024-11-24] MEDS: FIRVANQ 125 MG PO (08:36)
[2024-11-24] MEDS: VALIUM 2 MG PO (08:37)
[2024-11-24] MEDS: TYLENOL 650 MG PO (08:37)
[2024-11-24] MEDS: LEXAPRO 15 MG PO (08:38)
[2024-11-24] MEDS: MYCOSTATIN ORAL SUSPENSION 5 ML PO (08:39)
[2024-11-24] MEDS: PERIDEX 0.12% ORAL RINSE 5 ML PO (08:39)
[2024-11-24] MEDS: NEURONTIN 300 MG PO (08:39)
[2024-11-24] MEDS: VISBIOME 1 CAP PO (08:40)
[2024-11-24] MEDS: PROTONIX 40 MG PO (08:40)
[2024-11-24] MEDS: PACERONE 200 MG PO (08:41)
[2024-11-24] MEDS: VITAMIN C 250 MG PO (08:41)
[2024-11-24] MEDS: COREG 6.25 MG PO (08:41)
[2024-11-24] MEDS: FEOSOL 325 MG PO (08:41)
[2024-11-24] MEDS: ELIQUIS 5 MG PO (08:41)
[2024-11-24] MEDS: LASIX 40 MG PO (08:41)
[2024-11-24] MEDS: ROBITUSSIN PO ×2 (08:42→12:18)
[2024-11-24] MEDS: CATAPRES PO (08:42)
--- NOTE | 2024-11-24 09:20 | W.PN.PUL.V3 ---
Today's Communication / Plan
-
Analgesia per primary service
Wean FiO2
Increase physical therapy
Diuresis as tolerated
Antibiotics
Stable for proposed discharge to rehab from a pulmonary perspective
Outpatient pulmonary follow-up
Assessment
-
Patient is a 64-year-old female with significant past medical history of mesothelioma with reported metastasis to stomach, status post pleurectomy with decortication plus tracheostomy in 08/2024. Patient was evaluated in the emergency room on 10/24
due to shortness of breath and change in mentation. She had an EEG performed which was unremarkable also included a CT chest and was noted to have dehiscence of the thoracotomy site. Patient was [facility] [facility] management. At [facility], patient had surgical exploration, wound VAC placement, new diagnosis of C. difficile in addition to MSSA bacteremia. Patient has a PICC line in place and is scheduled to be on 4
weeks of IV antibiotics in addition to p.o. vancomycin for recent C. difficile. She was discharged back to [facility] on 11/15. Reportedly patient was brought to the emergency room for increasing oxygen requirement, shortness of breath and
suspected change in mental status. Workup in the emergency room was suggestive of increased right-sided pulmonary opacities. Patient's mental status fully resolved and she was at her baseline during evaluation. In view of increased oxygen need
and worsening pulmonary opacities, patient was admitted to the hospital for further management. [facility], CT surgery service was consulted but they recommended local hospitalization. Pulmonary consultation was requested for
further input.
11/19 overview, patient saturating 92% on 5 L supplemental oxygen, MAP of 72 not requiring any pressors. She wore BiPAP only briefly last night.
#1. Acute on chronic hypoxic respiratory failure
- Multifactorial. Increased right middle and lower lobe opacities noted on chest x-ray, CT chest pursued. Increased RML/RLL volume loss, overall very volume overload. Small areas of ?atelectasis vs infiltrates in STAS and Lingula.
- Patient has normal WBC count, is otherwise afebrile and imaging changes are more suggestive of atelectasis and volume overload. Continue IV cefazolin-finite course that patient is taking for MSSA bacteremia and hold off additional antibiotics for
pulmonary reasons-on oral vancomycin for C. difficile. No productive cough and no purulent expectoration.
- Blood cultures pending, Influenza A & B negative, COVID-19 screen negative
- Currently on 2 L nasal cannula-96% saturation
-BiPAP as tolerated-suspect patient had subacute hypercapnia due to postoperative respiratory dynamics, slowly improving-did not tolerate 11/22/2024 evening, tolerated 11/23 and 11/24/2024-continue attempts at BiPAP but may change to as needed
-Pathophysiology of obstructive sleep apnea/obesity hypoventilation syndrome reviewed with patient and at length 11/22/2024-associations with untreated sleep apnea reviewed, treatment options including weight loss, CPAP, and surgical
inventions-many questions about inspire (hypoglossal nerve stimulation) which was explained at length
#2. RML and RLL atelectasis ?mucous plugging vs Endobronchial malignancy
- CT chest compared to 10/2024 with persistent Right bronchus intermedius cut-off. ?mucous plugging, endobronchial tumor, external compression from pleural effusion
- Continue Airway clearance with Albuterol and 3% NS BID. Chest PT, sports bed to help mobilize secretions
-Chest x-ray 11/21/2024-bilateral opacifications right greater than left slightly improved on the right findings at least suggest atelectasis and/or pneumonia and pleural effusions
- Continue flutter valve-instructed on proper use
- Continue diuresis as patient is still quite fluid overloaded
-Monitor renal function, electrolytes, intake/output, lower extremity edema and weight
Replace electrolytes as needed
- Depending on clinical course, might need Bronchoscopy and airway clearance with inspection-hold off for now as patient is quite volume overloaded. Patient reports multiple bronchoscopies in the past for mucous plug clearance.
- Re-evaluate in coming days, depending on response to diuresis, might need thoracentesis
- VSE-no obvious aspiration-11/21/2024-begin oral intake
-Had questionable subcutaneous air in the tracheotomy site last week, now improved. On recent CT chest, there does appear to be evidence of all tracheotomy site
#3. Chronic baseline hypercapnic respiratory failure.
- VBG 7.39, 73, compensated hypercapnia
- Bicarb is chronically elevated, appears compensated, suspect related to underlying obesity
- Suspect patient has underlying sleep disordered breathing with possible obesity hypoventilation syndrome. Baseline oxygen dependent with increased pCO2 as well as high BMI very suggestive of OHS
- BiPAP 14/7 cm with 6 L oxygen initiated this admission. Continue as tolerated, Only tolerated for few hours yesterday p.m.
#4. History of metastatic mesothelioma.
- S/p right sided radical pleurectomy with decortication, diaphragmatic repair, tracheostomy and G-tube placement in 08/2024 at [facility].
- Wound was complicated by dehiscence in 10/2024, requiring transfer to [facility] for repair, wound VAC placement and was subsequently discharged on 11/15
- Follow-up CT chest suggestive of enlarging effusion
- [facility] CT surgery team was contacted from emergency room, recommended continued treatment at [facility]
- Given what appears to be slightly worsening right pleural parenchymal process on CXR 11/19, note CXR 11/21-results above
- May require repeat CT imaging and/or endobronchial exam
-Dr. Jackson spoke at length about potential treatment options and need to be mentally 'in the fight' to try to ray metastatic mesothelioma 11/22/2024
#5. Acute on chronic heart failure with preserved ejection fraction
- Echocardiogram in 10/2024 showed EF of 50%
- Continue IV diuresis. Patient is - 1600 mL / 24-hour. Weight is down 13 kg since 11/16, but not yet back to what appears to be baseline around October which was around 116-120 kg (currently 121 kg-trace pedal edema)
Patient stable from a pulmonary perspective for potential transfer to rehab
Recommend outpatient pulmonary/sleep disorders follow-up
Dr. Dubon called 11/20/2024 and spoke with [facility] thoracic surgeon-Dr. Burch-who reportedly will call family
Dr. Jackson reviewed with daughter at length 11/21/[address] Jackson updated at the bedside 11/22/24-35 minutes
Other medical diagnoses:
- MSSA bacteremia. On IV Cefazolin, scheduled thru 12/06/2024
- H/o C Diff. on PO Vancomcyin. s/p Treatment with fidaxomicin at [facility]
- Paroxysmal atrial fibrillation, chronically anticoagulated with Eliquis and on p.o. amiodarone
- Brief encephalopathy, ? Unclear etiology. Blood gas not suggestive of hypercapnic encephalopathy. EEG pursued last month was unremarkable. Polypharmacy also likely contributing, minimize sedation.
Data:
CT Chest 10/2024: Re-demonstration of cut off of the bronchus intermedius. This could be related to endobronchial neoplasm or mucous plug. Right lower lobe is collapsed, and there is progression of postobstructive pneumonia or partial atelectasis in
the right middle lobe. Consider bronchoscopy for further evaluation of the bronchus intermedius, if not performed
Focus of airspace disease in the left upper lobe measuring 1.5 cm in diameter. This is new. New small focus of airspace disease within the lingula anteriorly.
There is a moderate right pleural effusion. This has increased compared with the prior CT. Small left pleural effusion; this is new since the prior CT.
There is extensive soft tissue attenuation material in the right lateral abdominal wall. This extends inferiorly beyond the imaging field. This is likely phlegmon. Previously, there was a 7.8 cm fluid collection associated with this abnormal soft
tissue. No fluid collection in this region shown by the current study, although any residual collection may be below the imaging field on the current study. If clinically warranted, CT abdomen can assess for any residual collection in the right
lateral abdominal wall
2 new leads or catheters are noted to course within the right lateral and right posterior soft tissues of the chest wall
No change in mild mediastinal adenopathy.
CXR 10/2024: Bibasilar opacities, increased on the right which may represent atelectasis and/or pneumonia as well as likely increased right pleural effusion.
Prominent pulmonary vascularity which may represent interstitial edema again seen.
CT Chest 10/2024: 1. There is likely mucous plugging within the right lower lobe with near complete collapse of the right lower lobe. There is persistent atelectasis within the right middle lobe and posterior right upper lobe.
2. Small right-sided hydropneumothorax, similar in appearance to prior. There is a severely displaced posterior right sixth rib fracture, unchanged from prior.
3. Surgical drain within the right posterior lateral chest wall with a slightly ill-defined collection along the mid aspect of the drain measuring approximately 7.8 x 2.4 cm.
4. Stable mildly prominent mediastinal lymph nodes.
EEG 10/2024: No evidence of status epilepticus
ECHO 10/2024: Low normal left ventricular systolic function. Left ventricular ejection fraction is 50%.
Aortic sclerosis without stenosis.
Normal right ventricular size and function.
Compared to 03/23/23: prior LVEF was 55-60%. MR looks mild, compared to
mild/moderate previously.
[facility] 06/2023: 1: Normal left ventricular function with EF 59%
2: No significant CAD
3. Chest pain is noncardiac
Subjective Data
-
Date of Service:
Date of Service: November 24, 2024
Chief Complaint: Pulmonary Follow Up and Dyspnea Follow Up
Subjective:
Tolerated BiPAP last night, no complaints of worsening shortness of breath, FiO2 weaned, complains of posterior scapular pain where she had surgery, no abdominal pain
Review of Systems
General: Other (Per HPI)
Objective Data
Data Reviewed
Vital Signs / I&O:
Vital Signs
Temp Pulse Resp BP Pulse Ox
97.9 F 70 18 106/50 92
11/24/24 03:00 11/24/24 08:42 11/24/24 07:30 11/24/24 08:42 11/24/24 07:30
Intake and Output
11/23/24 11/24/24 11/25/24
06:59 06:59 06:59
Intake Total 480 / 480 1080 / 1080
Output Total 2125 / 2125 1600 / 1600
Balance -1645 / -1645 -520 / -520 -
SaO2: 92
Nasal Cannula flow liters per minute: 1
Physical Exam
General: Respiratory Distress (n) and Comfortable
HEENT: Normocephalic and Anicteric
Cardiovascular: Regular Rhythm, Murmur (n) and Peripheral Edema (1+ pedal edema)
Respiratory: Wheeze (n), Crackles (n), Rhonchi, Stridor (n) and Other (Slightly decreased at base)
GI: Soft and Non Distended
Neurology: Awake and Alert
Skin: Warm, Good Color, Cyanosis (n), Jaundice (n), Rash (n) and Other ( well-healing incision right posterior chest, chest tube in place)
Labs/Micro/Reports
Lab Data
11/23/24 03:57
11/24/24 05:26
Microbiology
11/16/24 01:48 Blood/Venous Blood Culture - Final
No Growth - Final Report
11/16/24 01:34 Blood/Venous Blood Culture - Final
No Growth - Final Report
[2024-11-24] MEDS: KCL 40 MEQ PO (11:39)
[2024-11-24] MEDS: MYCOSTATIN ORAL SUSPENSION PO (12:18)
--- NOTE | 2024-11-24 12:29 | CM ---
Addendum entered by Lesa Morillo RN 11/24/24 13:40:
Received callback from [facility]ITHA Childs; [facility] is approved starting today, auth # [id number], for 5 days from 11/24 to 11/28. NR 11/28 to ph [phone].
Message with [facility]; auth info provided; they are able to accept today. Ph for report [phone], fax [phone].
Met with patient and daughter; provided update that insurance approved [facility], both agree to [facility] today.
Message with [facility]; auth info provided; they are able to accept today. Ph for report [phone], fax [phone].
Plan [facility] today.
Original Note:
Patient from [facility] with Hx metastatic mesothelioma, dehiscence of R chest surgical site s/p prior pleurectomy / mesothelioma resection, at [facility] repair of dehiscence & wound closure with Dx Acute on chronic hypoxic respiratory failure. O2
1L. Receiving IV Abx. KAROLINE drains. G tube- low cholesterol diet. PT/OT recommend acute rehab. Physiatry recommends acute rehab.
Met with patient and daughter, both agree to [facility] today once insurance approves. IMM completed.
Spoke with [facility]; they can accept today once insurance approves.
Spoke with SARITHA Childs; clinical info provided. He needs to review her past admission info further to see if he can approve. He will provide a determination today.
Plan [facility] once insurance approves.
--- NOTE | 2024-11-24 13:40 | PTCARENOTE ---
Patient AAOx3, daughter at bedside. Patient up in chair. VSS. 2L NC. To go to [place] [facility] today. KAROLINE drains CDI. Feeding tube flushed per orders. Patient making needs known, will closely monitor.
--- NOTE | 2024-11-24 14:02 | W.DS.TRANS ---
DC Summary - [employer]
-
Discharge Instructions:
Sleep Apnea Risk High
Discharge Diagnosis/Procedures Acute on chronic hypoxemic/hypercarbic
respiratory failure.
Acute CHF preserved EF
Metastatic mesothelioma
Diet 2 Gram Sodium
Instructions:
Stand-Alone Forms:
Changes to Home Medications: Yes
Discharge Medications:
DC Medications w/original date entered in [employer]
albuterol sulfate 2.5 mg/3 mL (0.083 %) solution for nebulization 2.5 mg continuous nebulization Q6H Lung/Breathing Issues 10/12/24
apixaban 5 mg tablet 5 mg feeding tube BID Blood Clot Prevention/Tx 10/12/24
nystatin 100,000 unit/mL oral suspension 5 ml PO QID Infection 10/12/24
ascorbic acid (vitamin C) 250 mg tablet 250 mg PO BID Supplement 11/15/24
chlorhexidine gluconate 0.12 % mouthwash (Peridex) 5 ml PO TID thrush 11/15/24
diazepam 2 mg tablet (Valium) 2 mg PO QIDPRN PRN muscle spasms 11/15/24
acetaminophen 325 mg tablet 650 mg (2 x 325 mg) PO Q4HPRN PRN mild pain / temp > 101 #30 tabs 11/24/24
albuterol sulfate 2.5 mg/3 mL (0.083 %) solution for nebulization 2.5 mg (3 mL) inhalation R TID #30 mL 11/24/24
amiodarone 200 mg tablet (Pacerone) 200 mg PO DAILY #30 tabs 11/24/24
atorvastatin 40 mg tablet 40 mg PO HS #30 tabs 11/24/24
carvedilol 6.25 mg tablet 6.25 mg PO BID #60 tabs 11/24/24
cefazolin 10 gram solution for injection 2 g IV Q8H #42 ea 11/24/24
clonidine HCl 0.1 mg tablet 0.1 mg PO BID #60 tabs 11/24/24
escitalopram oxalate 10 mg tablet 15 mg (1.5 x 10 mg) PO DAILY #30 tabs 11/24/24
ferrous sulfate 325 mg (65 mg iron) tablet (FeroSul) 325 mg PO DAILY #30 tabs 11/24/24
furosemide 40 mg tablet 40 mg PO DAILY #30 tabs 11/24/24
gabapentin 300 mg capsule 300 mg PO BID #60 caps 11/24/24
guaifenesin 100 mg/5 mL oral liquid 200 mg (10 mL) PO QID #30 mL 11/24/24
hydroxyzine HCl 25 mg tablet 25 mg PO QIDPRN PRN anxiety #30 tabs 11/24/24
melatonin 3 mg tablet 6 mg (2 x 3 mg) PO HS #30 tabs 11/24/24
oxycodone 5 mg tablet 5 mg PO Q4HPRN PRN moderate pain #15 tabs 11/24/24
pantoprazole 40 mg tablet,delayed release 40 mg PO DAILY #30 tabs 11/24/24
potassium chloride 20 mEq tablet,extended release(part/cryst) 20 meq PO DAILY #30 tabs 11/24/24
sodium chloride 0.65 % nasal spray aerosol (Saline Nasal) 2 sprays intranasal QIDPRN PRN dry nose/congestion #30 mL 11/24/24
vancomycin 50 mg/mL oral solution 125 mg (2.5 mL) PO BID #300 mL 11/24/24
Home Medication Changes
Lasix added
Pending Results: No
--- NOTE | 2024-11-24 15:55 | PTCARENOTE ---
[facility] by Satish Kim RN. Transport called and transported pt to [facility] room 306 via stretcher. Daughter with patient transferring all pt's belongings.
== END 2024-11-24 15:58 | DRG 189 ==
LOC: IMU 05:27
PROVIDERS: Hospitalist; Internal Medicine Critical Care Medicine; ADMITTING PHYSICIAN Hospitalist; ATTENDING PHYSICIAN Internal Medicine; CONSULT PHYSICIAN Internal Medicine; CONSULT PHYSICIAN Physical Medicine & Rehabilitation; EMERGENCY PHYSICIAN Emergency Medicine
PROC: 5A09357 Assistance with Respiratory Ventilation, Less than 24 Consecutive Hours, Continuous Positive Airway Pressure (ICD-10-PCS; 2024-11-16)
DX: J96.21 Acute and chronic respiratory failure with hypoxia (principal); G92.8 Other toxic encephalopathy; I50.33 Acute on chronic diastolic (congestive) heart failure; Z68.41 Body mass index [BMI] 40.0-44.9, adult; A04.72 Enterocolitis due to Clostridium difficile, not specified as recurrent; I42.9 Cardiomyopathy, unspecified; J98.11 Atelectasis; B37.0 Candidal stomatitis; D69.3 Immune thrombocytopenic purpura; J96.22 Acute and chronic respiratory failure with hypercapnia; I48.0 Paroxysmal atrial fibrillation; E66.01 Morbid (severe) obesity due to excess calories; G47.33 Obstructive sleep apnea (adult) (pediatric); Z85.831 Personal history of malignant neoplasm of soft tissue; I11.0 Hypertensive heart disease with heart failure; Z79.01 Long term (current) use of anticoagulants; Z90.81 Acquired absence of spleen; Z93.4 Other artificial openings of gastrointestinal tract status; Z11.52 Encounter for screening for COVID-19; I44.0 Atrioventricular block, first degree; I25.10 Atherosclerotic heart disease of native coronary artery without angina pectoris; K64.0 First degree hemorrhoids; Z85.820 Personal history of malignant melanoma of skin; Z87.891 Personal history of nicotine dependence; Z88.2 Allergy status to sulfonamides; K59.00 Constipation, unspecified; Z85.828 Personal history of other malignant neoplasm of skin; Z79.899 Other long term (current) drug therapy; Z92.21 Personal history of antineoplastic chemotherapy; Z99.81 Dependence on supplemental oxygen; Z80.3 Family history of malignant neoplasm of breast; D64.9 Anemia, unspecified; E78.00 Pure hypercholesterolemia, unspecified; E87.6 Hypokalemia; F32.A Depression, unspecified; F41.0 Panic disorder [episodic paroxysmal anxiety]; I25.2 Old myocardial infarction; K21.9 Gastro-esophageal reflux disease without esophagitis; M72.2 Plantar fascial fibromatosis; Z82.49 Family history of ischemic heart disease and other diseases of the circulatory system; Z83.3 Family history of diabetes mellitus; Z87.440 Personal history of urinary (tract) infections; Z90.710 Acquired absence of both cervix and uterus
CPT/HCPCS: 36600; 71045; 71250; 74230; 80048; 80053; 82805; 83036; 83735; 83880; 84484; 85025; 85027; 85610; 85730; 87040; 87070; 87502; 87811; 90707; 92610; 92611; 93005; 93970; 94640; 94660; 94668; 96374; 96375; 97116; 97163; 97164; 97167; 97530; 97535; 99285

== ENCOUNTER → 2025-01-24 08:38 | Outpatient (REF) | payer OTHER, SELFPAY | LOC: RCS 08:38 | PROVIDERS: ATTENDING PHYSICIAN Nurse Practitioner; FAMILY PHYSICIAN Family Medicine | DX: I50.32 Chronic diastolic (congestive) heart failure (principal) | CPT/HCPCS: 93306; Q9950 ==

== ENCOUNTER → 2025-01-25 12:00 | Outpatient (REF) | payer OTHER, SELFPAY | LOC: DHSLP 12:00 | PROVIDERS: ATTENDING PHYSICIAN Internal Medicine Critical Care Medicine; FAMILY PHYSICIAN Family Medicine | DX: G47.30 Sleep apnea, unspecified (principal); R06.83 Snoring | CPT/HCPCS: 95800 ==

== ENCOUNTER → 2025-02-13 12:00 | Outpatient (REF) | payer OTHER, SELFPAY | LOC: DHSLP 12:00 | PROVIDERS: ATTENDING PHYSICIAN Internal Medicine Critical Care Medicine; FAMILY PHYSICIAN Family Medicine; OTHER PHYSICIAN Internal Medicine Critical Care Medicine | DX: G47.33 Obstructive sleep apnea (adult) (pediatric) (principal); R09.02 Hypoxemia | CPT/HCPCS: 95800 ==

== ENCOUNTER 2025-02-28 20:21 | Emergency (ER) | payer OTHER, SELFPAY ==
[2025-02-28 20:25] VITALS: BP 121/48
[2025-02-28 21:01] LABS: ALT (SGPT) 24 U/L (0-35); AST (SGOT) 33 U/L (14-36); Albumin 3.2 g/dl (3.5-5.0); Alkaline Phosphatase 265 U/L (38-126); Blood Urea Nitrogen 13 mg/dl (7-17); Calcium 9.1 mg/dl (8.4-10.2); Carbon Dioxide 26 mmol/L (22-30); Chloride 104 mmol/L (98-107); Glucose 142 mg/dl (70-99); Potassium 4.6 mmol/L (3.5-5.1); Sodium 135 mmol/L (135-145); Total Protein 6.4 g/dl (6.3-8.2); eGFR > 60.00
[2025-02-28 21:03] LABS: Hematocrit 28.4 % (37.0-47.0); Hemoglobin 9.5 g/dL (12.0-16.0); Mean Corp Hgb Conc. 33.5 g/dL (33.0-37.0); Mean Corpuscular Volume 92.2 fL (81.0-99.0); Platelet Count 25 10^3/uL (130-400); Red Cell Dist. Width 20.4 % (11.5-14.5)
[2025-02-28 21:16] LABS: Nucleated Red Blood Cells % 2.4 %
[2025-02-28 23:38] VITALS: BMI 38.3
--- NOTE | 2025-02-28 23:41 | ED.GENMED ---
History of Present Illness
General
Chief Complaint: Abnormal Lab Value
Time Seen by Provider: 02/28/25 23:40
History of Present Illness
History of Present Illness:
FOCUSED PAST MEDICAL HISTORY
- ITP, HFpEF, metastatic mesothelioma, paroxysmal A-fib
REVIEW OF OLD RECORDS
- I reviewed records, the patient was admitted with acute hypoxic and hypercarbic respiratory failure in October 2024 and was discharged to rehab at [facility]
Note:
CHIEF COMPLAINT(S)
Low platelet count.
HISTORY OF PRESENT ILLNESS
The patient is a 64-year-old female with a history of metastatic mesothelioma, previously treated with the immune checkpoint inhibitor pembrolizumab (Keytruda) and chemotherapy. Currently, she is presenting with thrombocytopenia, initially detected
as a platelet count of 19,000 per microliter during outpatient evaluation. Upon reevaluation in the emergency department, her platelets were approximately 20,000 per microliter. The patient reports a history of idiopathic thrombocytopenic purpura
(ITP) following treatment with Keytruda, though this diagnosis is presumed rather than confirmed by trigger evaluation. During a previous hospitalization from May 2023 until December 2023 at [facility], she received platelet transfusions for low
platelet counts, though she denies receiving specific outpatient hematologic follow-up. Her platelet levels decreased significantly around May 2023.
The patient denies current bleeding manifestations such as epistaxis, rectal bleeding, or other signs of hemorrhage. She experiences nosebleeds intermittently, potentially related to dry air and oxygen use, though none are reported at present. The
patient is on supplemental oxygen chronically.
The patient was diagnosed with metastatic mesothelioma in May 2023 and has been managed primarily by Dr. Saavedra at [facility]. She has not undergone radiation therapy or surgical intervention for mesothelioma.
PAST MEDICAL HISTORY
Metastatic mesothelioma diagnosed in May 2023.
PAST SURGICAL HISTORY
None for mesothelioma.
SOCIAL HISTORY
Patient is on supplemental oxygen chronically.
MEDICATIONS
Patient has received pembrolizumab (Keytruda) and chemotherapy for mesothelioma.
PHYSICAL EXAM
General: Alert, appropriately oriented, no acute distress.
Skin: Warm, dry.
Head: Normocephalic, atraumatic.
Neck: Supple, trachea midline.
Eye Ears, nose, mouth and throat: Oral mucosa moist.
Cardiovascular: Normal peripheral perfusion, No edema.
Respiratory: Wearing supplemental oxygen via nasal cannula; respirations are non-labored.
Gastrointestinal: Abdomen non-distended.
Back: Normal range of motion, Normal alignment.
Musculoskeletal: Normal ROM, normal strength.
Neurological: Alert and oriented to person, place, time, and situation, No focal neurological deficit observed.
Psychiatric: Cooperative, appropriate mood & affect.
PROBLEM LIST
Acute:
- Thrombocytopenia.
Chronic:
- Metastatic mesothelioma.
PLAN
Consult with hematology to determine management of thrombocytopenia, assessing necessity for platelet transfusion versus other interventions.
DIFFERENTIAL DIAGNOSIS
The differential diagnosis includes, in no particular order and is not limited to:
1. Idiopathic Thrombocytopenic Purpura (ITP)
2. Chemotherapy-induced thrombocytopenia
3. Drug-induced thrombocytopenia (especially due to pembrolizumab)
4. Bone marrow suppression
5. Primary bone marrow disorders
6. Hypersplenism
7. Disseminated Intravascular Coagulation (DIC)
8. Viral infections affecting platelet count
9. Autoimmune disorders
10. Hematological malignancy.
Disposition:
SUMMARY OF ENCOUNTER
The patient is a 64-year-old female with a history of metastatic mesothelioma, presenting to the emergency department due to thrombocytopenia with a platelet count of 25,000 per microliter. Her oncologist was concerned about her low platelet count
and recommended the visit to the emergency department. The patient is otherwise stable without current bleeding symptoms. She previously took a dose of dexamethasone which is a common treatment for idiopathic thrombocytopenic purpura (ITP). Her
hemoglobin is stable at 9.5 g/dL. Given her stable condition, no immediate intervention in the emergency department was necessary. The recommendation was for outpatient follow-up with her oncologist.
DISPOSITION
Discharge.
PLAN
The patient was advised to follow up with her oncologist as soon as possible to discuss further management of her thrombocytopenia and related conditions. She is to monitor for any new symptoms, especially signs of bleeding, and return to the
emergency department if symptoms develop.
INDEPENDENT REVIEW OF LABS AND INTERPRETATION OF TESTS
My independent review of CBC indicates a platelet count of 25,000 per microliter and hemoglobin level of 9.5 g/dL, which is consistent with her history without an acute decrease.
PATIENT EDUCATION AND COUNSELING
The patient was informed about her current platelet and hemoglobin levels, educated on signs of bleeding to watch for, and the importance of follow-up with her oncologist. She was also advised that her platelet levels may fluctuate and that the
current plan is reasonable due to the absence of bleeding symptoms.
FOLLOW-UP INSTRUCTIONS
The patient was instructed to contact her oncologist the following day to discuss the current findings and any potential changes in her treatment plan.
MEDICATION RECONCILIATION
Dexamethasone (dose not provided) was taken prior to visit, commonly used for potential ITP treatment.
MEDICAL DECISION MAKING
-Complexity of Data Reviewed: Chronic conditions affecting care: metastatic mesothelioma; potential idiopathic thrombocytopenic purpura (ITP); thrombocytopenia.
-Data:
Category 1
The patients platelet counts have been reviewed with no acute interventions required.
Category 3
The patients care and management decisions were discussed, aligning with her oncologists recommendations.
-Risk:
The patient remains stable for outpatient management due to stable hemoglobin, absence of bleeding, and mild thrombocytopenia. Prescription medication in the form of steroids was previously taken by the patient.
DIAGNOSIS
- Thrombocytopenia, unspecified (D69.6)
- Metastatic mesothelioma (C45.9)
- History of idiopathic thrombocytopenic purpura (ITP) (D69.3)
I discussed case with oncologist, Dr. 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
Past History
Past History
ED Past Medical History: GERD, HTN, Hypercholesterolemia, [place] and Other (Mesothelioma); Negative NIDDM
ED Past Surgical History: Cardiac (Cardiac catheterization), Gynecological, Orthopedic and Other (Hernia. Tracheostomy. Radical pleurectomy decortication diaphragm repair)
Social History
Tobacco: Former smoker (Quit smoking approximately 5 years ago.)
Alcohol: None
Personal:
Living: with family
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
Family History
Family History: Early CAD (Father, late 30s, at 43.)
Phy Exam
Physical Exam
Physical Exam:
See HPI
Course
Orders/Labs/Results
Orders:
Orders
02/28/25 20:36
CMP [Comprehensive Metabolic Panel] Urgent
Complete Blood Count/With Diff Urgent
02/28/25 23:56
Type And Crossmatch [Type+Screen] Urgent
Abnormal Lab Results
02/28/25
20:36
RBC 3.08 L 10^6/uL
(4.20-5.40)
Hgb 9.5 L g/dL
(12.0-16.0)
Hct 28.4 L %
(37.0-47.0)
RDW 20.4 H %
(11.5-14.5)
Plt Count 25 L* 10^3/uL
(130-400)
Abs Immat Gran (auto) 0.1 H 10^3/uL
(0-0.05)
Absolute Neuts (auto) 6.7 H 10^3/uL
(1.4-6.5)
Absolute Lymphs (auto) 0.7 L 10^3/uL
(1.2-3.4)
Absolute Monos (auto) 0.9 H 10^3/uL
(0.1-0.6)
Immature Gran % 0.8 H %
(0-0.5)
Neutrophils % 79.3 H %
(42.2-75.2)
Lymphocytes % 8.8 L %
(20.5-51.1)
Monocytes % 10.2 H %
(1.7-9.3)
Glucose 142 H mg/dl
(70-99)
Alkaline Phosphatase 265 H U/L
(38-126)
Albumin 3.2 L g/dl
(3.5-5.0)
02/28/25 20:36
02/28/25 20:36
Vital Signs
Initial and Last Documented VS:
Initial Vital Signs
Pulse Resp BP Pulse Ox
81 18 121/48 93
02/28/25 20:25 02/28/25 20:25 02/28/25 20:25 02/28/25 20:25
Last Documented Vital Signs
Pulse Resp BP Pulse Ox
71 23 135/67 99
03/01/25 00:15 03/01/25 00:15 02/28/25 23:57 03/01/25 00:50
*Pulse Oximetry
SaO2: 93
Nasal Cannula flow liters per minute: 2
Patient hypoxic: no
*Critical Care Note
Total Time (30-74mins, 75-104mins- exclusive of procedures): Not Applicable
ED Attending Note
-
Portions of this chart may have been created with voice recognition software.� Occasional wrong word or��sound alike� substitutions may have occurred due to the inherent limitations of voice recognition software.
Discharge Plan
Departure
Patient Disposition: Home (Routine Discharge)
Date of Disposition: 03/01/25
Time of Disposition: 00:08
Patient with high blood pressure during this ER visit?: Yes
Discharge Problem:
Thrombocytopenia
Instructions: Immune thrombocytopenia (ITP), BLOOD PRESSURE
Prescriptions:
No Action
Saline Nasal 0.65 % Aerosol,[place]
2 sprays intranasal QIDPRN PRN (Reason: dry nose/congestion) Qty: 30 0RF
ascorbic acid (vitamin C) 250 mg Tablet
250 mg PO BID
docusate sodium 100 mg tablet
100 mg PO BID 30 Days Qty: 60 0RF
sennosides [Laxative (sennosides)] 8.6 mg tablet
8.6 mg PO DAILY 30 Days Qty: 30 0RF
furosemide 20 mg Tablet
20 mg PO DAILY@1400 30 Days Qty: 30 0RF
polyethylene glycol 3350 [Miralax] 17 gram powder in packet
17 g PO DAILY 30 Days Qty: 30 0RF
vancomycin 50 mg/mL Recon Soln
125 mg PO BID 4 Days Qty: 20 0RF
ondansetron HCl 4 mg Tablet
4 mg PO Q6H PRN (Reason: NAUSEA) Qty: 20 0RF
atorvastatin 40 mg Tablet
40 mg PO HS Qty: 30 0RF
acetaminophen 325 mg Tablet
650 mg PO Q4HPRN PRN (Reason: mild pain) Qty: 30 0RF
carvedilol 6.25 mg Tablet
6.25 mg PO BID Qty: 60 0RF
amiodarone [Pacerone] 200 mg Tablet
200 mg PO DAILY Qty: 30 0RF
melatonin 3 mg Tablet
6 mg PO HS Qty: 30 0RF
guaifenesin 100 mg/5 mL Liquid
200 mg PO Q6 Qty: 30 0RF
potassium chloride 20 mEq Tablet,Er Particles/Crystals
20 meq PO DAILY Qty: 30 0RF
pantoprazole 40 mg Tablet,Delayed Release (Dr/Ec)
40 mg PO DAILY Qty: 30 0RF
ferrous sulfate [FeroSul] 325 mg (65 mg iron) Tablet
325 mg PO DAILY Qty: 30 0RF
gabapentin 300 mg Capsule
300 mg PO BID Qty: 60 0RF
hydroxyzine HCl 25 mg Tablet
25 mg PO Q6 Qty: 30 0RF
escitalopram oxalate 10 mg Tablet
15 mg PO DAILY Qty: 30 0RF
apixaban 5 mg Tablet
5 mg PO BID Qty: 0 0RF
apixaban 5 mg Tablet
5 mg PO BID 30 Days Qty: 60 0RF
docusate sodium 100 mg tablet
100 mg PO BID 30 Days Qty: 0 0RF
furosemide 40 mg Tablet
40 mg PO DAILY 30 Days Qty: 30 0RF
polyethylene glycol 3350 17 gram Powder In Packet
17 g PO DAILY 30 Days Qty: 30 0RF
diazepam [Valium] 2 mg Tablet
2 mg PO QIDPRN PRN (Reason: muscle spasms) 3 Days Qty: 12 0RF
oxycodone 5 mg Tablet
5 mg PO Q4HPRN PRN (Reason: moderate pain-continuation of care) 3 Days Qty: 0 0RF
oxycodone 5 mg tablet
5 mg PO Q4H PRN (Reason: moderate pain-continuation of care) 3 Days Qty: 18 0RF
albuterol sulfate 0.63 mg/3 mL solution for nebulization
0.63 mg inhalation QID Qty: 90 0RF
Referrals:
Sukhjinder Leyva, DO [Family Provider, Family Practice]
Activity Restrictions/Additional Instructions:
You to monitor your platelet count earlier today with 19,000 and currently it is 25,000. I think that is good that you took the steroids earlier today. I spoke to our on-call hematology oncology doctor, Dr. Torres, who did not feel that you
necessarily needed transfusion of platelets since you are not having any signs of bleeding. Your hemoglobin is near your baseline currently at 9.5. Dr. 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
options further. Return here if worse or other concerns or if you start bleeding.
Interventions
Interventions:
*Risk Screen - Suicide Last Done: 02/28/25 20:23
*General Assessment Last Done: 02/28/25 20:23
*Neglect/Abuse Screening Last Done: 02/28/25 20:23
*ED- Fall Risk Assessment Last Done: 02/28/25 20:23
*ED COVID-19 Vaccine History Last Done: 02/28/25 20:23
*ED Influenza Vaccine History Last Done: 02/28/25 20:23
*Nursing Disposition Last Done: 03/01/25 00:50
Discharge Date and Time
Discharge Date/Time: 03/01/25 00:50
Print Language: SINHALA
[2025-02-28 23:57] VITALS: BP 135/67
== END 2025-03-01 00:50 | disposition home or self-care (01) ==
LOC: EMR 20:21
PROVIDERS: Emergency Medicine; EMERGENCY PHYSICIAN Emergency Medicine; FAMILY PHYSICIAN Family Medicine
DX: D69.6 Thrombocytopenia, unspecified (principal); C45.9 Mesothelioma, unspecified; D69.3 Immune thrombocytopenic purpura; I48.0 Paroxysmal atrial fibrillation; I11.0 Hypertensive heart disease with heart failure; I50.32 Chronic diastolic (congestive) heart failure; I25.2 Old myocardial infarction; E78.00 Pure hypercholesterolemia, unspecified; Z99.81 Dependence on supplemental oxygen; Z87.891 Personal history of nicotine dependence; Z82.49 Family history of ischemic heart disease and other diseases of the circulatory system
CPT/HCPCS: 99283; 80053; 85025; 86850; 86900; 86901

== ENCOUNTER 2025-03-15 15:53 | Emergency (ER) | payer OTHER, SELFPAY ==
[2025-03-15] VITALS (8 sets, daily range): BP systolic 98–122; BP diastolic 57–91; BMI 37.4
--- NOTE | 2025-03-15 16:30 | ED.GENMED ---
Addendum entered and electronically signed by Xuan David PA-C 03/19/25 11:32:
Wound culture results faxed to [facility] by prenra garcia. .
Original Note:
History of Present Illness
General
Chief Complaint: Post Operative Problem(s)
Source: patient, records and spouse
Exam Limitations: none
Time Seen by Provider: 03/15/25 15:57
Nursing documentation reviewed up to this point in time: agreed with
History of Present Illness
History of Present Illness:
64-year-old female with history as noted significant for hypertension hyperlipidemia, atrial fibrillation, mesothelioma currently on chemotherapy who presents to the emergency department for evaluation of drainage from right chest wall. Patient has
prior pleurectomy scar in the right chest wall. She says that a few days ago she started to notice a large area of swelling that developed almost the size of a baseball. Area was red and painful. She was initially seen by her surgeon at [facility]
yesterday and was scheduled to go in for I&D in the OR and IV antibiotics tomorrow. Today she says that area started to drain which prompted her to come to the ER today. She has not had fever or chills. Denies any shortness of breath. She denies
any other acute complaints. She was seen recently for thrombocytopenia in the setting of her cancer treatment however she says that repeat labs since have shown improvement.
Past History
Past History
ED Past Medical History: GERD, HTN, Hypercholesterolemia, [place] and Other (Mesothelioma); Negative NIDDM
ED Past Surgical History: Cardiac (Cardiac catheterization), Gynecological, Orthopedic and Other (Hernia. Tracheostomy. Radical pleurectomy decortication diaphragm repair)
Social History
Tobacco: Former smoker (Quit smoking approximately 5 years ago.)
Alcohol: None
Personal:
Living: with family
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
Family History
Family History: Early CAD (Father, late 30s, at 43.)
Review of Systems
Review of Systems
All Other Systems: ROS reviewed and negative except as documented in HPI and ROS
Constitutional: Denies fever or chills
Respiratory: Denies trouble breathing
Cardiac: Reports chest pain
ABD/GI: Denies abdominal pain, nausea or vomiting
: Denies flank pain
Musculoskeletal: Denies neck pain or back pain
Neurological: Denies dizzy or headache
Phy Exam
Physical Exam
Physical Exam:
General: Awake, alert, oriented x3; no acute distress
Head: Normocephalic, atraumatic
Eyes: Conjunctiva normal
Throat: Airway intact, handling secretions
Neck: Trachea midline, supple without meningismus
Lungs: Breath sounds are somewhat diminished at the right lung base but no focal wheezing or rales appreciated; no tachypnea or hypoxia noted
Heart: Regular rate and rhythm, no murmurs, gallops, or rubs; patient has right chest wall wound with ariadne purulent drainage as pictured
Abd: Soft, non distended, nontender
Neuro: Grossly intact
Skin: In the right mid axillary line upper chest wall patient has large area of erythema near prior surgical scar with small central opening and ariadne purulent drainage as pictured below
Extremities: Warm and well-perfused
Scores
Heart Failure Risk
Heart Failure Risk Score: Not Applicable
Heart Score for Chest Pain Patients
STEMI patient?: Not applicable
Withdrawal Assessment of Alcohol
Withdrawal Assessment Completed?: Not applicable
Course
Orders/Labs/Results
Orders:
Orders
03/15/25 16:24
Complete Blood Count/With Diff Urgent
Comprehensive Metabolic Panel Urgent
Wound Culture [Wound/Abscess/Other Culture] Urgent
JESU Source: Abscess
Specimen Description:
Date Specimen was Collected: 03/15/25
Time Specimen was Collected: 16:20
03/15/25 16:29
CT Chest W/o Iv Contrast Urgent
Comment:
Reason For Exam: right chest
03/15/25 16:45
Blood Culture Q30M
JESU Source: Blood/Venous
Specimen Description:
03/15/25 17:15
Blood Culture Q30M
JESU Source: Blood/Venous
Specimen Description:
Abnormal Lab Results
03/15/25
16:24
WBC 11.7 H 10^3/uL
(4.8-10.8)
RBC 3.26 L 10^6/uL
(4.20-5.40)
Hgb 10.2 L g/dL
(12.0-16.0)
Hct 31.0 L %
(37.0-47.0)
MCH 31.3 H pg
(27.0-31.0)
MCHC 32.9 L g/dL
(33.0-37.0)
RDW 25.1 H %
(11.5-14.5)
MPV 10.6 H fL
(7.4-10.4)
Carbon Dioxide 31 H mmol/L
(22-30)
Glucose 122 H mg/dl
(70-99)
Alkaline Phosphatase 217 H U/L
(38-126)
03/15/25 16:24
03/15/25 16:24
Vital Signs
Initial and Last Documented VS:
Initial Vital Signs
Temp Pulse Resp BP Pulse Ox
36.6 C 82 22 122/71 95
03/15/25 15:55 03/15/25 15:55 03/15/25 15:55 03/15/25 15:55 03/15/25 15:55
Last Documented Vital Signs
Temp Pulse Resp BP Pulse Ox
36.6 C 74 18 118/65 95
03/15/25 15:55 03/15/25 16:17 03/15/25 16:17 03/15/25 16:17 03/15/25 16:33
MDM/Problems Addressed
Differential Diagnosis Includes:
Chest wall abscess
MDM/Problems Addressed:
64-year-old female with history as noted presents with purulent drainage from right chest wall that she started with a large baseball sized area of swelling there that opened up today and has been draining all day. Vitals and exam as above. She
was supposed to go to [facility] for surgical drainage in the OR tomorrow but given that it opened up she came to the ER today. Send labs including a CBC and a CMP, blood cultures, wound cultures. Check CT chest. Will discuss case with surgical team at
[facility]. Plan for IV antibiotics.
Labs reviewed: CBC shows leukocytosis, improved platelet count. CMP no clinically significant abnormalities. CT chest appears to show right chest wall abscess but lung appears generally normal�awaiting final report. I spoke with patient's surgeon
Dr. Burch at [facility], patient accepted for transfer [facility]. Treat with IV antibiotics, monitor pending transport.
Chronic conditions affecting care:
Mesothelioma
*Pulse Oximetry
SaO2: 95
Nasal Cannula flow liters per minute: 2
Patient hypoxic: no (95% on normal home O2)
*Critical Care Note
Total Time (30-74mins, 75-104mins- exclusive of procedures): Not Applicable
Data Reviewed
Review of Other/Old Records Reveals: Labs and Records
Source: patient, records and family
Patient Management
Discussion with other providers: Cosmetics Counter Manager (Discussed with surgeon at [facility])
Escalation/DeEscalation of care consider admission/obs:
Admission indicated�transfer to [facility]
ED Attending Note
-
Portions of this chart may have been created with voice recognition software.� Occasional wrong word or��sound alike� substitutions may have occurred due to the inherent limitations of voice recognition software.
Discharge Plan
Departure
Patient Disposition: Acute Care Hospital
Date of Disposition: 03/15/25
Time of Disposition: 16:43
Discharge Problem:
Abscess of chest wall
Prescriptions:
No Action
Saline Nasal 0.65 % Aerosol,[place]
2 sprays intranasal QIDPRN PRN (Reason: dry nose/congestion) Qty: 30 0RF
ascorbic acid (vitamin C) 250 mg Tablet
250 mg PO BID
docusate sodium 100 mg tablet
100 mg PO BID 30 Days Qty: 60 0RF
sennosides [Laxative (sennosides)] 8.6 mg tablet
8.6 mg PO DAILY 30 Days Qty: 30 0RF
furosemide 20 mg Tablet
20 mg PO DAILY@1400 30 Days Qty: 30 0RF
polyethylene glycol 3350 [Miralax] 17 gram powder in packet
17 g PO DAILY 30 Days Qty: 30 0RF
vancomycin 50 mg/mL Recon Soln
125 mg PO BID 4 Days Qty: 20 0RF
ondansetron HCl 4 mg Tablet
4 mg PO Q6H PRN (Reason: NAUSEA) Qty: 20 0RF
atorvastatin 40 mg Tablet
40 mg PO HS Qty: 30 0RF
acetaminophen 325 mg Tablet
650 mg PO Q4HPRN PRN (Reason: mild pain) Qty: 30 0RF
carvedilol 6.25 mg Tablet
6.25 mg PO BID Qty: 60 0RF
amiodarone [Pacerone] 200 mg Tablet
200 mg PO DAILY Qty: 30 0RF
melatonin 3 mg Tablet
6 mg PO HS Qty: 30 0RF
guaifenesin 100 mg/5 mL Liquid
200 mg PO Q6 Qty: 30 0RF
potassium chloride 20 mEq Tablet,Er Particles/Crystals
20 meq PO DAILY Qty: 30 0RF
pantoprazole 40 mg Tablet,Delayed Release (Dr/Ec)
40 mg PO DAILY Qty: 30 0RF
ferrous sulfate [FeroSul] 325 mg (65 mg iron) Tablet
325 mg PO DAILY Qty: 30 0RF
gabapentin 300 mg Capsule
300 mg PO BID Qty: 60 0RF
hydroxyzine HCl 25 mg Tablet
25 mg PO Q6 Qty: 30 0RF
escitalopram oxalate 10 mg Tablet
15 mg PO DAILY Qty: 30 0RF
apixaban 5 mg Tablet
5 mg PO BID Qty: 0 0RF
apixaban 5 mg Tablet
5 mg PO BID 30 Days Qty: 60 0RF
docusate sodium 100 mg tablet
100 mg PO BID 30 Days Qty: 0 0RF
furosemide 40 mg Tablet
40 mg PO DAILY 30 Days Qty: 30 0RF
polyethylene glycol 3350 17 gram Powder In Packet
17 g PO DAILY 30 Days Qty: 30 0RF
diazepam [Valium] 2 mg Tablet
2 mg PO QIDPRN PRN (Reason: muscle spasms) 3 Days Qty: 12 0RF
oxycodone 5 mg Tablet
5 mg PO Q4HPRN PRN (Reason: moderate pain-continuation of care) 3 Days Qty: 0 0RF
oxycodone 5 mg tablet
5 mg PO Q4H PRN (Reason: moderate pain-continuation of care) 3 Days Qty: 18 0RF
albuterol sulfate 0.63 mg/3 mL solution for nebulization
0.63 mg inhalation QID Qty: 90 0RF
Referrals:
Sukhjinder Leyva DO [Family Provider, Family Practice]
Hospital Transfer
Other hospital: [facility]
I certify that the patient requires transfer: Yes
Discussed case with accepting physician: Dr. Burch
Reason for transfer: higher level of care, availability of service and continuity of care PCP
Interventions
Interventions:
*Risk Screen - Suicide Last Done: 03/15/25 15:55
*General Assessment Last Done: 03/15/25 15:55
*Neglect/Abuse Screening Last Done: 03/15/25 16:21
*ED- Fall Risk Assessment Last Done: 03/15/25 16:19
*ED COVID-19 Vaccine History Last Done: 03/15/25 16:19
*ED Influenza Vaccine History Last Done: 03/15/25 16:19
ED-Skin Assessment Last Done: 03/15/25 16:22
Discharge Date and Time
Print Language: HEBREW
[2025-03-15 16:49] LABS: Hematocrit 31.0 % (37.0-47.0); Hemoglobin 10.2 g/dL (12.0-16.0); Mean Corp Hgb Conc. 32.9 g/dL (33.0-37.0); Mean Corpuscular Volume 95.1 fL (81.0-99.0); Platelet Count 381 10^3/uL (130-400); Red Cell Dist. Width 25.1 % (11.5-14.5)
[2025-03-15 16:50] LABS: ALT (SGPT) 23 U/L (0-35); AST (SGOT) 30 U/L (14-36); Albumin 3.5 g/dl (3.5-5.0); Alkaline Phosphatase 217 U/L (38-126); Blood Urea Nitrogen 15 mg/dl (7-17); Calcium 9.8 mg/dl (8.4-10.2); Carbon Dioxide 31 mmol/L (22-30); Chloride 101 mmol/L (98-107); Estimated Creatinine Clearance 92 ml/min; Glucose 122 mg/dl (70-99); Potassium 4.3 mmol/L (3.5-5.1); Sodium 139 mmol/L (135-145); Total Protein 6.7 g/dl (6.3-8.2); eGFR > 60.00
[2025-03-15] MEDS: ZOSYN 50 IV (17:40)
[2025-03-15] MEDS: NSS 1000 IV (17:43)
[2025-03-15 17:45] LABS: Nucleated Red Blood Cells % 0.6 %
[2025-03-15 17:46] LABS: Normal RBC Morphology No
[2025-03-15 17:48] LABS: Anisocytosis 2+; Ovalocytes 1+; Polychromasia 1+; Target Cells 1+
[2025-03-15] MEDS: VANCOCIN 540 MG IV (18:14)
== END 2025-03-15 20:57 | disposition short-term general hospital (02) ==
LOC: EMR 15:53
PROVIDERS: EMERGENCY PHYSICIAN Emergency Medicine; FAMILY PHYSICIAN Family Medicine
DX: T81.41XA Infection following a procedure, superficial incisional surgical site, initial encounter (principal); L02.213 Cutaneous abscess of chest wall; B95.61 Methicillin susceptible Staphylococcus aureus infection as the cause of diseases classified elsewhere; Z16.11 Resistance to penicillins; C45.9 Mesothelioma, unspecified; I48.91 Unspecified atrial fibrillation; I10 Essential (primary) hypertension; E78.00 Pure hypercholesterolemia, unspecified; I25.2 Old myocardial infarction; K21.9 Gastro-esophageal reflux disease without esophagitis; Z98.890 Other specified postprocedural states; Z87.891 Personal history of nicotine dependence; Z82.49 Family history of ischemic heart disease and other diseases of the circulatory system
CPT/HCPCS: 99285; 96365; 96361; 71250; 80053; 85025; 87040; 87070; 87147; 87186; 87205